=== PATIENT | female | born 1950 | race Caucasian/White ===

== ENCOUNTER 2024-01-23 18:40 | Inpatient (IN) | payer MEDICARE, OTHER, SELFPAY ==
[2024-01-23] VITALS (9 sets, daily range): BP systolic 91–124; BP diastolic 40–66
[2024-01-23 16:40] LABS: Glucose - Point of Care 543 mg/dl (70-99)
--- NOTE | 2024-01-23 16:40 | ED.GENMED ---
History of Present Illness
<Paola Jose, CHECK OUT CLERK - Last Filed: 01/24/24 16:23>
General
Chief Complaint: Blood Sugar Problem
Source: patient, ambulance crew and care home records
Exam Limitations: dementia
Time Seen by Provider: 01/23/24 16:38
Nursing documentation reviewed up to this point in time: agreed with
History of Present Illness
History of Present Illness:
73 yo female with dementia from [facility] here for 'high' blood sugar. Pt keeps pulling her glucose monitoring pod off of her arms and staff has trouble at times keeping her Blood sugars monitored consistently.
Reportedly had pod replaced today.
This a.m. blood sugar reported 200, later, patient vomited 3-4 times bile material and her pod was off. It was replaced and read 'high' so pt sent here for evaluation.
Pt presents awake, alert, NAD
EMS reports pt stood, pivoted well to stretcher, no significant weakness
Pt is demented, pleasant, poor historian. Touching her belly and asked if she has pain, states 'no,' same with chest, no pain.
Past History
<Paola Jose, CHECK OUT CLERK - Last Filed: 01/24/24 16:23>
Past History
ED Past Medical History: IDDM and Psychiatric (anxiety)
Social History
Tobacco: Non-smoker
Alcohol: None
Personal:
Living: care home
Review of Systems
<Paola Jose, CHECK OUT CLERK - Last Filed: 01/24/24 16:23>
Review of Systems
Allergies reviewed?: Yes
All Other Systems: ROS reviewed and negative except as documented in HPI and ROS
Constitutional: Denies fever
Respiratory: Denies trouble breathing
Cardiac: Denies chest pain
ABD/GI: Reports vomiting (as noted in HPI, no vomiting on arrival); Denies abdominal pain
Musculoskeletal: Denies edema
Skin: Reports no symptoms
Phy Exam
<Paola Jose, CHECK OUT CLERK - Last Filed: 01/24/24 16:23>
Physical Exam
Physical Exam:
GENERAL: No acute distress. Alert, not oriented
CONSTITUTIONAL: Afebrile.
EYES: PERRL, conjunctivae normal
Neck: Supple
ENMT: moist mucus membranes, edentulous, pharynx nl
RESPIRATORY: Regular respirations, nonlabored, lungs clear.
CARDIOVASCULAR: Regular rate and rhythm, no murmurs, no rubs.
GI: Soft, nontender, normal BS
MUSCULOSKELETAL: Moves with ease. Well perfused. No edema
SKIN: Warm, dry, pink
PSYCH: Calm mood and affect. Well kept, interactive, follows commands
NEUROLOGIC: Awake, alert disoriented. No focal neurological deficits.
Course
<Paola Jose, CHECK OUT CLERK - Last Filed: 01/24/24 16:23>
Orders/Labs/Results
Orders:
Orders
01/23/24 16:39
0.9% Sodium Chloride 1000 ml [Nss] 1,000 ml IV BOLUS
01/23/24 16:48
Straight cath- Treatment ONCE
B-Hydroxybutyrate Urgent
Comment: ADD ON
Complete Blood Count/With Diff Urgent
Comprehensive Metabolic Panel Urgent
01/23/24 16:59
Urinalysis Reflex To Culture Urgent
Date Specimen was Collected: 01/23/24
Time Specimen was Collected: 16:58
01/23/24 17:30
Add On- LAB Urgent
Tests Added?: Beta hydroxybuterate
01/23/24 17:52
Electrocardiogram (*1) Urgent
Reason for Study: Other
Other Reason for Exam: hyperglycemia
EKG- Treatment ONCE
01/23/24 17:53
Reg Insulin 100 Units/100 ml [Novolin R Insulin Infusion] 100 units in 100 ml IV NOW
01/23/24 17:54
Venous Blood Gas Urgent
%Oxygen/Room Air: RA
01/23/24 18:05
Admit/Transfer Patient As Directed
Co-Sign Provider:
Level of Care: Inpatient admission
Assign to:: ICU
Physician / Group: selma
Diagnosis: DKA
Reason for Hospitalization: DKA
Expected length of stay greater than two midnights?: Yes
ELOS- Estimated Length of Stay in days: 2
I certify the patient meets the requirements for IP care: Yes
01/23/24 18:06
Code Status As Directed
Resuscitation Status: Full Code
01/23/24 18:33
Glucose Stat
Troponin I Urgent
01/23/24 20:22
Heparin 5,000 units SC Q12
01/23/24 20:22
Activity As Directed
Activity Level: As Tolerated
Bedside Glucose Monitoring As Directed
Frequency: Q1H
Intake/ Output As Directed
Frequency: q12h
Notify MD As Directed
Notify physician if: Nurse to contact provider when glucose reaches 250 to obtain orders for D5 0.45 NaCl
Vital Signs As Directed
Frequency: Per unit guidelines
DX Deep Vein Thrombosis Video Routine
01/23/24 21:32
Glycohemoglobin (HgbA1c) Routine
01/23/24 22:00
Alprazolam [Xanax] 1 mg PO HS
01/24/24 05:34
Complete Blood Count/With Diff IN AM
Abnormal Lab Results
01/23/24 01/23/24 01/23/24
16:39 16:48 16:59
WBC 15.3 H 10^3/uL
(4.8-10.8)
RBC 3.80 L 10^6/uL
(4.20-5.40)
Hct 36.0 L %
(37.0-47.0)
MCH 32.9 H pg
(27.0-31.0)
Abs Immat Gran (auto) 0.1 H 10^3/uL
(0-0.05)
Absolute Neuts (auto) 13.8 H 10^3/uL
(1.4-6.5)
Absolute Lymphs (auto) 0.6 L 10^3/uL
(1.2-3.4)
Absolute Monos (auto) 0.8 H 10^3/uL
(0.1-0.6)
Immature Gran % 0.6 H %
(0-0.5)
Neutrophils % 90.2 H %
(42.2-75.2)
Lymphocytes % 4.0 L %
(20.5-51.1)
VBG pCO2
VBG pO2
VBG HCO3
Carbon Dioxide 12 L* mmol/L
(22-30)
BUN 32 H mg/dl
(7-17)
Glucose 606 H* mg/dl
(70-99)
AST 45 H U/L
(14-36)
Urine Ketones 3+ A
(Negative)
Urine Glucose 3+ A
(Negative)
B-Hydroxybutyrate 6.93 H mmol/L
(0.02-0.27)
POC Glucose 543 H* mg/dl
(70-99)
01/23/24 01/23/24 01/23/24
17:54 18:31 18:33
WBC
RBC
Hct
MCH
Abs Immat Gran (auto)
Absolute Neuts (auto)
Absolute Lymphs (auto)
Absolute Monos (auto)
Immature Gran %
Neutrophils %
Lymphocytes %
VBG pCO2 31 L mmHg
(35-48)
VBG pO2 157 H mmHg
(30-50)
VBG HCO3 16.0 L mmol/L
(27)
Carbon Dioxide
BUN
Glucose 492 H* mg/dl
(70-99)
AST
Urine Ketones
Urine Glucose
B-Hydroxybutyrate
POC Glucose 454 H* mg/dl
(70-99)
01/23/24 16:48
01/23/24 18:33
Vital Signs
Initial and Last Documented VS:
Initial Vital Signs
Temp Pulse Resp BP Pulse Ox
98.7 F 84 19 113/45 96
01/23/24 16:39 01/23/24 16:39 01/23/24 16:39 01/23/24 16:39 01/23/24 16:39
Last Documented Vital Signs
Temp Pulse Resp BP Pulse Ox
98.2 F 53 17 135/73 94
01/24/24 15:27 01/24/24 12:00 01/24/24 12:00 01/24/24 10:00 01/23/24 22:38
Traffic Assistant consulted with Physician
Traffic Assistant consulted with physician?: Yes
Name of Physician Consulted: Yakov
<Quique Nagy, DO - Last Filed: 01/23/24 17:52>
Orders/Labs/Results
Orders:
Orders
01/23/24 16:39
0.9% Sodium Chloride 1000 ml [Nss] 1,000 ml IV BOLUS
01/23/24 16:48
Straight cath- Treatment ONCE
B-Hydroxybutyrate Urgent
Comment: ADD ON
Complete Blood Count/With Diff Urgent
Comprehensive Metabolic Panel Urgent
01/23/24 16:59
Urinalysis Reflex To Culture Urgent
Date Specimen was Collected: 01/23/24
Time Specimen was Collected: 16:58
01/23/24 17:30
Add On- LAB Urgent
Tests Added?: Beta hydroxybuterate
01/23/24 17:52
Electrocardiogram (*1) Urgent
Reason for Study: Other
Other Reason for Exam: hyperglycemia
EKG- Treatment ONCE
01/23/24 17:53
Reg Insulin 100 Units/100 ml [Novolin R Insulin Infusion] 100 units in 100 ml IV NOW
01/23/24 17:54
Venous Blood Gas Urgent
%Oxygen/Room Air: RA
01/23/24 18:05
Admit/Transfer Patient As Directed
Co-Sign Provider:
Level of Care: Inpatient admission
Assign to:: ICU
Physician / Group: selma
Diagnosis: DKA
Reason for Hospitalization: DKA
Expected length of stay greater than two midnights?: Yes
ELOS- Estimated Length of Stay in days: 2
I certify the patient meets the requirements for IP care: Yes
01/23/24 18:06
Code Status As Directed
Resuscitation Status: Full Code
01/23/24 18:33
Glucose Stat
Troponin I Urgent
01/23/24 20:22
Heparin 5,000 units SC Q12
01/23/24 20:22
Activity As Directed
Activity Level: As Tolerated
Bedside Glucose Monitoring As Directed
Frequency: Q1H
Intake/ Output As Directed
Frequency: q12h
Notify MD As Directed
Notify physician if: Nurse to contact provider when glucose reaches 250 to obtain orders for D5 0.45 NaCl
Vital Signs As Directed
Frequency: Per unit guidelines
DX Deep Vein Thrombosis Video Routine
01/23/24 21:32
Glycohemoglobin (HgbA1c) Routine
01/23/24 22:00
Alprazolam [Xanax] 1 mg PO HS
01/24/24 05:34
Complete Blood Count/With Diff IN AM
Abnormal Lab Results
01/23/24 01/23/24 01/23/24
16:39 16:48 16:59
WBC 15.3 H 10^3/uL
(4.8-10.8)
RBC 3.80 L 10^6/uL
(4.20-5.40)
Hct 36.0 L %
(37.0-47.0)
MCH 32.9 H pg
(27.0-31.0)
Abs Immat Gran (auto) 0.1 H 10^3/uL
(0-0.05)
Absolute Neuts (auto) 13.8 H 10^3/uL
(1.4-6.5)
Absolute Lymphs (auto) 0.6 L 10^3/uL
(1.2-3.4)
Absolute Monos (auto) 0.8 H 10^3/uL
(0.1-0.6)
Immature Gran % 0.6 H %
(0-0.5)
Neutrophils % 90.2 H %
(42.2-75.2)
Lymphocytes % 4.0 L %
(20.5-51.1)
VBG pCO2
VBG pO2
VBG HCO3
Carbon Dioxide 12 L* mmol/L
(22-30)
BUN 32 H mg/dl
(7-17)
Glucose 606 H* mg/dl
(70-99)
AST 45 H U/L
(14-36)
Urine Ketones 3+ A
(Negative)
Urine Glucose 3+ A
(Negative)
B-Hydroxybutyrate 6.93 H mmol/L
(0.02-0.27)
POC Glucose 543 H* mg/dl
(70-99)
01/23/24 01/23/24 01/23/24
17:54 18:31 18:33
WBC
RBC
Hct
MCH
Abs Immat Gran (auto)
Absolute Neuts (auto)
Absolute Lymphs (auto)
Absolute Monos (auto)
Immature Gran %
Neutrophils %
Lymphocytes %
VBG pCO2 31 L mmHg
(35-48)
VBG pO2 157 H mmHg
(3050)
VBG HCO3 16.0 L mmol/L
()
Carbon Dioxide
BUN
Glucose 492 H* mg/dl
(70-99)
AST
Urine Ketones
Urine Glucose
B-Hydroxybutyrate
POC Glucose 454 H* mg/dl
(70-99)
01/23/24 16:48
01/23/24 18:33
Vital Signs
Initial and Last Documented VS:
Initial Vital Signs
Temp Pulse Resp BP Pulse Ox
98.7 F 84 19 113/45 96
01/23/24 16:39 01/23/24 16:39 01/23/24 16:39 01/23/24 16:39 01/23/24 16:39
Last Documented Vital Signs
Temp Pulse Resp BP Pulse Ox
98.2 F 53 17 135/73 94
01/24/24 15:27 01/24/24 12:00 01/24/24 12:00 01/24/24 10:00 03/27/24 22:38
<Paola Jose CHECK OUT CLERK - Last Filed: 01/24/24 16:23>
MDM/Problems Addressed
Differential Diagnosis Includes:
hyperglycemia, DKA, HHNK, UTI
MDM/Problems Addressed:
73 yo female with dementia from [facility] here for 'high' blood sugar. Pt keeps pulling her glucose monitoring pod off of her arms and staff has trouble at times keeping her Blood sugars monitored consistently.
Reportedly had pod replaced today.
This a.m. blood sugar reported 200, later, patient vomited 3-4 times bile material and her pod was off. It was replaced and read 'high' so pt sent here for evaluation.
Pt presents awake, alert, NAD
EMS reports pt stood, pivoted well to stretcher, no significant weakness
Pt is demented, pleasant, poor historian. Touching her belly and asked if she has pain, states 'no,' same with chest, no pain.
Alert, NAD, afebrile
5:28 PM
CBC: WBC 15.3, neutrophilia
CMP: CO2 12, BUN 32
Anion gap [address] Nagy
5:34 PM
Blood glucose 606
Wt 58.3 kg x 0.05= 2.915 U
Insulin drip at 3U/hr ordered
VBG pending
Hdroxybuterate pending
Plan: Admit: Hyperglycemia , Type 2 DM, vomiting
<Paola Jose, CHECK OUT CLERK - Last Filed: 01/24/24 16:23>
*Critical Care Note
Total Time (30-74mins, 75-104mins- exclusive of procedures): Not Applicable
ED Attending Note
<Paola Jose, CHECK OUT CLERK - Last Filed: 01/24/24 16:23>
-
Portions of this chart may have been created with voice recognition software.� Occasional wrong word or��sound alike� substitutions may have occurred due to the inherent limitations of voice recognition software.
<Quique Nagy, DO - Last Filed: 01/23/24 17:52>
ED Attending Note
Patient seen and examined by attending physician: Yes
I performed the substantive portion of visit, reviewed & personally made and approve the management plan that is documented in note by myself or GELA.: Yes
ED Attending Note:
I agree with Haley's note
Patient sent to the emergency room from her care home due to elevated glucose levels, vomiting today. Patient has significant dementia and is essentially nonverbal. Unclear if she is been receiving insulin.
General: Sleeping but arousable. Significantly confused
Vitals: unremarkable
Head: Atraumatic
Eyes: Pupils equal, EOMI
Throat: Airway intact, no exudates, dry mucosa
Neck: Trachea midline
Lungs: Clear and equal b/l
Heart: Regular rate, no murmurs
Abd: Soft, Nontender, No pulsatile mass
Neuro: Nonfocal
Skin: Warm, dry, no rash
Extremities: pulses equal b/l, no edema
Discharge Plan
Departure
Patient Disposition: Admit
Date of Disposition: 01/23/24
Time of Disposition: 17:48
Admit to: IMU
Presentation/result/management discussed w/ accepting MD/DO: Hospitalist
Condition: Fair
Discharge Problem:
Type 2 diabetes mellitus, Acute hyperglycemia, Vomiting
Interventions
Interventions:
*Risk Screen - Suicide Last Done: 01/23/24 17:00
*General Assessment Last Done: 01/23/24 17:00
*Neglect/Abuse Screening Last Done: 01/23/24 17:00
ED- Fall Risk Assessment Last Done: 01/23/24 17:00
*ED COVID-19 Vaccine History Last Done: 01/23/24 20:19
*Nursing Disposition Last Done: 01/23/24 20:19
ED- Neurological Assessment Last Done: 01/23/24 17:00
Discharge Date and Time
Discharge Date/Time: 01/23/24 20:19
[2024-01-23] MEDS: NSS 1000 IV (16:47)
[2024-01-23 17:06] LABS: % Basophils 0.1 % (0-2); % Immature Granulocytes 0.6 % (0-0.5); % Monocytes 5.1 % (1.7-9.3); % Neutrophils 90.2 % (42.2-75.2); Absolute Immature Granulocytes 0.1 10^3/uL (0-0.05); Absolute Lymphocytes 0.6 10^3/uL (1.2-3.4); Absolute Monocytes 0.8 10^3/uL (0.1-0.6); Absolute Neutrophils 13.8 10^3/uL (1.4-6.5); Hemoglobin 12.5 g/dL (12.0-16.0); Mean Corp Hgb Conc. 34.7 g/dL (33.0-37.0); Mean Corpuscular Hgb 32.9 pg (27.0-31.0); Mean Corpuscular Volume 94.7 fL (81.0-99.0); Mean Platelet Volume 9.2 fL (7.4-10.4); Nucleated Red Blood Cells % 0 %; Platelet Count 255 10^3/uL (130-400); Red Cell Dist. Width 13.7 % (11.5-14.5); White Blood Cell Count 15.3 10^3/uL (4.8-10.8)
[2024-01-23 17:26] LABS: ALT (SGPT) 29 U/L (0-35); AST (SGOT) 45 U/L (14-36); Albumin 4.3 g/dl (3.5-5.0); Alkaline Phosphatase 91 U/L (38-126); Blood Urea Nitrogen 32 mg/dl (7-17); Calcium 9.9 mg/dl (8.4-10.2); Carbon Dioxide 12 mmol/L (22-30); Chloride 107 mmol/L (98-107); Potassium 4.4 mmol/L (3.5-5.1); Sodium 139 mmol/L (135-145); Total Bilirubin 0.9 mg/dl (0.2-1.3); Total Protein 6.9 g/dl (6.3-8.2); eGFR > 60.00
[2024-01-23 17:27] LABS: Urine Albumin Negative (Neg - Trace); Urine Bilirubin Negative (Negative); Urine Character Clear (Clear); Urine Color Yellow; Urine Glucose 3+ (Negative); Urine Ketone 3+ (Negative); Urine Leukocyte Negative (Negative); Urine Nitrite Negative (Negative); Urine Occult Blood Negative (Negative); Urine Urobilinogen Negative (Neg - 1+)
[2024-01-23 17:33] LABS: Glucose 606 mg/dl (70-99)
[2024-01-23 18:02] LABS: Venous Blood Gas O2 Sat % 99.2 %; Venous Blood Gas pCO2 31 mmHg (35-48); Venous Blood Gas pH 7.32 (7.32-7.43); Venous Blood Gas pO2 157 mmHg (30-50)
--- NOTE | 2024-01-23 18:09 | HPS.HSE ---
Family Physician
-
Family Physician: Jose Manuel Yuan
Chief Complaint
-
elevated blood sugar
History of Present Illness
73-year-old female past medical history of diabetes, dementia, anxiety, presenting from [facility] for high blood sugar. This morning blood sugar was 200 and later patient vomited 3-4 times with bilious material. Staff has apparently been
having difficulty tracking her blood sugars but she keeps taking off her glucose monitor. Patient unable to provide history due to significant dementia but is awake and alert and denies any symptoms at this time.
Medical History
Past Medical History
Past Medical History: Reports Other (diabetes, dementia, anxiety,)
Past Surgical History: Reports None
Social History
Tobacco: Non-smoker
Alcohol: None
Drug: None
Family History
Family History: Not pertinent
Allergies / Home Medications
Allergies reflects when Allergies were last updated in [employer].
Home Medications with original date entered in [employer]
Allergy/Medication List:
Allergies
Allergy/AdvReac Type Severity Reaction Status Date / Time
Cephalosporins Allergy Unverified 02/20/08 19:25
penicillin G Allergy Unverified 02/20/08 19:25
Penicillins Allergy Unverified 02/20/08 19:25
Home Medications
alprazolam 0.25 mg tablet 0.25 mg PO Q6H PRN anxiety/restlessness 01/23/24
alprazolam 1 mg tablet 1 mg PO HS 01/23/24
insulin lispro 100 unit/mL subcutaneous solution (Humalog U-100 Insulin) 0 sliding scale dose SC .SEE BELOW 01/23/24
Review of Systems
-
History Source: Patient
A 12 point ROS was completed and negative except as noted: Yes
Constitutional: Reports No Symptoms
EENT: Reports No Symptoms
Respiratory: Reports No Symptoms
Cardiac: Reports No Symptoms
Abdomen/GI: Reports No Symptoms
: Reports No Symptoms
Musculoskeletal: Reports No Symptoms
Skin: Reports No Symptoms
Neurological: Reports No Symptoms
Endocrine: Reports No Symptoms
Hematologic/Lymphatic: Reports No Symptoms
Psych: Reports No Symptoms
Physical Exam
Vital Signs
Vital Signs
Temp Pulse Resp BP Pulse Ox
98.7 F 84 19 113/45 96
01/23/24 16:39 01/23/24 16:39 01/23/24 16:39 01/23/24 16:39 01/23/24 16:39
Physical Exam
General: Well Developed, Well Nourished and No Apparent Distress
HEENT: NormoCephalic, Moist mucous membranes and Atraumatic
Respiratory: Clear
Cardiac: S1/S2 and Regular Rhythm; No Murmur or Rub
GI: Soft, Non Tender, Non Distended and Normal Bowel Sounds; No Organomegaly
Rectal: Deferred by Provider
Musculoskeletal: No Clubbing, No Cyanosis and No Edema
Skin: No Rash
Neuro: Nonfocal/grossly intact
Laboratory Results
-
01/23/24 16:48
01/23/24 16:48
Laboratory Results
Total Bilirubin 0.9 mg/dl (0.2-1.3) 01/23/24 16:48
AST 45 U/L (14-36) H 01/23/24 16:48
ALT 29 U/L (0-35) 01/23/24 16:48
Alkaline Phosphatase 91 U/L (38-126) 01/23/24 16:48
Data Reviewed
-
Lab Data: Labs Reviewed by me
Old Records: Reviewed
Impression/Plan
-
IMPRESSION:
PLAN:
# DKA
# Anion gap metabolic acidosis
# History of diabetes, unknown type
-Blood sugar 600
-VBG pending
-N.p.o.
-D5 1/2 NS with 20 of potassium at 150 cc/hr
-Insulin drip
-Check BMP every 2 hours
-Check glucose every hour
-Check A1c
-Urinalysis negative
Severe dementia
Anxiety
-Continue Xanax
Full code (unable to verify with paperwork)
DVT prophylaxis�heparin
N.p.o.
[2024-01-23] MEDS: NOVOLIN R INSULIN INFUSION 100 IV (18:17)
[2024-01-23 18:23] LABS: B-Hydroxybutyrate 6.93 mmol/L (0.02-0.27)
[2024-01-23 18:32] LABS: Glucose - Point of Care 454 mg/dl (70-99)
[2024-01-23 19:06] LABS: Troponin I 0.022 ng/ml
[2024-01-23 19:08] LABS: Glucose 492 mg/dl (70-99)
[2024-01-23] MEDS: ATIVAN 0.5 MG IV (19:21)
[2024-01-23 19:37] LABS: Glucose - Point of Care 428 mg/dl (70-99)
[2024-01-23 20:11] LABS: Glucose 451 mg/dl (70-99)
--- NOTE | 2024-01-23 20:30 | PTCARENOTE ---
Patient received from ED, awake and alert, unable to follow commands. Patient trying to get OOB, pull off equipment, tearful, unable to re direct. NSR on monitor, no edema noted. Lungs clear, pulse ox 94-97% on room air. Abdomen soft. Assisted
patient to bathroom to void. Skin intact. Bilateral 20 g hand IVs flushed and patent, insulin gtt infusing at 3 units/ hr. CHG bath given, bed alarm on.
[2024-01-23 21:08] LABS: Glucose - Point of Care 432 mg/dl (70-99)
[2024-01-23] MEDS: NSS with KCL 20 MEQ 1000 IV (21:15)
[2024-01-23] MEDS: XANAX 1 MG PO (21:15)
[2024-01-23] MEDS: HEPARIN 5000 UNITS SC (21:15)
[2024-01-23 21:52] LABS: PT 13.2 Sec (11.4-14.6)
[2024-01-23 21:53] LABS: APTT 27.2 Sec (23.4-35.0); Blood Urea Nitrogen 35 mg/dl (7-17); Carbon Dioxide 21 mmol/L (22-30); Chloride 109 mmol/L (98-107); Glucose 405 mg/dl (70-99); Magnesium 2.3 mg/dl (1.6-2.3); Potassium 3.8 mmol/L (3.5-5.1); Sodium 143 mmol/L (135-145); eGFR > 60.00
[2024-01-23 22:14] LABS: Glucose - Point of Care 362 mg/dl (70-99)
[2024-01-23 23:17] LABS: Glucose - Point of Care 320 mg/dl (70-99)
[2024-01-24] VITALS (13 sets, daily range): BP systolic 88–144; BP diastolic 40–74
[2024-01-24 00:04] LABS: Phosphorus 2.9 mg/dl (2.5-4.5)
[2024-01-24] MEDS: D5/0.45%NSS with KCL 20 MEQ 1000 IV ×2 (00:23→06:26)
[2024-01-24 00:24] LABS: Glucose - Point of Care 241 mg/dl (70-99)
--- NOTE | 2024-01-24 00:25 | PTCARENOTE ---
Blood sugar noted, notified SHIFTMAN, IVF changed per protocol. patient sleeping, no changes in assessment
[2024-01-24 01:16] LABS: Glucose - Point of Care 214 mg/dl (70-99)
[2024-01-24 02:17] LABS: Glucose - Point of Care 228 mg/dl (70-99)
[2024-01-24 02:37] LABS: Blood Urea Nitrogen 36 mg/dl (7-17); Calcium 9.8 mg/dl (8.4-10.2); Carbon Dioxide 23 mmol/L (22-30); Chloride 117 mmol/L (98-107); Glucose 222 mg/dl (70-99); Potassium 4.4 mmol/L (3.5-5.1); Sodium 145 mmol/L (135-145); eGFR > 60.00
[2024-01-24 03:14] LABS: Glucose - Point of Care 201 mg/dl (70-99)
--- NOTE | 2024-01-24 03:21 | PTCARENOTE ---
Patient reassessed, sleeping when not disturbed. However, patient becomes uncooperative with care, pulls off equipment, takes multiple people to draw labs from patient. IVF and insulin gtt maintained
[2024-01-24 04:08] LABS: Glucose - Point of Care 226 mg/dl (70-99)
[2024-01-24 05:18] LABS: Glucose - Point of Care 156 mg/dl (70-99)
[2024-01-24 05:43] LABS: Venous Blood Gas B.E. -0.3 mmol/L (-4 to +4); Venous Blood Gas HCO3 25.9 mmol/L (22-27); Venous Blood Gas O2 Sat % 81.5 %; Venous Blood Gas pCO2 48 mmHg (35-48); Venous Blood Gas pH 7.34 (7.32-7.43); Venous Blood Gas pO2 47 mmHg (30-50)
--- NOTE | 2024-01-24 05:47 | PTCARENOTE ---
Patient unable to cooperate for CXR
[2024-01-24 05:53] LABS: % Basophils 0.2 % (0-2); % Eosinophils 0.1 % (0-6); % Immature Granulocytes 0.5 % (0-0.5); % Lymphocytes 7.8 % (20.5-51.1); % Monocytes 8.3 % (1.7-9.3); % Neutrophils 83.1 % (42.2-75.2); Absolute Immature Granulocytes 0.1 10^3/uL (0-0.05); Absolute Lymphocytes 1.2 10^3/uL (1.2-3.4); Absolute Monocytes 1.3 10^3/uL (0.1-0.6); Absolute Neutrophils 12.6 10^3/uL (1.4-6.5); Hematocrit 32.8 % (37.0-47.0); Hemoglobin 11.2 g/dL (12.0-16.0); Mean Corp Hgb Conc. 34.1 g/dL (33.0-37.0); Mean Corpuscular Hgb 32.3 pg (27.0-31.0); Mean Corpuscular Volume 94.5 fL (81.0-99.0); Mean Platelet Volume 9.1 fL (7.4-10.4); Nucleated Red Blood Cells % 0 %; Platelet Count 229 10^3/uL (130-400); Red Blood Cell Count 3.47 10^6/uL (4.20-5.40); Red Cell Dist. Width 13.8 % (11.5-14.5); White Blood Cell Count 15.1 10^3/uL (4.8-10.8)
[2024-01-24 06:10] LABS: Blood Urea Nitrogen 38 mg/dl (7-17); Calcium 9.8 mg/dl (8.4-10.2); Carbon Dioxide 25 mmol/L (22-30); Chloride 113 mmol/L (98-107); Glucose 165 mg/dl (70-99); Magnesium 2.3 mg/dl (1.6-2.3); Phosphorus 3.3 mg/dl (2.5-4.5); Potassium 4.5 mmol/L (3.5-5.1); Sodium 144 mmol/L (135-145); eGFR > 60.00
[2024-01-24 06:10] LABS: Glucose - Point of Care 151 mg/dl (70-99)
[2024-01-24 07:11] LABS: Glucose - Point of Care 161 mg/dl (70-99)
[2024-01-24 08:13] LABS: Glucose - Point of Care 148 mg/dl (70-99)
--- NOTE | 2024-01-24 08:28 | W.PN.HOSP.TC ---
Today's Communication/Plan
-
Stable for telemetry
Assessment / Plan
Assessment / Plan
73-year-old female past medical history of diabetes, dementia, anxiety, presenting from [facility] for high blood sugar. This morning blood sugar was 200 and later patient vomited 3-4 times with bilious material. Staff has apparently been
having difficulty tracking her blood sugars but she keeps taking off her glucose monitor. Patient unable to provide history due to significant dementia but is awake and alert and denies any symptoms at this time.
# DKA
# Anion gap metabolic acidosis
# History of diabetes, unknown type
Blood sugar 600, beta hydroxybutyric acid 6.93
Gap resolved on insulin drip
Stop insulin drip, start subcu insulin, diabetic diet, Accu-Cheks ACHS
#Uncontrolled diabetes with hyperglycemia
Hemoglobin A1c 10.5
Started on Lantus 20 units daily, NovoLog 5 units AC 3 times daily, sliding scale insulin, diabetic diet
#Leukocytosis
Afebrile, no signs or symptoms of infection, UA negative for infection
Likely reactive, continue to monitor
#Severe dementia
Anxiety
-Continue Xanax
DVT prophylaxis�SQ Lovenox
Full code (unable to verify with paperwork)
Updated at bedside
Total time spent to see the patient on the floor, examine the patient, review data and lab results, discuss treatment plan with patient, nursing staff around 51 minutes.
Physical Exam
General: Frail, elderly, no acute distress
HEENT: Normocephalic, Atraumatic, EOMI, MMM
Respiratory: Clear to Auscultation bilaterally
Cardiac: Normal S1/S2, Regular Rate and Rhythm
GI: Soft, Nontender, Nondistended, Normal Bowel Sounds
Extremities: No Clubbing, Cyanosis, or Edema
Neuro: Confused, not answering questions
Psych: Intermittently agitated
Derm: No Visible lesions
Anticipated Discharge: Within 24 hours
Subjective/Interval History
-
Date of Service: January 24, 2024
Patient alert, awake, eating breakfast and drinking well. She refuses to answer questions. No fever, no vomiting.
Objective Data
-
Labs:
Laboratory Results
01/23/24 01/24/24 01/24/24
21:32 02:02 04:00
WBC
Hgb
Hct
Plt Count
PT 13.2
INR 1.00
APTT 27.2
Sodium 143 145 Cancelled
Potassium 3.8 4.4 Cancelled
Chloride 109 H 117 H Cancelled
Carbon Dioxide 21 L 23 Cancelled
BUN 35 H 36 H Cancelled
Creatinine 0.7 0.6 Cancelled
Glucose 405 H 222 H Cancelled
Calcium 10.0 9.8 Cancelled
01/24/24 01/24/24 01/24/24
05:34 12:00 16:00
WBC 15.1 H
Hgb 11.2 L
Hct 32.8 L
Plt Count 229
PT
INR
APTT
Sodium 144 Cancelled Cancelled
Potassium 4.5 Cancelled Cancelled
Chloride 113 H Cancelled Cancelled
Carbon Dioxide 25 Cancelled Cancelled
BUN 38 H Cancelled Cancelled
Creatinine 0.5 L Cancelled Cancelled
Glucose 165 H Cancelled Cancelled
Calcium 9.8 Cancelled Cancelled
01/24/24
20:00
WBC
Hgb
Hct
Plt Count
PT
INR
APTT
Sodium Cancelled
Potassium Cancelled
Chloride Cancelled
Carbon Dioxide Cancelled
BUN Cancelled
Creatinine Cancelled
Glucose Cancelled
Calcium Cancelled
Vital Signs:
Vital Signs
Temp Pulse Resp BP Pulse Ox
98.8 F 61 17 103/61 94
01/24/24 07:49 01/24/24 05:00 01/24/24 05:00 01/24/24 05:00 01/23/24 22:38
I&O
01/23/24 01/24/24 01/25/24
06:59 06:59 06:59
Intake Total 1536 / 1536
Balance 1536 / 1536
--- NOTE | 2024-01-24 08:30 | PTCARENOTE ---
Assumed care of patient. Pt rec'd sleeping. Arouses to tactile stimuli. Anxious, tearful, agitated w/ any nursing care. Occasionally smiles but overall appears stressed and confused. GREY's....does not follow any commands. S1 S2 reg w/ SB on
monitor. +PP. No edema. On R/A...lungs diminished. Abdomen round..hypo BS. Ambulated pt to bathroom w/ assist x 2. Extremely agitated prior to urination....agitation relieved w/ urination. Skin WNL. IVF's and insulin gtt infusing...see
interventions. VS documented. Bed alarm on. Will continue to monitor closely.
--- NOTE | 2024-01-24 08:33 | CON.INTV ---
Addendum entered and electronically signed by Parish Ramos MD 01/24/24 18:25:
Patient is being prepared for transfer to telemetry. Prosthetist/pulmonary service will now sign off. Thank you for allowing us to be involved in the care of this patient. Please reconsult if there are any additional questions/concerns, or if
patient's respiratory status deteriorates.
Original Note:
Consultation
Consultation Request
Date/Time Consultation Requested: 01/24/2024826
Date/Time Consultation Performed: 01/24/2024830
Requesting Provider: Dr. Lozano
Performing Provider: Dr. Ramos
Reason for Consultation: DKA
Medical History
-
Chief Complaint: High blood sugar
History of Present Illness:
73-year-old F with PMHx of DM type II & advanced dementia who p/w high blood glucose. She was found to have metabolic acidosis with sHCO3 of 12 and BG of 606. Urine ketones are +3. BOHB was elevated at 6.93. She was given 1L NS 0.9% and started
on insulin gtt, and admitted to ICU. Prosthetist service consulted for additional management/recommendations.
When I saw the patient this morning she was resting in bed on room air, breathing comfortably and respiratory rate at 17. BP 102/58 and she is afebrile at 98.8 �F. When nursing care was attempted the patient did get very agitated and tried to hit
the staff. at bedside and said that sometimes she does do this although the patient lives at a memory care dementia unit so he is not always fully aware of her outbursts. She is otherwise calm and in no acute distress. Unable to obtain
HPI from the patient given her advanced dementia.
Per family (), the patient lives at a Memory Care unit for advanced dementia. She possibly did not have her Omnipod fully into her skin. The pt was also eating candy's from other patient's rooms. The patient was only started on this
Omnipod for last 2 weeks; prior to that she was on SQ insulin.
PMHx: DM type II, dementia, anxiety
PSHx: Noncontributory
Past Medical History
Past Medical History: Other (above as per HPI)
Past Surgical History: Other (above as per HPI)
Social History
Tobacco: Non-smoker
Alcohol: None
Drug: None
Family History
Family History: Reviewed & Not Pertinent
Allergies / Home Medications
Allergies
Allergy/AdvReac Type Severity Reaction Status Date / Time
Cephalosporins Allergy Unknown Unknown Verified 01/23/24 19:15
Penicillins Allergy Unknown Unknown Verified 01/23/24 19:15
Home Medications
�Medication �Instructions �Recorded �Confirmed �Last Taken �Type
alprazolam 0.25 mg tablet 0.25 mg PO Q6H PRN 01/23/24 01/23/24 Unknown History
anxiety/restlessness
alprazolam 1 mg tablet 1 mg PO HS 01/23/24 01/23/24 Unknown History
insulin lispro 100 unit/mL 0 sliding scale dose SC .SEE BELOW 01/23/24 01/23/24 Unknown History
subcutaneous solution (Humalog
U-100 Insulin)
Review of Systems
-
Unable to Obtain full review of systems at this time due to: Dementia
Vitals / Labs / Diagnostic Testing
Vital Signs
Temp Pulse Resp BP Pulse Ox
98.8 F 61 17 103/61 94
01/24/24 07:49 01/24/24 05:00 01/24/24 05:00 01/24/24 05:00 01/23/24 22:38
Lab Data
01/24/24 05:34
01/24/24 20:00
Laboratory Results
01/23/24
21:32
PT 13.2
INR 1.00
APTT 27.2
Diagnostic Testing:
Physical Exam
-
HEENT: Normocephalic and Anicteric
Cardiovascular: S1/S2 and Peripheral Edema (negative)
Respiratory: Clear, Wheeze (n), Rales (n), Rhonchi (n) and Non-Labored Respirations
GI: Soft, Non Distended and Non Tender
Neurology: Awake, Alert and Tremors (n)
Skin: Warm and Dry
General: Comfortable and Sweats (n)
Assessment
-
Assessment: 73-year-old F with PMHx of DM type II & advanced dementia who p/w high blood glucose. She was found to have metabolic acidosis with sHCO3 of 12 and BG of 606. Urine ketones are +3. BOHB was elevated at 6.93. She was given 1L NS 0.9%
and started on insulin gtt, and admitted to ICU. Prosthetist service consulted for additional management/recommendations.
Chronic medical conditions PATROL MOTHER: DM type II, dementia, anxiety
Impression:
#DM type II c/b DKA without coma - DKA now resolved as of this AM (diabetes is uncontrolled with HbA1C: 10.5)
#Metabolic acidosis with increased AG due to above - AG now closed and acidosis resolved
#Leukocytosis - likely reactive due to above
#Anxiety
#Dementia
Plan:
- Wean off insulin gtt and use basal-bolus insulin
- Continue q1hr POCT glucose while on insulin gtt and continue IVF hydration with D5-1/2NS with KCl @ 150mL/hr
- Serial labs with BMP q4hr, Mg and PO4 while on insulin gtt; once off then change back to qAM
- Once off insulin gtt then stop D5 IVF and change POCT to pre-meal/HS
- Once off insulin gtt then can start ADA diet
- Goal BG 140-180mg/dL
- Trend WBC and observe off ABx; if pt spikes fever then faulkner-Cx and start broad spectrum Abx
- Maintain MAP>65
- Replete electrolytes with K>4, Mg>2
- SW consult as eventually pt will be DC'd back to her dementia unit
- stress ulcer ppx: N/A
- DVT ppx: LMWH
Total time spent today was 55 minutes for this encounter. Time includes reviewing laboratory test/imaging results, reviewing pertinent medical records, obtaining and reviewing medical history, performing an appropriate exam, ordering medications,
tests and procedures. Time also includes documentation of this encounter, coordinating patient care and communicating with other healthcare professionals. Total time does not include separately billed tests performed on this date of service.
[2024-01-24 08:44] LABS: Glycohemoglobin (HgbA1c) 10.5 % (4.0-5.6)
--- NOTE | 2024-01-24 09:00 | PTCARENOTE ---
Spoke w/ Costa at [facility] at length about pt's insulin requirements. Costa stated that pt was on a new omnipod system in the last two weeks. Prior to that, pt was on tresiba w/ meal coverage. Pharmacy fully updated. Discussed plan
of care w/ ...orders rec'd. Pt to advance to 1800 na ada diet w/ lantus and meal coverage.
[2024-01-24] MEDS: 0.45%NACL 1000 IV (09:09)
[2024-01-24] MEDS: HEPARIN 5000 UNITS SC (09:11)
[2024-01-24 09:15] LABS: Glucose - Point of Care 153 mg/dl (70-99)
[2024-01-24] MEDS: LANTUS 0.200000000000000011 UNITS SC (09:39)
[2024-01-24] MEDS: ATIVAN 0.5 MG IV ×2 (10:14→22:32)
--- NOTE | 2024-01-24 10:30 | PTCARENOTE ---
Pts at bedside. Fully updated on patient's plan of care. Insulin gtt off...lantus added and breakfast ordered.
[2024-01-24] MEDS: NOVOLOG FLEXPEN 5 UNITS SC ×2 (10:32→17:52)
[2024-01-24] MEDS: NOVOLOG FLEXPEN-MODERATE RESISTANCE 1 UNITS SC (10:32)
[2024-01-24 10:44] LABS: Glucose - Point of Care 161 mg/dl (70-99)
--- NOTE | 2024-01-24 11:30 | PTCARENOTE ---
Pt extremely anxious, cursing, and combative for short period while changing pt's linens. Pt calmed shortly after...warm blanket applied. Tx to tele per when bed available.
--- NOTE | 2024-01-24 12:57 | CM ---
CM following re: discharge planning.
Discussed in Rounds, reviewed pt's chart, met with p[t, left a message to pt's , left a message to clinical director at [facility] and spoke to pt's son Sergio.
Pt is a 73 year old female, admitted with primary dx of DKA.
Pt is not a great historian due to Dementia. Per son, pt has been living at [facility] facility since August 2023. Per son, pt ambulates independently, did not use any mobile devices. Per son, pt's (his stepfather)
lives alone and visited the pt at [facility] often. Pt's son stated that pt will return back to [facility] when medically stable.
PCP: Jose Manuel Yuan
Pharmacy: [facility]
D/C plan: return back to [facility]
CM will follow with discharge plan updates as hospitalization progresses
[2024-01-24 17:52] LABS: Glucose - Point of Care 274 mg/dl (70-99)
[2024-01-24] MEDS: NOVOLOG FLEXPEN-MODERATE RESISTANCE 5 UNITS SC (17:52)
[2024-01-24] MEDS: LOVENOX 40 MG SC (17:55)
[2024-01-24 21:14] LABS: Glucose - Point of Care 157 mg/dl (70-99)
[2024-01-24] MEDS: XANAX 1 MG PO (21:32)
[2024-01-25 03:00] VITALS: BP 120/63
[2024-01-25] MEDS: ATIVAN 0.5 MG IV ×2 (04:33→14:45)
[2024-01-25 06:00] VITALS: BMI 21.7
[2024-01-25 07:00] VITALS: BP 121/61
[2024-01-25 07:34] LABS: Glucose - Point of Care 219 mg/dl (70-99)
[2024-01-25 07:45] LABS: Mean Corp Hgb Conc. 35.5 g/dL (33.0-37.0); Mean Corpuscular Volume 93.1 fL (81.0-99.0); Mean Platelet Volume 9.2 fL (7.4-10.4); Platelet Count 174 10^3/uL (130-400); Red Blood Cell Count 3.33 10^6/uL (4.20-5.40); Red Cell Dist. Width 13.7 % (11.5-14.5); White Blood Cell Count 7.1 10^3/uL (4.8-10.8)
[2024-01-25 08:30] VITALS: BP 153/82
[2024-01-25 08:35] VITALS: BP 153/82
[2024-01-25 08:38] LABS: Blood Urea Nitrogen 20 mg/dl (7-17); Calcium 9.6 mg/dl (8.4-10.2); Carbon Dioxide 24 mmol/L (22-30); Chloride 108 mmol/L (98-107); Estimated Creatinine Clearance 67 ml/min; Glucose 202 mg/dl (70-99); Magnesium 1.7 mg/dl (1.6-2.3); Phosphorus 3.5 mg/dl (2.5-4.5); Potassium 3.9 mmol/L (3.5-5.1); Sodium 134 mmol/L (135-145); eGFR > 60.00
[2024-01-25] MEDS: LANTUS 0.200000000000000011 UNITS SC (08:42)
[2024-01-25] MEDS: NOVOLOG FLEXPEN 5 UNITS SC (08:43)
[2024-01-25] MEDS: NOVOLOG FLEXPEN-MODERATE RESISTANCE 3 UNITS SC (08:43)
--- NOTE | 2024-01-25 09:08 | W.PN.HOSP.TC ---
Addendum entered and electronically signed by Bebeto Lozano MD 01/25/24 15:14:
Patient has dementia with behavioral disturbance
Original Note:
Today's Communication/Plan
-
discharge today
Assessment / Plan
Assessment / Plan
73-year-old female past medical history of diabetes, dementia, anxiety, presenting from [facility] for high blood sugar. This morning blood sugar was 200 and later patient vomited 3-4 times with bilious material. Staff has apparently been
having difficulty tracking her blood sugars but she keeps taking off her glucose monitor. Patient unable to provide history due to significant dementia but is awake and alert and denies any symptoms at this time.
# DKA
# Anion gap metabolic acidosis
# History of diabetes, unknown type
Blood sugar 600, beta hydroxybutyric acid 6.93
Gap resolved on insulin drip, out of ICU 01/23
S/p insulin drip, continue subcu insulin, diabetic diet, Accu-Cheks ACHS
Medically stable for discharge back to memory care unit today
#Uncontrolled diabetes with hyperglycemia
Hemoglobin A1c 10.5
Increase Lantus 25 units daily, increase NovoLog 7 units AC 3 times daily, sliding scale insulin, diabetic diet
This regimen needs to be continued upon discharge
#Sinus bradycardia
Monitor
#Leukocytosis
Afebrile, no signs or symptoms of infection, UA negative for infection
Likely reactive, continue to monitor
#Severe dementia
Anxiety
-Continue Xanax
DVT prophylaxis�SQ Lovenox
Full code (unable to verify with paperwork)
Updated at bedside 01/23
Physical Exam
General: Frail, elderly, no acute distress
HEENT: Normocephalic, Atraumatic, EOMI, MMM
Respiratory: Clear to Auscultation bilaterally
Cardiac: Normal S1/S2, Regular Rate and Rhythm
GI: Soft, Nontender, Nondistended, Normal Bowel Sounds
Extremities: No Clubbing, Cyanosis, or Edema
Neuro: Confused, not answering questions
Psych: Intermittently agitated
Derm: No Visible lesions
Anticipated Discharge: Today
Subjective/Interval History
-
Date of Service: January 25, 2024
Patient eating and drinking well. No fever, no vomiting.
Objective Data
-
Labs:
Laboratory Results
01/25/24
06:57
WBC 7.1
Hgb 11.0 L
Hct 31.0 L
Plt Count 174 D
Sodium 134 L D
Potassium 3.9
Chloride 108 H
Carbon Dioxide 24
BUN 20 H
Creatinine 0.4 L
Glucose 202 H
Calcium 9.6
Vital Signs:
Vital Signs
Temp Pulse Resp BP Pulse Ox
97.2 F 56 18 121/61 94
01/25/24 07:00 01/25/24 07:00 01/25/24 07:00 01/25/24 07:00 01/25/24 07:00
I&O
01/24/24 01/25/24 01/26/24
06:59 06:59 06:59
Intake Total 1536 / 1688 1365 / 1365
Output Total 250 / 250
Balance 1536 / 1688 1115 / 1115
--- NOTE | 2024-01-25 09:28 | CM ---
Addendum entered by Afsaneh Randall 01/25/24 10:37:
Ambulance transport forms completed.
Ambulance transport 3 pm Acute care.
Spouse Vito Armando updated by phone.
IMM reviewed with spouse via phone.
Costa from [facility] updated re transport time.
Original Note:
Patient for transfer to the [facility].
Costa/MADY from facility updated.
[facility]
Report# [phone]
[2024-01-25] MEDS: NSS 250 IV (09:30)
[2024-01-25] MEDS: LANTUS 0.0500000000000000028 UNITS SC (10:10)
[2024-01-25 10:59] VITALS: BP 130/64
--- NOTE | 2024-01-25 11:56 | W.DCSUMMARY ---
Discharge Summary
Discharge Data
Date of Admission: 01/23/24
Date of Discharge: 01/25/24
-
Pending Results: No
Hospital Course
Discharge diagnoses:
Diabetic ketoacidosis
Anion gap metabolic acidosis
Uncontrolled diabetes with hyperglycemia
Dementia with behavioral disturbance
Sinus bradycardia
Leukocytosis
Hyponatremia
Anxiety
Consults: [facility]loom Weaver
Hospital course:
73-year-old female past medical history of diabetes, dementia, and anxiety, presented from the [facility] for hyperglycemia and vomiting. Staff has been having difficulty tracking her blood sugars and she keeps taking off her glucose
monitor.
Patient was found to have diabetic ketoacidosis with an anion gap metabolic acidosis. She was treated in the ICU with insulin drip, IV fluids, and had her BMP checked every 4 hours.
By the following day, her her anion gap closed. Her vomiting resolved. She was transitioned from the insulin drip to subcu insulin, and transferred to the floor.
Patient did well, she tolerated her diet. Her insulin regimen was titrated. Her hemoglobin A1c is 10.5. She needs to continue Lantus 25 units daily, NovoLog 7 units AC 3 times daily, with sliding scale insulin.
Patient also had a leukocytosis upon admission. She was afebrile, there were no signs or symptoms of infection. Her leukocytosis resolved without any antibiotics.
Patient's medical conditions have been optimized. She will be discharged back to the [facility]. She needs to follow-up with her primary care doctor in 1 week.
Disposition:[facility]
Just discharge planning: Required 35 minutes
Discharge Plan
-
Patient Disposition: Home (Routine Discharge)
Discharge Diagnosis/Procedures: Diabetic ketoacidosis, dementia, leukocytosis, bradycardia
Condition: Fair
Diet: Diabetic, Carb Controlled
Activity Restrictions/Additional Instructions:
It is very important that the patient continues this insulin regimen upon discharge:
Lantus 25 units subcu daily
NovoLog 7 units 3 times a day before meals, skip if not eating
Follow-up with your primary care doctor in 1 week
Referrals:
Jose Manuel Yuan MD [Family Provider] - in one week
Prescriptions:
New
insulin glargine [Lantus Solostar U-100 Insulin] 100 unit/mL (3 mL) insulin pen
25 unit SC DAILY Qty: 15 0RF
insulin aspart U-100 100 unit/mL (3 mL) Insulin Pen
7 unit SC AC Qty: 15 0RF
(DME) pen needle, diabetic 29 gauge x 3/8' needle
See Rx Instructions .Route Qty: 100 0RF
Rx Instructions:
As directed
Continued
alprazolam 1 mg tablet
1 mg PO HS
alprazolam 0.25 mg Tablet
0.25 mg PO Q6H PRN (Reason: anxiety/restlessness)
insulin lispro [Humalog U-100 Insulin] 100 unit/mL Solution
0 sliding scale dose SC .SEE BELOW
Rx Instructions:
Basal Rate 0.8u/hrly. Bolus 1unit/13.6 carbs
Bolus 85 carbs each meal, add blood sugar number to correction at each meal and at bedtime
Discharge Orders:
Discharge Patient (As Directed); Ordered 01/25/24
Ordered By: Bebeto Lozano
Discharge Date and Time
Print Language: MOROCCAN
[2024-01-25 12:02] LABS: Glucose - Point of Care 164 mg/dl (70-99)
[2024-01-25] MEDS: NOVOLOG FLEXPEN-MODERATE RESISTANCE 1 UNITS SC (12:51)
[2024-01-25] MEDS: NOVOLOG FLEXPEN 7 UNITS SC (12:52)
--- NOTE | 2024-01-25 14:14 | PN.CDI ---
CDI
- -
CDI:
Physician Documentation Request
Admit Date: 01/23/24 18:40
Dear Doctor Do,
Patient admitted with DKA.
01/24 progress note, 'Severe dementia'.
01/23 PCN, 'Pt extremely anxious, cursing, and combative for short period while changing pt's linens.'.
01/23 PCN, 'Anxious, tearful, agitated w/ any nursing care....confused.'
Based on the above, please clarify in the Progress Notes and Discharge Summary which, if any of the following, is the most likely etiology of the confusion/altered mental status.
Dementia with behavioral disturbances (aggressive, combative or violent behavior)
Dementia only
Other
Use of terms such as suspected, likely, concern for, or probable (associated with a specific diagnosis that is being evaluated, monitored, or treated as if it exists) are acceptable and can be coded in the inpatient setting, when documented at the
time of discharge.
Thank you,
Mindy KAPOOR,RN,CCDS
CDI Specialist
Available via [place] text
Please use your independent medical judgment in providing your response.
[2024-01-25] MEDS: NSS (PRESERVATIVE FREE) 0.25 ML IV (14:45)
[2024-01-25 14:55] VITALS: BP 109/54
== END 2024-01-25 16:11 | disposition home or self-care (01) | DRG 638 ==
LOC: 4 WEST ACU 18:40
PROVIDERS: Nurse Practitioner Family; Registered Nurse; ADMITTING PHYSICIAN Hospitalist; ATTENDING PHYSICIAN Family Medicine; EMERGENCY PHYSICIAN Emergency Medicine; FAMILY PHYSICIAN Family Medicine; OTHER PHYSICIAN Internal Medicine Critical Care Medicine
DX: E11.10 Type 2 diabetes mellitus with ketoacidosis without coma (principal); E87.1 Hypo-osmolality and hyponatremia; F03.C11 Unspecified dementia, severe, with agitation; F03.C4 Unspecified dementia, severe, with anxiety; D72.829 Elevated white blood cell count, unspecified; R00.1 Bradycardia, unspecified; Z88.1 Allergy status to other antibiotic agents; Z88.0 Allergy status to penicillin; Z79.4 Long term (current) use of insulin
CPT/HCPCS: 51701; 80048; 80053; 81003; 82010; 82805; 82947; 82962; 83036; 83735; 84100; 84484; 85025; 85027; 85610; 85730; 87070; 93005; 96361; 96374; 97162; 97166; 99285

== ENCOUNTER 2024-02-10 17:48 | Inpatient (IN) | payer MEDICARE, OTHER, SELFPAY ==
[2024-02-10 14:47] VITALS: BP 189/103
--- NOTE | 2024-02-10 14:48 | ED.GENMED ---
History of Present Illness
General
Chief Complaint: Musculo-Skeletal Complaint
Time Seen by Provider: 02/10/24 14:47
Travel History
Have you had any contact with someone who has COVID-19?: Unable to Answer
Do you have any symptoms of coronavirus? Fever > 100 degrees, chills, cough, shortness of breath, sore throat, loss of taste or smell, muscle aches, or headache?: Unable to Answer
History of Present Illness
History of Present Illness:
HPI: I spoke to EMS for history as the patient has a history of dementia. The patient presents from a [facility] by ambulance. She apparently was found down and complained of right hip pain. EMS was concerned for hip fracture. They gave her 60
mcg of fentanyl prior to arrival. EMS checked her blood sugar and it was determined to be 'high'. She was given 200 mL of IV fluid prior to arrival. The patient apparently hoards chocolates and apparently there was candy found in her bra.
EXAM:
GENERAL: The patient appears tearful and confused
HEENT: Moist oral mucosa
CARDIOVASCULAR: Regular rate and rhythm
PULMONARY: No respiratory distress, breathing is nonlabored, equal and clear breath sounds
ABDOMEN: Soft and nontender with no peritoneal signs
NEUROLOGIC: The patient has evidence of dementia, not oriented to month or place, strength is equal in all extremities
EXTREMITIES: There is marked pain with passive range of motion into rotation at the right hip, there is also tenderness to palpation of the proximal right lower extremity
PYSCHIATRIC: Very limited historian, poor insight and judgment
TIME OF INITIAL ENCOUNTER: 2:45 PM
NUMBER AND COMPLEXITY OF PROBLEMS ADDRESSED AT THE ENCOUNTER
� Chronic conditions affecting care: Dementia, IDDM, high blood pressure
� Acute Exacerbation and/or Progression of Chronic Illness: This is an acute problem
� Differential Diagnosis includes: Hip fracture, poorly controlled diabetes, DKA
AMOUNT AND/OR COMPLEXITY OF DATA TO BE REVIEWED AND ANALYZED
� I performed an independent evaluation of and my interpretation is:
EKG:
CT:
X-rays: I personally viewed x-ray and it shows displaced right femoral neck fracture
Laboratory Studies: CBC unremarkable, chemistry showed glucose of 442 but no evidence for DKA
Other:
� Review of other/old records: I reviewed records. The patient was admitted here less than 1 month ago with DKA/uncontrolled hyperglycemia. She has a history of dementia with behavioral disturbance.
� Clinical information was obtained by an independent historian: EMS
� Prescriptions/Medications Considered but not given:
� Further testing considered but not performed:
RISK OF COMPLICATIONS AND/OR MORBIDITY OR MORTALITY OF PATIENT MANAGEMENT
� Social determinants of health affecting care: The patient presents from a nursing
� Discussion with other providers: Notified orthopedics, Dr. Nguyen; hospitalist for admission
� Escalation of care including admission/observation vs risk of discharge considered: I do have concern for hip fracture based on physical exam upon arrival. She was given fentanyl prior to arrival but she still appears
uncomfortable�she was given Dilaudid.
Past History
Past History
ED Past Medical History: IDDM and Psychiatric (anxiety)
Social History
Tobacco: Non-smoker
Alcohol: None
Personal:
Living: [facility]
Phy Exam
Physical Exam
Physical Exam:
See HPI
Course
Orders/Labs/Results
Orders:
Orders
02/10/24 14:47
Hip, Right 2-3 Views [CR Hip - RT w/wo Pel 2-3 Vw*] Urgent
Comment:
Reason For Exam: fall pain
Include a pelvis x-ray?: Yes
02/10/24 14:57
HYDROmorphone [Dilaudid] 0.5 mg IV NOW STA
Ondansetron Injectable [Zofran] 4 mg IV NOW STA
CR Femur - Right Min 2 Vw Urgent
Comment:
Reason For Exam: trauma
02/10/24 14:59
0.9% Sodium Chloride 1000 ml [Nss] 1,000 ml IV BOLUS
02/10/24 15:05
Basic Metabolic Panel Urgent
02/10/24 15:06
Type+Screen Urgent
Complete Blood Count/With Diff Urgent
02/10/24 17:08
Lorazepam [Ativan] 2 mg .ROUTE .STK-MED ONE
02/10/24 17:11
Lorazepam [Ativan] 0.5 mg IV NOW STA
Abnormal Lab Results
02/10/24 02/10/24 02/10/24
14:57 15:05 15:06
WBC 4.7 L 10^3/uL
(4.8-10.8)
RBC 3.89 L 10^6/uL
(4.20-5.40)
Hct 35.2 L %
(37.0-47.0)
MCH 32.9 H pg
(27.0-31.0)
Absolute Lymphs (auto) 0.7 L 10^3/uL
(1.2-3.4)
Neutrophils % 75.4 H %
(42.2-75.2)
Lymphocytes % 15.9 L %
(20.5-51.1)
Creatinine 0.4 L mg/dL
(0.6-1.0)
Glucose 442 H mg/dl
(70-99)
POC Glucose 426 H mg/dl
(70-99)
02/10/24 15:06
02/10/24 15:05
Vital Signs
Initial and Last Documented VS:
Initial Vital Signs
Temp Pulse Resp BP Pulse Ox
98.6 F 98 20 189/103 98
02/10/24 14:47 02/10/24 14:47 02/10/24 14:47 02/10/24 14:47 02/10/24 14:47
Last Documented Vital Signs
Temp Pulse Resp BP Pulse Ox
98.6 F 98 20 189/103 98
02/10/24 14:47 02/10/24 14:47 02/10/24 14:47 02/10/24 14:47 02/10/24 14:47
*Critical Care Note
Total Time (30-74mins, 75-104mins- exclusive of procedures): Not Applicable
ED Attending Note
-
Portions of this chart may have been created with voice recognition software.� Occasional wrong word or��sound alike� substitutions may have occurred due to the inherent limitations of voice recognition software.
Discharge Plan
Departure
Patient Disposition: Admit
Date of Disposition: 02/10/24
Time of Disposition: 17:15
Presentation/result/management discussed w/ accepting MD/DO: Hospitalist
Discharge Problem:
Closed hip fracture
Prescriptions:
No Action
alprazolam 1 mg tablet
1 mg PO HS
alprazolam 0.25 mg Tablet
0.25 mg PO Q6H PRN (Reason: anxiety/restlessness)
insulin lispro [Humalog U-100 Insulin] 100 unit/mL Solution
0 sliding scale dose SC .SEE BELOW
Rx Instructions:
Basal Rate 0.8u/hrly. Bolus 1unit/13.6 carbs
Bolus 85 carbs each meal, add blood sugar number to correction at each meal and at bedtime
insulin glargine [Lantus Solostar U-100 Insulin] 100 unit/mL (3 mL) insulin pen
25 unit SC DAILY Qty: 15 0RF
insulin aspart U-100 100 unit/mL (3 mL) Insulin Pen
7 unit SC AC Qty: 15 0RF
(DME) pen needle, diabetic 29 gauge x 3/8' needle
See Rx Instructions .Route Qty: 100 0RF
Rx Instructions:
As directed
Referrals:
UNKNOWN - PT NOT,INTERVIEWE [Family Provider] -
Interventions
Interventions:
*Risk Screen - Suicide Last Done: 02/10/24 14:49
*General Assessment Last Done: 02/10/24 14:49
*Neglect/Abuse Screening Last Done: 02/10/24 14:49
ED- Fall Risk Assessment Last Done: 02/10/24 14:52
*ED COVID-19 Vaccine History Last Done: 02/10/24 14:52
ED-Musculoskeletal Assessment Last Done: 02/10/24 15:28
Discharge Date and Time
Print Language: MALAY
[2024-02-10 15:06] LABS: Glucose - Point of Care 426 mg/dl (70-99)
[2024-02-10] MEDS: DILAUDID 0.5 MG IV ×3 (15:07→21:35)
[2024-02-10] MEDS: ZOFRAN 4 MG IV (15:07)
[2024-02-10] MEDS: NSS 1000 IV ×2 (15:08→21:30)
[2024-02-10 15:19] LABS: % Basophils 0.4 % (0-2); % Eosinophils 0.6 % (0-6); % Immature Granulocytes 0.4 % (0-0.5); % Lymphocytes 15.9 % (20.5-51.1); % Monocytes 7.3 % (1.7-9.3); % Neutrophils 75.4 % (42.2-75.2); Absolute Lymphocytes 0.7 10^3/uL (1.2-3.4); Absolute Monocytes 0.3 10^3/uL (0.1-0.6); Absolute Neutrophils 3.5 10^3/uL (1.4-6.5); Hematocrit 35.2 % (37.0-47.0); Hemoglobin 12.8 g/dL (12.0-16.0); Mean Corp Hgb Conc. 36.4 g/dL (33.0-37.0); Mean Corpuscular Hgb 32.9 pg (27.0-31.0); Mean Corpuscular Volume 90.5 fL (81.0-99.0); Mean Platelet Volume 9.3 fL (7.4-10.4); Nucleated Red Blood Cells % 0 %; Platelet Count 213 10^3/uL (130-400); Red Blood Cell Count 3.89 10^6/uL (4.20-5.40); White Blood Cell Count 4.7 10^3/uL (4.8-10.8)
[2024-02-10 15:26] LABS: Blood Urea Nitrogen 13 mg/dl (7-17); Calcium 9.2 mg/dl (8.4-10.2); Carbon Dioxide 28 mmol/L (22-30); Chloride 103 mmol/L (98-107); Glucose 442 mg/dl (70-99); Potassium 4.1 mmol/L (3.5-5.1); Sodium 137 mmol/L (135-145); eGFR > 60.00
[2024-02-10 16:54] VITALS: BP 154/93
[2024-02-10] MEDS: ATIVAN 0.5 MG IV (17:12)
--- NOTE | 2024-02-10 17:39 | HPS.HSE ---
Addendum entered and electronically signed by Fahad Erwin MD 02/11/24 21:25:
Correction -->time spent 75 min total.
Original Note:
Family Physician
-
Family Physician: INTERVIEWE UNKNOWN - PT NOT
Chief Complaint
-
Fall
History of Present Illness
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 Most of the information gathered from the ER
staff and medical records since patient unable to give me any meaningful information. Patient was found down and complained of right hip pain on her facility. She was also eating a lot of chocolate candies recently. Comfortably lying in bed in
the ER by the time of my evaluation. In the ED, patient had a hip x-ray that shows a right hip fracture. She was also found to have blood sugars of 442, bicarb 28 and normal sodium of 137 and normal anion gap. She was referred to hospitalist
service for further evaluation.
Medical History
Past Medical History
Past Medical History: Reports Other (Diabetes mellitus type 2, depression anxiety, advanced dementia.)
Past Surgical History: Reports None
Social History
Unable to obtain full social history at this time due to: Dementia
Tobacco: Non-smoker
Alcohol: None
Drug: None
Family History
Family History: Not pertinent
Allergies / Home Medications
Allergies reflects when Allergies were last updated in [facility].
Home Medications with original date entered in [facility]
Allergy/Medication List:
Allergies
Allergy/AdvReac Type Severity Reaction Status Date / Time
Cephalosporins Allergy Unknown Unknown Verified 01/23/24 19:15
Penicillins Allergy Unknown Unknown Verified 01/23/24 19:15
Home Medications
alprazolam 0.25 mg tablet 0.25 mg PO Q6H PRN anxiety/restlessness 01/23/24
alprazolam 1 mg tablet 1 mg PO HS ANXIETY 01/23/24
insulin lispro 100 unit/mL subcutaneous solution (Humalog U-100 Insulin) 0 sliding scale dose SC .SEE BELOW 01/23/24
insulin aspart U-100 100 unit/mL (3 mL) subcutaneous pen 7 unit (0.07 mL) SC AC #15 mL 01/25/24
insulin glargine 100 unit/mL (3 mL) subcutaneous pen (Lantus Solostar U-100 Insulin) 25 unit (0.25 mL) SC DAILY #15 mL 01/25/24
pen needle, diabetic 29 gauge x 3/8' #100 ea 01/25/24
Review of Systems
-
Unable to obtain full review of systems at this time due to: Dementia
Physical Exam
Vital Signs
Vital Signs
Temp Pulse Resp BP Pulse Ox
98.6 F 98 20 189/103 98
02/10/24 14:47 02/10/24 14:47 02/10/24 14:47 02/10/24 14:47 02/10/24 14:47
Physical exam:
General: Acutely ill
HEENT: Normocephalic, Atraumatic and Moist Mucous Membranes
Respiratory: Clear to Auscultation; Negative Wheezes, Rales or Rhonchi
Cardiac: Regular Rhythm and S1/S2
GI: Soft, Nontender and Nondistended
Musculoskeletal: Right hip pain. Right lower extremity shortened and externally rotated. No Clubbing, No Cyanosis and No Edema
Neuro: Awake, Alert and Disoriented
Psych: Anxious
Physical Exam
General: Other
Laboratory Results
-
02/10/24 15:06
02/10/24 15:05
Impression/Plan
-
IMPRESSION:
Patient is 74 years old female with history of dementia, diabetes mellitus, anxiety and depression who came into the with a fall and sustained a right hip fracture. She also has diabetes mellitus and has significant hyperglycemia. No evidence of
DKA or HHS. She is at increased risk of morbidity mortality due to her presentation so she will need to be treated in the hospital and will require surgical intervention of her hip fracture after medical optimization.
PLAN:
Right hip fracture:
-Keep n.p.o. after midnight but she can have diabetic diet tonight.
-Pain control
-SCDs for DVT prophylaxis
-Orthopedic consult ([place] texted to orthopedic today)
-Will obtain twelve-lead EKG preop and once that test is obtained and once blood sugars are improved then we will proceed to do preop evaluation risk.
Diabetes mellitus type 2 with hyperglycemia:
-Fortunately not signs of DKA or HHS but significant hyperglycemia.
-Start Aspart 10 units now and recheck blood sugars later in 1 to 2 hours.
-Continue long-acting insulin but rather than 25 units will cut down to 15 units tonight.
-Will add insulin sliding scale
-Will monitor blood sugar and adjust medications accordingly
-Will update hemoglobin A1c in a.m.
Elevated blood pressure:
-No diagnosis of hypertension
-Suspect pain related
-Start IV hydralazine as needed for now and reevaluate
Leukopenia:
-Mild
-Follow-up trend
Dementia with behavioral disturbances:
-Will use IV Ativan as needed
-Patient currently calm
-Will monitor behavior and mental status changes closely
Depression anxiety:
-Benzodiazepines as above
DVT prophylaxis:
-SCDs for now
CODE STATUS:
-Full code for now and we will need to verify with family once they are available.
Total time spent on today's encounter was 52 minutes which included time spent in counseling the patient/family regarding diagnosis and treatment plan as listed above, goals of care, and symptom management. Case was discussed with nursing staff,
specialists, and care coordinators/case management. All labs and imaging personally reviewed by me. Remainder the time spent in detailed review of previous records, lab data, imaging, and other medical provider documentation.
[2024-02-10 18:00] VITALS: BP 145/74
[2024-02-10] MEDS: NOVOLOG FLEXPEN 10 UNITS SC (18:29)
--- NOTE | 2024-02-10 19:18 | W.PN.UPDATE ---
Update Note
Progress Note Update
74-year-old female with advanced dementia, uncontrolled type 2 diabetes mellitus, depression, and anxiety who resides at the [facility]. She was brought to the emergency room today with complaints of right hip pain as well as hyperglycemia
with a blood sugar greater than 400. Radiographs in the emergency room revealed a displaced right hip femoral neck fracture. Treatment options were discussed with the patient's spouse, Vito Armando, phone #[phone]. Risks, benefits, and possible
complications of surgical treatment were discussed. Questions were answered. Patient's spouse consented for Helga Valero to undergo a right hip cemented bipolar endoprosthesis as well as a blood transfusion if required during this admission. Her
surgical site has been marked. Her surgery is tentatively scheduled for tomorrow, Sunday, February 10, pending medical clearance and availability of an operating room. A full consult has been dictated into [facility]. Of significance, patient has a
history of allergies to penicillin and cephalosporins. The nature of her allergic reaction is unknown and her spouse is unable to provide details.
[2024-02-10 20:33] VITALS: BP 147/67
[2024-02-10 21:43] LABS: Glucose - Point of Care 122 mg/dl (70-99)
[2024-02-10 22:55] VITALS: BP 150/70
[2024-02-10 23:53] LABS: Glucose - Point of Care 260 mg/dl (70-99)
[2024-02-11] VITALS (11 sets, daily range): BP systolic 140–161; BP diastolic 65–81; BMI 22.9
[2024-02-11] MEDS: LANTUS 0.149999999999999994 UNITS SC ×2 (00:09→22:18)
[2024-02-11] MEDS: DILAUDID 0.5 MG IV ×5 (02:00→23:41)
[2024-02-11] MEDS: NSS 1000 IV ×2 (05:23→19:52)
--- NOTE | 2024-02-11 05:26 | PTCARENOTE ---
Patient received thrashing in bed. Patient only occasionally able to be redirected. She does answer occasional questions. Patient is pulling at monitor and pulled out IV. Staff at bedside throughout shift. Dilaudid 0.5mg for pain management
as ordered. Patient sleeping at times. Bed bath and CHG wipes done.
[2024-02-11 05:52] LABS: Glucose - Point of Care 196 mg/dl (70-99)
[2024-02-11] MEDS: NOVOLOG FLEXPEN-MODERATE RESISTANCE 1 UNITS SC (05:52)
[2024-02-11 06:43] LABS: Hematocrit 32.8 % (37.0-47.0); Hemoglobin 11.5 g/dL (12.0-16.0); Mean Corp Hgb Conc. 35.1 g/dL (33.0-37.0); Mean Corpuscular Hgb 32.3 pg (27.0-31.0); Mean Corpuscular Volume 92.1 fL (81.0-99.0); Mean Platelet Volume 9.5 fL (7.4-10.4); Platelet Count 203 10^3/uL (130-400); Red Blood Cell Count 3.56 10^6/uL (4.20-5.40); Red Cell Dist. Width 13.1 % (11.5-14.5); White Blood Cell Count 7.7 10^3/uL (4.8-10.8)
[2024-02-11 07:06] LABS: Blood Urea Nitrogen 8 mg/dl (7-17); Calcium 8.8 mg/dl (8.4-10.2); Carbon Dioxide 28 mmol/L (22-30); Chloride 105 mmol/L (98-107); Estimated Creatinine Clearance 66 ml/min; Glucose 202 mg/dl (70-99); Potassium 3.5 mmol/L (3.5-5.1); Sodium 137 mmol/L (135-145); eGFR > 60.00
--- NOTE | 2024-02-11 08:49 | W.PN.UPDATE ---
Update Note
Progress Note Update
Patient a little agitated overnight, resting comfortably now after pain medication. Aid at bedside. Patient for RIGHT hip hemiarthroplasty a bit later today via Dr. Martinez. Hgb at 11.5 this AM. T&S requested. Patient to remain NPO. IV ABX guncotton packer
(vanco/Azactam). Surgical and blood consents at the OR desk. Operative site has been marked.
--- NOTE | 2024-02-11 09:42 | CM ---
Reviewed the chart notes. The patient is scheduled for OR today for hip fx repair. The patient resides in [facility]. The patient uses no DME. No VN or SNF in the past. The patient's discharge plans will depend on
the patient's progress. CM continues to be available to patient/family and is monitoring medical plan for needs at discharge.
Plan: Discharge plans will depend on the patient's progress. Possible need for SNF prior to transitioning back to memory care.
[2024-02-11] MEDS: ATIVAN 1 MG IV ×2 (09:51→17:04)
--- NOTE | 2024-02-11 13:07 | W.PN.HOSP.TC ---
Today's Communication/Plan
-
.
Assessment / Plan
Assessment / Plan
Physical exam:
General: Acutely ill
HEENT: Normocephalic, Atraumatic and Moist Mucous Membranes
Respiratory: Clear to Auscultation; Negative Wheezes, Rales or Rhonchi
Cardiac: Regular Rhythm and S1/S2
GI: Soft, Nontender and Nondistended
Musculoskeletal: Right hip pain. Right lower extremity shortened and externally rotated. No Clubbing, No Cyanosis and No Edema
Neuro: Awake, Alert and Disoriented
Psych: Anxious
Patient is 74 years old female with history of dementia, diabetes mellitus, anxiety and depression who came into the with a fall and sustained a right hip fracture. She also has diabetes mellitus and has significant hyperglycemia. No evidence of
DKA or HHS. She is at increased risk of morbidity mortality due to her presentation so she will need to be treated in the hospital and will require surgical intervention of her hip fracture after medical optimization.
PLAN:
# Right hip fracture:
-Keep n.p.o. after midnight
-Pain control
-SCDs for DVT prophylaxis
- EKG is reviewed, normal sinus rhythm.
-Patient is very uncomfortable and in pain. Benefits and risk of surgery discussed with family and her consented to the surgery
Appreciate orthopedic input and help
Diabetes mellitus type 2 with hyperglycemia:
-Fortunately not signs of DKA or HHS but significant hyperglycemia.
-Blood glucose this morning 196. Continue with insulin sliding scale
#Elevated blood pressure:
-No diagnosis of hypertension
-Suspect pain related
-Start IV hydralazine as needed for now and reevaluate
Leukopenia:
Resolved
#Advanced nonspecific dementia with behavioral disturbances:
Patient takes Xanax at home on as needed Xanax every 6 hours
-Will use IV Ativan as needed
-Patient currently calm
-Will monitor behavior and mental status changes closely
Depression anxiety:
-Benzodiazepines as above
DVT prophylaxis:
-SCDs for now
CODE STATUS:
-Full code.
Total time spent on today's encounter was 57 minutes which included time spent in counseling the patient/family regarding diagnosis and treatment plan as listed above, goals of care, and symptom management. Case was discussed with nursing staff,
specialists, and care coordinators/case management. All labs and imaging personally reviewed by me. Remainder the time spent in detailed review of previous records, lab data, imaging, and other medical provider documentation.
Anticipated Discharge: > 48 hours
Subjective/Interval History
-
Date of Service: February 11, 2024
Anxious and tearful at times
needed consultant in ergonomics and safety
Objective Data
-
Labs:
Laboratory Results
02/11/24
05:08
WBC 7.7
Hgb 11.5 L
Hct 32.8 L
Plt Count 203
Sodium 137
Potassium 3.5
Chloride 105
Carbon Dioxide 28
BUN 8
Creatinine 0.3 L
Glucose 202 H
Calcium 8.8
Vital Signs:
Vital Signs
Temp Pulse Resp BP Pulse Ox
97.8 F 68 16 151/68 92
02/11/24 07:23 02/11/24 07:23 02/11/24 07:23 02/11/24 07:23 02/11/24 07:23
I&O
02/10/24 02/11/24 02/12/24
06:59 06:59 06:59
Intake Total 1140 / 1140
Output Total 250 / 250
Balance 890 / 890
[2024-02-11 14:11] LABS: Glucose - Point of Care 246 mg/dl (70-99)
[2024-02-11] MEDS: NOVOLOG vial 2 UNITS SC (14:53)
[2024-02-11] MEDS: NOVOLOG FLEXPEN-MODERATE RESISTANCE SC (15:34)
[2024-02-11] MEDS: TYLENOL PO ×2 (16:45→23:40)
[2024-02-11 17:05] LABS: Glucose - Point of Care 200 mg/dl (70-99)
[2024-02-11] MEDS: NOVOLOG FLEXPEN-MODERATE RESISTANCE 3 UNITS SC (17:08)
[2024-02-11] MEDS: ASPIRIN 325 MG PO (17:08)
[2024-02-11] MEDS: NSS IV (17:57)
--- NOTE | 2024-02-11 18:30 | PTCARENOTE ---
Received patient from PACU via bed around 1600. VS stable. Patient pulling at IV, Tele, abductor pillow, attempting to get up out of bed. 1:1 at bedside. Patient was like this prior to going to surgery as well. Patient tearful at times. Ativan given
at 1704 IV as ordered. Patient still was very agitated saying she has to pee. 3 staff members got patient to commode. Patient urinated while getting there and on the commode. Placed back to bed. Dilaudid 0.5 mg IV given at 1755. Patient resting
comfortably at this time.
[2024-02-11] MEDS: SENOKOT 17.1999999999999993 MG PO (19:58)
[2024-02-11] MEDS: TYLENOL 650 MG PO (19:59)
[2024-02-11] MEDS: COLACE PO (19:59)
[2024-02-11 21:39] LABS: Glucose - Point of Care 341 mg/dl (70-99)
[2024-02-11] MEDS: VANCOCIN 200 IV (23:44)
[2024-02-12 03:00] VITALS: BP 158/75
[2024-02-12] MEDS: TYLENOL PO (03:36)
[2024-02-12] MEDS: ATIVAN 1 MG IV (04:02)
[2024-02-12] MEDS: NSS (PRESERVATIVE FREE) 0.5 ML IV (04:02)
[2024-02-12 05:30] LABS: Hematocrit 30.4 % (37.0-47.0); Hemoglobin 10.8 g/dL (12.0-16.0); Mean Corp Hgb Conc. 35.5 g/dL (33.0-37.0); Mean Corpuscular Hgb 32.7 pg (27.0-31.0); Mean Corpuscular Volume 92.1 fL (81.0-99.0); Mean Platelet Volume 9.5 fL (7.4-10.4); Platelet Count 168 10^3/uL (130-400); Red Cell Dist. Width 12.7 % (11.5-14.5); White Blood Cell Count 6.9 10^3/uL (4.8-10.8)
[2024-02-12 06:03] LABS: Blood Urea Nitrogen 7 mg/dl (7-17); Calcium 8.7 mg/dl (8.4-10.2); Carbon Dioxide 29 mmol/L (22-30); Chloride 99 mmol/L (98-107); Estimated Creatinine Clearance 66 ml/min; Glucose 253 mg/dl (70-99); Potassium 3.7 mmol/L (3.5-5.1); Sodium 133 mmol/L (135-145); eGFR > 60.00
[2024-02-12 07:00] VITALS: BP 146/66
--- NOTE | 2024-02-12 07:40 | W.PN.ORTHO ---
Today's Communication / Plan
-
74-year-old female with advanced dementia postop day 1 right hip fracture cemented bipolar endoprosthesis with Dr. Martinez
-Weightbearing as tolerated with posterior hip precautions right lower extremity
-PT/OT/discharge planning
-Pain is controlled on current regimen
-Diet per primary
-ASA 325 mg daily x 30 days unless recommended otherwise per primary
-Orthopedic surgery will continue to follow; will monitor with PT however sales support associate report some concerns with her compliance with posterior hip precautions secondary to her baseline dementia
Assessment
.
Distal Motor Intact: Yes
Dressing:
Clean, dry and intact.
Plan
.
Surgery / Date: 02/11/2024 right hip cemented bipolar endoprosthesi
DVT Prophylaxis: Aspirin
Activity:
Out of bed.
PT/OT
Subjective
.
.:
Patient resting comfortably. Unable to obtain further information from patient secondary to her baseline dementia. Per one-to-one states she has been picking at her dressing but otherwise doing well
Vital Signs and Labs
.
Vital Signs and Labs:
Lab Results
02/12/24 04:58
02/12/24 04:58
Temp Pulse Resp BP Pulse Ox
97.4 F 70 18 158/75 94
02/12/24 03:00 02/12/24 03:00 02/12/24 03:00 02/12/24 03:00 02/12/24 03:00
Non-invasive Hgb result: 13.4
[2024-02-12] MEDS: TYLENOL 650 MG PO ×4 (07:47→20:02)
[2024-02-12] MEDS: ASPIRIN 325 MG PO (07:48)
[2024-02-12] MEDS: COLACE 100 MG PO ×2 (07:48→20:01)
[2024-02-12] MEDS: SENOKOT 17.1999999999999993 MG PO ×2 (07:49→20:02)
[2024-02-12 08:01] LABS: Glucose - Point of Care 232 mg/dl (70-99)
[2024-02-12] MEDS: NOVOLOG FLEXPEN-MODERATE RESISTANCE 3 UNITS SC (08:03)
[2024-02-12] MEDS: LEXAPRO 5 MG PO (09:23)
[2024-02-12 10:00] VITALS: BMI 23.1
--- NOTE | 2024-02-12 10:18 | W.PN.HOSP.TC ---
Today's Communication/Plan
-
.
Assessment / Plan
Assessment / Plan
Physical exam:
General: she is tearful and nurses trying to help her to the commode
HEENT: Normocephalic, Atraumatic and Moist Mucous Membranes
Respiratory: Clear to Auscultation; Negative Wheezes, Rales or Rhonchi
Cardiac: Regular Rhythm and S1/S2
GI: Soft, Nontender and Nondistended
Musculoskeletal: No Cyanosis and No Edema
Neuro: Awake, Alert and Disoriented
Psych: Anxious
Patient is 74 years old female with history of dementia, diabetes mellitus, anxiety and depression who came into the with a fall and sustained a right hip fracture. She also has diabetes mellitus and has significant hyperglycemia. No evidence of
DKA or HHS. She is at increased risk of morbidity mortality due to her presentation so she will need to be treated in the hospital and will require surgical intervention of her hip fracture after medical optimization.
PLAN:
# Right hip displaced femoral neck fracture status post right hip cemented bipolar endoprosthesis by Dr. Martinez on 02/10. No complications reported
Continue pain control with Tylenol and IV Dilaudid
Aspirin 325 mg for DVT prophylaxis
PT/OT
Appreciate orthopedic input and help
Diabetes mellitus type 2 with hyperglycemia:
Still uncontrolled
Will increase Lantus dose to 20 units on
-Blood glucose this morning 232. Continue with insulin sliding scale
#Elevated blood pressure:
Blood pressure this morning 146/66
-No diagnosis of hypertension
-Suspect pain related
-Continue with IV hydralazine as needed for now and reevaluate
# Hyponatremia, mild
# Mild acute blood loss anemia secondary to fracture, expected. Monitor
#Leukopenia:
Resolved
#Advanced nonspecific dementia with behavioral disturbances:
She is very tearful all the time and at detention per report. Called the and agreed to use antidepressant. Try low-dose Lexapro
Patient takes Xanax at home on as needed Xanax every 6 hours
-DC IV Ativan to resume her home dose of Xanax
Depression anxiety:
-Benzodiazepines as above
DVT prophylaxis:
-SCDs for now
CODE STATUS:
-Full code.
Total time spent to see patient, examine the patient on the floor, review data and lab results, discuss treatment plan with patient, , nursing staff around 55 minutes
Anticipated Discharge: 24 - 48 hours
Subjective/Interval History
-
Date of Service: February 12, 2024
She is tearful
No hypoxia noted
Objective Data
-
Labs:
Laboratory Results
02/12/24
04:58
WBC 6.9
Hgb 10.8 L
Hct 30.4 L
Plt Count 168
Sodium 133 L
Potassium 3.7
Chloride 99
Carbon Dioxide 29
BUN 7
Creatinine 0.3 L
Glucose 253 H
Calcium 8.7
Vital Signs:
Vital Signs
Temp Pulse Resp BP Pulse Ox
98.3 F 73 18 146/66 98
02/12/24 07:00 02/12/24 07:00 02/12/24 07:00 02/12/24 07:00 02/12/24 07:00
I&O
02/11/24 02/12/24 02/13/24
06:59 06:59 06:59
Intake Total 1140 / 1140 540 / 540
Output Total 250 / 250
Balance 890 / 890 540 / 540
[2024-02-12] MEDS: ULTRAM 50 MG PO (11:47)
[2024-02-12 13:00] VITALS: BP 130/61
[2024-02-12 13:00] LABS: Glucose - Point of Care 416 mg/dl (70-99)
[2024-02-12 13:07] VITALS: BP 130/61
[2024-02-12 13:31] LABS: Glucose 421 mg/dl (70-99)
[2024-02-12] MEDS: NOVOLOG FLEXPEN-MODERATE RESISTANCE 11 UNITS SC (13:37)
--- NOTE | 2024-02-12 14:09 | CM ---
Reviewed the chart notes and spoke with the patient's spouse. PT evaluated the patient and recommends SNF/rehab prior to transitioning back to [facility] [place]. Referrals with [facility] sent. CM continues to be available to patient/family and
is monitoring medical plan for needs at discharge.
Plan: Discharge to SNF/rehab prior to transitioning back to [facility]. No precert required.
[2024-02-12 15:30] VITALS: BP 131/66
[2024-02-12] MEDS: XANAX 0.5 MG PO ×2 (15:32→22:30)
[2024-02-12 15:38] LABS: Glucose - Point of Care 418 mg/dl (70-99)
[2024-02-12 16:22] LABS: Glucose 391 mg/dl (70-99)
[2024-02-12 16:56] LABS: Glucose - Point of Care 326 mg/dl (70-99)
[2024-02-12] MEDS: NOVOLOG FLEXPEN-MODERATE RESISTANCE 7 UNITS SC (16:59)
[2024-02-12] MEDS: NOVOLOG FLEXPEN 7 UNITS SC (17:01)
--- NOTE | 2024-02-12 19:33 | PTCARENOTE ---
Patient remained on 1:1 throughout shift. Patient gets very agitated, especially when needing to void. Pulls at dressing and attempts to get out of bed. Xanax given PRN for agitation. Tearful at times. Needs a lot of redirection. Bed alarm on. 1:1
currently at bedside.
[2024-02-12] MEDS: ULTRAM 25 MG PO (20:02)
[2024-02-12 21:34] LABS: Glucose - Point of Care 120 mg/dl (70-99)
[2024-02-12] MEDS: LANTUS 0.25 UNITS SC (22:31)
[2024-02-12 23:17] VITALS: BP 132/68
[2024-02-13] MEDS: TYLENOL PO (00:54)
[2024-02-13] MEDS: ULTRAM 25 MG PO ×3 (02:50→21:32)
[2024-02-13] MEDS: TYLENOL 650 MG PO ×5 (02:50→20:17)
--- NOTE | 2024-02-13 04:52 | DOWNTIME ---
There was a [employer] Client School Coordinator Downtime on 02/13/2024 from 0100 to 02/13/2024 at 0439. Downtime documentation of patient's care, including medication administrations, has been reconciled in the electronic record per guidelines. Refer to the
patient's paper chart under the miscellaneous tab to see printed paper medication records and downtime forms.
[2024-02-13 07:16] VITALS: BP 131/65
--- NOTE | 2024-02-13 07:45 | W.PN.UPDATE ---
Update Note
Progress Note Update
Ms. Valero is postop day 2 following her right hip hemiarthroplasty performed by Dr. Martinez. She is resting comfortably in bed this morning. She denies any pain at present
Directed exam of the right lower extremity reveals Aquacel dressing with slight strikethrough blood. Otherwise dry and intact. No tenderness to palpation about the hip. Thigh soft and compressible. Calf soft and nontender. Patient able to
wiggle toes, plantar and dorsiflex ankle. Neurovascular intact distally. VSS.
Hgb pending this morning.
74-year-old female with advanced dementia postop day 2 right hip fracture cemented bipolar endoprosthesis with Dr. Martinez
--Continue weightbearing as tolerated with assistive device. THPs x6-8 weeks post-op. We appreciate the assistance of PT/OT.
---Orthopedic surgery will continue to follow; will monitor with PT however it technical support specialist report some concerns with her compliance with posterior hip precautions secondary to her baseline dementia.
--Recommend ASA 325 mg daily x4 weeks for DVT ppx.
--Continue pain control per primary.
--Hgb pending this AM. Continue to monitor.
--Maintain Aquacel dressing until 7-10 days post-op. Staple removal at 2 weeks post-op. If removed at SNF, outpatient follow up at 4 weeks post-op for repeat evaluation.
--Case management consult for d/c planning.
[2024-02-13 08:26] LABS: Glucose - Point of Care 59 mg/dl (70-99)
[2024-02-13 08:41] LABS: Hematocrit 29.5 % (37.0-47.0); Hemoglobin 10.5 g/dL (12.0-16.0); Mean Corp Hgb Conc. 35.6 g/dL (33.0-37.0); Mean Corpuscular Hgb 32.8 pg (27.0-31.0); Mean Corpuscular Volume 92.2 fL (81.0-99.0); Mean Platelet Volume 9.4 fL (7.4-10.4); Platelet Count 192 10^3/uL (130-400); White Blood Cell Count 6.2 10^3/uL (4.8-10.8)
[2024-02-13] MEDS: NOVOLOG FLEXPEN-MODERATE RESISTANCE SC (08:42)
[2024-02-13 08:48] LABS: Glucose - Point of Care 55 mg/dl (70-99)
[2024-02-13] MEDS: ASPIRIN 325 MG PO (08:53)
[2024-02-13] MEDS: COLACE 100 MG PO (08:54)
[2024-02-13] MEDS: SENOKOT 17.1999999999999993 MG PO ×2 (08:54→20:17)
[2024-02-13] MEDS: LEXAPRO 5 MG PO (08:54)
[2024-02-13 09:12] LABS: Glucose - Point of Care 91 mg/dl (70-99)
[2024-02-13 09:18] LABS: Blood Urea Nitrogen 8 mg/dl (7-17); Calcium 8.7 mg/dl (8.4-10.2); Carbon Dioxide 28 mmol/L (22-30); Chloride 101 mmol/L (98-107); Estimated Creatinine Clearance 66 ml/min; Glucose 33 mg/dl (70-99); Potassium 3.5 mmol/L (3.5-5.1); Sodium 136 mmol/L (135-145); eGFR > 60.00
[2024-02-13] MEDS: NOVOLOG FLEXPEN SC (09:52)
[2024-02-13] MEDS: XANAX 0.5 MG PO ×3 (09:53→21:28)
--- NOTE | 2024-02-13 11:03 | W.PN.HOSP.TC ---
Today's Communication/Plan
-
dc later today
Assessment / Plan
Assessment / Plan
Physical exam:
General: she is in bed, smiling today
HEENT: Normocephalic, Atraumatic and Moist Mucous Membranes
Respiratory: Clear to Auscultation; Negative Wheezes, Rales or Rhonchi
Cardiac: S1/S2, positive murmur.
GI: Soft, Nontender and Nondistended
Musculoskeletal: No Cyanosis and No Edema
Neuro: Awake, Alert and Disoriented, she followed commands.
Psych: not Anxious, not agitated this morning
Patient is 74 years old female with history of dementia, diabetes mellitus, anxiety and depression who came into the with a fall and sustained a right hip fracture. She also has diabetes mellitus and has significant hyperglycemia. No evidence of
DKA or HHS. She is at increased risk of morbidity mortality due to her presentation so she will need to be treated in the hospital and will require surgical intervention of her hip fracture after medical optimization.
PLAN:
# Right hip displaced femoral neck fracture status post right hip cemented bipolar endoprosthesis by Dr. Martinez on 02/10. No complications reported
Continue pain control with Tylenol and IV Dilaudid
Aspirin 325 mg for DVT prophylaxis
PT/OT
Appreciate orthopedic input and help
Diabetes mellitus type 2 , had hyperglycemia:
Now hypoglycemia this morning.
Stop pre-meal insulin
Decrease Lantus.
#Elevated blood pressure:
Blood pressure this morning 131/65
-No diagnosis of hypertension
-Suspect pain related
-Continue with IV hydralazine as needed for now and reevaluate
# Hyponatremia, mild, resolved Na at 136
# Mild acute blood loss anemia secondary to fracture, expected. Monitor
#Leukopenia:
Resolved
#Advanced nonspecific dementia with behavioral disturbances:
She is very tearful all the time and at longterm per report. Called the and agreed to use antidepressant. Try low-dose Lexapro
Patient takes Xanax at home on as needed Xanax every 6 hours
-DCed IV Ativan to resume her home dose of Xanax
Depression anxiety:
-Benzodiazepines as above
DVT prophylaxis:
-SCDs for now
CODE STATUS:
-Full code.
Total time spent to see patient, examine the patient on the floor, review data and lab results, discuss treatment plan with patient, , nursing staff around 57 minutes
Anticipated Discharge: Today
Subjective/Interval History
-
Date of Service: February 13, 2024
No chest pain
No sob
Objective Data
-
Labs:
Laboratory Results
02/13/24
07:28
WBC 6.2
Hgb 10.5 L
Hct 29.5 L
Plt Count 192
Sodium 136
Potassium 3.5
Chloride 101
Carbon Dioxide 28
BUN 8
Creatinine 0.3 L
Glucose 33 L*
Calcium 8.7
Vital Signs:
Vital Signs
Temp Pulse Resp BP Pulse Ox
99 F 69 14 131/65 94
02/13/24 07:16 02/13/24 07:16 02/13/24 07:16 02/13/24 07:16 02/13/24 07:16
I&O
02/12/24 02/13/24 02/14/24
06:59 06:59 06:59
Intake Total 540 / 540 1720 / 1720
Output Total 1200 / 1200
Balance 540 / 540 520 / 520
--- NOTE | 2024-02-13 11:58 | CM ---
Addendum entered by Tarsha Schuler RN 02/13/24 16:00:
CM received message from [facility] Guillermo Medel ([phone]) that they may have a bed available on Sunday.
Original Note:
Reviewed the chart notes and spoke with the RN. Patient remains on Med Sitter. Patient needs to be off Med Sitter for 24 hours prior to placement. [facility] has accepted the patient and [facility] is monitoring for behaviors. CM continues to be available
to patient/family and is monitoring medical plan for needs at discharge.
Plan: Discharge to SNF/rehab once off Med Sitter for 24 hours.
[2024-02-13 12:09] LABS: Glucose - Point of Care 478 mg/dl (70-99)
[2024-02-13] MEDS: NOVOLOG FLEXPEN-MODERATE RESISTANCE 11 UNITS SC (12:26)
[2024-02-13 15:38] VITALS: BP 163/79
[2024-02-13 16:44] LABS: Glucose - Point of Care 289 mg/dl (70-99)
[2024-02-13] MEDS: NOVOLOG FLEXPEN-HIGH RESISTANCE 7 UNITS SC (17:40)
[2024-02-13] MEDS: COLACE PO (20:18)
[2024-02-13 21:31] LABS: Glucose - Point of Care 226 mg/dl (70-99)
[2024-02-13] MEDS: LANTUS 0.149999999999999994 UNITS SC (21:31)
[2024-02-14] MEDS: TYLENOL PO ×4 (00:43→17:06)
[2024-02-14 02:30] VITALS: BP 148/71
[2024-02-14] MEDS: TYLENOL 650 MG PO (03:15)
[2024-02-14] MEDS: XANAX 0.5 MG PO ×2 (03:16→12:20)
[2024-02-14 07:11] VITALS: BP 145/61
[2024-02-14 07:46] LABS: Glucose - Point of Care 165 mg/dl (70-99)
--- NOTE | 2024-02-14 08:35 | CM ---
Addendum entered by Tarsha Schuler RN 02/14/24 13:59:
CM spoke with the patient's spouse regarding placement. Spouse agreeable to [facility] [place].
Addendum entered by Tarsha Schuler RN 02/14/24 13:56:
CM spoke with [facility] Admissions Liaison with [facility]. Discussed the patient being on Med Sitter due to attempting to climb out of bed, no other behaviors displayed. SHELLY explained that the patient is from a memory care unit where she is
used to being able to ambulate at will. Soo spoke with the [facility] and they have agreed to accept the patient today.
Plan: Discharge to [facility].
Call report to: [phone]
Fax report to: [phone]
Medical necessity and transport forms on chart.
Addendum entered by Tarsha Schuler RN 02/14/24 12:36:
[facility] will not have any beds this week or w/e, per [facility] Admissions Liaison. [facility] will have no beds this week or w/e, per [facility] Admissions Liaison. Both require the patient to be off the Med Sitter for 24hrs.
Addendum entered by Tasrha Schuler RN 02/14/24 11:50:
Reviewed the chart notes and spoke with RN. Patient has been on Med Sitter through the night. RN will attempt to remove Med Sitter. Patient needs to be off Med Sitter 24 hours for placement.
Original Note:
Reviewed the chart notes. IMM placed on chart.
[2024-02-14 09:25] VITALS: BP 135/68; BP 135/75; PULSE 54; O2SAT 96; O2SAT 98
[2024-02-14] MEDS: RISPERDAL 0.25 MG PO (09:44)
[2024-02-14] MEDS: LEXAPRO 5 MG PO (09:45)
[2024-02-14] MEDS: NOVOLOG FLEXPEN-HIGH RESISTANCE 2 UNITS SC (09:46)
[2024-02-14] MEDS: COLACE PO (09:50)
[2024-02-14] MEDS: ASPIRIN PO (09:50)
[2024-02-14] MEDS: SENOKOT PO (09:52)
[2024-02-14 10:06] VITALS: BP 135/68; BP 135/75; PULSE 54; O2SAT 96
--- NOTE | 2024-02-14 11:30 | W.PN.HOSP.TC ---
Addendum entered and electronically signed by Ignacio Pettit MD 02/14/24 14:29:
Addendum
Discussed with case management manager. Arrangement for custodial facility was made. agreeable to the discharge plan
Total time spent to see patient, examine the patient on the floor, review data and lab results, discuss treatment plan with patient, ER doctor, nursing staff around 75 minutes
Original Note:
Today's Communication/Plan
-
dc planning
Assessment / Plan
Assessment / Plan
Physical exam:
General: she is in bed, confusion noted, wants to go on commode again.
HEENT: Normocephalic, Atraumatic and Moist Mucous Membranes
Respiratory: Clear to Auscultation; Negative Wheezes, Rales or Rhonchi
Cardiac: S1/S2, positive murmur.
GI: Soft, Nontender and Nondistended
Musculoskeletal: No Cyanosis and No Edema
Neuro: Awake, Alert and Disoriented, she followed commands.
Psych: not Anxious, not agitated this morning
Patient is 74 years old female with history of dementia, diabetes mellitus, anxiety and depression who came into the with a fall and sustained a right hip fracture. She also has diabetes mellitus and has significant hyperglycemia. No evidence of
DKA or HHS. She is at increased risk of morbidity mortality due to her presentation so she will need to be treated in the hospital and will require surgical intervention of her hip fracture after medical optimization.
PLAN:
# Right hip displaced femoral neck fracture status post right hip cemented bipolar endoprosthesis by Dr. Martinez on 02/10. No complications reported
Continue pain control with Tylenol and IV Dilaudid
Aspirin 325 mg for DVT prophylaxis
PT/OT
Appreciate orthopedic input and help
#Diabetes mellitus type 2 , had hyperglycemia:
Now hypoglycemia this morning. We will accept some hyperglycemia at times
Stopped pre-meal insulin due to low blood glucose.
Decrease Lantus.
#Elevated blood pressure:
Blood pressure this morning 131/65
-No diagnosis of hypertension
-Suspect pain related
-Continue with IV hydralazine as needed for now and reevaluate
# Hyponatremia, mild, resolved Na at 136
# Mild acute blood loss anemia secondary to fracture, expected. Monitor
#Leukopenia:
Resolved
#Advanced nonspecific dementia with behavioral disturbances:
She seems back to her baseline. Off convalescent sitter
will continue with PRN Xanax and Added PRN risperidone
Depression anxiety: Started low dose Lexapro.
-Benzodiazepines as above
PRN risperidone
DVT prophylaxis:
aspirin.
CODE STATUS:
-Full code.
Addendum
pt refused aspirin , will do one shot of Lovenox
Total time spent to see patient, examine the patient on the floor, review data and lab results, discuss treatment plan with patient, , case management manager, nursing staff around 57 minutes
Anticipated Discharge: Today
Subjective/Interval History
-
Date of Service: February 14, 2024
Confused over night
SOme agitation
Objective Data
-
Vital Signs:
Vital Signs
Temp Pulse Resp BP Pulse Ox
97.6 F 50 16 145/61 96
02/14/24 07:11 02/14/24 07:11 02/14/24 07:11 02/14/24 07:11 02/14/24 07:11
I&O
02/13/24 02/14/24 02/15/24
06:59 06:59 06:59
Intake Total 1720 / 1720 1345 / 1345
Output Total 1200 / 1200
Balance 520 / 520 1345 / 1345
[2024-02-14 12:02] LABS: Glucose - Point of Care 380 mg/dl (70-99)
--- NOTE | 2024-02-14 12:16 | W.PN.ORTHO ---
Today's Communication / Plan
-
PT/OT
Aspirin for DVT prophylactics
Skin clip removal 2 weeks postop
Orthopedics to sign off for now.
Follow-up orthopedics in 1 month.
Assessment
.
Distal Motor Intact: Yes
Dressing:
Clean, dry and intact.
Plan
.
Surgery / Date: 02/11/2024 right hip cemented bipolar endoprosthesi
DVT Prophylaxis: Aspirin
Activity:
Out of bed.
PT/OT
Discharge Plan: SNF
Subjective
.
.:
Late document entry due to inability to log into [facility]. Patient was seen February 14, 2024 at 7:20 AM.
Patient resting comfortably.
Vital Signs and Labs
.
Vital Signs and Labs:
Lab Results
02/13/24 07:28
02/13/24 07:28
Temp Pulse Resp BP Pulse Ox
97.6 F 50 16 145/61 96
02/14/24 07:11 02/14/24 07:11 02/14/24 07:11 02/14/24 07:11 02/14/24 07:11
Non-invasive Hgb result: 13.4
[2024-02-14] MEDS: LOVENOX 40 MG SC (12:20)
[2024-02-14] MEDS: NOVOLOG FLEXPEN-HIGH RESISTANCE 12 UNITS SC (12:21)
--- NOTE | 2024-02-14 14:19 | W.DCSUMMARY ---
Discharge Summary
Discharge Data
Date of Admission: 02/10/24
Date of Discharge: 02/14/24
-
Pending Results: No
Hospital Course
74 years old female admitted with history of fall. She sustained right hip fracture. Patient was evaluated by orthopedic doctor. She was diagnosed with right hip displaced femoral neck fracture. Patient underwent right hip hemiarthroplasty by
Dr. Martinez on January. No complications reported. She was given aspirin 325 mg for deep venous thrombosis prophylaxis. Patient had history of dementia with behavioral changes. She was noticeable to be tearful and depressed. Discussion
with her to start her on low-dose of antidepressant was made. Patient was started on low-dose Lexapro. She had normal QT interval on EKG on Electrocardiogram. Patient's mentation improved. She became more responsive and communicative
with the staff. She continued to have on and off agitation. Patient was taking Xanax at the facility for her agitation. She was also given low-dose risperidone which seemed to help her agitation better than Xanax. Patient was noted to have
mildly elevated blood pressure but that was stressed/ pain related. Patient did not have history of hypertension and she was not taking blood pressure medications. Patient was given Tylenol, low-dose tramadol for discomfort. She had mild
hyponatremia that resolved. Hemoglobin was 10.5 upon discharge. Patient was noted to have high blood glucose, she was given extra doses of insulin but her blood glucose did drop. She was placed back on her home regimen that she was stable on.
Patient remained hemodynamically stable and [facility].
Discharge Plan
-
Patient Disposition: [facility]ci/SNF
Discharge Diagnosis/Procedures: Right hip hemiarthroplasty, Dr. Martinez, 02/11/24
Advanced dementia with agitation.
Diet: Regular
Activity: With assistance
Additional Activity: Posterior hip precautions.
Driving Restrictions: Not until seen by your Dr
Bathing Restrictions: OK to Shower
Referrals:
UNKNOWN - PT NOT,INTERVIEWE [Family Provider] -
Prescriptions:
New
aspirin 325 mg Tablet
325 mg PO DAILY Qty: 30 0RF
bisacodyl 10 mg Suppository
10 mg SD [id number] PRN (Reason: constipation) Qty: 12 0RF
polyethylene glycol 3350 [HealthyLax] 17 gram Powder In Packet
17 g PO DAILYPRN PRN (Reason: constipation) Qty: 14 0RF
tamsulosin 0.4 mg Capsule
0.4 mg PO DAILYPRN PRN (Reason: bladder scan volume > 400 mL) Qty: 10 0RF
escitalopram oxalate 5 mg Tablet
5 mg PO DAILY Qty: 30 0RF
sennosides [Senna Laxative] 8.6 mg Tablet
17.2 mg PO DAILY Qty: 10 0RF
risperidone 0.25 mg Tablet
0.25 mg PO Q8HPRN PRN (Reason: Agitation) Qty: 10 0RF
acetaminophen 325 mg Tablet
650 mg PO TID Qty: 20 0RF
Continued
alprazolam 0.25 mg Tablet
0.25 mg PO Q6HPRN PRN (Reason: anxiety/restlessness)
insulin lispro [Humalog KwikPen Insulin] 100 unit/mL Insulin Pen
7 unit SC AC@0800,12,17
Patient Comments:
02/10/2024, bolus for 85 carbohydrates each meal; add blood sugar number to correction at each meal and at bedtime.
insulin glargine [Lantus Solostar U-100 Insulin] 100 unit/mL (3 mL) Insulin Pen
25 unit SC DAILY
Discontinued
alprazolam 1 mg Tablet
1 mg PO HS
Discharge Orders:
Discharge Patient (As Directed); Ordered 02/14/24
Ordered By: Ignacio Pettit
Discharge Date and Time
Print Language: MONTENEGRIN
[2024-02-14] MEDS: ULTRAM 25 MG PO (14:51)
[2024-02-14 15:00] VITALS: BP 155/78
[2024-02-14 16:20] LABS: Glucose - Point of Care 451 mg/dl (70-99)
[2024-02-14] MEDS: NOVOLOG FLEXPEN-HIGH RESISTANCE 14 UNITS SC (16:25)
== END 2024-02-14 17:12 | DRG 522 ==
LOC: 2 SOUTH 17:48
PROVIDERS: Specialist; ADMITTING PHYSICIAN Hospitalist; ATTENDING PHYSICIAN Internal Medicine; CONSULT PHYSICIAN Specialist; EMERGENCY PHYSICIAN Emergency Medicine
PROC: 0SRR0J9 Replacement of Right Hip Joint, Femoral Surface with Synthetic Substitute, Cemented, Open Approach (ICD-10-PCS; 2024-02-11)
DX: S72.031A Displaced midcervical fracture of right femur, initial encounter for closed fracture (principal); F03.93 Unspecified dementia, unspecified severity, with mood disturbance; F03.94 Unspecified dementia, unspecified severity, with anxiety; D62 Acute posthemorrhagic anemia; E87.1 Hypo-osmolality and hyponatremia; W19.XXXA Unspecified fall, initial encounter; F32.A Depression, unspecified; E11.65 Type 2 diabetes mellitus with hyperglycemia; Z79.4 Long term (current) use of insulin
CPT/HCPCS: 73502; 73552; 80048; 82947; 82962; 85025; 85027; 86850; 86900; 86901; 87070; 93005; 96374; 96375; 96376; 97116; 97163; 97167; 97530; 97535; 99285; 99406; C1713; C1776

== ENCOUNTER 2024-03-07 13:29 | Inpatient (IN) | payer MEDICARE, OTHER, SELFPAY ==
[2024-03-07] VITALS (17 sets, daily range): BP systolic 94–177; BP diastolic 50–89; BMI 19.5; BMI 19.7
[2024-03-07 11:08] LABS: Glucose - Point of Care > 600 mg/dl (70-99)
[2024-03-07 11:17] LABS: % Basophils 0.2 % (0-2); % Eosinophils 0.1 % (0-6); % Immature Granulocytes 1.1 % (0-0.5); % Lymphocytes 3.9 % (20.5-51.1); % Monocytes 4.4 % (1.7-9.3); % Neutrophils 90.3 % (42.2-75.2); Absolute Immature Granulocytes 0.2 10^3/uL (0-0.05); Absolute Lymphocytes 0.7 10^3/uL (1.2-3.4); Absolute Monocytes 0.8 10^3/uL (0.1-0.6); Absolute Neutrophils 16.3 10^3/uL (1.4-6.5); Hematocrit 37.9 % (37.0-47.0); Hemoglobin 11.9 g/dL (12.0-16.0); Mean Corp Hgb Conc. 31.4 g/dL (33.0-37.0); Mean Corpuscular Hgb 33.5 pg (27.0-31.0); Mean Corpuscular Volume 106.8 fL (81.0-99.0); Mean Platelet Volume 9.1 fL (7.4-10.4); Nucleated Red Blood Cells % 0 %; Platelet Count 397 10^3/uL (130-400); Red Blood Cell Count 3.55 10^6/uL (4.20-5.40); Red Cell Dist. Width 14.6 % (11.5-14.5); White Blood Cell Count 18.1 10^3/uL (4.8-10.8)
[2024-03-07 11:19] LABS: Venous Blood Gas B.E. -24.9 mmol/L (-4 to +4); Venous Blood Gas HCO3 4.9 mmol/L (22-27); Venous Blood Gas O2 Sat % 99.4 %; Venous Blood Gas pCO2 20 mmHg (35-48); Venous Blood Gas pO2 122 mmHg (30-50)
[2024-03-07] MEDS: NSS 1000 IV ×2 (11:30→12:51)
[2024-03-07 11:41] LABS: Urine Albumin Trace (Neg - Trace); Urine Bilirubin Negative (Negative); Urine Character Clear (Clear); Urine Color Yellow; Urine Glucose 3+ (Negative); Urine Ketone 3+ (Negative); Urine Leukocyte Negative (Negative); Urine Nitrite Negative (Negative); Urine Occult Blood Negative (Negative); Urine Urobilinogen Negative (Neg - 1+)
--- NOTE | 2024-03-07 11:48 | ED.GENMED ---
History of Present Illness
General
Chief Complaint: Blood Sugar Problem
Source: ambulance crew
Time Seen by Provider: 03/07/24 11:08
Travel History
Have you had any contact with someone who has COVID-19?: Unable to Answer
Do you have any symptoms of coronavirus? Fever > 100 degrees, chills, cough, shortness of breath, sore throat, loss of taste or smell, muscle aches, or headache?: Unable to Answer
History of Present Illness
History of Present Illness:
This is a 74yo female with a history of diabetes who presents for elevated blood glucose and change in mental status. Patient does have a history of dementia but is typically very active and independent. Patient received 25 units of insulin prior
to arrival. Patient is unable to contribute to her history. She did recently have surgery due to hip fracture
Past History
Past History
ED Past Medical History: HTN, IDDM, Psychiatric (anxiety) and Other (Dementia)
ED Past Surgical History: Orthopedic
Social History
Tobacco: Non-smoker
Alcohol: None
Personal:
Living: skilled nursing
Phy Exam
Physical Exam
Physical Exam:
CONSTITUTIONAL Patient alert and oriented to person. ill-appearing. Vital signs reviewed.
HEAD atraumatic, normocephalic.
EYES eyelids normal to inspection, Extraocular muscles intact, Conjunctiva normal, Sclera normal.
NECK normal range of motion, Trachea midline, no jugular venous distention.
RESPIRATORY CHEST No respiratory distress noted, Chest expansion equal, Bilateral breath sounds clear.
CARDIOVASCULAR regular and tachycardic.
ABDOMEN abdomen nontender, Bowel sounds normal. No distention.
UPPER EXTREMITY range of motion normal, Motor strength normal, no cyanosis, no edema.
LOWER EXTREMITY range of motion normal, Motor strength normal, no cyanosis, no edema. Well-healed right hip wound without redness
NEURO opens eyes to her name. Does not follow commands.
Course
Orders/Labs/Results
Orders:
Orders
03/07/24 Lunch
NPO
Allow oral meds: No
Allow clear liquids: No
NPO with Ice Chips: No
03/07/24 11:01
EKG [Electrocardiogram (*1)] Urgent
Reason for Study: Tachycardia
EKG- Treatment ONCE
03/07/24 11:10
B-Hydroxybutyrate Urgent
Complete Blood Count/With Diff Urgent
Comprehensive Metabolic Panel Urgent
Venous Blood Gas Urgent
%Oxygen/Room Air: 100
03/07/24 11:12
CR Chest Portable - 1 View Urgent
Comment:
Reason For Exam: hyperglycemia
Reason Study Needs to be Portable: Patient Unstable
03/07/24 11:27
Bedside Glucose- Treatment Q1H
IV Insert/Care/Rem.- Treatment PRN
03/07/24 11:29
0.9% Sodium Chloride 1000 ml [Nss] 1,000 ml IV BOLUS
03/07/24 11:31
UA Reflex to Culture [Urinalysis Reflex To Culture] Urgent
Date Specimen was Collected: 03/07/24
Time Specimen was Collected: 11:27
03/07/24 11:46
Lactic Acid Q4H
Comment: CANCEL 2nd LACTIC ACID IF 1st LACTIC ACID IS LESS THAN 2
Blood Culture, Pediatric Urgent
SRIKANTH Source: Blood/Venous
Specimen Description:
Date Specimen was Collected: 03/07/24
Time Specimen was Collected: 11:44
Aztreonam [Azactam] 2,000 mg IV NOW STA
03/07/24 11:59
Reg Insulin 100 Units/100 ml [Novolin R Insulin Infusion] 100 units in 100 ml IV NOW
03/07/24 12:03
Vancomycin [Vancocin] 1,500 mg 0.9% Sodium Chloride [Nss] 20 ml 0.9% Sodium Chloride 250 ml [Nss] 250 ml IV NOW
03/07/24 12:41
0.9% Sodium Chloride 1000 ml [Nss] 1,000 ml IV BOLUS
03/07/24 12:59
0.9% Sodium Chloride 500 ml [Nss] 500 ml IV BOLUS
03/07/24 13:03
Admit/Transfer Patient As Directed
Co-Sign Provider:
Level of Care: Inpatient admission
Assign to:: ICU
Physician / Group: hospitalist
Diagnosis: DKA
Reason for Hospitalization: DKA
Expected length of stay greater than two midnights?: Yes
ELOS- Estimated Length of Stay in days: 4
I certify the patient meets the requirements for IP care: Yes
03/07/24 13:05
Code Status As Directed
Resuscitation Status: Full Code
03/07/24 13:33
Basic Metabolic Panel Q2H
03/07/24 14:00
VANCOMYCIN Pharmacy to Dose [VANCOCIN Pharmacy to Dose] 1 each Pharmacy To Prepare [Call Pharmacy To Prepare] 0 ml IV PER PROTOCOL
03/07/24 14:27
Reg Insulin 100 Units/100 ml [Novolin R Insulin Infusion] 100 units in 100 ml IV PER PROTOCOL
Currently infusing. Continue current dose and titrate:: Yes
03/07/24 14:27
R[employer] And Cargo Supervisor Consult Routine
Consulting Provider: Marilu Jaimes
Was physician already notified: Yes
Bedside Glucose Monitoring As Directed
Frequency: Q1H
Intake/ Output As Directed
Frequency: Per unit guidelines
Notify MD As Directed
Notify physician if: Nurse to contact provider when glucose reaches 250 to obtain orders for D5 0.45 NaCl
Vital Signs As Directed
Frequency: Per unit guidelines
DX Deep Vein Thrombosis Video Routine
03/07/24 15:37
Basic Metabolic Panel Q2H
03/07/24 16:06
Lactic Acid Q4H
Comment: CANCEL 2nd LACTIC ACID IF 1st LACTIC ACID IS LESS THAN 2
03/07/24 19:14
Basic Metabolic Panel Q4H
03/07/24 22:45
Basic Metabolic Panel Q4H
03/08/24 02:39
Basic Metabolic Panel Q4H
Complete Blood Count/With Diff IN AM
Glycohemoglobin (HgbA1c) IN AM
03/08/24 06:29
Basic Metabolic Panel Q4H
03/08/24 10:50
Basic Metabolic Panel Q4H
Abnormal Lab Results
03/07/24 03/07/24 03/07/24
11:02 11:10 11:31
WBC 18.1 H 10^3/uL
(4.8-10.8)
RBC 3.55 L 10^6/uL
(4.20-5.40)
Hgb 11.9 L g/dL
(12.0-16.0)
MCV 106.8 H fL
(81.0-99.0)
MCH 33.5 H pg
(27.0-31.0)
MCHC 31.4 L g/dL
(33.0-37.0)
RDW 14.6 H %
(11.5-14.5)
Abs Immat Gran (auto) 0.2 H 10^3/uL
(0-0.05)
Absolute Neuts (auto) 16.3 H 10^3/uL
(1.4-6.5)
Absolute Lymphs (auto) 0.7 L 10^3/uL
(1.2-3.4)
Absolute Monos (auto) 0.8 H 10^3/uL
(0.1-0.6)
Immature Gran % 1.1 H %
(0-0.5)
Neutrophils % 90.3 H %
(42.2-75.2)
Lymphocytes % 3.9 L %
(20.5-51.1)
VBG pH 7.00 L*
(7.32-7.43)
VBG pCO2 20 L mmHg
(35-48)
VBG pO2 122 H mmHg
(30-50)
VBG HCO3 4.9 L mmol/L
(22-27)
Potassium 5.6 H mmol/L
(3.5-5.1)
Carbon Dioxide < 5 L* mmol/L
(22-30)
BUN 39 H mg/dl
(7-17)
Creatinine 1.4 H mg/dL
(0.6-1.0)
Glucose 893 H* mg/dl
(70-99)
Lactic Acid
Calcium 10.6 H mg/dl
(8.4-10.2)
Alkaline Phosphatase 138 H U/L
(38-126)
Urine Ketones 3+ A
(Negative)
Urine Glucose 3+ A
(Negative)
B-Hydroxybutyrate > 9.0 H mmol/L
(0.02-0.27)
POC Glucose > 600 H* mg/dl
(70-99)
03/07/24 03/07/24
11:46 13:22
WBC
RBC
Hgb
MCV
MCH
MCHC
RDW
Abs Immat Gran (auto)
Absolute Neuts (auto)
Absolute Lymphs (auto)
Absolute Monos (auto)
Immature Gran %
Neutrophils %
Lymphocytes %
VBG pH
VBG pCO2
VBG pO2
VBG HCO3
Potassium
Carbon Dioxide
BUN
Creatinine
Glucose
Lactic Acid 3.5 H mmol/L
(0.7-2.0)
Calcium
Alkaline Phosphatase
Urine Ketones
Urine Glucose
B-Hydroxybutyrate
POC Glucose > 600 H* mg/dl
(70-99)
03/07/24 11:10
03/07/24 11:30
Vital Signs
Initial and Last Documented VS:
Initial Vital Signs
BP
114/50
03/07/24 10:52
Last Documented Vital Signs
Temp Pulse Resp BP Pulse Ox
98.0 F 68 16 138/73 98
03/10/24 16:25 03/10/24 16:25 03/10/24 16:25 03/10/24 16:25 03/10/24 16:25
MDM/Problems Addressed
MDM/Problems Addressed:
Acute severe diabetic ketoacidosis, acute leukocytosis, change in mental status
Chronic conditions affecting care: DM
*Pulse Oximetry
Patient hypoxic: no
*EKG
Interpreted by ED Provider?: Yes
Interpretation: abnormal
Rate: tachycardiac
Rhythm: sinus
Interval: normal interval
Ischemia: non-specific ST changes
*Customer Supply Coordinator Interpretation
Rate: tachycardiac
Interpretation: abnormal
Rhythm: sinus
*Critical Care Note
Total Time (30-74mins, 75-104mins- exclusive of procedures): 45 minutes
Data Reviewed
Review of Other/Old Records Reveals: Labs (Previous labs) and Discharge Summary (Recent discharge directions)
Source: patient and ambulance crew
Further Testing Considered But Not Given:
Consider head CT but change in mental status related to DKA
Patient Management
Discussion with other providers: Hospitalist
Escalation/DeEscalation of care consider admission/obs:
74-year-old female presents with change in mental status and hyperglycemia for it. Found to have DKA. Treated with broad-spectrum antibiotics, IV insulin. IV fluids. Already received sort of a bolus of insulin prior to arrival. Consider bicarb
if pH drops any further.
ED Attending Note
-
Portions of this chart may have been created with voice recognition software.� Occasional wrong word or��sound alike� substitutions may have occurred due to the inherent limitations of voice recognition software.
Discharge Plan
Departure
Patient Disposition: Admit
Date of Disposition: 03/07/24
Time of Disposition: 11:49
Admit to: IMU
Presentation/result/management discussed w/ accepting MD/DO: Hospitalist
Discharge Problem:
DKA (diabetic ketoacidosis), Leukocytosis
Interventions
Interventions:
*Risk Screen - Suicide Last Done: 03/07/24 11:01
*General Assessment Last Done: 03/07/24 11:01
*Neglect/Abuse Screening Last Done: 03/07/24 11:01
ED- Fall Risk Assessment Last Done: 03/07/24 14:44
*ED COVID-19 Vaccine History Last Done: 03/07/24 11:01
*Nursing Disposition Last Done: 03/07/24 14:44
ED- Neurological Assessment Last Done: 03/07/24 11:27
Discharge Date and Time
Discharge Date/Time: 03/07/24 14:45
[2024-03-07 11:52] LABS: ALT (SGPT) 21 U/L (0-35); AST (SGOT) 25 U/L (14-36); Albumin 4.7 g/dl (3.5-5.0); Alkaline Phosphatase 138 U/L (38-126); Blood Urea Nitrogen 39 mg/dl (7-17); Calcium 10.6 mg/dl (8.4-10.2); Carbon Dioxide < 5 mmol/L (22-30); Chloride 103 mmol/L (98-107); Estimated Creatinine Clearance 30 ml/min; Potassium 5.6 mmol/L (3.5-5.1); Total Bilirubin 1.2 mg/dl (0.2-1.3); Total Protein 7.1 g/dl (6.3-8.2); eGFR 39.73
[2024-03-07] MEDS: AZACTAM 2000 MG IV (12:02)
[2024-03-07 12:06] LABS: Glucose 893 mg/dl (70-99); Sodium 140 mmol/L (135-145)
[2024-03-07] MEDS: NOVOLIN R INSULIN INFUSION 100 IV (12:18)
[2024-03-07 12:19] LABS: Lactic Acid 3.5 mmol/L (0.7-2.0)
[2024-03-07] MEDS: VANCOCIN 300 MG IV (12:30)
[2024-03-07] MEDS: VANCOCIN 300 ML IV (12:30)
[2024-03-07 12:38] LABS: B-Hydroxybutyrate > 9.0 mmol/L (0.02-0.27)
[2024-03-07] MEDS: NSS 500 IV (12:59)
[2024-03-07 13:23] LABS: Glucose - Point of Care > 600 mg/dl (70-99)
--- NOTE | 2024-03-07 13:40 | PHA.VAN.IN ---
Assessment
- Assessment
Renal Function: Appears elevated from baseline (SCr 1.4 , baseline 0.3-0.4)
Maximum Temperature: 97.9
Minimum Temperature: 97.9
Concomitant Antimicrobials: cefepime
Plan
- Plan
Initial / Loading Dose: 1500mg (28 mg/kg) 03/07 12:30
Maintenance Regimen: dose by level
Monitoring: r 03/08 am
MRSA Screen: Ordered per protocol
Pharmacokinetics Vancomycin I
- -
Patient Age: 74
Patient Sex: Female
Vancomycin Day #: 1
Indication: Other
Requesting Provider: Dr Vasquez/ Dr Saleem Harrison, resident
Pertinent Antimicrobial Allergies:
Penicillins Allergy (Verified 03/07/24 12:06) Rash - per ecw
Height / Weight:
Height 5 ft 5 in
Actual Weight 53.1 kg
Pertinent Past Medical History: recent hip fx and surgery
- Vital Signs / Lab Results
Temp Pulse Resp BP Pulse Ox
97.9 F 87 19 111/50 100
03/07/24 11:01 03/07/24 13:00 03/07/24 13:00 03/07/24 13:00 03/07/24 13:00
Lab Results - Hematology
03/07/24
11:10
WBC 18.1 H
Lab Results - Chemistry
03/07/24 03/07/24
11:10 11:30
BUN 39 H Cancelled
Creatinine 1.4 H Cancelled
Estimated Creat Clear 30 Cancelled
Albumin 4.7
03/07/24
11:46
Lactic Acid 3.5 H
Lab Results - Urine
03/07/24
11:31
Urine Nitrite (Reflex) Negative
Leukocyte Esterase Rfl Negative
[2024-03-07 14:05] LABS: Blood Urea Nitrogen 38 mg/dl (7-17); Calcium 9.8 mg/dl (8.4-10.2); Carbon Dioxide 8 mmol/L (22-30); Chloride 112 mmol/L (98-107); Estimated Creatinine Clearance 38 ml/min; Potassium 4.1 mmol/L (3.5-5.1); Sodium 144 mmol/L (135-145); eGFR 53.06
[2024-03-07 14:20] LABS: Glucose 645 mg/dl (70-99)
--- NOTE | 2024-03-07 14:29 | CON.INTV ---
Addendum entered and electronically signed by Marilu Jaimes MD 03/07/24 15:47:
Patient seen and examined by myself and independently from below. Agree with below plan.
Patient is a 74-year-old female with history of dementia, recent hospital stay for right hip fracture underwent ORIF. She was discharged on 02/14/2024. Of note, she was on aspirin therapy at that time, no other DVT prophylaxis, per orthopedic
protocol. She now presents with change in mental status, found to be hyperglycemic. Upon arrival to the ER, she was noted to be tachycardic, 100% on room air, breathing at 25. Blood work revealed significant anion gap metabolic acidosis. She
also received bicarbonate therapy. She is now admitted to ICU for further management
Family history, social history, review of systems, medications and allergies as below. Of note penicillin allergy is noted
Physical exam
Presently she is lethargic, she is spontaneously moving all extremities. She is lying flat.
Heart rate in the 90s, normotensive, on room air.
Chest exam is clear, poor inspiratory effort. She has some trace right lower extremity edema.. Cannot assess calf tenderness as patient is currently lethargic
Data reviewed. Significant anion gap metabolic acidosis noted with serum bicarb less than 5.
EKG with sinus tachycardia, P pulmonale. This is new compared to her preoperative EKG from 02/10/2024
A/P
At this time, continue with treatment for DKA. IV fluids, insulin therapy, follow electrolytes. Once gap is closed, can consider transition to D5 containing fluids. Consider subcutaneous insulin prior to advancing diet as indicated. It is noted
that some documents suggest insulin pump but this will be clarified with nursing and exam.
We will check lower extremity Dopplers. Sinus tachycardia appears to be out of proportion to presentation unless related to dehydration and metabolic acidosis. P pulmonale on EKG noted
Empiric antibiotics given leukocytosis. She seems to be tolerating cefepime. Penicillin allergy with rash. Follow for development of rash.
Blood cultures x 1 pending, UA is negative. Chest x-ray unremarkable for any acute infiltrate
She remains on DVT prophylaxis.
Reviewed with critical care nursing
We will follow
TCCT 31 min
Original Note:
Consultation
Consultation Request
Date/Time Consultation Requested: 03/07/2024 13:30
Date/Time Consultation Performed: 03/07/2024 14:30
Reason for Consultation: Critical care
Medical History
-
Chief Complaint: Elevated glucose/change in mental status.
History of Present Illness:
Patient is a 74-year-old female with history of advanced dementia, type 2 diabetes mellitus, depression, anxiety recently hospitalized in [facility] 02/09 - 02/13 for closed fracture presents to the emergency department from the snf
for hypoglycemia and change in mental status. She received 25 units of insulin prior to arrival. On presentation to the ED, vitals BP 114/50, temperature 97.9, pulse 125, resp 25, O2 sats 100% on room air. She was found to have metabolic acidosis
with HCO3 less than 5, blood glucose 893. Urine ketones are +3, beta-hydroxybutyrate 9.0. She was given 1L NS 0.9% and started on insulin gtT and admitted to ICU. We are asked to follow patient from critical care standpoint
Past Medical History
Past Medical History: Other (: Diabetes mellitus type 2, depression, anxiety, advanced dementia, right hip displaced femoral neck fracture status post right hip cemented bipolar endoprosthesis 02/10)
Past Surgical History: Other (right hip cemented bipolar endoprosthesis 02/10)
Social History
Tobacco: Non-smoker
Alcohol: None
Drug: None
Living: Residential
Family History
Family History: Unable to Obtain
Allergies / Home Medications
Allergies
Allergy/AdvReac Type Severity Reaction Status Date / Time
Penicillins Allergy Rash Verified 03/07/24 12:06
Home Medications
�Medication �Instructions �Recorded �Confirmed �Last Taken �Type
insulin glargine 100 unit/mL (3 30 unit SC HS Diabetes 02/10/24 03/07/24 Unknown History
mL) subcutaneous pen (Lantus
Solostar U-100 Insulin)
insulin lispro 100 unit/mL 13 unit SC ACHS Diabetes 02/10/24 03/07/24 Unknown History
subcutaneous pen (Humalog KwikPen
(U-100) Insulin)
tamsulosin 0.4 mg capsule 0.4 mg PO DAILYPRN PRN bladder 02/14/24 03/07/24 Unknown Rx
scan volume > 400 mL #10 caps
escitalopram oxalate 5 mg tablet 5 mg PO DAILY Mental Health/Anxiety 03/07/24 03/07/24 Unknown History
risperidone 0.25 mg tablet 0.25 mg PO Q8H Mental 03/07/24 03/07/24 Unknown History
Health/Anxiety
Review of Systems
-
Unable to Obtain full review of systems at this time due to: Dementia
Vitals / Labs / Diagnostic Testing
Vital Signs
Temp Pulse Resp BP Pulse Ox
97.9 F 87 19 111/50 100
03/07/24 11:01 03/07/24 13:00 03/07/24 13:00 03/07/24 13:00 03/07/24 13:00
Lab Data
03/07/24 11:10
Diagnostic Testing:
Physical Exam
-
HEENT: Normocephalic
Cardiovascular: S1/S2 and Regular Rhythm
Respiratory: Clear (Close auscultation bilaterally no wheezes no rales no rhonchi)
GI: Soft, Non Distended and Normal Bowel Sounds
Neurology: Alert and Oriented (Oriented to person only)
Skin: Dry
General: Other (Patient ill-appearing, in no respiratory distress)
Assessment
-
Assessment
DKA
T2DM
Metabolic acidosis with increased anion gap due to above
Leukocytosis most likely related to above
Condition present prior to admission
Advanced dementia
Anxiety
Depression
Plan
Initiated on regular insulin gtt. in the ED, wean off insulin and use basal bolus insulin
Continue every hour glucose while on insulin, and continue IV hydration with 0.9 normal saline with KCl at 150 ml/hour
Serial labs with BMP every 4 hours, mag, pO4 while on insulin
Goal blood glucose 1 40-1 80
Initiated on IV antibiotics cefepime and vancomycin.
Blood cultures pending
Trend WBCs
Monitor temperature
Replete electrolytes
Due to recent surgery, fracture, sinus tachy assess Lower Extremity with Doppler B/L
DVT prophylaxis; Lovenox
Full code
--- NOTE | 2024-03-07 15:11 | CM ---
Attempt made to visit with Helga in her room, however she was fast asleep. called her , Vito to obtain history. Vito advised that Helga has been at the [facility] since August. He is concerned that she has had 3
hospitalizations in the past couple months while at the [facility]; she fell and sustained a fx hip and also had 2 hospitalizations due to diabetic issue. has an appointment to speak with her Director Of Strategy & Mobile next week. He may want to consider
transfer to a SNF and was provided with the [facility] star ratings of facilities in or near the area of [place] where he lives. to call on Sunday to next steps and options he is considering.
Plan: New SNF vs. return to the [facility] pending 's decision.
--- NOTE | 2024-03-07 15:16 | HPS.HSE ---
Addendum entered and electronically signed by Saskia Vasquez MD 03/07/24 16:23:
pt seen and examined independently--Agree with plan set forth by Dr. Alonso
GENERAL: well developed, well nourished, chronically ill appearing female in no apparent distress
HEENT:NC/AT dry mucous membranes
HEART: regular rate and rhythm, +S1, +S2, tachycardic
LUNGS : clear to auscultation bilaterally
ABDOM: soft, ?tender to palpation no guarding or rebound, nondistended, + bowel sounds
EXT: no cyanosis, clubbing, or edema
NEUROLOGIC:apparent dementia--not following commands--oriented to self only (baseline for her)
DKA with lactic acidosis due to uncontrolled diabetes mellitus (presumed type 2 but there is type 1 written on her chart previously), pH 7.00--unknown trigger--ED RN reported difficulty controlling sugars as outpt--ADMIT to ICU--consult
civil drafter--NPO/IVF/insulin drip/IVF--Q1H accuchecks, Q4H BNP--follow K, mag, bicarb
leukocytosis--likely reactive--no obvious infectious source, UA and CXR neg--cont vanco/cefepime for now--follow cultures
LILIANA--Elevated creatinine of 1.4 on admission--likely due to dehydration--baseline 0.9ish
Advanced dementia--pt oriented to self at baseline only--will likely need placement when ready for d/c--Hold risperidone
Anxiety/depression--Hold escitalopram--due to NPO status
hx of urinary retention --Hold tamsulosin
hx of falls with right hip fx and repair last month--PT/OT when able
DVT prophylaxis-Lovenox
CODE STATUS-full code
Total Critical Care 60 minutes. I was immediately available to the patient and staff. I personally examined, reviewed labs, diagnostic images/reports, interpretations, treatment plans, discussed patient care with other providers and family or
caregivers (if patient is unable to make decisions), entered orders as appropriate and documented the medical record.
Original Note:
Family Physician
-
Family Physician: Jose Manuel Yuan
Chief Complaint
-
IV fluids
Insulin
Monitor BMP every 4 hours
Monitor blood glucose every hour
History of Present Illness
74-year-old female with past history of type 2 diabetes mellitus, DKA, right hip displacement and femoral neck fracture, advanced dementia, came to the hospital with elevated blood glucose level. She resides in [facility] assisted living
and memory care. Most of the information is gathered from the ER staff and medical records since patient is unable to give any information. She is not oriented to time place. Oriented to person( herself). The alf sent patient to the
hospital stating that they were unable to control elevated blood sugar level for the past 2 days. Patient was endorsing hospital on 02/10 for right hip repair. Prior to this patient was in for DKA 01/22 with blood glucose level around 600.
Medical History
Past Medical History
Past Medical History: Reports Dementia and IDDM
Past Surgical History: Reports Orthopedic (Right hip repair)
Social History
Unable to obtain full social history at this time due to: Dementia
Tobacco: Other (Patient unable to answer)
Alcohol: Other (Patient unable to answer)
Living: [facility]
Employment: Retired
Family History
Family History: Not pertinent
Allergies / Home Medications
Allergies reflects when Allergies were last updated in [employer].
Home Medications with original date entered in [employer]
Allergy/Medication List:
Penicillin-rash
Review of Systems
-
Unable to obtain full review of systems at this time due to: Dementia
History Source: Other (Medical records)
Physical Exam
Vital Signs
Vital Signs
Temp Pulse Resp BP Pulse Ox
97.9 F 95 17 128/54 99
03/07/24 11:01 03/07/24 14:36 03/07/24 14:36 03/07/24 14:00 03/07/24 14:00
Physical Exam
General: Other (Dementia, unable to answer questions)
HEENT: NormoCephalic
Respiratory: Clear
Cardiac: S1/S2 and Regular Rhythm
GI: Soft and Tender (Patient winced on palpation, no guarding, rigidity)
Musculoskeletal: No Edema
Neuro: Other (Not oriented to time, place, oriented to her name only); No Awake, Alert or Oriented
Psych: Confused and Apparent Dementia
Laboratory Results
-
03/07/24 11:10
Laboratory Results
Lactic Acid 3.5 mmol/L (0.7-2.0) H 03/07/24 11:46
Total Bilirubin 1.2 mg/dl (0.2-1.3) 03/07/24 11:10
AST 25 U/L (14-36) 03/07/24 11:10
ALT 21 U/L (0-35) 03/07/24 11:10
Alkaline Phosphatase 138 U/L (38-126) H 03/07/24 11:10
Data Reviewed
-
Lab Data: Labs Reviewed by me and Discussed with Physician
Impression/Plan
-
IMPRESSION:
DKA
Reactive Leukocytosis
Elevated creatinine level
Advanced dementia
Anxiety/depression
PLAN:
DKA
Due to uncontrolled type 2 diabetes mellitus
Started on IV fluids--normal saline
Started on insulin
Check BMP every 4 hours
Check blood glucose every hour
Anion gap-32--purely metabolic acidosis with no compensation
Goal is to close the gap
Monitor electrolytes and adjust as needed
K 5.6, dropped to 4.1 in 2 hours--added 20 mEq potassium
Bicarb 4.9--no additional bicarb as pH is 7. Add bicarb if pH is less than 6.9
Corrected sodium 153--- started on isotonic NSS as it is still hypotonic today corrected sodium
Reactive leukocytosis
Suspect #1 dehydration #2 DKA #3 infection-less likely
Started on vancomycin and cefepime
Blood cultures pending
Monitor WBC and temperature curve
Elevated creatinine level
Due to DKA. Will probably correct with insulin
Baseline creatinine less than 1
Monitor BMP in a.m.
Advanced dementia
Hold risperidone
Anxiety/depression
Hold escitalopram
Hold tamsulosin
DVT prophylaxis-Lovenox
CODE STATUS-full code
--- NOTE | 2024-03-07 15:30 | PTCARENOTE ---
Pt arrived approx 1450 from ER via stretcher. Pt with dementia noted, crying out, not answering any questions appropriately. Pt was reoriented, but that did not seem to help with her confusion. Pt spoken to with a soft voice, HR SR, BP 129/60. IV
fluid bolus hanging and completed. New IVF NSS with 20 meq KCL started at 150 ml/hr. Reg insulin drip received at 5.3 units/hr. Blood draw pending prior to coming to ICU back. Reg insulin drip changed to 6 units/hr following DKA protocol. R and L
wrist ints intact. New L forarm 20 g int placed here in ICU. CHG bath given, val care done nad new purwick placed. Pt on R/A, O2 sat= 98%.
[2024-03-07] MEDS: NSS with KCL 20 MEQ 1000 IV (16:09)
[2024-03-07 16:17] LABS: Glucose - Point of Care 411 mg/dl (70-99)
[2024-03-07 16:30] LABS: Lactic Acid 1.6 mmol/L (0.7-2.0)
[2024-03-07 16:32] LABS: Blood Urea Nitrogen 37 mg/dl (7-17); Calcium 9.5 mg/dl (8.4-10.2); Carbon Dioxide 13 mmol/L (22-30); Chloride 117 mmol/L (98-107); Estimated Creatinine Clearance 47 ml/min; Glucose 440 mg/dl (70-99); Potassium 3.8 mmol/L (3.5-5.1); Sodium 146 mmol/L (135-145); eGFR > 60.00
[2024-03-07 17:11] LABS: Glucose - Point of Care 410 mg/dl (70-99)
--- NOTE | 2024-03-07 17:44 | PTCARENOTE ---
Pt's glucose has been greater than 300 last 3 checks, Dr Goldsmith, medical planner Elsi Alonso made awarems
--- NOTE | 2024-03-07 17:45 | PTCARENOTE ---
.....made aware. Reg insulin increased to 7 units/hr as per Dr Gonzalez. Will con't q 1 hr accu checks. Lactic level now normal value at 1.6
[2024-03-07 18:23] LABS: Glucose - Point of Care 306 mg/dl (70-99)
[2024-03-07 18:38] LABS: Glucose - Point of Care 309 mg/dl (70-99)
[2024-03-07 19:18] LABS: Glucose - Point of Care 230 mg/dl (70-99)
[2024-03-07] MEDS: KCL 270 MEQ IV (19:29)
[2024-03-07] MEDS: STERILE WATER FOR INJECTION 10 ML IV (19:30)
[2024-03-07] MEDS: MAXIPIME 1000 MG IV (19:30)
[2024-03-07] MEDS: HEPARIN 5000 UNITS SC (19:30)
[2024-03-07 19:35] LABS: Blood Urea Nitrogen 36 mg/dl (7-17); Calcium 9.8 mg/dl (8.4-10.2); Carbon Dioxide 21 mmol/L (22-30); Chloride 119 mmol/L (98-107); Estimated Creatinine Clearance 61 ml/min; Glucose 224 mg/dl (70-99); Potassium 3.7 mmol/L (3.5-5.1); Sodium 146 mmol/L (135-145); eGFR > 60.00
[2024-03-07] MEDS: D5/0.45%NSS with KCL 20 MEQ 1000 IV (19:48)
--- NOTE | 2024-03-07 20:00 | PTCARENOTE ---
Received patient at 1900. Pt. currently in bed. History of dementia. Patient screaming, moaning, and restless in bed. Disoriented to time, place, situation. Denies pain. Afebrile. Heart rhythm sinus. Blood pressure normotensive. Currently on room
air. Lungs sound diminished. Pt. currently NPO. Pt. is incontinent of urine, external pure wick catheter in place. Skin as documented. Discussed plan of care with patient. Vital signs stable at this time.
[2024-03-07 20:12] LABS: Glucose - Point of Care 212 mg/dl (70-99)
[2024-03-07 21:19] LABS: Glucose - Point of Care 185 mg/dl (70-99)
[2024-03-07 22:17] LABS: Glucose - Point of Care 190 mg/dl (70-99)
[2024-03-07 23:05] LABS: Blood Urea Nitrogen 35 mg/dl (7-17); Calcium 9.6 mg/dl (8.4-10.2); Carbon Dioxide 20 mmol/L (22-30); Estimated Creatinine Clearance 71 ml/min; Glucose 147 mg/dl (70-99); eGFR > 60.00
[2024-03-07 23:12] LABS: Chloride 122 mmol/L (98-107); Potassium 4.6 mmol/L (3.5-5.1); Sodium 146 mmol/L (135-145)
[2024-03-07 23:14] LABS: Glucose - Point of Care 156 mg/dl (70-99)
[2024-03-08] VITALS (13 sets, daily range): BP systolic 121–156; BP diastolic 56–92; BMI 19.7
[2024-03-08 00:06] LABS: Glucose - Point of Care 197 mg/dl (70-99)
--- NOTE | 2024-03-08 00:25 | PTCARENOTE ---
Pt. assessment unchanged, Continuing insulin gtt per DKA protocol. Patient continues to be restless. Pulling purewick out, pulled an IV out. Verbally redirected. Vital signs stable at this time.
[2024-03-08 01:12] LABS: Glucose - Point of Care 211 mg/dl (70-99)
[2024-03-08 02:13] LABS: Glucose - Point of Care 222 mg/dl (70-99)
[2024-03-08] MEDS: D5/0.45%NSS with KCL 20 MEQ 1000 IV (02:31)
[2024-03-08 02:59] LABS: Blood Urea Nitrogen 32 mg/dl (7-17); Calcium 9.5 mg/dl (8.4-10.2); Carbon Dioxide 20 mmol/L (22-30); Chloride 123 mmol/L (98-107); Estimated Creatinine Clearance 71 ml/min; Glucose 219 mg/dl (70-99); Potassium 4.4 mmol/L (3.5-5.1); Sodium 146 mmol/L (135-145); eGFR > 60.00
[2024-03-08 03:10] LABS: % Basophils 0.1 % (0-2); % Eosinophils 0.1 % (0-6); % Immature Granulocytes 0.7 % (0-0.5); % Lymphocytes 7.5 % (20.5-51.1); % Monocytes 9.1 % (1.7-9.3); % Neutrophils 82.5 % (42.2-75.2); Absolute Immature Granulocytes 0.1 10^3/uL (0-0.05); Absolute Monocytes 1.3 10^3/uL (0.1-0.6); Absolute Neutrophils 11.3 10^3/uL (1.4-6.5); Hematocrit 29.6 % (37.0-47.0); Hemoglobin 10.4 g/dL (12.0-16.0); Mean Corp Hgb Conc. 35.1 g/dL (33.0-37.0); Mean Corpuscular Hgb 33.3 pg (27.0-31.0); Mean Corpuscular Volume 94.9 fL (81.0-99.0); Mean Platelet Volume 8.5 fL (7.4-10.4); Nucleated Red Blood Cells % 0 %; Platelet Count 252 10^3/uL (130-400); Red Blood Cell Count 3.12 10^6/uL (4.20-5.40); Red Cell Dist. Width 15.2 % (11.5-14.5); White Blood Cell Count 13.7 10^3/uL (4.8-10.8)
[2024-03-08 03:11] LABS: Vancomycin Random 9.5 ug/ml
[2024-03-08 03:12] LABS: Glucose - Point of Care 225 mg/dl (70-99)
[2024-03-08 03:24] LABS: Magnesium 2.4 mg/dl (1.6-2.3); Phosphorus 2.3 mg/dl (2.5-4.5)
--- NOTE | 2024-03-08 04:00 | PTCARENOTE ---
Pt. assessment remains unchanged. AM labs drawn. Vital signs stable at this time.
[2024-03-08 04:12] LABS: Glucose - Point of Care 208 mg/dl (70-99)
[2024-03-08 05:20] LABS: Glucose - Point of Care 191 mg/dl (70-99)
[2024-03-08 06:05] LABS: Glucose - Point of Care 207 mg/dl (70-99)
--- NOTE | 2024-03-08 06:12 | PTCARENOTE ---
Went into patient's room to draw blood work. Upon assessing pt., noticed patient pulled put both IVs. Insulin gtt and IVF on standby. Multiple attempts made to place new IVs without success. Pt. screaming and combative. IVT paged. Spoke with IVT,
they will be up shortly to gain new IV access.
--- NOTE | 2024-03-08 06:13 | W.PN.INTV ---
Today's Communication / Plan
Recommendations
Wean off insulin drip, transition to subcutaneous regimen
antibiotics per primary service
Tachycardia improved
Doppler negative for DVT
DVT prophylaxis
Okay for transfer out of ICU once off insulin drip. We will sign off. Please call with questions
Assessment
-
Assessment
DKA
T2DM
Tachycardia
Metabolic acidosis with increased anion gap due to above
Leukocytosis most likely related to above
Condition present prior to admission
Advanced dementia
Anxiety
Depression
Plan/recommendations
At this time, she appears to be more comfortable, less agitated, tachycardia improved
Doppler negative for blood clot
Remains on insulin drip lactate normal, gap resolved
Moving forward
Continue with supportive care
Wean off insulin drip, transition to subcutaneous insulin
Advance diet as able, transition fluids. Potassium stable
Patient empirically on antibiotics
MRSA screen pending
Defer further antibiotics to primary service, currently on cefepime/vancomycin
Follow cultures
Leukocytosis slightly improved
Replete electrolytes
DVT prophylaxis; Lovenox
Full code
Okay for transfer out of ICU once off insulin drip. Will sign off once transferred, please call with questions
Subjective Dataa
Subjective Data
Date of Service:
Date of Service: March 08, 2024
Subjective:
Patient appears to be comfortable. Dementia and agitation continues. Remains on insulin drip, being transition. Tachycardia improved. Dopplers negative for DVT
Objective Data
Data Reviewed
Vital Signs / I&O / Oxygen:
Vital Signs
Temp Pulse Resp BP Pulse Ox
98.9 F 88 16 135/85 97
03/08/24 03:28 03/08/24 06:00 03/08/24 06:00 03/08/24 06:00 03/08/24 06:00
Intake and Output
03/06/24 03/07/24 03/08/24
06:59 06:59 06:59
Intake Total 2026
Output Total 100 / 100
Balance 1926
SaO2 97
Physical Exam
General: Comfortable
HEENT: Normocephalic and Anicteric
Cardiovascular: S1-S2, Regular Rhythm, Murmur (n), Rub (n), Peripheral Edema (tr, rt>L) and Calf Tenderness (n)
Respiratory: Wheeze (n), Crackles (n), Rhonchi (n), Non-Labored Respirations and Other (Poor inspiratory effort)
GI: Soft, Non Distended and Non Tender
Neurology: Awake (Moves all extremities, says 'I am cold'. Does not consistently follow commands)
Skin: Cyanosis (n), Jaundice (n), Rash (n) and Bruising
Labs/Micro/Reports
Lab Data
03/08/24 02:39
[2024-03-08 07:09] LABS: Blood Urea Nitrogen 27 mg/dl (7-17); Calcium 9.9 mg/dl (8.4-10.2); Carbon Dioxide 22 mmol/L (22-30); Chloride 122 mmol/L (98-107); Estimated Creatinine Clearance 71 ml/min; Glucose 167 mg/dl (70-99); Potassium 4.1 mmol/L (3.5-5.1); Sodium 147 mmol/L (135-145); eGFR > 60.00
[2024-03-08] MEDS: STERILE WATER FOR INJECTION 10 ML IV (07:18)
[2024-03-08] MEDS: MAXIPIME 1000 MG IV (07:18)
[2024-03-08] MEDS: HEPARIN SC (07:18)
[2024-03-08 07:23] LABS: Glucose - Point of Care 154 mg/dl (70-99)
[2024-03-08 08:17] LABS: Glucose - Point of Care 131 mg/dl (70-99)
--- NOTE | 2024-03-08 08:18 | PTCARENOTE ---
Received patient at 0700. Pt. currently in bed. History of dementia. Patient screaming, moaning, and restless in bed. Disoriented to time, place, situation. Denies pain. Afebrile. Sinus rhythm, normotensive. Currently on room air. Lungs sound
diminished. Pt tolerating sips. Pt. is incontinent of urine, depends CDI. Skin as documented. IVs removed by patient. 1 IV restarted and pt now soft restrained BUE. Discussed plan of care with patient. Insulin gtt continues. D5 1/2 NS with 20 KCL
infusing.
--- NOTE | 2024-03-08 08:31 | W.PN.HOSP.TC ---
Addendum entered and electronically signed by Saskia Vasquez MD 03/08/24 14:17:
pt seen and examined independently--Agree with plan set forth by Dr. Alonso
GENERAL: well developed, well nourished, chronically ill appearing female in no apparent distress
HEENT:NC/AT
HEART: regular rate and rhythm, +S1, +S2
LUNGS : clear to auscultation bilaterally
ABDOM: soft, nontender, nondistended, + bowel sounds
EXT: no cyanosis, clubbing, or edema
NEUROLOGIC:apparent dementia--not following commands--oriented to self only (baseline for her)--now in restraints
DKA with lactic acidosis due to uncontrolled diabetes mellitus (presumed type 2 but there is type 1 written on her chart previously)--resolved--unknown trigger--ED RN reported difficulty controlling sugars as outpt--apprec coal grader--off insulin
drip and transitioned to SC lantus, basal bolus insulin with mealtime insulin and diabetic diet--follow one more BMP to make sure gap stays closed
leukocytosis--improved--likely reactive--no obvious infectious source, UA and CXR neg--stop vanco/cefepime-- cultures negative
LILIANA--resolved--Elevated creatinine of 1.4 on admission due to dehydration--now at baseline
Advanced dementia--pt oriented to self at baseline only--will likely need placement when ready for d/c--now on restraints (try to d/c as soon as able)--restart risperidone, lexapro
Anxiety/depression--restart escitalopram
hx of urinary retention -- tamsulosin as able
hx of falls with right hip fx and repair last month--PT/OT when able
DVT prophylaxis-Lovenox
CODE STATUS-full code
Original Note:
Today's Communication/Plan
-
Switch to SC insulin
Stop IV fluids
Diabetic diet
Monitor potassium, stop KCl
Replete phosphorus
Assessment / Plan
Assessment / Plan
IMPRESSION:
DKA
Reactive Leukocytosis
Elevated creatinine level
Advanced dementia
Anxiety/depression
History of urinary retention
History of falls with right hip fracture and repair last month
PLAN:
DKA
Due to uncontrolled type 2 diabetes mellitus
Stop IV fluids
Advance patient to diabetic diet
Switch to SC insulin--15 units Lantus, 13 units mealtime insulin, high dose basal bolus
Lantus 3 units for now--for the gap to remain closed as IV insulin is discontinued
Anion gap closed
Check BMP in a.m.
Check blood glucose every hour
Monitor electrolytes and adjust as needed
KCl stopped, monitor potassium and labs
Bicarb improved to normal 22
Replete phosphorus
Repeat phosphorus, mag
Reactive leukocytosis- improving
Suspect #1 dehydration #2 DKA #3 infection-less likely
Stop IV vancomycin and cefepime
Blood cultures pending
Monitor WBC and temperature curve
Elevated creatinine level- resolved
Due to DKA. Will probably correct with insulin
Creatinine 0.6 at baseline
Monitor BMP in a.m.
Advanced dementia
Resume risperidone
On restraints
Anxiety/depression
resume escitalopram
History of urinary retention
resume tamsulosin
History of falls with right hip fracture and repair last month
PT/OT when able
DVT prophylaxis Lovenox
CODE STATUS full code
Anticipated Discharge: > 48 hours
Subjective/Interval History
-
Date of Service: March 08, 2024
Patient is not oriented to time and place, only orientd to her name. Patient is confused and agitated, on restraints.
Objective Data
-
Labs:
Laboratory Results
03/07/24 03/08/24 03/08/24
22:45 02:39 06:00
WBC 13.7 H
Hgb 10.4 L
Hct 29.6 L
Plt Count 252 D
PT Pending
INR Pending
APTT Pending
Sodium 146 H 146 H
Potassium 4.6 4.4
Chloride 122 H 123 H
Carbon Dioxide 20 L 20 L
BUN 35 H 32 H
Creatinine 0.6 0.6
Glucose 147 H 219 H
Calcium 9.6 9.5
03/08/24 03/08/24
06:29 10:27
WBC
Hgb
Hct
Plt Count
PT
INR
APTT
Sodium 147 H Pending
Potassium 4.1 Pending
Chloride 122 H Pending
Carbon Dioxide 22 Pending
BUN 27 H Pending
Creatinine 0.6 Pending
Glucose 167 H Pending
Calcium 9.9 Pending
Vital Signs:
Vital Signs
Temp Pulse Resp BP Pulse Ox
98.2 F 100 16 128/83 99
03/08/24 07:53 03/08/24 08:00 03/08/24 08:00 03/08/24 08:00 03/08/24 08:00
I&O
03/07/24 03/08/24 03/09/24
06:59 06:59 06:59
Intake Total 2026 79 / 79
Output Total 100 / 100
Balance 1926
Review of Systems
-
Unable to obtain full review of systems at this time due to: Dementia
Physical Exam
-
General: Other (Agitated, not oriented, confused)
HEENT: Normocephalic and Atraumatic
Respiratory: Clear to Auscultation
Cardiac: Regular Rhythm and S1/S2
GI: Soft and Nondistended
Musculoskeletal: No Edema
Neuro: Awake; Negative Oriented (to her name only )
Psych: Confused and Agitated
Data Reviewed
-
Labs: Labs Reviewed by me, Discussed with Physician and Discussed with Nurse
[2024-03-08 09:06] LABS: Glucose - Point of Care 65 mg/dl (70-99)
[2024-03-08 09:33] LABS: Glucose - Point of Care 85 mg/dl (70-99)
--- NOTE | 2024-03-08 09:38 | PHA.VAN.FU ---
Vancomycin Assessment / Plan
- Assessment
Renal Function: SCR Decreasing (over past 24hrs 1.4>1.1>0.9>0.7>0.6)
WBC's are: Trending Down (18.1>13.7)
In the past 24 hrs, patient has been: Afebrile
Concomitant Antimicrobials: Cefepime
- Assessment - Therapeutic Drug Monitoring
Random Level: 9.5 drawn ~ 14 hrs after vancomycin 1500mg dose given
- Dosing Plan
Adjust Regimen to: Vancomycin 500mg IV Q12 hrs
New Regimen Predicts: AUC (433), Peak (25), Trough (12)
Dosing Comments: scheduling dosing due to improved renal function
- Monitoring Plan
No level(s) ordered at this time: Will order levels according to vancomycin dosing protocol
Level(s) appropriate: Repeat sooner for changes in renal function or clinical status
- Follow Up
Pharmacy will continue to follow.
Vancomycin Follow UP
- -
Patient Age: 74
Patient Sex: Female
Vancomycin Day #: 2
Indication: Other
Requesting Provider: Dr Vasquez/ Dr Saleem Harrison, resident
Pertinent Antimicrobial Allergies:
Penicillins Allergy (Verified 03/07/24 12:06) Rash - per ecw
Height / Weight:
Height 5 ft 5 in
Actual Weight 53.8 kg
Pertinent Past Medical History: recent hip fx and surgery
- Vital Signs / Lab Results
Temp Pulse Resp BP Pulse Ox
98.2 F 100 16 128/83 99
03/08/24 07:53 03/08/24 08:00 03/08/24 08:00 03/08/24 08:00 03/08/24 08:00
Lab Results - Hematology
03/07/24 03/08/24
11:10 02:39
WBC 18.1 H 13.7 H
Lab Results - Chemistry
03/07/24 03/07/24 03/07/24
11:10 11:30 13:33
BUN 39 H Cancelled 38 H
Creatinine 1.4 H Cancelled 1.1 H
Estimated Creat Clear 30 Cancelled 38
Albumin 4.7
03/07/24 03/07/24 03/07/24
14:27 15:37 19:14
BUN Cancelled 37 H 36 H
Creatinine Cancelled 0.9 0.7
Estimated Creat Clear Cancelled 47 61
Albumin
03/07/24 03/08/24 03/08/24
22:45 02:39 06:29
BUN 35 H 32 H 27 H
Creatinine 0.6 0.6 0.6
Estimated Creat Clear 71 71 71
Albumin
03/07/24 03/07/24
11:46 16:06
Lactic Acid 3.5 H 1.6
Lab Results - Urine
03/07/24
11:31
Urine Nitrite (Reflex) Negative
Leukocyte Esterase Rfl Negative
Therapeutic Drug Monitoring
Random Vancomycin 9.5 ug/ml 03/08/24 02:39
[2024-03-08 10:09] LABS: Glucose - Point of Care 75 mg/dl (70-99)
[2024-03-08] MEDS: VANCOCIN HCL 500 MG 100 IV (10:25)
[2024-03-08] MEDS: DEXTROSE 50% SYRINGE 12.5 GRAMS IV (10:28)
[2024-03-08 10:48] LABS: Glycohemoglobin (HgbA1c) 9.3 % (4.0-5.6)
[2024-03-08 11:02] LABS: Glucose - Point of Care 124 mg/dl (70-99)
[2024-03-08 11:31] LABS: APTT 28.1 Sec (23.4-35.0)
[2024-03-08 12:07] LABS: Glucose - Point of Care 147 mg/dl (70-99)
[2024-03-08 12:29] LABS: Blood Urea Nitrogen 21 mg/dl (7-17); Calcium 9.9 mg/dl (8.4-10.2); Carbon Dioxide 22 mmol/L (22-30); Chloride 117 mmol/L (98-107); Estimated Creatinine Clearance 71 ml/min; Glucose 120 mg/dl (70-99); Potassium 3.9 mmol/L (3.5-5.1); Sodium 143 mmol/L (135-145); eGFR > 60.00
[2024-03-08] MEDS: NOVOLOG FLEXPEN-LOW RESISTANCE SC ×2 (12:29→17:05)
--- NOTE | 2024-03-08 12:37 | PTCARENOTE ---
pt continues to require near-constant reorientation, frequently crying, yelling out and pulling at all tubes/lines/IVs. RN remaining at bedside throughout most of shift for reassurance. Restraints remain in place. Insulin and IVF stopped as ordered.
Diet changed to PO, tolerating liquids without issue.
[2024-03-08] MEDS: NOVOLOG FLEXPEN 13 UNITS SC ×2 (13:13→17:27)
[2024-03-08] MEDS: LANTUS 0.0299999999999999989 UNITS SC (13:13)
[2024-03-08] MEDS: NEUTRA-PHOS POWDER PACKET 250 MG PO ×3 (13:55→21:47)
[2024-03-08 15:15] LABS: Blood Urea Nitrogen 18 mg/dl (7-17); Calcium 10.2 mg/dl (8.4-10.2); Carbon Dioxide 20 mmol/L (22-30); Chloride 113 mmol/L (98-107); Estimated Creatinine Clearance 71 ml/min; Glucose 199 mg/dl (70-99); Potassium 4.2 mmol/L (3.5-5.1); eGFR > 60.00
[2024-03-08 15:44] LABS: Sodium 140 mmol/L (135-145)
[2024-03-08] MEDS: RISPERDAL 0.25 MG PO (16:02)
--- NOTE | 2024-03-08 16:35 | CHAP ---
Helga was very disoriented and upset, desperate to be released from the restraints. Emotional support and a prayer blanket provided.
[2024-03-08 17:08] LABS: Glucose - Point of Care 132 mg/dl (70-99)
[2024-03-08] MEDS: HEPARIN 5000 UNITS SC (19:51)
--- NOTE | 2024-03-08 20:00 | PTCARENOTE ---
Received patient at 1900. Pt. in bed. Alert and oriented to self. Disoriented to time, place, and situation. Pt. is confused and upset. Intermittent screaming and sobbing. Able to redirect and calm patient. Denies pain/discomfort. Afebrile. Heart
rhythm is sinus. Blood pressure normotensive. Currently on room air. Pt. has diet ordered, decent appetite. Incontinent of urine. Skin as documented. Discussed plan of care with patient. Vital signs stable at this time.
[2024-03-08] MEDS: LANTUS 0.149999999999999994 UNITS SC (21:47)
[2024-03-08 21:54] LABS: Glucose - Point of Care 165 mg/dl (70-99)
[2024-03-09] VITALS (8 sets, daily range): BP systolic 128–158; BP diastolic 52–85; PULSE 64–65; BMI 20.5
[2024-03-09] MEDS: RISPERDAL 0.25 MG PO ×3 (00:07→17:30)
[2024-03-09 03:36] LABS: % Basophils 0.2 % (0-2); % Eosinophils 1.7 % (0-6); % Immature Granulocytes 0.3 % (0-0.5); % Lymphocytes 17.6 % (20.5-51.1); % Monocytes 5.9 % (1.7-9.3); % Neutrophils 74.3 % (42.2-75.2); Absolute Eosinophils 0.1 10^3/uL (0-0.7); Absolute Monocytes 0.4 10^3/uL (0.1-0.6); Absolute Neutrophils 4.4 10^3/uL (1.4-6.5); Hematocrit 29.6 % (37.0-47.0); Hemoglobin 10.3 g/dL (12.0-16.0); Mean Corp Hgb Conc. 34.8 g/dL (33.0-37.0); Mean Corpuscular Hgb 33.8 pg (27.0-31.0); Mean Platelet Volume 8.6 fL (7.4-10.4); Nucleated Red Blood Cells % 0 %; Platelet Count 167 10^3/uL (130-400); Red Blood Cell Count 3.05 10^6/uL (4.20-5.40); Red Cell Dist. Width 14.9 % (11.5-14.5); White Blood Cell Count 5.9 10^3/uL (4.8-10.8)
[2024-03-09 04:00] LABS: Blood Urea Nitrogen 11 mg/dl (7-17); Calcium 9.7 mg/dl (8.4-10.2); Carbon Dioxide 24 mmol/L (22-30); Chloride 107 mmol/L (98-107); Estimated Creatinine Clearance 71 ml/min; Glucose 153 mg/dl (70-99); Magnesium 1.9 mg/dl (1.6-2.3); Phosphorus 2.7 mg/dl (2.5-4.5); Potassium 3.5 mmol/L (3.5-5.1); Sodium 137 mmol/L (135-145); eGFR > 60.00
[2024-03-09] MEDS: NOVOLOG FLEXPEN 13 UNITS SC (08:48)
[2024-03-09] MEDS: NOVOLOG FLEXPEN-LOW RESISTANCE 2 UNITS SC (08:49)
[2024-03-09] MEDS: LEXAPRO 5 MG PO (08:49)
[2024-03-09] MEDS: NEUTRA-PHOS POWDER PACKET 250 MG PO (08:50)
[2024-03-09] MEDS: HEPARIN 5000 UNITS SC ×2 (08:50→21:22)
[2024-03-09 09:02] LABS: Glucose - Point of Care 225 mg/dl (70-99)
--- NOTE | 2024-03-09 09:34 | W.PN.HOSP.TC ---
Addendum entered and electronically signed by Saskia Vasquez MD 03/09/24 10:27:
pt seen and examined independently--Agree with plan set forth by Dr. Alonso
hopeful d/c back to the [facility] Sunday
GENERAL: well developed, well nourished, chronically ill appearing female in no apparent distress--sitting in the chair--off restraints
HEENT:NC/AT
HEART: regular rate and rhythm, +S1, +S2
LUNGS : clear to auscultation bilaterally
ABDOM: soft, nontender, nondistended, + bowel sounds
EXT: no cyanosis, clubbing, or edema
NEUROLOGIC:apparent dementia--oriented to self only (baseline for her)
DKA with lactic acidosis due to uncontrolled diabetes mellitus (presumed type 2 but there is type 1 written on her chart previously)--resolved--unknown trigger--ED RN reported difficulty controlling sugars as outpt--apprec charting clerk--off insulin
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
leukocytosis--resolved--likely reactive--no obvious infectious source, UA and CXR neg--stop vanco/cefepime-- cultures negative
LILIANA--resolved--Elevated creatinine of 1.4 on admission due to dehydration--now at baseline
Advanced dementia--pt oriented to self at baseline only--will likely need placement when ready for d/c--now on restraints (try to d/c as soon as able)--restart risperidone, lexapro
Anxiety/depression--restart escitalopram
hx of urinary retention -- tamsulosin as able
hx of falls with right hip fx and repair last month--PT/OT when able
DVT prophylaxis-Lovenox
CODE STATUS-full code
Original Note:
Today's Communication/Plan
-
PT/OT
Possible discharge to [facility] once PT/OT determine that she is at baseline
Assessment / Plan
Assessment / Plan
IMPRESSION:
DKA
Reactive Leukocytosis
Elevated creatinine level
Advanced dementia
Anxiety/depression
History of urinary retention
History of falls with right hip fracture and repair last month
PLAN:
DKA
Due to uncontrolled type 2 diabetes mellitus
Stop IV fluids
Advance patient to diabetic diet
15 units Lantus, 13 units mealtime insulin, high dose basal bolus
Possible discharge tomorrow to [facility] once PT OT determine baseline
Lantus 3 units for now--for the gap to remain closed as IV insulin is discontinued
Anion gap closed
Monitor BG
Monitor electrolytes and adjust as needed
K, Phos, mag, sodium , bicarb at baseline
Reactive leukocytosis- improving
Suspect #1 dehydration #2 DKA #3 infection-less likely
Stop IV vancomycin and cefepime
Blood cultures 1/2 no growth
Monitor WBC and temperature curve
Elevated creatinine level- resolved
Due to DKA. Will probably correct with insulin
Creatinine 0.6 at baseline
Monitor BMP in a.m.
Advanced dementia
Resume risperidone
Off restraints
Anxiety/depression
resume escitalopram
History of urinary retention
resume tamsulosin
History of falls with right hip fracture and repair last month
Ordered PT/OT to determine baseline
DVT prophylaxis Lovenox
CODE STATUS full code
Anticipated Discharge: 24 - 48 hours
Subjective/Interval History
-
Date of Service: March 09, 2024
Patient is awake, alert, doing better, answered 2 questions. Patient is calm.
Objective Data
-
Labs:
Laboratory Results
03/09/24
03:24
WBC 5.9
Hgb 10.3 L
Hct 29.6 L
Plt Count 167 D
Sodium 137
Potassium 3.5
Chloride 107
Carbon Dioxide 24
BUN 11
Creatinine 0.3 L
Glucose 153 H
Calcium 9.7
Vital Signs:
Vital Signs
Temp Pulse Resp BP Pulse Ox
98.4 F 67 9 155/85 97
03/09/24 09:10 03/09/24 09:00 03/09/24 09:00 03/09/24 08:00 03/09/24 08:00
I&O
03/08/24 03/09/24 03/10/24
06:59 06:59 06:59
Intake Total 2026
Output Total 100 / 100
Balance 1926
Review of Systems
-
Unable to obtain full review of systems at this time due to: Dementia
Physical Exam
-
General: No Apparent Distress
HEENT: Normocephalic and Atraumatic
Respiratory: Clear to Auscultation
Cardiac: Regular Rhythm and S1/S2
GI: Soft, Nontender and Nondistended
Musculoskeletal: No Edema
Neuro: Awake and Oriented (only to her name )
Psych: Calm
Data Reviewed
-
Labs: Labs Reviewed by me and Discussed with Physician
--- NOTE | 2024-03-09 09:39 | PTCARENOTE ---
Received patient at 0700. Pt. in bed. Alert and oriented to self. Disoriented to time, place, and situation. Able to redirect and calm patient when she becomes agitated. Denies pain/discomfort. Afebrile. Heart rhythm is sinus. Blood pressure
normotensive. Currently on room air. Pt. has diet ordered, decent appetite. Incontinent of urine. Skin as documented. Ambulated to chair with alarm-see PT/OT note. Discussed plan of care with patient. Vital signs stable at this time.
--- NOTE | 2024-03-09 11:01 | CM ---
CM following re: discharge planning.
Reviewed pt's chart, met with pt and spoke to pt's over the phone.
According to MD pt will be ready for discharge tomorrow.
PT and OT evaluations noted - SNF vs return back to memory care at [facility] recommended. Pt not able to make choices due to impaired memory. CM spoke to pt's and he stated that pt was walking independently at [facility] at
[facility] care facility prior to admission to . pt's preferred SNF level of care to increase pt's functional ability and per pt was before at [facility] SNF and [facility] SNF and he preferred either of those SNF.
A referral to [facility] and [facility] made.
D/C plan: preferred SNF.
CM will follow to assist pt with discharge to a preferred SNF.
--- NOTE | 2024-03-09 12:00 | PTCARENOTE ---
Received from ICU, VSS. Oriented to self only, comfortable in bed. Call guevara in reach.
--- NOTE | 2024-03-09 12:51 | W.PN.HOSP.TC ---
Today's Communication/Plan
-
dowgraded to med/surg
PT/OT to determine baseline
possible discharge to [facility] tomorrow
Continue Lantus, mealtime insulin, ISS
Assessment / Plan
Assessment / Plan
IMPRESSION:
DKA
Reactive Leukocytosis
Elevated creatinine level
Advanced dementia
Anxiety/depression
History of urinary retention
History of falls with right hip fracture and repair last month
PLAN:
DKA
Due to uncontrolled type 2 diabetes mellitus
Stop IV fluids
Advance patient to diabetic diet
15 units Lantus, 13 units mealtime insulin, high dose basal bolus
Possible discharge tomorrow to [facility] once PT OT determine baseline
Anion gap closed
BG today 153, Monitor BG
Monitor electrolytes and adjust as needed
K, Phos, mag, sodium , bicarb- normal
Reactive leukocytosis- improving
Suspect #1 dehydration #2 DKA #3 infection-less likely
Stop IV vancomycin and cefepime
Blood cultures no growth prelim
Monitor WBC and temperature curve
Elevated creatinine level- resolved
Due to DKA
Creatinine 0.6 at baseline
Monitor BMP in a.m.
Advanced dementia
Resume risperidone
Off restraints
Anxiety/depression
resume escitalopram
History of urinary retention
resume tamsulosin
History of falls with right hip fracture and repair last month
Ordered PT/OT to determine baseline
DVT prophylaxis Lovenox
CODE STATUS full code
Anticipated Discharge: 24 - 48 hours
Subjective/Interval History
-
Date of Service: March 09, 2024
Patient denies any complaints. She is calm and better oriented to place.
Objective Data
-
Labs:
Laboratory Results
03/09/24
03:24
WBC 5.9
Hgb 10.3 L
Hct 29.6 L
Plt Count 167 D
Sodium 137
Potassium 3.5
Chloride 107
Carbon Dioxide 24
BUN 11
Creatinine 0.3 L
Glucose 153 H
Calcium 9.7
Vital Signs:
Vital Signs
Temp Pulse Resp BP Pulse Ox
98.8 F 60 16 128/52 97
03/09/24 11:28 03/09/24 11:28 03/09/24 11:28 03/09/24 11:28 03/09/24 11:28
I&O
03/08/24 03/09/24 03/10/24
06:59 06:59 06:59
Intake Total 2026
Output Total 100 / 100
Balance 1926
Review of Systems
-
All other systems: Reviewed and negative
Physical Exam
-
General: Comfortable (sitting up on a chair) and Conversant
HEENT: Normocephalic and Atraumatic
Respiratory: Clear to Auscultation
Cardiac: Regular Rhythm and S1/S2
GI: Soft, Nontender and Nondistended
Musculoskeletal: No Edema
Neuro: Awake and Oriented (Better oriented)
Psych: Calm
Data Reviewed
-
Labs: Labs Reviewed by me, Discussed with Physician and Discussed with Nurse
[2024-03-09 13:10] LABS: Glucose - Point of Care 366 mg/dl (70-99)
[2024-03-09] MEDS: NOVOLOG FLEXPEN-LOW RESISTANCE 5 UNITS SC (13:11)
[2024-03-09] MEDS: NOVOLOG FLEXPEN 14 UNITS SC ×2 (13:12→17:29)
[2024-03-09 17:21] LABS: Glucose - Point of Care 326 mg/dl (70-99)
[2024-03-09] MEDS: NOVOLOG FLEXPEN-LOW RESISTANCE 4 UNITS SC (17:29)
[2024-03-09 21:10] LABS: Glucose - Point of Care 216 mg/dl (70-99)
[2024-03-09] MEDS: LANTUS 0.170000000000000012 UNITS SC (21:22)
[2024-03-10] MEDS: RISPERDAL 0.25 MG PO ×3 (00:04→16:19)
[2024-03-10 07:00] VITALS: BP 160/84
[2024-03-10 07:14] LABS: Glucose - Point of Care 195 mg/dl (70-99)
[2024-03-10 07:33] LABS: Hematocrit 32.7 % (37.0-47.0); Hemoglobin 11.2 g/dL (12.0-16.0); Mean Corp Hgb Conc. 34.3 g/dL (33.0-37.0); Mean Corpuscular Hgb 33.2 pg (27.0-31.0); Mean Platelet Volume 9.1 fL (7.4-10.4); Platelet Count 153 10^3/uL (130-400); Red Blood Cell Count 3.37 10^6/uL (4.20-5.40); Red Cell Dist. Width 14.2 % (11.5-14.5); White Blood Cell Count 3.5 10^3/uL (4.8-10.8)
[2024-03-10 08:04] LABS: Blood Urea Nitrogen 13 mg/dl (7-17); Calcium 9.7 mg/dl (8.4-10.2); Carbon Dioxide 29 mmol/L (22-30); Chloride 102 mmol/L (98-107); Estimated Creatinine Clearance 74 ml/min; Glucose 187 mg/dl (70-99); Magnesium 1.9 mg/dl (1.6-2.3); Potassium 3.8 mmol/L (3.5-5.1); Sodium 138 mmol/L (135-145); eGFR > 60.00
[2024-03-10] MEDS: LEXAPRO 5 MG PO (08:26)
[2024-03-10] MEDS: HEPARIN 5000 UNITS SC (08:26)
[2024-03-10] MEDS: NOVOLOG FLEXPEN-LOW RESISTANCE 1 UNITS SC (08:49)
[2024-03-10] MEDS: NOVOLOG FLEXPEN 14 UNITS SC (08:49)
[2024-03-10 09:02] VITALS: BP 160/84
--- NOTE | 2024-03-10 09:29 | PN.DE.MGMTRT ---
Insulin Management
- -
03/10/2024: Diabetes Management Consult
74 year old female admitted with DKA with lactic acidosis due to uncontrolled diabetes mellitus.
PMH: Advanced dementia, Anxiety/depression, hx of urinary retention and falls with right hip fx s/o ORIF last month and DM. A1C 9.3%, Cr 0.4, eGFR>60. Was taking Lantus 30 units HS and Humalog 13 units ACHS prior to admission. Pt was treated with
DKA protocol, GAP closed and sje was transitioned to SQ insulin
Pt is oriented to self at baseline only, unable to participate in discussion regarding diabetes management
Current diabetes regimen includes: Lantus 17 units @ HS and NovoLog 14 units AC with low corrective insulin
Home insulin dose was Lantus 30 units @ HS and Humalog 13 units ACHS
Glucose remains out of range, pre-dinner blood sugar was 326, HS was 216 and FBG 187 this AM.
Premeal 195 to 366 requiring 1-5 units of additional corrective insulin at meal times
Will Increase Lantus to her OP dose of 30 units @ HS and increase NovoLog AC to 16 units. Cont low corrective with meals.
Will closely follow, monitor AC Glucose levels and make further insulin adjustments if necessary
Diabetes History
- -
Type of Diabetes: 2 requiring insulin
Pre-Admission Diabetes Regimen
03/10/24
06:26
Creatinine 0.4 L
Lab Results
Hemoglobin A1c 9.3 % (4.0-5.6) H 03/08/24 02:39
Insulin Pump Settings
IP Diabetes Regimen
03/09/24 03/09/24 03/09/24
13:07 17:19 21:09
Glucose
POC Glucose 366 H 326 H 216 H
03/10/24 03/10/24
06:26 07:13
Glucose 187 H
POC Glucose 195 H
Meal type: Breakfast
Meal type: Breakfast
Amount consumed: 90%
Amount consumed: 100%
Patient Education
--- NOTE | 2024-03-10 10:42 | W.PN.HOSP.TC ---
Addendum entered and electronically signed by Saskia Vasquez MD 03/10/24 12:52:
advanced dementia with behavioral disturbances
underweight BMI
Original Note:
Today's Communication/Plan
-
d/c
Assessment / Plan
Assessment / Plan
pt is a 74 year old female
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
leukocytosis--resolved--likely reactive--no obvious infectious source, UA and CXR neg--stop vanco/cefepime-- cultures negative
LILIANA--resolved--Elevated creatinine of 1.4 on admission due to dehydration--now at baseline
Advanced dementia--pt oriented to self at baseline only--will likely need placement when ready for d/c--now on restraints (try to d/c as soon as able)--restart risperidone, lexapro
Anxiety/depression--restart escitalopram
hx of urinary retention -- tamsulosin as able
hx of falls with right hip fx and repair last month--PT/OT when able
DVT prophylaxis-Lovenox
CODE STATUS-full code
Anticipated Discharge: Today
Subjective/Interval History
-
Date of Service: March 10, 2024
pt ready for d/c
Objective Data
-
Labs:
Laboratory Results
03/10/24
06:26
WBC 3.5 L
Hgb 11.2 L
Hct 32.7 L
Plt Count 153
Sodium 138
Potassium 3.8
Chloride 102
Carbon Dioxide 29
BUN 13
Creatinine 0.4 L
Glucose 187 H
Calcium 9.7
Vital Signs:
max temp for 24 hours
03/09/24
23:35
Temp 99.1 F
Vital Signs
Temp Pulse Resp BP Pulse Ox
98.3 F 56 16 160/84 96
03/10/24 07:00 03/10/24 07:00 03/10/24 07:00 03/10/24 07:00 03/10/24 07:00
I&O
03/09/24 03/10/24 03/11/24
06:59 06:59 06:59
Intake Total 2104 120 / 120
Balance 2104 120 / 120
Review of Systems
-
All other systems: Reviewed and negative
Physical Exam
-
General: Well Developed, Well Nourished and No Apparent Distress
HEENT: Normocephalic and Atraumatic
Respiratory: Clear to Auscultation; Negative Wheezes or Rhonchi
Cardiac: Regular Rhythm and S1/S2; Negative Murmur
GI: Soft, Nontender, Nondistended and Normal Bowel Sounds
Musculoskeletal: No Clubbing, No Cyanosis and No Edema
Skin: Warm
Neuro: Awake
Psych: Calm
--- NOTE | 2024-03-10 11:30 | CM ---
Addendum entered by Soo Sharma 03/10/24 11:36:
[facility]
Original Note:
manager speech reviewed patient's chart and patient is for possible discharge today, leather case finisher spoke with admissions at [facility] and patient's spouse this am and [facility] have a bed for patient today.
Plan; [facility] skilled when stable
Report [phone]
--- NOTE | 2024-03-10 11:47 | W.DCSUMMARY ---
Addendum entered and electronically signed by Saskia Vasquez MD 03/10/24 14:39:
Fully read and agree with d/c summary as put forth by Dr. Alonso.
Original Note:
Discharge Summary
Discharge Data
Date of Admission: 03/07/24
Date of Discharge: 03/10/24
-
Pending Results: No
Hospital Course
Discharging Physician : Dr Saskia Vasquez, Dr Elsi Alonso
Disposition : [facility]
Primary care physician : unknown
Discharge diagnosis :
DKA
Reactive Leukocytosis
Elevated creatinine level
Advanced dementia
Anxiety/depression
History of urinary retention
History of falls with right hip fracture and repair last month
Hospital Course :
74-year-old female with history of type 2 diabetes mellitus, DKA, advanced dementia presented to the ED on 03/07 from [facility] with elevated blood sugar levels. In the ED patient was confused, not oriented to time
place and only oriented to her name. Patient was unable to provide any information during the admission. Labs showed blood glucose level of 893, lactic acidosis, metabolic acidosis noncompensated, acute kidney injury, hyperkalemia, leukocytosis.
Patient was started on bolus IV fluids and IV insulin. In 2 hours patient's potassium dropped from 5.6-4.1. Patient was given potassium chloride with normal saline and IV KCL. Blood glucose every hour was checked and it started to improve. In
the next 24 hours patient's BMP improved. As p patient has history of advanced dementia, she tried to pull out the IV line, was put on restrains. In the next 24 hours as patient's labs improved .
On the second day of hospital stay she was switched from IV insulin to subcutaneous insulin as blood glucose level dropped to < 200. Patient was started on long-acting, short acting plus insulin sliding scale. Phosphorus and magnesium were
repleted. Potassium was at baseline and potassium chloride was stopped. PT/OT determined that patient is at baseline
On the day of discharge patient blood glucose is 153, she is responsive, alert, awake, oriented to place.
Important imaging findings :
Chest x-ray:
IMPRESSION: No acute cardiopulmonary process.
Peripheral vascular ultrasound:
IMPRESSION: No sonographic evidence for lower extremity venous thrombosis.
Procedure findings : none
Discharge Plan
-
Patient Disposition: Home (Routine Discharge)
Referrals:
Jose Manuel Yuan MD [Family Provider] -
Prescriptions:
No Action
insulin lispro [Humalog KwikPen Insulin] 100 unit/mL Insulin Pen
13 unit SC ACHS
Patient Comments:
150-200=2units, 201-250=4units, 251-300=6units
insulin glargine [Lantus Solostar U-100 Insulin] 100 unit/mL (3 mL) Insulin Pen
30 unit SC HS
tamsulosin 0.4 mg Capsule
0.4 mg PO DAILYPRN PRN (Reason: bladder scan volume > 400 mL) Qty: 10 0RF
risperidone 0.25 mg tablet
0.25 mg PO Q8H
escitalopram oxalate 5 mg tablet
5 mg PO DAILY
Discharge Date and Time
Print Language: FRENCH
--- NOTE | 2024-03-10 12:33 | PN.CDI ---
CDI
- -
CDI:
Physician Documentation Request
Admit Date: 03/07/24 13:29
Dear Doctor Christina,
Please review the following and provide your response in the progress notes.
Clinical Indicators:
Alzheimer's disease/dementia was documented
- 03/10 PN 'Advanced dementia...now on restraints (try to d/c as soon as able)'
- RN notes 'Patient screaming, moaning, and restless in bed'
- 'Pulling purewick out, pulled an IV out'
- 'patient pulled put both IVs'
- 'Intermittent screaming and sobbing
If possible, please further clarify any dementia associated manifestations:
Dementia with agitation
Dementia with behavioral disturbances
Other
Use of terms such as suspected, likely, concern for, or probable (associated with a specific diagnosis that is being evaluated, monitored, or treated as if it exists) are acceptable and can be coded in the inpatient setting, when documented at the
time of discharge.
Thank you,
Tomás Jean RN
CDI Specialist
Please use your independent medical judgment in providing your response.
--- NOTE | 2024-03-10 12:41 | PN.CDI ---
CDI
- -
CDI:
Physician Documentation Request
Admit Date: 03/07/24 13:29
Dear Doctor Christina,
Please review the following and provide your response in the progress notes.
Clinical Indicators:
Height: 5'5
Weight: 117lbs
BMI: 19.5
- 03/07 H&P 'chronically ill appearing female'
If possible, please provide an associated diagnosis related to the abnormal BMI, such as:
Underweight
Cachectic
BMI is not significant
Other
Use of terms such as suspected, likely, concern for, or probable (associated with a specific diagnosis that is being evaluated, monitored, or treated as if it exists) are acceptable and can be coded in the inpatient setting, when documented at the
time of discharge.
Thank you,
Tomsá Jean RN
CDI Specialist
Please use your independent medical judgment in providing your response.
[2024-03-10 12:52] LABS: Glucose - Point of Care 317 mg/dl (70-99)
[2024-03-10] MEDS: NOVOLOG FLEXPEN 16 UNITS SC (13:03)
[2024-03-10] MEDS: NOVOLOG FLEXPEN-LOW RESISTANCE 4 UNITS SC (13:04)
[2024-03-10 16:25] VITALS: BP 138/73
[2024-03-10 16:38] LABS: Glucose - Point of Care 54 mg/dl (70-99)
[2024-03-10 16:57] LABS: Glucose - Point of Care 100 mg/dl (70-99)
[2024-03-10] MEDS: NOVOLOG FLEXPEN SC (17:17)
[2024-03-10] MEDS: NOVOLOG FLEXPEN-LOW RESISTANCE SC (17:18)
== END 2024-03-10 17:39 | DRG 638 ==
LOC: 4 WEST ACU 13:29
PROVIDERS: Student in an Organized Health Care Education/Training Program; ADMITTING PHYSICIAN Internal Medicine; CONSULT PHYSICIAN Internal Medicine Critical Care Medicine; EMERGENCY PHYSICIAN Emergency Medicine; FAMILY PHYSICIAN Family Medicine
DX: E11.10 Type 2 diabetes mellitus with ketoacidosis without coma (principal); F03.94 Unspecified dementia, unspecified severity, with anxiety; F03.C11 Unspecified dementia, severe, with agitation; N17.9 Acute kidney failure, unspecified; Z68.1 Body mass index [BMI] 19.9 or less, adult; E87.5 Hyperkalemia; I10 Essential (primary) hypertension; D72.829 Elevated white blood cell count, unspecified; E86.0 Dehydration; R79.89 Other specified abnormal findings of blood chemistry; R63.6 Underweight; F32.A Depression, unspecified; R33.9 Retention of urine, unspecified; Z91.81 History of falling; Z79.4 Long term (current) use of insulin; Z88.0 Allergy status to penicillin; Z78.1 Physical restraint status
CPT/HCPCS: 71045; 80048; 80053; 80202; 81003; 82010; 82805; 82962; 83036; 83605; 83735; 84100; 85025; 85027; 85610; 85730; 87040; 87070; 93005; 93970; 96361; 96365; 96375; 97162; 97167; 99291

== ENCOUNTER 2024-03-26 12:33 | Emergency (ER) | payer MEDICARE, OTHER, SELFPAY ==
[2024-03-26] VITALS (9 sets, daily range): BP systolic 111–125; BP diastolic 51–97; BMI 24.2
[2024-03-26 12:40] LABS: Glucose - Point of Care 473 mg/dl (70-99)
[2024-03-26 13:35] LABS: % Basophils 0.2 % (0-2); % Immature Granulocytes 0.5 % (0-0.5); % Lymphocytes 10.5 % (20.5-51.1); % Monocytes 9.6 % (1.7-9.3); % Neutrophils 79.2 % (42.2-75.2); Absolute Lymphocytes 0.9 10^3/uL (1.2-3.4); Absolute Monocytes 0.8 10^3/uL (0.1-0.6); Absolute Neutrophils 6.7 10^3/uL (1.4-6.5); Hematocrit 30.2 % (37.0-47.0); Hemoglobin 10.2 g/dL (12.0-16.0); Mean Corp Hgb Conc. 33.8 g/dL (33.0-37.0); Mean Corpuscular Hgb 32.8 pg (27.0-31.0); Mean Corpuscular Volume 97.1 fL (81.0-99.0); Mean Platelet Volume 9.4 fL (7.4-10.4); Nucleated Red Blood Cells % 0 %; Platelet Count 223 10^3/uL (130-400); Red Blood Cell Count 3.11 10^6/uL (4.20-5.40); Red Cell Dist. Width 13.4 % (11.5-14.5); White Blood Cell Count 8.4 10^3/uL (4.8-10.8)
[2024-03-26 13:36] LABS: Venous Blood Gas B.E. -2.7 mmol/L (-4 to +4); Venous Blood Gas HCO3 23.2 mmol/L (22-27); Venous Blood Gas O2 Sat % 91.2 %; Venous Blood Gas pCO2 44 mmHg (35-48); Venous Blood Gas pH 7.33 (7.32-7.43); Venous Blood Gas pO2 58 mmHg (30-50)
[2024-03-26] MEDS: HALDOL 2.5 MG IV (13:36)
[2024-03-26 13:42] LABS: Urine Albumin Negative (Neg - Trace); Urine Bilirubin Negative (Negative); Urine Character Clear (Clear); Urine Color Yellow; Urine Glucose 3+ (Negative); Urine Ketone 2+ (Negative); Urine Leukocyte Trace (Negative); Urine Nitrite Negative (Negative); Urine Occult Blood Negative (Negative); Urine Specific Gravity 1.015 (<1.030); Urine Urobilinogen Negative (Neg - 1+)
[2024-03-26 13:52] LABS: ALT (SGPT) 20 U/L (0-35); AST (SGOT) 19 U/L (14-36); Albumin 3.6 g/dl (3.5-5.0); Alkaline Phosphatase 114 U/L (38-126); Blood Urea Nitrogen 24 mg/dl (7-17); Calcium 9.1 mg/dl (8.4-10.2); Carbon Dioxide 23 mmol/L (22-30); Chloride 96 mmol/L (98-107); Estimated Creatinine Clearance 66 ml/min; Glucose 424 mg/dl (70-99); Sodium 130 mmol/L (135-145); Total Bilirubin 1.2 mg/dl (0.2-1.3); Total Protein 6.1 g/dl (6.3-8.2); eGFR > 60.00
[2024-03-26 13:58] LABS: B-Hydroxybutyrate 2.07 mmol/L (0.02-0.27)
[2024-03-26 14:09] LABS: Urine Bacteria Few (Negative); Urine White Cell 16-20 /HPF (0-5); Urine Yeast Many (Negative)
--- NOTE | 2024-03-26 15:59 | ED.GENMED ---
History of Present Illness
General
Chief Complaint: Musculo-Skeletal Complaint
Source: patient, ambulance crew and longterm
Exam Limitations: dementia
Time Seen by Provider: 03/26/24 13:24
Nursing documentation reviewed up to this point in time: agreed with
Travel History
Have you had any contact with someone who has COVID-19?: No
Do you have any symptoms of coronavirus? Fever > 100 degrees, chills, cough, shortness of breath, sore throat, loss of taste or smell, muscle aches, or headache?: No
History of Present Illness
History of Present Illness:
74-year-old female with a past medical history of dementia, hypertension, insulin-dependent diabetes who presents to the emergency room [facility]; she presents for evaluation of left hip pain.
Patient is a very poor historian; she is oriented x 1 at baseline and cannot meaningfully participate in history. According to longterm staff patient was complaining of left hip pain today but there was no clear trauma or injury. In addition
to complaining of pain she was also noted to have severe hyperglycemia with a blood glucose of over 600 this morning. She was given 23 units of subcutaneous Humalog to treat the blood glucose but she was ultimately sent to the emergency room to be
assessed for these issues. No recent fevers or chills. No other issues noted.
Past History
Past History
ED Past Medical History: HTN, IDDM, Psychiatric (anxiety) and Other (Dementia)
ED Past Surgical History: Orthopedic
Social History
Tobacco: Non-smoker
Alcohol: None
Personal:
Living: longterm
Review of Systems
Review of Systems
Unable to obtain full review of systems at this time due to: dementia
All Other Systems: Not applicable
Phy Exam
Physical Exam
Physical Exam:
General: Awake, alert, somewhat agitated
Head: Normocephalic, atraumatic
Eyes: Conjunctiva normal, pupils equal round and reactive to light bilaterally
Throat: Airway intact, handling secretions
Neck: Trachea midline, no apparent tenderness in the cervical spine
Back: No signs of trauma to the back or flank and no apparent tenderness to the thoracic or lumbar
Lungs: Clear to auscultation bilaterally, no wheezing, rales, rhonchi
Heart: Regular rate and rhythm, no murmurs, gallops, or rubs
Abd: Soft, non distended, no apparent tenderness
Neuro: Cranial nerves grossly intact, speech fluid
Skin: no rash, no contusions or hematomas noted specifically in the hip
Extremities: Patient does have pain with passive range of motion of the left hip and tenderness over the lateral hip; no pain with range of motion of the left knee or ankle; she has no pain on range of motion in the right lower extremity or in the
bilateral upper extremities; patient has good strong pulses in all extremities specifically strong left DP pulse; no edema in extremities
Scores
Heart Failure Risk
Heart Failure Risk Score: Not Applicable
Heart Score for Chest Pain Patients
STEMI patient?: Not applicable
Withdrawal Assessment of Alcohol
Withdrawal Assessment Completed?: Not applicable
Course
Orders/Labs/Results
Orders:
Orders
03/26/24 12:53
EKG [Electrocardiogram (*1)] Urgent
Reason for Study: Fatigue / Weakness
03/26/24 12:54
EKG- Treatment ONCE
03/26/24 13:06
C-Reactive Protein Urgent
Comment: ADD
Complete Blood Count/With Diff Urgent
Erythrocyte Sed Rate Urgent
Comment: ADD
Venous Blood Gas Urgent
%Oxygen/Room Air: 95
03/26/24 13:07
B-Hydroxybutyrate Urgent
Comprehensive Metabolic Panel Urgent
03/26/24 13:23
Urinalysis Reflex To Culture Urgent
Date Specimen was Collected: 03/26/24
Time Specimen was Collected: 13:21
Urine Microscopic Reflex Cult Urgent
Urine Culture Urgent
SRIKANTH Source: U
Specimen Description:
Date Specimen was Collected: 03/26/24
Time Specimen was Collected: 13:21
03/26/24 13:25
CR Hip - LT w/wo Pel 2-3 Vw* Urgent
Comment:
Reason For Exam: left hip pain
Include a pelvis x-ray?: Yes
03/26/24 13:33
Haloperidol Lactate [Haldol] 2.5 mg IV NOW STA
03/26/24 13:38
EKG- Treatment ONCE
03/26/24 16:14
0.9% Sodium Chloride 500 ml [Nss] 500 ml IV BOLUS
Insulin Aspart [NOVOLOG vial] 5 units SC NOW STA
03/26/24 16:42
Add On- LAB Urgent
Tests Added?: CRP, ESR
03/26/24 16:50
Pt Eval And Treat Urgent
Activity Level: Ambulate
03/26/24 17:11
Glucose Urgent
03/27/24 06:00
Electrocardiogram (*1) IN AM
Reason for Study: QTc Monitoring
Abnormal Lab Results
03/26/24 03/26/24 03/26/24
12:38 13:06 13:07
RBC 3.11 L 10^6/uL
(4.20-5.40)
Hgb 10.2 L g/dL
(12.0-16.0)
Hct 30.2 L %
(37.0-47.0)
MCH 32.8 H pg
(27.0-31.0)
Absolute Neuts (auto) 6.7 H 10^3/uL
(1.4-6.5)
Absolute Lymphs (auto) 0.9 L 10^3/uL
(1.2-3.4)
Absolute Monos (auto) 0.8 H 10^3/uL
(0.1-0.6)
Neutrophils % 79.2 H %
(42.2-75.2)
Lymphocytes % 10.5 L %
(20.5-51.1)
Monocytes % 9.6 H %
(1.7-9.3)
ESR 26 H mm/hour
(0-20)
VBG pO2 58 H mmHg
(30-50)
Sodium 130 L mmol/L
(135-145)
Chloride 96 L mmol/L
(98-107)
BUN 24 H mg/dl
(7-17)
Glucose 424 H mg/dl
(70-99)
Total Protein 6.1 L g/dl
(6.3-8.2)
Urine Ketones
Leukocyte Esterase Rfl
Urine RBC
Urine WBC (Reflex)
Urine Bacteria (Reflex)
Urine Yeast
Urine Glucose
B-Hydroxybutyrate 2.07 H mmol/L
(0.02-0.27)
POC Glucose 473 H* mg/dl
(70-99)
03/26/24 03/26/24
13:23 17:08
RBC
Hgb
Hct
MCH
Absolute Neuts (auto)
Absolute Lymphs (auto)
Absolute Monos (auto)
Neutrophils %
Lymphocytes %
Monocytes %
ESR
VBG pO2
Sodium
Chloride
BUN
Glucose
Total Protein
Urine Ketones 2+ A
(Negative)
Leukocyte Esterase Rfl Trace A
(Negative)
Urine RBC 7-10 A /HPF
(0-2)
Urine WBC (Reflex) 16-20 A /HPF
(0-5)
Urine Bacteria (Reflex) Few A
(Negative)
Urine Yeast Many A
(Negative)
Urine Glucose 3+ A
(Negative)
B-Hydroxybutyrate
POC Glucose 409 H mg/dl
(70-99)
03/26/24 13:06
Vital Signs
Initial and Last Documented VS:
Initial Vital Signs
Temp
36.4 C
03/26/24 12:38
Last Documented Vital Signs
Temp Pulse Resp BP Pulse Ox
36.4 C 76 17 114/51 96
03/26/24 12:38 03/26/24 16:30 03/26/24 16:30 03/26/24 16:00 03/26/24 14:51
MDM/Problems Addressed
Differential Diagnosis Includes:
Hip fracture, hip dislocation, arthritis, bursitis
MDM/Problems Addressed:
74-year-old female presents for evaluation of apparently atraumatic left hip pain also has been noted to have severely elevated blood glucose recently. Vital signs are normal here. Exam as above. Accu-Chek greater than [address] on arrival[address] Plan to
place an IV check labs including a CBC and a CMP, acetone level, VBG. Will check urinalysis. Will send for x-ray of the left hip. Will check EKG. Monitor closely reassess after the above.
Patient quite agitated unable to get blood or x-ray�given Haldol for agitation to facilitate workup.
Labs reviewed: CBC shows stable anemia. CMP shows hyperglycemia 424; she does have +2 ketones in her urine but no acidosis or anion gap to suggest DKA. Will treat with additional insulin. X-ray of the hip shows no acute abnormalities. Suspect
that this could be a bursitis, lower suspicion for septic arthritis but with no trauma and uncontrolled sugars will add on ESR and CRP to start. Will admit for continued management of her hyperglycemia and consideration for orthopedic assessment if
hip pain continues. Case discussed with hospitalist for admission.
Hospitalist assessed patient�while sugars are high there is no signs of DKA or HHNK, no clear indication for admission based on blood glucose alone. She has nothing to suggest a septic arthritis at this point and is ambulatory with minimal limp.
Suspect this is likely either osteoarthritis or hip contusion from unwitnessed fall or potentially bursitis. Again no clear indication for admission for hip pain as it seems to be relatively mild. Will discuss with longterm staff regarding
their level of care. Will place a call the patient's primary physician to discuss glucose management. Will attempt to coordinate discharge.
I spoke with the on-call physician for patient's PCP�they will coordinate a visit to longterm to review patient's insulin regimen. I spoke with the longterm to confirm that they have appropriate staff to manage patient if she requires
additional assistance with her left hip pain. They also have physical therapist available. While she remains hyperglycemic she continues to trend downward with no signs of DKA after discussion with discharge with outpatient follow-up plan
coordinated as above.
Chronic conditions affecting care:
Diabetes, dementia
Acute Exacerbation and/or Progression of Chronic Illness:
Acutely hyperglycemic managed with insulin
Acute Exacerbation and/or Progression of Chronic Illness: DM
*Radiology
Radiology exam reviewed: preliminary read by ED provider and radiology read reviewed
*Pulse Oximetry
Patient hypoxic: no
*EKG
Interpreted by ED Provider?: Yes
Heart Rate: 73
Rate: normal
Rhythm: sinus
[place]: normal axis
Interval: normal interval and normal QT interval
QRS Pattern: normal QRS
Ischemia: no ischemia
*Critical Care Note
Total Time (30-74mins, 75-104mins- exclusive of procedures): Not Applicable
Data Reviewed
Review of Other/Old Records Reveals: Labs and Records
Source: patient, records, ambulance crew and longterm
Patient Management
Social determinants of health affecting care: Living situation
Discussion with other providers: Hospitalist (Discussed with hospitalist), PCP (Discussed with PCP) and care home staff (Discussed directly with longterm staff)
Escalation/DeEscalation of care consider admission/obs:
Initial plan for admission but after discussion and assessment by hospitalist and coordination with longterm staff and primary care physician will plan to discharge back to longterm
ED Attending Note
-
Portions of this chart may have been created with voice recognition software.� Occasional wrong word or��sound alike� substitutions may have occurred due to the inherent limitations of voice recognition software.
Discharge Plan
Departure
Patient Disposition: Home (Routine Discharge)
Date of Disposition: 03/26/24
Time of Disposition: 17:21
Patient with high blood pressure during this ER visit?: No
Discharge Problem:
Hip pain, left, Hyperglycemia
Instructions: High Blood Sugar, Adult ED, Hip Pain ED
Prescriptions:
No Action
insulin lispro [Humalog KwikPen Insulin] 100 unit/mL Insulin Pen
13 unit SC MEALS
Patient Comments:
150-200=2units, 201-250=4units, 251-300=6units
insulin glargine [Lantus Solostar U-100 Insulin] 100 unit/mL (3 mL) Insulin Pen
30 unit SC HS
risperidone 0.25 mg tablet
0.25 mg PO Q8H
escitalopram oxalate 5 mg tablet
5 mg PO DAILY
insulin lispro 100 unit/mL insulin pen
2 - 10 sliding scale dose SC ACHS
Patient Comments:
03/26/2024: if 150-200= 2; 201-250= 4; 351-300= 6; 301-350= 8; 351-400= 10
tamsulosin 0.4 mg capsule
0.4 mg PO HS
Referrals:
Jose Manuel Yuan MD [Family Provider] - Follow up in 2-3 days
Activity Restrictions/Additional Instructions:
The patient's primary physician should see the patient within the next 48 hours to review her insulin regimen and to help manage her blood sugars. She may require some physical therapy for her left hip pain�I suspect this is either arthritis or
bursitis. This should be coordinated with patient's primary physician. For pain she can have Tylenol 500 mg every 6 hours as needed and/or ibuprofen 400 mg every 6 hours as needed.
Thank you for visiting the Emergency Department at [facility].
1. Please schedule a follow up appointment as directed. Call first thing tomorrow morning to make an appointment.
2. If indicated, please take your medications as instructed and indicated on discharge paperwork.
3. If any of your symptoms do not improve, or persist, or become more severe within 6-12 hours, please return to the emergency department for further care.
4. Please return to the emergency department if you develop a headache, neck pain/stiffness, fever greater than 100.4F, chest pain, shortness of breath, persistent nausea, vomiting, slurred speech, difficulty walking, numbness/tingling, weakness,
signs of infection or any other symptoms that are worrisome to you.
Please call [phone] if you have any questions.
Interventions
Interventions:
*Risk Screen - Suicide Last Done: 03/26/24 12:48
*General Assessment Last Done: 03/26/24 12:48
*Neglect/Abuse Screening Last Done: 03/26/24 12:48
ED- Fall Risk Assessment Last Done: 03/26/24 12:49
*ED COVID-19 Vaccine History Last Done: 03/26/24 12:48
ED-Musculoskeletal Assessment Last Done: 03/26/24 12:48
Discharge Date and Time
Print Language: PAKISTANI
[2024-03-26] MEDS: NSS 500 IV (16:36)
[2024-03-26] MEDS: NOVOLOG vial 5 UNITS SC (16:36)
[2024-03-26 17:13] LABS: Glucose - Point of Care 409 mg/dl (70-99)
[2024-03-26 17:16] LABS: Erythrocyte Sed Rate 26 mm/hour (0-20)
[2024-03-26 18:11] LABS: Glucose 343 mg/dl (70-99)
== END 2024-03-26 20:20 | disposition home or self-care (01) ==
LOC: EMR 12:33
PROVIDERS: EMERGENCY PHYSICIAN Emergency Medicine; FAMILY PHYSICIAN Family Medicine
DX: M25.552 Pain in left hip (principal); R53.1 Weakness; R45.1 Restlessness and agitation; E11.65 Type 2 diabetes mellitus with hyperglycemia; F03.94 Unspecified dementia, unspecified severity, with anxiety; I10 Essential (primary) hypertension; F41.9 Anxiety disorder, unspecified; Z79.4 Long term (current) use of insulin; Z88.0 Allergy status to penicillin
CPT/HCPCS: 99284; 96374; 96361; 96372; 73502; 80053; 81003; 81015; 82010; 82805; 82947; 82962; 85025; 85652; 86140; 87086; 93005

== ENCOUNTER 2024-03-27 12:59 | Inpatient (IN) | payer MEDICARE, OTHER, SELFPAY ==
[2024-03-27] VITALS (10 sets, daily range): BP systolic 96–123; BP diastolic 34–59; BMI 23.0; BMI 22.5
[2024-03-27 10:14] LABS: Glucose - Point of Care 551 mg/dl (70-99)
--- NOTE | 2024-03-27 10:14 | ED.GENMED ---
History of Present Illness
<Manuel Cr PA-C - Last Filed: 03/27/24 13:10>
General
Chief Complaint: Blood Sugar Problem
Source: records, ambulance crew and assisted
Time Seen by Provider: 03/27/24 10:10
Travel History
Have you had any contact with someone who has COVID-19?: No
Do you have any symptoms of coronavirus? Fever > 100 degrees, chills, cough, shortness of breath, sore throat, loss of taste or smell, muscle aches, or headache?: No
History of Present Illness
History of Present Illness:
74-year-old female with past medical history of dementia, hypertension, insulin-dependent diabetes presenting to the emergency department for evaluation of hyperglycemia at her assisted earlier this morning. EMS reports that patient's blood
sugar was greater than 600 at the assisted and assisted provided insulin (unclear as to how much insulin). EMS reports they gave around 400 mL of normal saline on their way to the ER. Patient had 1 episode of nonbloody nonbilious emesis.
Patient is unable to provide any history secondary to her baseline mental status/dementia. It was also noted by EMS that patient has been here couple times recently for hyperglycemia and also recently for left-sided hip pain.
Past History
<Manuel Cr PA-C - Last Filed: 03/27/24 13:10>
Past History
ED Past Medical History: HTN, IDDM, Psychiatric (anxiety) and Other (Dementia)
ED Past Surgical History: Orthopedic
Social History
Tobacco: Non-smoker
Alcohol: None
Drug: None
Personal:
Living: assisted
Review of Systems
<NO Osorio Last Filed: 03/27/24 13:10>
Review of Systems
All Other Systems: ROS reviewed and negative except as documented in HPI and ROS
Phy Exam
<NO Osorio Last Filed: 03/27/24 13:10>
Physical Exam
Physical Exam:
GENERAL: Alert , in no apparent distress
EYE: conjunctiva clear
NECK: Supple
ENT: o/p clr, mmm.
CARDIAC: Regular rate and rhythm
LUNGS: Clear breath sounds bilaterally, no acute respiratory distress, no wheezes/rales/rhonchi
Abdomen: Soft, nontender, nondistended
NEUROLOGICAL: Alert and oriented to self only
SKIN: Warm and dry, skin intact.
MUSCULOSKELETAL: well perfused.
PSYCH: Unable to assess due to dementia but patient is overall pleasant
Scores
<Manuel Cr PA-C - Last Filed: 03/27/24 13:10>
Heart Failure Risk
Heart Failure Risk Score: Not Applicable
Heart Score for Chest Pain Patients
STEMI patient?: Not applicable
Withdrawal Assessment of Alcohol
Withdrawal Assessment Completed?: Not applicable
Course
<Manuel Cr PA-C - Last Filed: 03/27/24 13:10>
Orders/Labs/Results
Orders:
Orders
03/27/24 10:10
Bedside Glucose- Treatment ONCE
IV Insert/Care/Rem.- Treatment PRN
0.9% Sodium Chloride 1000 ml [Nss] 1,000 ml IV BOLUS
0.9% Sodium Chloride 1000 ml [Nss] 1,000 ml IV BOLUS
03/27/24 10:15
B-Hydroxybutyrate Urgent
Basic Metabolic Panel Urgent
Complete Blood Count/With Diff Urgent
Venous Blood Gas Urgent
%Oxygen/Room Air: RA
03/27/24 10:32
Urinalysis Urgent
Date Specimen was Collected: 03/27/24
Time Specimen was Collected: 10:31
Urine Microscopic Urgent
Date Specimen was Collected: 03/27/24
Time Specimen was Collected: 10:31
03/27/24 11:14
Potassium Urgent
03/27/24 11:57
Bedside Glucose- Treatment Q1H
IV Insert/Care/Rem.- Treatment PRN
Reg Insulin 100 Units/100 ml [Novolin R Insulin Infusion] 100 units in 100 ml IV NOW
03/27/24 12:00
Basic Metabolic Panel Q2H
03/27/24 12:08
Insulin Human Regular [Novolin R] 8 units IV NOW STA
03/27/24 12:33
Admit/Transfer Patient As Directed
Co-Sign Provider:
Level of Care: Inpatient admission
Assign to:: ICU
Physician / Group: damien
Diagnosis: DKA
Reason for Hospitalization: DKA
Expected length of stay greater than two midnights?: Yes
ELOS- Estimated Length of Stay in days: 3
I certify the patient meets the requirements for IP care: Yes
03/27/24 12:34
Code Status As Directed
Resuscitation Status: Full Code
03/27/24 12:45
Reg Insulin 100 Units/100 ml [Novolin R Insulin Infusion] 100 units in 100 ml IV PER PROTOCOL
Initial dose in units/hr, then titrate:: 6
03/27/24 13:00
KCl 20 Meq/0.9%Sodchl 1000 ml [NSS with KCL 20 MEQ] 20 meq in 1,000 ml IV 250 mls/hr
03/27/24 14:00
Basic Metabolic Panel Q2H
03/27/24 16:00
Basic Metabolic Panel Q2H
Abnormal Lab Results
03/27/24 03/27/24 03/27/24
10:13 10:15 10:32
WBC 13.9 H 10^3/uL
(4.8-10.8)
RBC 3.41 L 10^6/uL
(4.20-5.40)
Hgb 11.0 L g/dL
(12.0-16.0)
Hct 34.6 L %
(37.0-47.0)
MCV 101.5 H fL
(81.0-99.0)
MCH 32.3 H pg
(27.0-31.0)
MCHC 31.8 L g/dL
(33.0-37.0)
Abs Immat Gran (auto) 0.1 H 10^3/uL
(0-0.05)
Absolute Neuts (auto) 12.5 H 10^3/uL
(1.4-6.5)
Absolute Lymphs (auto) 0.4 L 10^3/uL
(1.2-3.4)
Absolute Monos (auto) 0.9 H 10^3/uL
(0.1-0.6)
Immature Gran % 0.9 H %
(0-0.5)
Neutrophils % 90.0 H %
(42.2-75.2)
Lymphocytes % 2.9 L %
(20.5-51.1)
VBG pH 7.12 L*
(7.32-7.43)
VBG pCO2 31 L mmHg
(35-48)
VBG pO2 69 H mmHg
(30-50)
VBG HCO3 10.1 L mmol/L
(22-27)
Carbon Dioxide 9 L* mmol/L
(22-30)
BUN 24 H mg/dl
(7-17)
Glucose 577 H* mg/dl
(70-99)
Urine Ketones 3+ A
(Negative)
Ur Leukocyte Esterase 1+ A
(Negative)
Urine WBC 40-50 A /HPF
(0-5)
Urine Yeast Many A
(Negative)
Urine Glucose 3+ A
(Negative)
B-Hydroxybutyrate 8.83 H mmol/L
(0.02-0.27)
POC Glucose 551 H* mg/dl
(70-99)
03/27/24 10:15
Vital Signs
Initial and Last Documented VS:
Initial Vital Signs
Pulse Resp BP
93 24 121/59
03/27/24 10:11 03/27/24 10:11 03/27/24 10:11
Last Documented Vital Signs
Pulse Resp BP Pulse Ox
78 19 116/58 98
03/27/24 12:45 03/27/24 12:45 03/27/24 11:00 03/27/24 11:00
Plate Take Out Worker consulted with Physician
Plate Take Out Worker consulted with physician?: Yes
Name of Physician Consulted: Jaden
<Rodrigo Stanley, DO - Last Filed: 03/27/24 10:56>
Orders/Labs/Results
Orders:
Orders
03/27/24 10:10
Bedside Glucose- Treatment ONCE
IV Insert/Care/Rem.- Treatment PRN
0.9% Sodium Chloride 1000 ml [Nss] 1,000 ml IV BOLUS
0.9% Sodium Chloride 1000 ml [Nss] 1,000 ml IV BOLUS
03/27/24 10:15
B-Hydroxybutyrate Urgent
Basic Metabolic Panel Urgent
Complete Blood Count/With Diff Urgent
Venous Blood Gas Urgent
%Oxygen/Room Air: RA
03/27/24 10:32
Urinalysis Urgent
Date Specimen was Collected: 03/27/24
Time Specimen was Collected: 10:31
Urine Microscopic Urgent
Date Specimen was Collected: 03/27/24
Time Specimen was Collected: 10:31
03/27/24 11:14
Potassium Urgent
03/27/24 11:57
Bedside Glucose- Treatment Q1H
IV Insert/Care/Rem.- Treatment PRN
Reg Insulin 100 Units/100 ml [Novolin R Insulin Infusion] 100 units in 100 ml IV NOW
03/27/24 12:00
Basic Metabolic Panel Q2H
03/27/24 12:08
Insulin Human Regular [Novolin R] 8 units IV NOW STA
03/27/24 12:33
Admit/Transfer Patient As Directed
Co-Sign Provider:
Level of Care: Inpatient admission
Assign to:: ICU
Physician / Group: damien
Diagnosis: DKA
Reason for Hospitalization: DKA
Expected length of stay greater than two midnights?: Yes
ELOS- Estimated Length of Stay in days: 3
I certify the patient meets the requirements for IP care: Yes
03/27/24 12:34
Code Status As Directed
Resuscitation Status: Full Code
03/27/24 12:45
Reg Insulin 100 Units/100 ml [Novolin R Insulin Infusion] 100 units in 100 ml IV PER PROTOCOL
Initial dose in units/hr, then titrate:: 6
03/27/24 13:00
KCl 20 Meq/0.9%Sodchl 1000 ml [NSS with KCL 20 MEQ] 20 meq in 1,000 ml IV 250 mls/hr
03/27/24 14:00
Basic Metabolic Panel Q2H
03/27/24 16:00
Basic Metabolic Panel Q2H
Abnormal Lab Results
03/27/24 03/27/24 03/27/24
10:13 10:15 10:32
WBC 13.9 H 10^3/uL
(4.8-10.8)
RBC 3.41 L 10^6/uL
(4.20-5.40)
Hgb 11.0 L g/dL
(12.0-16.0)
Hct 34.6 L %
(37.0-47.0)
MCV 101.5 H fL
(81.0-99.0)
MCH 32.3 H pg
(27.0-31.0)
MCHC 31.8 L g/dL
(33.0-37.0)
Abs Immat Gran (auto) 0.1 H 10^3/uL
(0-0.05)
Absolute Neuts (auto) 12.5 H 10^3/uL
(1.4-6.5)
Absolute Lymphs (auto) 0.4 L 10^3/uL
(1.2-3.4)
Absolute Monos (auto) 0.9 H 10^3/uL
(0.1-0.6)
Immature Gran % 0.9 H %
(0-0.5)
Neutrophils % 90.0 H %
(42.2-75.2)
Lymphocytes % 2.9 L %
(20.5-51.1)
VBG pH 7.12 L*
(7.32-7.43)
VBG pCO2 31 L mmHg
(35-48)
VBG pO2 69 H mmHg
(30-50)
VBG HCO3 10.1 L mmol/L
(22-27)
Carbon Dioxide 9 L* mmol/L
(22-30)
BUN 24 H mg/dl
(7-17)
Glucose 577 H* mg/dl
(70-99)
Urine Ketones 3+ A
(Negative)
Ur Leukocyte Esterase 1+ A
(Negative)
Urine WBC 40-50 A /HPF
(0-5)
Urine Yeast Many A
(Negative)
Urine Glucose 3+ A
(Negative)
B-Hydroxybutyrate 8.83 H mmol/L
(0.02-0.27)
POC Glucose 551 H* mg/dl
(70-99)
03/27/24 10:15
Vital Signs
Initial and Last Documented VS:
Initial Vital Signs
Pulse Resp BP
93 24 121/59
03/27/24 10:11 03/27/24 10:11 03/27/24 10:11
Last Documented Vital Signs
Pulse Resp BP Pulse Ox
78 19 116/58 98
03/27/24 12:45 03/27/24 12:45 03/27/24 11:00 03/27/24 11:00
<Manuel Cr PA-C - Last Filed: 03/27/24 13:10>
MDM/Problems Addressed
Differential Diagnosis Includes:
Hyperglycemia secondary to diabetes, DKA, HHNK, no signs of infectious etiology
MDM/Problems Addressed:
74-year-old female presenting to the emergency department for evaluation of hyperglycemia. Patient unable to provide any history secondary to her dementia. On record review it appears patient was actually in this emergency department yesterday for
left-sided hip pain and was found to be hyperglycemic. She was worked up and evaluated and ultimately tried for admission however given patient's symptoms were only suggestive of hyperglycemia she was managed within the emergency department and
ultimately discharged home with thoughts that patient's primary care provider at the assisted facility would be changing up some of her insulin regimen. Patient was unable to have this assessment done as she got back to the assisted
yesterday evening and then was already sent back here to the ER this morning. Patient is otherwise hemodynamically stable and without any specific concerns at this time.
I did contact the assisted, [facility], and spoke to her nurse they note that patient has had significantly elevated blood sugars in the past but just last week also had blood sugars that were running low in the 60s. Patient has an
pot lining supervisor, Dr. Vazquez, who is the one managing patient's insulin. Will try to contact patient's pot lining supervisor to discuss. In the meantime labs ordered. Patient was given 23 units of Humalog prior to coming to the emergency department.
Will treat with additional fluids at this time. Disposition and reassessment following.
Chronic conditions affecting care: DM
Acute Exacerbation and/or Progression of Chronic Illness: DM and Other (Dementia)
<Manuel Cr PA-C - Last Filed: 03/27/24 13:10>
*Pulse Oximetry
Patient hypoxic: no
*Tube Lancer Interpretation
Rate: normal
Rhythm: sinus
*Critical Care Note
Total Time (30-74mins, 75-104mins- exclusive of procedures): 32
comment:
Critical care statement: A total of 32 minutes of critical care time was provided for this patient. This includes management of unstable vital signs, evaluation of the patient at bedside, reviewing the patient's pertinent medical records, discussion
with consultants, review of old EKGs and review of pertinent medical records. This time with separate from time utilized to perform the aforementioned documented procedures
Data Reviewed
Review of Other/Old Records Reveals: Labs and Records
Source: patient
<Manuel Cr PA-C - Last Filed: 03/27/24 13:10>
Patient Management
Discussion with other providers: Hospitalist
Escalation/DeEscalation of care consider admission/obs:
Insulin bolus and drip were delayed due to patient's BMP not resulting in hemolyzed. She has a pH of 7.12, anion gap of 25, beta hydroxybutyrate of greater than 8 and 3+ ketones on her UA. Insulin bolus and drip were ultimately ordered as well as
maintenance fluids. Patient does have a leukocytosis which is new from her labs yesterday but there are no obvious signs of infection. She remains hemodynamically stable. Will admit to hospitalist team who accepts for continued evaluation and
treatment.
ED Attending Note
<Manuel Cr PA-C - Last Filed: 03/27/24 13:10>
-
Portions of this chart may have been created with voice recognition software.� Occasional wrong word or��sound alike� substitutions may have occurred due to the inherent limitations of voice recognition software.
<Rodrigo Stanley DO - Last Filed: 03/27/24 10:56>
ED Attending Note
Patient seen and examined by attending physician: Yes
I performed the substantive portion of visit, reviewed & personally made and approve the management plan that is documented in note by myself or GELA.: Yes
ED Attending Note:
I have seen and evaluated the patient with a [id number] encounter. I have spoken to the advance practicer provider and involved in the medical history, the physical exam, medical decision making.
Evaluation and management service: agree unless noted differently below.
Results interpretation: agree unless noted differently below.
Focused HPI: 74-year-old female presenting back to the emergency department with uncontrolled blood sugars. She was recently evaluated yesterday with hyperglycemia but symptoms were improving
Physical exam: Pleasantly demented. Dry mucous membranes. Sitting in bed comfortably
Medical Decision Making: Blood work consistent with DKA. She is acidotic and has low bicarb. Will start bicarb drip but will obtain potassium prior
Discharge Plan
Departure
Patient Disposition: Admit
Date of Disposition: 03/27/24
Time of Disposition: 12:03
Presentation/result/management discussed w/ accepting MD/DO: Hospitalist
Discharge Problem:
DKA (diabetic ketoacidosis)
Interventions
Interventions:
ED- Fall Risk Assessment Last Done: 03/27/24 12:04
ED- Neurological Assessment Last Done: 03/27/24 12:04
[2024-03-27] MEDS: NSS 1000 IV ×2 (10:18→11:52)
[2024-03-27 10:31] LABS: % Basophils 0.1 % (0-2); % Immature Granulocytes 0.9 % (0-0.5); % Lymphocytes 2.9 % (20.5-51.1); % Monocytes 6.1 % (1.7-9.3); Absolute Immature Granulocytes 0.1 10^3/uL (0-0.05); Absolute Lymphocytes 0.4 10^3/uL (1.2-3.4); Absolute Monocytes 0.9 10^3/uL (0.1-0.6); Absolute Neutrophils 12.5 10^3/uL (1.4-6.5); Hematocrit 34.6 % (37.0-47.0); Mean Corp Hgb Conc. 31.8 g/dL (33.0-37.0); Mean Corpuscular Hgb 32.3 pg (27.0-31.0); Mean Corpuscular Volume 101.5 fL (81.0-99.0); Mean Platelet Volume 9.4 fL (7.4-10.4); Nucleated Red Blood Cells % 0 %; Platelet Count 269 10^3/uL (130-400); Red Blood Cell Count 3.41 10^6/uL (4.20-5.40); Red Cell Dist. Width 13.8 % (11.5-14.5); Venous Blood Gas HCO3 10.1 mmol/L (22-27); Venous Blood Gas O2 Sat % 94.3 %; Venous Blood Gas pCO2 31 mmHg (35-48); Venous Blood Gas pO2 69 mmHg (30-50); White Blood Cell Count 13.9 10^3/uL (4.8-10.8)
[2024-03-27 10:34] LABS: Venous Blood Gas pH 7.12 (7.32-7.43)
[2024-03-27 10:45] LABS: Urine Albumin Trace (Neg - Trace); Urine Bilirubin Negative (Negative); Urine Character Slightly Cloudy (Clear); Urine Color Yellow; Urine Glucose 3+ (Negative); Urine Ketone 3+ (Negative); Urine Leukocyte 1+ (Negative); Urine Nitrite Negative (Negative); Urine Occult Blood Negative (Negative); Urine Specific Gravity 1.025 (<1.030); Urine Urobilinogen Negative (Neg - 1+)
[2024-03-27 11:40] LABS: Potassium 4.3 mmol/L (3.5-5.1)
[2024-03-27 11:50] LABS: Urine Squamous Cell 0-2 /LPF (Few)
[2024-03-27 11:51] LABS: Urine Red Blood Cell 0-2 /HPF (0-2); Urine White Cell 40-50 /HPF (0-5); Urine Yeast Many (Negative)
[2024-03-27 11:55] LABS: Blood Urea Nitrogen 24 mg/dl (7-17); Calcium 9.2 mg/dl (8.4-10.2); Chloride 102 mmol/L (98-107); Sodium 137 mmol/L (135-145); eGFR > 60.00
[2024-03-27 11:56] LABS: Carbon Dioxide 9 mmol/L (22-30); Glucose 577 mg/dl (70-99)
--- NOTE | 2024-03-27 12:11 | HPS.HSE ---
Addendum entered and electronically signed by Ridge Marques MD 03/27/24 14:54:
Pt is unresponsive
Seen independently from PIPELINE MAINTENANCE SUPERVISOR
Lungs clear
CV reg
Ext no edema, muscular atrophy
Imp:DKA
probable UTI
P:DAMASO
follow BMP closely
IV insulin
call placed to discuss with , no answer, did not leave message
Original Note:
Family Physician
-
Family Physician: Jose Manuel Yuan
Chief Complaint
-
high blood sugar
History of Present Illness
74-year-old female with past medical history of dementia, hypertension, insulin-dependent diabetes presenting to the emergency department for [facility]. EMS reports that patient's blood
sugar was greater than 600 at the penit[facility]iary and penitentiary provided insulin. Patient is unable to provide any history secondary to her baseline mental status/dementia. History obtained from . Patient has been having blood sugar issues
for a long time. Last week her blood sugars were running high during the daytime and low at nighttime. senior care were adjusting her insulin as per blood sugar. Review of system limited. Admitting for further management.
Patient received 14units of insulin, 20 mEq KCl 3000 normal saline
Medical History
Past Medical History
Past Medical History: Reports Other
Additional Past Medical History:
Type 1 diabetes
Hepatitis C
Hypertension
Chronic pain
Depression
Overactive bladder
Past Surgical History: Reports Other
Additional Past Surgical History:
Left hip replacement
Discectomy and laminectomy
Left carpal tunnel surgery
Right hip ORIF
Social History
Unable to obtain full social history at this time due to: Dementia
Family History
Family History: Not pertinent
Allergies / Home Medications
Allergies reflects when Allergies were last updated in [facility].
Home Medications with original date entered in [employer]
Allergy/Medication List:
Allergies
Allergy/AdvReac Type Severity Reaction Status Date / Time
Penicillins Allergy Rash- Verified 03/27/24 12:12
tolerated
cefepime
2023
Home Medications
insulin glargine 100 unit/mL (3 mL) subcutaneous pen (Lantus Solostar U-100 Insulin) 30 unit SC HS Diabetes 02/10/24
insulin lispro 100 unit/mL subcutaneous pen (Humalog KwikPen (U-100) Insulin) 13 sliding scale dose SC ACHS Diabetes 02/10/24
escitalopram oxalate 5 mg tablet 5 mg PO DAILY Mental Health 03/07/24
risperidone 0.25 mg tablet 0.25 mg PO Q8H Neurological Condition 03/07/24
tamsulosin 0.4 mg capsule 0.4 mg PO HS Urinary Issue 03/26/24
Review of Systems
-
Unable to obtain full review of systems at this time due to: Dementia
Physical Exam
Vital Signs
Vital Signs
Pulse Resp BP
93 24 121/59
03/27/24 10:11 03/27/24 10:11 03/27/24 10:11
Physical Exam
General: Well Developed, Well Nourished and No Apparent Distress
HEENT: NormoCephalic, Moist mucous membranes and Atraumatic
Respiratory: Clear
Cardiac: S1/S2 and Regular Rhythm; No Murmur or Rub
GI: Soft, Non Tender, Non Distended and Normal Bowel Sounds; No Organomegaly
Rectal: Deferred by Provider
Musculoskeletal: No Clubbing, No Cyanosis and No Edema
Skin: No Rash
Psych: Apparent Dementia
Laboratory Results
-
03/27/24 10:15
Data Reviewed
-
Lab Data: Labs Reviewed by me
Impression/Plan
-
#diabetic ketoacidosis
-blood sugar in 500's
-Received total 12 units of regular insulin in ER
-Continue to monitor blood sugar
-initiated on insulin drip
-Normal saline with 20 of K continued
-critical care educator and PROPOSAL LEAD WRITER continued
-Carb controlled diet
#leukocytosis likely reactive
-Urine positive
-Will repeat UA
-wbc 13.9
-afebrile
-ctm
#anemia likely chronic
-hgb stable at 11.0
-no active bleeding
-ctm
#Advanced dementia
= Celexa, risperidone continued
#Anxiety/depression
-On Celexa
#hx of urinary retention
- tamsulosin continued
-Bladder scan
#hx of falls with right hip fx and repair last month--PT/OT when able
#DVT prophylaxis-Lovenox
#CODE STATUS-full code
[2024-03-27 12:18] LABS: B-Hydroxybutyrate 8.83 mmol/L (0.02-0.27)
[2024-03-27] MEDS: NOVOLIN R 8 UNITS IV (12:24)
[2024-03-27] MEDS: NOVOLIN R INSULIN INFUSION 100 IV (12:25)
[2024-03-27] MEDS: NSS with KCL 20 MEQ 1000 IV ×2 (12:31→14:18)
[2024-03-27 13:35] LABS: Glucose - Point of Care 312 mg/dl (70-99)
--- NOTE | 2024-03-27 14:00 | PTCARENOTE ---
Received patient from ER. Patient awake, alert, oriented only to name. Is unable to make meaningful conversation/answers appropriate at times. Patient is moving all extremities, came up from ER on maintenance fluids and insulin gtt. Placed
patient on monitor. Patient is in sinus rhythm. she is on room air, lungs diminished 96% on room air. She is NPO, will place order for speech eval and treat per Dr. Marques. Purewick placed as patient was grossly incontinent of urine. Skin is
intact, a few scattered abrasions on lower extremities. Patient is due for BMP at 1600. hourly accu checks ordered. Will review transfer orders.
[2024-03-27 14:03] LABS: Blood Urea Nitrogen 21 mg/dl (7-17); Calcium 8.7 mg/dl (8.4-10.2); Carbon Dioxide 16 mmol/L (22-30); Chloride 111 mmol/L (98-107); Estimated Creatinine Clearance 69 ml/min; Glucose 310 mg/dl (70-99); Potassium 4.2 mmol/L (3.5-5.1); Sodium 138 mmol/L (135-145); eGFR > 60.00
--- NOTE | 2024-03-27 14:09 | PN.DE.MGMTRT ---
Insulin Management
- -
03/27/2024: Diabetes Management Consult
74 year old female admitted with DKA due to uncontrolled diabetes mellitus.
PMH: Advanced dementia, Anxiety/depression, hx of urinary retention and falls with right hip fx s/o ORIF 01/2023 and DM. A1C 9.3% on 03/08 , Cr 0.5, eGFR>60. Was recently hospitalized for same and was discharged on Lantus 25 units HS and Humalog 13
units AC.
Glucose on admission was 500, pt received total 12 units of regular insulin in ER. Pt has been initiated on insulin drip and NS of K
Pt is oriented to self only at baseline. Unable to discuss diabetes management
Cont current diabetes regimen. reassess later today for readiness to transition off drip to SQ insulin, ideally when GAP is closed x2 BMPs
Give Lantus 15 units 1 prior to stopping insulin drip, then resume her OP regimen with low corrective insulin
Home insulin dose was Lantus 30 units @ HS and Humalog 13 units ACHS
Will closely follow, monitor AC Glucose levels and make further insulin adjustments if necessary
Diabetes History
- -
Type of Diabetes: 2 requiring insulin
Pre-Admission Diabetes Regimen
03/27/24 03/27/24 03/27/24
10:15 12:00 13:33
Creatinine 0.7 Cancelled 0.5 L
Insulin Pump Settings
IP Diabetes Regimen
03/27/24 03/27/24 03/27/24
10:13 10:15 12:00
Glucose 577 H* Cancelled
POC Glucose 551 H*
03/27/24 03/27/24
13:29 13:33
Glucose 310 H
POC Glucose 312 H
Patient Education
--- NOTE | 2024-03-27 14:21 | CON.INTV ---
Consultation
Consultation Request
Date/Time Consultation Requested: 03/27/2024 - 140
Date/Time Consultation Performed: 03/27/2024 - 1419
Requesting Provider: NAPOLEON Merino
Performing Provider: Dr. Ramos
Reason for Consultation: DKA
Medical History
-
Chief Complaint: Elevated glucose
History of Present Illness:
74-year-old female former tobacco smoker with type I DM on an insulin pump, history of hep C s/p treatment now with negative Fibroscan, history of alcoholism, hypertension, chronic pain syndrome, depression and overactive bladder who presents from
group home with elevated glucose level. She does reside at [facility] and is usually AAO x 1 at baseline. Her helps with her medications that she cannot administer them herself.. Of note, she was in the ER yesterday
(03/26/2024), with left-sided hip pain at there was no clear trauma or injury. She was hyperglycemic at that time was 600 POCT yesterday morning, Tx with 23units of Humalog SQ x1. Hip XR at the time showed no acute abnormality., BG was 424 at that
time with an AG of 11, serum bicarbonate level of 23, and she was discharged home with no other changes. Of note her UA was also negative for UTI albeit there were trace leukocyte esterase and 16�20 urine WBC. Now that she is back today, her serum
bicarbonate is 9 with an anion gap of 26, glucose of 577, BOHB 8.8, leukocytosis of 13.9, and her pH was 7.12 on blood gas with pCO2 of 31. . CXR showed no acute cardiopulmonary pathology (my impression as official read still pending). She was
given 2 L of NS 0.9%, followed by a 8 units of regular insulin IV x1 and then started on insulin gtt. She is now being admitted to the ICU and critical care services consulted for additional management/recommendations. Patient has known DM type I
and is on insulin pump that is controlled by her her . She apparently cannot administer her own medications. Endocrinology follows with her every 3 months approximately.
When I saw the patient she was in bed, resting comfortably, in no acute distress. BP 112/47, heart rate 78 and saturating 98% on room air. She was confused but pleasant. HPI unobtainable as patient is a poor historian with dementia.
PMHx: DM type I on insulin pump, hepatitis C treated with negative FibroScan, history of alcoholism, essential hypertension, chronic pain with history of spinal surgeries, depression, overactive bladder, former tobacco use
PSHx: Hip replacement (left � 2009), discectomy and laminectomy (2000), left carpal/metacarpal arthroplasty
Past Medical History
Past Medical History: Other (Above as per HPI)
Past Surgical History: Other (Above as per HPI)
Social History
Tobacco: Former Smoker
Alcohol: None
Drug: None
Family History
Family History: Cancer (Father: Esophageal cancer) and Other (Mother: History of tremors)
Allergies / Home Medications
Allergies
Allergy/AdvReac Type Severity Reaction Status Date / Time
Penicillins Allergy Rash- Verified 03/27/24 12:12
tolerated
cefepime
2023
Home Medications
�Medication �Instructions �Recorded �Confirmed �Last Taken �Type
insulin glargine 100 unit/mL (3 30 unit SC HS Diabetes 02/10/24 03/27/24 Unknown History
mL) subcutaneous pen (Lantus
Solostar U-100 Insulin)
insulin lispro 100 unit/mL 0 sliding scale dose SC ACHS 02/10/24 03/27/24 Unknown History
subcutaneous pen (Humalog KwikPen Diabetes
(U-100) Insulin)
escitalopram oxalate 5 mg tablet 5 mg PO DAILY Mental Health 03/07/24 03/27/24 Unknown History
risperidone 0.25 mg tablet 0.25 mg PO Q8H Neurological 03/07/24 03/27/24 Unknown History
Condition
tamsulosin 0.4 mg capsule 0.4 mg PO HS Urinary Issue 03/26/24 03/27/24 Unknown History
Review of Systems
-
Unable to Obtain full review of systems at this time due to: Dementia
Vitals / Labs / Diagnostic Testing
Vital Signs
Pulse Resp BP Pulse Ox
83 15 120/58 98
03/27/24 13:30 03/27/24 13:30 03/27/24 13:17 03/27/24 11:00
Lab Data
03/27/24 10:15
Diagnostic Testing:
Physical Exam
-
HEENT: Normocephalic and Anicteric
Cardiovascular: S1/S2 and Peripheral Edema (+1 LE edema b/l)
Respiratory: Wheeze (negative), Rales (negative) and Rhonchi (negative)
GI: Soft, Non Distended and Non Tender
Neurology: Awake, Alert and Other (AAOx1 (self))
Skin: Warm and Dry
General: Comfortable and Chills (negative)
Assessment
-
Assessment: 74-year-old female former tobacco smoker with type I DM on an insulin pump, history of hep C s/p treatment now with negative Fibroscan, history of alcoholism, hypertension, chronic pain syndrome, depression and overactive bladder who
presents from group home with elevated glucose level. She does reside at [facility] and is usually AAO x 1 at baseline. Her helps with her medications that she cannot administer them herself.. Of note, she was in the
ER yesterday (03/26/2024), with left-sided hip pain at there was no clear trauma or injury. She was hyperglycemic at that time was 600 POCT yesterday morning, Tx with 23units of Humalog SQ x1. Hip XR at the time showed no acute abnormality., BG
was 424 at that time with an AG of 11, serum bicarbonate level of 23, and she was discharged home with no other changes. Of note her UA was also negative for UTI albeit there were trace leukocyte esterase and 16�20 urine WBC. Now that she is back
today, her serum bicarbonate is 9 with an anion gap of 26, glucose of 577, BOHB 8.8, leukocytosis of 13.9, and her pH was 7.12 on blood gas with pCO2 of 31. . CXR showed no acute cardiopulmonary pathology (my impression as official read still
pending). She was given 2 L of NS 0.9%, followed by a 8 units of regular insulin IV x1 and then started on insulin gtt. She is now being admitted to the ICU and critical care services consulted for additional management/recommendations. Patient
has known DM type I and is on insulin pump that is controlled by her her . She apparently cannot administer her own medications. Endocrinology follows with her every 3 months approximately
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
Impression:
#DM type I complicated by DKA
#Metabolic acidosis with increased anion gap - due to above
#Leukocytosis - likely reactive but unable to rule out UTI
#Abnormal UA suspicious for UTI
#Dementia
Plan:
- Continue insulin drip with q1-2hr POCT, avoid hypoglycemia & once BG is <200, change IVF to D5 1/2NS with KCl @ 150mL/hr, assuming she is not hyperkalemic with K >5.3.In meantime continue NS-KCl 20MeQ @ 250mL/hr
- Maintain K between 3.5 - 4.5
- Serial blood draws with q4hr BMP, Mg, PO4 and blood gas q12hr
- Once AG closed x2 and serum HCO3 >18 x2 with BG<200, then we can transition off insulin gtt via lantus and then start basal-bolus insulin dosing
- Maintain SpO2 >90-94%
- Maintain MAP>65
- Considering her urine leukocyte esterase is now +1, and urine WBC is also now 40�50 in the setting of DKA, would recommend starting antibiotics at this time with Rocephin and plan for 6-7 days assuming she continues to improve with no recurrent
fevers or hemodynamic instability
- Trend WBC and follow up urine Cx (collected 03/26)
- Check blood Cx before starting ABx
- Replete electrolytes with K>4, Mg>2
- Maintain euglycemia with goal BG 140-180
- prn nebulized bronchodilators
- Incentive spirometer
- DVT ppx
Critical care statement: A total of 40 minutes of critical care time was provided for this patient today. This includes management of unstable vital signs, evaluation of the patient at bedside, reviewing the patient's pertinent medical records
including radiographs, microbiology, laboratory evaluations, and discussion with primary team, consultants, pharmacy, nutrition, physical therapy, case management, charge nurse, critical care nursing, and respiratory therapy.
Data:
CXR 03-27-2024: No active cardiopulmonary disease.
[2024-03-27 14:28] LABS: Magnesium 1.9 mg/dl (1.6-2.3)
[2024-03-27 15:11] LABS: Glucose - Point of Care 255 mg/dl (70-99)
[2024-03-27 15:15] LABS: APTT 30.3 Sec (23.4-35.0)
--- NOTE | 2024-03-27 15:30 | PTCARENOTE ---
Call placed to patient's facility, [facility] per Dr. Marques's request. Patient lives in dementia unit, is DNR/DNI at facility per her advance directive. Unable to reach patient's Vito to clarify, full code at this time.
[2024-03-27] MEDS: STERILE WATER FOR INJECTION 10 ML IV (15:47)
[2024-03-27] MEDS: ROCEPHIN 1000 MG IV (15:47)
[2024-03-27] MEDS: RISPERDAL PO ×2 (15:49→15:52)
[2024-03-27 16:17] LABS: Glucose - Point of Care 157 mg/dl (70-99)
[2024-03-27 16:36] LABS: Blood Urea Nitrogen 21 mg/dl (7-17); Calcium 8.9 mg/dl (8.4-10.2); Carbon Dioxide 20 mmol/L (22-30); Chloride 113 mmol/L (98-107); Estimated Creatinine Clearance 69 ml/min; Glucose 160 mg/dl (70-99); Phosphorus 2.6 mg/dl (2.5-4.5); Potassium 4.2 mmol/L (3.5-5.1); Sodium 140 mmol/L (135-145); eGFR > 60.00
[2024-03-27] MEDS: D5/0.45%NSS with KCL 40 MEQ 1000 IV ×2 (17:04→23:35)
[2024-03-27 17:18] LABS: Glucose - Point of Care 113 mg/dl (70-99)
[2024-03-27] MEDS: LOVENOX 40 MG SC (17:21)
[2024-03-27 18:21] LABS: Glucose - Point of Care 115 mg/dl (70-99)
[2024-03-27 20:08] LABS: Venous Blood Gas B.E. -6.7 mmol/L (-4 to +4); Venous Blood Gas HCO3 18.3 mmol/L (22-27); Venous Blood Gas O2 Sat % 99.6 %; Venous Blood Gas pCO2 34 mmHg (35-48); Venous Blood Gas pH 7.34 (7.32-7.43); Venous Blood Gas pO2 195 mmHg (30-50)
[2024-03-27 20:29] LABS: Blood Urea Nitrogen 19 mg/dl (7-17); Calcium 8.8 mg/dl (8.4-10.2); Carbon Dioxide 16 mmol/L (22-30); Chloride 115 mmol/L (98-107); Estimated Creatinine Clearance 69 ml/min; Glucose 145 mg/dl (70-99); Magnesium 1.9 mg/dl (1.6-2.3); Potassium 4.4 mmol/L (3.5-5.1); Sodium 140 mmol/L (135-145); eGFR > 60.00
[2024-03-27] MEDS: FLOMAX PO (21:30)
--- NOTE | 2024-03-27 21:38 | PTCARENOTE ---
pt yelling and trying to climb out of bed. arrived in the room to see pt had removed her IV and threw it on the floor. new IV line established. pt screaming and cursing at the staff. 4 point restraints ordered. hourly accu checks. insulin gtt
infusing.
[2024-03-27 21:44] LABS: Glucose - Point of Care 171 mg/dl (70-99)
[2024-03-27 22:07] LABS: Glucose - Point of Care 184 mg/dl (70-99)
[2024-03-27 23:27] LABS: Glucose - Point of Care 178 mg/dl (70-99)
[2024-03-28] VITALS (16 sets, daily range): BP systolic 112–156; BP diastolic 59–94; PULSE 64–73; O2SAT 92–95; BMI 22.8
[2024-03-28] MEDS: RISPERDAL PO (00:09)
[2024-03-28 00:17] LABS: Glucose - Point of Care 123 mg/dl (70-99)
[2024-03-28 01:35] LABS: Glucose - Point of Care 132 mg/dl (70-99)
[2024-03-28 02:10] LABS: Blood Urea Nitrogen 19 mg/dl (7-17); Carbon Dioxide 18 mmol/L (22-30); Chloride 115 mmol/L (98-107); Estimated Creatinine Clearance 69 ml/min; Glucose 117 mg/dl (70-99); Magnesium 1.9 mg/dl (1.6-2.3); Potassium 3.9 mmol/L (3.5-5.1); Sodium 141 mmol/L (135-145); eGFR > 60.00
[2024-03-28 02:49] LABS: Glucose - Point of Care 111 mg/dl (70-99)
[2024-03-28 03:42] LABS: Glucose - Point of Care 131 mg/dl (70-99)
[2024-03-28 03:51] LABS: Hematocrit 26.8 % (37.0-47.0); Hemoglobin 9.3 g/dL (12.0-16.0); Mean Corp Hgb Conc. 34.7 g/dL (33.0-37.0); Mean Corpuscular Hgb 33.5 pg (27.0-31.0); Mean Corpuscular Volume 96.4 fL (81.0-99.0); Mean Platelet Volume 9.4 fL (7.4-10.4); Platelet Count 217 10^3/uL (130-400); Red Blood Cell Count 2.78 10^6/uL (4.20-5.40); Red Cell Dist. Width 13.8 % (11.5-14.5); White Blood Cell Count 7.1 10^3/uL (4.8-10.8)
[2024-03-28 04:45] LABS: Glucose - Point of Care 135 mg/dl (70-99)
[2024-03-28 05:37] LABS: Glucose - Point of Care 142 mg/dl (70-99)
[2024-03-28] MEDS: D5/0.45%NSS with KCL 40 MEQ 1000 IV (05:54)
--- NOTE | 2024-03-28 06:19 | PTCARENOTE ---
pt aggressive with care. attempting to head butt, spit, punch the nurses while attempting to get her accu check. changed and repositioned. remains in 4 points and mittens.
[2024-03-28 06:26] LABS: Blood Urea Nitrogen 14 mg/dl (7-17); Calcium 8.6 mg/dl (8.4-10.2); Carbon Dioxide 19 mmol/L (22-30); Chloride 116 mmol/L (98-107); Estimated Creatinine Clearance 69 ml/min; Glucose 139 mg/dl (70-99); Magnesium 1.8 mg/dl (1.6-2.3); Phosphorus 2.3 mg/dl (2.5-4.5); Sodium 139 mmol/L (135-145); eGFR > 60.00
[2024-03-28 06:42] LABS: Glucose - Point of Care 162 mg/dl (70-99)
--- NOTE | 2024-03-28 06:48 | PN.DE.MGMTRT ---
Insulin Management
- -
03/28/2024: Diabetes Management F/U:
74 year old female admitted with DKA due to uncontrolled diabetes mellitus.
PMH: Advanced dementia, Anxiety/depression, hx of urinary retention and falls with right hip fx s/o ORIF 01/2023 and DM. A1C 9.3% on 03/08 , Cr 0.5, eGFR>60. Was recently hospitalized for same and was discharged on Lantus 25 units HS and Humalog 13
units AC.
Glucose on admission was 500, pt received total 12 units of regular insulin in ER. Pt has been initiated on insulin drip and NS w/20 of K
Pt awake, sitting up in bed, oriented to self only at baseline. Unable to discuss diabetes management
GAP closed x2 BMPs. Glucose stable w/o hypoglycemia. range 111 to 162, requiring 0.5 to 1 units of insulin/hr
Will transition off insulin drip. Give Lantus 15 units x1 now. Stop insulin drip 2 hrs after giving Lantus. Start 1800 ADA diet
Home insulin dose was Lantus 30 units @ HS and Humalog 13 units ACHS, will resume OP regimen with low corrective insulin
Will closely follow, monitor AC Glucose levels and make further insulin adjustments if necessary
Diabetes History
- -
Type of Diabetes: 2 requiring insulin
Pre-Admission Diabetes Regimen
03/27/24 03/27/24 03/27/24
10:15 12:00 13:33
Creatinine 0.7 Cancelled 0.5 L
03/27/24 03/27/24 03/27/24
14:54 16:16 19:58
Creatinine Cancelled 0.4 L 0.4 L
03/28/24 03/28/24 03/28/24
00:41 03:36 05:49
Creatinine 0.4 L Cancelled 0.4 L
03/28/24
06:00
Creatinine Cancelled
Insulin Pump Settings
IP Diabetes Regimen
03/27/24 03/27/24 03/27/24
10:13 10:15 12:00
Glucose 577 H* Cancelled
POC Glucose 551 H*
03/27/24 03/27/24 03/27/24
13:29 13:33 14:54
Glucose 310 H Cancelled
POC Glucose 312 H
03/27/24 03/27/24 03/27/24
15:01 16:02 16:16
Glucose 160 H
POC Glucose 255 H 157 H
03/27/24 03/27/24 03/27/24
17:06 18:07 19:58
Glucose 145 H
POC Glucose 113 H 115 H
03/27/24 03/27/24 03/27/24
21:33 21:56 23:16
Glucose
POC Glucose 171 H 184 H 178 H
03/28/24 03/28/24 03/28/24
00:05 00:41 01:24
Glucose 117 H
POC Glucose 123 H 132 H
03/28/24 03/28/24 03/28/24
02:38 03:31 03:36
Glucose Cancelled
POC Glucose 111 H 131 H
03/28/24 03/28/24 03/28/24
04:33 05:26 05:49
Glucose 139 H
POC Glucose 135 H 142 H
03/28/24 03/28/24
06:00 06:31
Glucose Cancelled
POC Glucose 162 H
Meal type: Dinner
Patient Education
[2024-03-28] MEDS: LANTUS 0.149999999999999994 UNITS SC (07:48)
[2024-03-28] MEDS: NOVOLOG FLEXPEN-MODERATE RESISTANCE SC ×2 (07:49→17:40)
[2024-03-28] MEDS: RISPERDAL 0.25 MG PO ×3 (07:49→22:19)
[2024-03-28 07:58] LABS: Glucose - Point of Care 162 mg/dl (70-99)
[2024-03-28 08:02] LABS: Glucose - Point of Care 144 mg/dl (70-99)
--- NOTE | 2024-03-28 08:06 | PTCARENOTE ---
Received report. Patient asleep, when awakened oriented only to name. Is unable to make meaningful conversation/answers appropriate at times. Patient is moving all extremities, maintenance fluids and insulin gtt. Patient is in sinus
rhythm/sinus bradycardic . on room air, lungs diminished 96% on room air. Purewick in place. Skin is intact, a few scattered abrasions on lower extremities. hourly accuchecks to stop with insulin gtt stopping at 0900. Lantus given.
[2024-03-28] MEDS: LEXAPRO 5 MG PO (08:24)
--- NOTE | 2024-03-28 08:37 | PTOTSP ---
Dysphagia Evaluation
Oral and pharyngeal stages of swallowing are grossly WFL based on clinical bedside swallowing evaluation.
Recommend:
1. Regular, Thin Liquids
2. Supervision given dementia
3. Medications whole in puree
4. Oral care 3x daily
5. No further dysphagia tx warranted. Please reconsult as appropriate.
--- NOTE | 2024-03-28 11:45 | W.PN.INTV ---
Today's Communication / Plan
Recommendations
Subcu insulin
Advance diet
Continue antibiotics for now
Follow cultures
Transfer to telemetry
Sign off
Assessment
-
Assessment: 74-year-old female former tobacco smoker with type I DM on an insulin pump, history of hep C s/p treatment now with negative Fibroscan, history of alcoholism, hypertension, chronic pain syndrome, depression and overactive bladder who
presents from halfway with elevated glucose level. She does reside at [facility] and is usually AAO x 1 at baseline. Her helps with her medications that she cannot administer them herself.. Of note, she was in the
ER yesterday (03/26/2024), with left-sided hip pain at there was no clear trauma or injury. She was hyperglycemic at that time was 600 POCT yesterday morning, Tx with 23units of Humalog SQ x1. Hip XR at the time showed no acute abnormality., BG
was 424 at that time with an AG of 11, serum bicarbonate level of 23, and she was discharged home with no other changes. Of note her UA was also negative for UTI albeit there were trace leukocyte esterase and 16�20 urine WBC. Now that she is back
today, her serum bicarbonate is 9 with an anion gap of 26, glucose of 577, BOHB 8.8, leukocytosis of 13.9, and her pH was 7.12 on blood gas with pCO2 of 31. . CXR showed no acute cardiopulmonary pathology (my impression as official read still
pending). She was given 2 L of NS 0.9%, followed by a 8 units of regular insulin IV x1 and then started on insulin gtt. She is now being admitted to the ICU and critical care services consulted for additional management/recommendations. Patient
has known DM type I and is on insulin pump that is controlled by her her . She apparently cannot administer her own medications. Endocrinology follows with her every 3 months approximately
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
Impression:
#DM type I complicated by DKA
#Metabolic acidosis with increased anion gap - due to above
#Leukocytosis - likely reactive but unable to rule out UTI
#Abnormal UA suspicious for UTI
#Dementia
Plan:
Diabetes ketoacidosis resolved
Diabetes management nurse correspondence reviewed: Transition to subcu insulin
Not tolerating breakfast
Discontinue IV fluids
Follow electrolytes
-
Hemodynamically stable not requiring vasopressors.
-
Possible urinary tract infection:
- Considering her urine leukocyte esterase is now +1, and urine WBC is also now 40�50 in the setting of DKA, would recommend starting antibiotics at this time with Rocephin and plan for 6-7 days assuming she continues to improve with no recurrent
fevers or hemodynamic instability
- Trend WBC and follow up urine Cx (collected 03/26)
All cultures negative so far or pending, will continue to follow
- Replete electrolytes with K>4, Mg>2
- Incentive spirometer
- DVT ppx-Lovenox
Off insulin drip.
Anion gap is closed
Transferred to [facility].
Critical care team will sign off. Please call pulmonary if any respiratory issues arise.
Data:
CXR 03-27-2024: No active cardiopulmonary disease.
Subjective Dataa
Subjective Data
Date of Service:
Date of Service: March 28, 2024
Chief Complaint: Crew Chief Follow Up (Diabetes ketoacidosis)
Subjective:
No complaints.
Patient has underlying dementia. Difficult to provide history.
Eating breakfast independently.
Review of Systems
GI: Abdominal Pain (n), Nausea (n) and Vomiting (n)
Neuro: Headache (n)
Objective Data
Data Reviewed
Vital Signs / I&O / Oxygen:
Vital Signs
Temp Pulse Resp BP Pulse Ox
98.0 F 76 18 149/94 92
03/28/24 07:58 03/28/24 11:00 03/28/24 11:00 03/28/24 10:35 03/28/24 10:21
Intake and Output
03/27/24 03/28/24 03/29/24
06:59 06:59 06:59
Intake Total 2771.0 / 2923.0 456 / 456
Output Total 300 / 300
Balance 2471.0 / 2623.0 456 / 456
SaO2 92
Physical Exam
General: Respiratory Distress (n) and Comfortable
HEENT: Normocephalic
Respiratory: Clear and Non-Labored Respirations
GI: Soft and Non Distended
Neurology: Awake and Alert
Labs/Micro/Reports
Lab Data
03/28/24 03:37
03/28/24 06:00
Laboratory Results
03/27/24
14:54
PT 14.0
INR 1.10
APTT 30.3
[2024-03-28 11:56] LABS: Glucose - Point of Care 311 mg/dl (70-99)
--- NOTE | 2024-03-28 12:43 | CM ---
CM following re: discharge planning.
Discussed in Rounds, reviewed pt's chart, met with pt,
Pt is a 73 year old female, admitted with primary dx of DKA.
Pt is not a great historian due to Dementia. Per son, pt has been living at [facility] since August 2023. Per son, pt ambulates with a walker, was at [facility] and [facility] in the past. Per son, pt's
(his stepfather) lives alone and visited the pt at [facility] often. Pt's son stated that pt will return back to [facility] when medically stable.
PT and OT will evaluate the pt to determine a level of care at discharge.
PCP: Jose Manuel Yuan
Pharmacy: [facility]
D/C plan: return back to [facility] with VN services vs SNF.
CM will follow with discharge plan updates as hospitalization progresses
[2024-03-28] MEDS: NOVOLOG FLEXPEN-MODERATE RESISTANCE 7 UNITS SC (13:38)
[2024-03-28] MEDS: NOVOLOG FLEXPEN 13 UNITS SC (13:39)
--- NOTE | 2024-03-28 14:00 | PTCARENOTE ---
Report given to 4W. Pt continues to require frequent redirection and medsitter advised for next room. pt assisted to wheelchair and escorted to [id number]
[2024-03-28] MEDS: ROCEPHIN 1000 MG IV (15:06)
[2024-03-28] MEDS: STERILE WATER FOR INJECTION 10 ML IV (15:06)
--- NOTE | 2024-03-28 16:17 | W.PN.HOSP.TC ---
Today's Communication/Plan
-
Case Management consult regarding dispo
psych consult
Assessment / Plan
Assessment / Plan
#diabetic ketoacidosis
resolved
-blood sugar in 500's
-Received total 12 units of regular insulin in ER
-Continue to monitor blood sugar
-initiated on insulin drip
now transitioned to usual insulin dosing
-Normal saline with 20 of K continued
-toll gate keeper and SPRUE KNOCKER continued
-Carb controlled diet
situation reviewed with
#leukocytosis likely reactive
-Urine positive
-Will repeat UA
-wbc 13.9-->7.1
-afebrile
-ctm
#anemia likely chronic
-hgb stable at 11.0
-no active bleeding
-ctm
#Advanced dementia
= Celexa, risperidone continued
#Anxiety/depression
-On Celexa
#hx of urinary retention
- tamsulosin continued
-Bladder scan
#hx of falls with right hip fx and repair last month--PT/OT when able
#DVT prophylaxis-Lovenox
#CODE STATUS-DNR
confirmed with by phone and witnessed by MADY Ling
Anticipated Discharge: 24 - 48 hours
Subjective/Interval History
-
Date of Service: March 28, 2024
calm earlier, became agitated recently. states this has become a problem recently
Objective Data
-
Labs:
Laboratory Results
03/28/24 03/28/24
03:36 05:49
Sodium Cancelled 139
Potassium Cancelled 4.0
Chloride Cancelled 116 H
Carbon Dioxide Cancelled 19 L
BUN Cancelled 14
Creatinine Cancelled 0.4 L
Glucose Cancelled 139 H
Calcium Cancelled 8.6
Vital Signs:
Vital Signs
Temp Pulse Resp BP Pulse Ox
98.2 F 59 18 125/64 97
03/28/24 14:24 03/28/24 14:24 03/28/24 14:24 03/28/24 14:24 03/28/24 14:24
I&O
03/27/24 03/28/24 03/29/24
06:59 06:59 06:59
Intake Total 2771.0 / 2923.0 456 / 456
Output Total 300 / 300
Balance 2471.0 / 2623.0 / 456
Review of Systems
-
Unable to obtain full review of systems at this time due to: Dementia
History Source: Patient and Family (reviewed with )
Constitutional: Denies Fever
EENT: Reports No Symptoms Reported
Respiratory: Reports No Symptoms
Cardiac: Reports No Symptoms
Abdomen/GI: Reports No Symptoms
Musculoskeletal: Reports No Symptoms
Physical Exam
-
General: Well Developed, Well Nourished and No Apparent Distress
HEENT: Normocephalic, Atraumatic and Moist Mucous Membranes
Respiratory: Negative Clear to Auscultation, Wheezes or Rales
Cardiac: Regular Rhythm and S1/S2
GI: Soft, Nontender and Nondistended
Musculoskeletal: No Clubbing, No Cyanosis and No Edema
Neuro: Awake and Alert; Negative Oriented
[2024-03-28 17:09] LABS: Glucose - Point of Care 39 mg/dl (70-99)
[2024-03-28 17:09] LABS: Glucose - Point of Care 39 mg/dl (70-99)
[2024-03-28 17:14] LABS: Glucose - Point of Care 39 mg/dl (70-99)
[2024-03-28 17:31] LABS: Glucose - Point of Care 35 mg/dl (70-99)
[2024-03-28] MEDS: NOVOLOG FLEXPEN SC (17:38)
[2024-03-28] MEDS: LOVENOX 40 MG SC (17:41)
[2024-03-28] MEDS: NEUTRA-PHOS POWDER PACKET 250 MG PO ×2 (17:41→20:59)
[2024-03-28 18:13] LABS: Glucose - Point of Care 123 mg/dl (70-99)
--- NOTE | 2024-03-28 18:24 | PTCARENOTE ---
pt was changed to DNR per who had a conversation with Dr. Marques on the phone today. I got on the phone and confirmed with the that this was his wishes to be the witness to this change
--- NOTE | 2024-03-28 18:26 | PTCARENOTE ---
pt's blood sugar was 39, 3 times in a row. pt was given 8 ounces of apple juice and blood sugar went down to 35. Dr. Marques was called and informed of blood sugar levels. Pt was awake, alert and asymptomatic. Dr. Marques ordered to allow patient to
eat dinner and to recheck her sugar after dinner. Pt's sugar was checked post dinner and her blood sugar came up to 123. Pt is stable with no symptoms.
--- NOTE | 2024-03-28 20:15 | PTCARENOTE ---
Notified NAPOLEON Chun, blood sugar been running low, last sugar was 79, following protocol, Lantus put on hold.
[2024-03-28] MEDS: FLOMAX 0.400000000000000022 MG PO (20:52)
[2024-03-28 20:53] LABS: Glucose - Point of Care 79 mg/dl (70-99)
[2024-03-28 22:25] LABS: Glucose - Point of Care 117 mg/dl (70-99)
[2024-03-29 03:03] LABS: Glucose - Point of Care 241 mg/dl (70-99)
[2024-03-29 07:26] LABS: Glucose - Point of Care 425 mg/dl (70-99)
[2024-03-29 07:33] LABS: Hematocrit 28.9 % (37.0-47.0); Hemoglobin 10.3 g/dL (12.0-16.0); Mean Corp Hgb Conc. 35.6 g/dL (33.0-37.0); Mean Corpuscular Hgb 33.1 pg (27.0-31.0); Mean Corpuscular Volume 92.9 fL (81.0-99.0); Mean Platelet Volume 9.1 fL (7.4-10.4); Platelet Count 206 10^3/uL (130-400); Red Blood Cell Count 3.11 10^6/uL (4.20-5.40); Red Cell Dist. Width 13.8 % (11.5-14.5); White Blood Cell Count 4.2 10^3/uL (4.8-10.8)
[2024-03-29 07:43] LABS: Blood Urea Nitrogen 7 mg/dl (7-17); Calcium 8.9 mg/dl (8.4-10.2); Carbon Dioxide 25 mmol/L (22-30); Chloride 101 mmol/L (98-107); Estimated Creatinine Clearance 69 ml/min; Glucose 390 mg/dl (70-99); Phosphorus 3.5 mg/dl (2.5-4.5); Potassium 4.4 mmol/L (3.5-5.1); Sodium 133 mmol/L (135-145); eGFR > 60.00
[2024-03-29] MEDS: RISPERDAL 0.25 MG PO ×2 (08:11→17:32)
[2024-03-29] MEDS: LEXAPRO 5 MG PO (08:11)
[2024-03-29] MEDS: NEUTRA-PHOS POWDER PACKET 250 MG PO ×2 (08:14→14:32)
[2024-03-29] MEDS: NOVOLOG FLEXPEN-MODERATE RESISTANCE 11 UNITS SC (08:14)
[2024-03-29] MEDS: NOVOLOG FLEXPEN 13 UNITS SC ×3 (08:15→17:35)
[2024-03-29 08:23] VITALS: BP 143/71
--- NOTE | 2024-03-29 08:54 | CON.MD ---
Consultation - Medical
-
patient seen chart reviewed. spoke with tech taking care of her. patient is quite pleasant but she can provide no hx given dementia. she was admitted bd elevated blood sugar and she is a known diabetic. she resides w in assisted living. she
comes to already on risperdal o.25 q 8h and lexapro 5 mg daily. she has hx of htn iddm jhep c overactive bladder l hip repair disc disease and hx surgery for same as well as other orthopedic surgeries in the past. she also has hx of anemia and
labs are notable for slightly decreased serum sodium at 133. qtc is 421 and ecg is nl. urine appeared infected as per micro likely contaminant. i attempted to call mr lugo at number in chart but the number would not go through i then
called son and left a voice mail.
medical as above. blood sugar is coming down. tamsulosin for bladder
as stated unable to obtain further information from patient
mse alert oriented smiling brightly in bed. offers no complaints. confused. when i asked her the year she said 'that's okay' she did not know where she is. when i asked her if she was mrs varghese she loooked at me blankly. insight judgment
impaired. mood is cheerful affect shallow
dx dementia
recommendations she seems to be comfortable on the dose of risperdal which i assume was used for behavioral disturbance associated with dementia. it can have the adverse effect of increasing blood sugar which should be kept in mind. sodium on
admit was normal but now slightly low and lexapro is associated w hyponatremia . would just keep an eye on the sodium. if blood sugar cannot be controlled consider taper and dc of risperdal but she looked so comfortable today i would not hasten to
do it. will look in on her tomorrow.
[2024-03-29 10:46] LABS: Glucose - Point of Care 310 mg/dl (70-99)
[2024-03-29] MEDS: NOVOLOG FLEXPEN-MODERATE RESISTANCE 7 UNITS SC (12:31)
[2024-03-29 15:38] VITALS: BP 140/73
[2024-03-29 16:35] LABS: Glucose - Point of Care 175 mg/dl (70-99)
--- NOTE | 2024-03-29 17:07 | W.PN.HOSP.TC ---
Today's Communication/Plan
-
adjust insulin
recheck UA
Assessment / Plan
Assessment / Plan
#diabetic ketoacidosis
resolved-admission blood sugar in 500's
-Received total 12 units of regular insulin in ER
-Continue to monitor blood sugar
-initiated on insulin drip
now transitioned to usual insulin dosing
-IVF stopped
-premium representative/RELIEF MAP MODELER input appreciated
-Carb controlled diet
Very variable glucoses, most likely related to dietary intake. Will try increasing PM Lantus, which will hopefully allow for less reliance on short acting SSI
situation reviewed with 03/28
#leukocytosis likely reactive, better
-Urine positive
-Will repeat UA
-wbc 13.9-->7.1
-afebrile
-ctm
Hypophosphatemia resolved
will stop supplement
#anemia likely chronic
-hgb stable at 11.0
-no active bleeding
-ctm
#Advanced dementia
= Lexapro, risperidone continued
#Anxiety/depression
-On Lexapro
#hx of urinary retention
- tamsulosin continued
-Bladder scan
#hx of falls with right hip fx and repair last month--PT/OT when able
#DVT prophylaxis-Lovenox
#CODE STATUS-DNR
confirmed with by phone and witnessed by MADY Ling
Anticipated Discharge: 24 - 48 hours
Subjective/Interval History
-
Date of Service: March 29, 2024
Pt remains confused with episodes of agitation, as reviewed with Dr. Biggs.
Objective Data
-
Labs:
Laboratory Results
03/29/24
07:09
WBC 4.2 L
Hgb 10.3 L
Hct 28.9 L
Plt Count 206
Sodium 133 L
Potassium 4.4
Chloride 101
Carbon Dioxide 25
BUN 7
Creatinine 0.3 L
Glucose 390 H
Calcium 8.9
Vital Signs:
Vital Signs
Temp Pulse Resp BP Pulse Ox
99.0 F 61 16 140/73 97
03/29/24 15:38 03/29/24 15:38 03/29/24 15:38 03/29/24 15:38 03/29/24 15:38
I&O
03/28/24 03/29/24 03/30/24
06:59 06:59 06:59
Intake Total 2771.0 / 2923.0 936 / 936
Output Total 300 / 300
Balance 2471.0 / 2623.0 936 / 936
Review of Systems
-
Unable to obtain full review of systems at this time due to: Dementia
History Source: Patient, Physician (Dr. Biggs) and Coordinated Provider
Constitutional: Denies Fever
EENT: Reports No Symptoms Reported
Respiratory: Reports No Symptoms
Cardiac: Reports No Symptoms
Abdomen/GI: Reports No Symptoms
Musculoskeletal: Reports No Symptoms
Physical Exam
-
General: Well Developed, Well Nourished and No Apparent Distress
HEENT: Normocephalic, Atraumatic and Moist Mucous Membranes
Respiratory: Negative Clear to Auscultation, Wheezes or Rales
Cardiac: Regular Rhythm and S1/S2
GI: Soft, Nontender and Nondistended
Musculoskeletal: No Clubbing, No Cyanosis and No Edema
Neuro: Awake and Alert; Negative Oriented
[2024-03-29] MEDS: STERILE WATER FOR INJECTION 10 ML IV (17:29)
[2024-03-29] MEDS: ROCEPHIN 1000 MG IV (17:30)
[2024-03-29] MEDS: LOVENOX 40 MG SC (17:32)
[2024-03-29] MEDS: NOVOLOG FLEXPEN-MODERATE RESISTANCE 1 UNITS SC (17:34)
[2024-03-29 20:08] LABS: Urine Albumin Negative (Neg - Trace); Urine Bilirubin Negative (Negative); Urine Character Clear (Clear); Urine Color Straw; Urine Glucose Trace (Negative); Urine Ketone Negative (Negative); Urine Leukocyte 2+ (Negative); Urine Nitrite Negative (Negative); Urine Occult Blood Negative (Negative); Urine Urobilinogen Negative (Neg - 1+); Urine pH 6.5 (5.0-9.0)
[2024-03-29] MEDS: NSS (PRESERVATIVE FREE) 0.25 ML IV (20:14)
[2024-03-29] MEDS: ATIVAN 0.5 MG IV (20:14)
[2024-03-29 20:17] LABS: Urine Red Blood Cell None Seen /HPF (0-2); Urine White Cell 30-40 /HPF (0-5)
[2024-03-29 20:18] LABS: Urine Yeast Moderate (Negative)
[2024-03-29 21:30] LABS: Glucose - Point of Care 189 mg/dl (70-99)
[2024-03-29] MEDS: FLOMAX 0.400000000000000022 MG PO (21:50)
[2024-03-29] MEDS: LANTUS 0.359999999999999987 UNITS SC (23:16)
[2024-03-29 23:20] VITALS: BP 140/72
[2024-03-30] MEDS: RISPERDAL 0.25 MG PO ×3 (02:37→16:47)
[2024-03-30 07:14] LABS: Hematocrit 29.9 % (37.0-47.0); Hemoglobin 10.6 g/dL (12.0-16.0); Mean Corp Hgb Conc. 35.5 g/dL (33.0-37.0); Mean Corpuscular Hgb 33.2 pg (27.0-31.0); Mean Corpuscular Volume 93.7 fL (81.0-99.0); Mean Platelet Volume 9.1 fL (7.4-10.4); Platelet Count 202 10^3/uL (130-400); Red Blood Cell Count 3.19 10^6/uL (4.20-5.40); Red Cell Dist. Width 13.2 % (11.5-14.5)
[2024-03-30 07:37] LABS: Glucose - Point of Care 48 mg/dl (70-99)
[2024-03-30 07:38] VITALS: BP 138/79
[2024-03-30] MEDS: NOVOLOG FLEXPEN SC ×2 (07:43→16:40)
[2024-03-30] MEDS: NOVOLOG FLEXPEN-MODERATE RESISTANCE SC ×3 (07:43→16:40)
[2024-03-30] MEDS: LEXAPRO 5 MG PO (07:44)
[2024-03-30 07:56] LABS: Blood Urea Nitrogen 6 mg/dl (7-17); Calcium 9.2 mg/dl (8.4-10.2); Carbon Dioxide 31 mmol/L (22-30); Chloride 102 mmol/L (98-107); Estimated Creatinine Clearance 69 ml/min; Glucose 54 mg/dl (70-99); Potassium 3.4 mmol/L (3.5-5.1); Sodium 139 mmol/L (135-145); eGFR > 60.00
[2024-03-30 08:04] LABS: Glucose - Point of Care 76 mg/dl (70-99)
[2024-03-30 10:30] LABS: Glucose - Point of Care 206 mg/dl (70-99)
--- NOTE | 2024-03-30 11:32 | W.PN.UPDATE ---
Update Note
Progress Note Update
patient sleeping. spoke with nursing. she seems to have done better today although had some moments yesterday of agitation. she did have a stat dose of ativan last evening. did not make any changes in meds today.
--- NOTE | 2024-03-30 12:01 | W.PN.HOSP.TC ---
Today's Communication/Plan
-
stop Rocephin
start Diflucan
EKG in AM
Assessment / Plan
Assessment / Plan
#diabetic ketoacidosis
resolved-admission blood sugar in 500's
-Received total 12 units of regular insulin in ER
-Continue to monitor blood sugar
-initiated on insulin drip
now transitioned to usual insulin dosing
-IVF stopped
-certified breastfeeding educator/JET INSPECTOR input appreciated
-Carb controlled diet
Very variable glucoses, most likely related to dietary intake. Tried increasing PM Lantus, which will hopefully allow for less reliance on short acting SSI, but glu was low this morning at 48, will resume prior Lantus dosing of 30 units
situation reviewed with 03/28 by phone
#leukocytosis likely reactive, better
-Urine positive
-repeat UA shows yeast again and no bacteria, will stop Rocephin and start Diflucan
admission EKG did not demonstrate prolong QTc. Will recheck after starting Diflucan
-wbc 13.9-->7.1
-afebrile
-ctm
Hypophosphatemia resolved
will stop supplement
#anemia likely chronic
-hgb stable at 11.0
-no active bleeding
-ctm
#Advanced dementia
= Lexapro, risperidone continued
#Anxiety/depression
-On Lexapro
#hx of urinary retention
- tamsulosin continued
-Bladder scan
#hx of falls with right hip fx and repair last month--PT/OT when able
#DVT prophylaxis-Lovenox
#CODE STATUS-DNR
confirmed with by phone and witnessed by MADY Ling
Anticipated Discharge: 24 - 48 hours
Subjective/Interval History
-
Date of Service: March 30, 2024
Remains confused, but definitely calmer this morning
Objective Data
-
Labs:
Laboratory Results
03/30/24
07:04
WBC 4.0 L
Hgb 10.6 L
Hct 29.9 L
Plt Count 202
Sodium 139
Potassium 3.4 L
Chloride 102
Carbon Dioxide 31 H
BUN 6 L
Creatinine 0.3 L
Glucose 54 L*
Calcium 9.2
Vital Signs:
Vital Signs
Temp Pulse Resp BP Pulse Ox
99.3 F 59 16 138/79 95
03/30/24 07:38 03/30/24 07:38 03/30/24 07:38 03/30/24 07:38 03/30/24 07:38
I&O
03/29/24 03/30/24 03/31/24
06:59 06:59 06:59
Intake Total 936 / 936 1370 / 1370
Output Total 300 / 300
Balance 936 / 936 1070 / 1070
Review of Systems
-
Unable to obtain full review of systems at this time due to: Dementia
History Source: Patient, Physician (Dr. Biggs on 03/29) and Coordinated Provider
Constitutional: Denies Fever
EENT: Reports No Symptoms Reported
Respiratory: Reports No Symptoms
Cardiac: Reports No Symptoms
Abdomen/GI: Reports No Symptoms
Musculoskeletal: Reports No Symptoms
Physical Exam
-
General: Well Developed, Well Nourished and No Apparent Distress
HEENT: Normocephalic, Atraumatic and Moist Mucous Membranes
Respiratory: Negative Clear to Auscultation, Wheezes or Rales
Cardiac: Regular Rhythm and S1/S2
GI: Soft, Nontender and Nondistended
Musculoskeletal: No Clubbing, No Cyanosis and No Edema
Neuro: Awake and Alert; Negative Oriented
[2024-03-30 12:24] LABS: Glucose - Point of Care 148 mg/dl (70-99)
[2024-03-30] MEDS: NOVOLOG FLEXPEN 13 UNITS SC (12:45)
[2024-03-30] MEDS: DIFLUCAN 100 MG PO (13:07)
[2024-03-30 15:00] VITALS: BP 130/64
[2024-03-30] MEDS: STERILE WATER FOR INJECTION 10 ML IV (16:01)
[2024-03-30] MEDS: ROCEPHIN 1000 MG IV (16:02)
[2024-03-30 16:35] LABS: Glucose - Point of Care 46 mg/dl (70-99)
[2024-03-30] MEDS: LOVENOX 40 MG SC (17:05)
[2024-03-30 17:19] LABS: Glucose - Point of Care 83 mg/dl (70-99)
[2024-03-30 19:28] LABS: Glucose - Point of Care 156 mg/dl (70-99)
[2024-03-30 21:19] LABS: Glucose - Point of Care 305 mg/dl (70-99)
[2024-03-30 22:11] LABS: Glucose - Point of Care 283 mg/dl (70-99)
[2024-03-30] MEDS: LANTUS 0.299999999999999989 UNITS SC (22:48)
[2024-03-30] MEDS: FLOMAX 0.400000000000000022 MG PO (22:48)
[2024-03-30 22:54] VITALS: BP 162/85
[2024-03-31] MEDS: RISPERDAL 0.25 MG PO ×4 (00:10→23:09)
[2024-03-31 03:04] LABS: Glucose - Point of Care 95 mg/dl (70-99)
[2024-03-31 05:56] LABS: Mean Corp Hgb Conc. 35.5 g/dL (33.0-37.0); Mean Corpuscular Hgb 33.1 pg (27.0-31.0); Mean Corpuscular Volume 93.4 fL (81.0-99.0); Mean Platelet Volume 9.1 fL (7.4-10.4); Platelet Count 214 10^3/uL (130-400); Red Blood Cell Count 3.32 10^6/uL (4.20-5.40); Red Cell Dist. Width 13.5 % (11.5-14.5)
[2024-03-31 06:31] LABS: Blood Urea Nitrogen 5 mg/dl (7-17); Calcium 9.1 mg/dl (8.4-10.2); Carbon Dioxide 32 mmol/L (22-30); Chloride 103 mmol/L (98-107); Estimated Creatinine Clearance 69 ml/min; Glucose 54 mg/dl (70-99); Potassium 3.7 mmol/L (3.5-5.1); Sodium 141 mmol/L (135-145); eGFR > 60.00
[2024-03-31 06:52] LABS: Glucose - Point of Care 68 mg/dl (70-99)
[2024-03-31 07:08] LABS: Glucose - Point of Care 84 mg/dl (70-99)
[2024-03-31 07:32] VITALS: BP 142/76
--- NOTE | 2024-03-31 08:08 | PN.DE.MGMTRT ---
Addendum entered and electronically signed by NAPOLEON Davies 03/31/24 15:33:
Will consider switching to AM Lantus schedule starting tomorrow morning.
Will give reduced dose of Lantus today @ HS.
Original Note:
Insulin Management
- -
03/31/2024: Diabetes Management F/U:
74 year old female admitted with DKA due to uncontrolled diabetes mellitus.
PMH: Advanced dementia, Anxiety/depression, hx of urinary retention and falls with right hip fx s/o ORIF 01/2023 and DM. A1C 9.3% on 03/08 , Cr 0.5, eGFR>60. Was recently hospitalized for same and was discharged on Lantus 25 units HS and Humalog 13
units AC.
Glucose on admission was 500, pt received total 12 units of regular insulin in ER. Pt has been initiated on insulin drip and NS of K
Pt awake, sitting up in bed, oriented to self only at baseline. Unable to discuss diabetes management
Noted for recurrent episodes of hypoglycemia as low as 46 throughout the weekend and venous glucose of 54 this morning.
It appears that the elevated blood sugars are post hypoglycemia treatment.
Dr. Rizo has reduced her Lantus dose from 30 units to 25 units @ HS, Will cont same dose.
Will reduce AC NovoLog dose from 13 units to 10 units. Cont low corrective
Home insulin dose was Lantus 30 units @ HS and Humalog 13 units ACHS.
Will closely follow, monitor AC Glucose levels and make further insulin adjustments if necessary
Diabetes History
- -
Type of Diabetes: 2 requiring insulin
Pre-Admission Diabetes Regimen
03/31/24
05:33
Creatinine 0.3 L
Insulin Pump Settings
IP Diabetes Regimen
03/30/24 03/30/24 03/30/24
10:28 12:23 16:34
Glucose
POC Glucose 206 H 148 H 46 L*
03/30/24 03/30/24 03/30/24
17:18 19:26 21:18
Glucose
POC Glucose 83 156 H 305 H
03/30/24 03/31/24 03/31/24
22:09 03:02 05:33
Glucose 54 L*
POC Glucose 283 H 95
03/31/24 03/31/24
06:50 07:07
Glucose
POC Glucose 68 L 84
Meal type: Dinner
Meal type: Lunch
Meal type: Breakfast
Amount consumed: 80%
Amount consumed: 75%
Amount consumed: 100%
Patient Education
[2024-03-31] MEDS: NOVOLOG FLEXPEN SC (08:33)
[2024-03-31] MEDS: NOVOLOG FLEXPEN-MODERATE RESISTANCE SC ×2 (08:34→16:48)
[2024-03-31] MEDS: DIFLUCAN 100 MG PO (08:41)
[2024-03-31] MEDS: LEXAPRO 5 MG PO (08:41)
[2024-03-31 09:24] LABS: Glucose - Point of Care 374 mg/dl (70-99)
[2024-03-31] MEDS: NOVOLOG FLEXPEN 13 UNITS SC (10:03)
[2024-03-31 11:34] LABS: Glucose - Point of Care 260 mg/dl (70-99)
[2024-03-31] MEDS: NOVOLOG FLEXPEN 10 UNITS SC ×2 (12:29→16:48)
[2024-03-31] MEDS: NOVOLOG FLEXPEN-MODERATE RESISTANCE 5 UNITS SC (12:30)
--- NOTE | 2024-03-31 13:10 | W.PN.HOSP.TC ---
Today's Communication/Plan
-
Monitor vital signs and see plan
Lower insulin dose
cw 1:1, yet to be seen by psychiatry today
Continue with risperidone,lexapro
called spouse; left voicemail
Assessment / Plan
Assessment / Plan
#diabetic ketoacidosis
resolved-admission blood sugar in 500's
-Continue to monitor blood sugar
-initiated on insulin drip
now transitioned to usual insulin dosing
-IVF stopped
-medical educator/MEDICAL ESTHETICIAN input appreciated
-Carb controlled diet
Very variable glucoses, most likely related to dietary intake. Appears of hypoglycemia. Decrease Lantus, aspart. Diabetes MEDICAL ESTHETICIAN following
#leukocytosis likely reactive, better
-Urine positive
-repeat UA shows yeast again and no bacteria, will stop Rocephin and start Diflucan
admission EKG did not demonstrate prolong QTc. Will recheck after starting Diflucan
-afebrile
-ctm
Hypophosphatemia resolved
will stop supplement
#anemia likely chronic
-hgb stable at 11.0
-no active bleeding
-ctm
#Advanced dementia
now with behavioral disturbances
= Lexapro, risperidone continued
on 1:1
psych following
#Anxiety/depression
-On Lexapro
#hx of urinary retention
- tamsulosin continued
-Bladder scan
#hx of falls with right hip fx and repair last month--PT/OT when able
#DVT prophylaxis-Lovenox
#CODE STATUS-DNR
confirmed with by phone by Dr Marques
PT/OT rec home health
General: Well Developed, Well Nourished and No Apparent Distress
HEENT: Normocephalic, Atraumatic and Moist Mucous Membranes
Respiratory: Negative Clear to Auscultation, Wheezes or Rales
Cardiac: Regular Rhythm and S1/S2
GI: Soft, Nontender and Nondistended
Musculoskeletal: No Clubbing, No Cyanosis and No Edema
Neuro: Awake and Alert; Negative Oriented
Anticipated Discharge: Within 24 hours
Subjective/Interval History
-
Date of Service: March 31, 2024
denies pain
Objective Data
-
Labs:
Laboratory Results
03/31/24
05:33
WBC 4.0 L
Hgb 11.0 L
Hct 31.0 L
Plt Count 214
Sodium 141
Potassium 3.7
Chloride 103
Carbon Dioxide 32 H
BUN 5 L
Creatinine 0.3 L
Glucose 54 L*
Calcium 9.1
Vital Signs:
Vital Signs
Temp Pulse Resp BP Pulse Ox
97.9 F 63 18 142/76 97
03/31/24 07:32 03/31/24 07:32 03/31/24 07:32 03/31/24 07:32 03/31/24 07:32
I&O
03/30/24 03/31/24 04/01/24
06:59 06:59 06:59
Intake Total 1370 / 1370 3460 / 3460
Output Total 300 / 300
Balance 1070 / 1070 3460 / 3460
--- NOTE | 2024-03-31 14:10 | CM ---
Addendum entered by Afsaneh Randall 03/31/24 16:17:
Spoke with Rito, one of the nurses from [facility].
Patient is in the memory care unit/locked.
Patient wanders, was using a walker post fractured hip, but ambulating without prior to admission.
[facility]
Report# [phone]

[facility], will need script.
Original Note:
left vm for the [facility] re prior level and function and report numbers.
Patients blood sugars being monitored.
Patient continues on a 1:1.
Plan: back to the [facility] when stable, memory care.
[2024-03-31 14:42] VITALS: BP 127/62; PULSE 63
[2024-03-31 15:09] VITALS: BP 145/76
[2024-03-31 16:31] LABS: Glucose - Point of Care 118 mg/dl (70-99)
[2024-03-31] MEDS: LOVENOX 40 MG SC (16:54)
[2024-03-31 22:00] LABS: Glucose - Point of Care 226 mg/dl (70-99)
[2024-03-31] MEDS: LANTUS 0.149999999999999994 UNITS SC (22:37)
[2024-03-31] MEDS: FLOMAX 0.400000000000000022 MG PO (22:38)
[2024-03-31 23:00] VITALS: BP 160/76
[2024-04-01 03:06] LABS: Glucose - Point of Care 231 mg/dl (70-99)
[2024-04-01 05:59] LABS: % Basophils 0.4 % (0-2); % Eosinophils 4.9 % (0-6); % Immature Granulocytes 0.8 % (0-0.5); % Lymphocytes 22.1 % (20.5-51.1); % Monocytes 10.2 % (1.7-9.3); % Neutrophils 61.6 % (42.2-75.2); Absolute Eosinophils 0.2 10^3/uL (0-0.7); Absolute Monocytes 0.5 10^3/uL (0.1-0.6); Absolute Neutrophils 2.9 10^3/uL (1.4-6.5); Hemoglobin 10.9 g/dL (12.0-16.0); Mean Corp Hgb Conc. 35.2 g/dL (33.0-37.0); Mean Corpuscular Volume 93.9 fL (81.0-99.0); Nucleated Red Blood Cells % 0 %; Platelet Count 223 10^3/uL (130-400); Red Cell Dist. Width 13.4 % (11.5-14.5); White Blood Cell Count 4.7 10^3/uL (4.8-10.8)
[2024-04-01 06:20] LABS: Blood Urea Nitrogen 9 mg/dl (7-17); Calcium 9.3 mg/dl (8.4-10.2); Carbon Dioxide 29 mmol/L (22-30); Chloride 102 mmol/L (98-107); Estimated Creatinine Clearance 69 ml/min; Glucose 200 mg/dl (70-99); Sodium 137 mmol/L (135-145); eGFR > 60.00
[2024-04-01 08:00] VITALS: BP 140/76
[2024-04-01] MEDS: DIFLUCAN 100 MG PO (08:14)
[2024-04-01] MEDS: RISPERDAL 0.25 MG PO ×3 (08:14→23:16)
[2024-04-01] MEDS: LEXAPRO 5 MG PO (08:14)
[2024-04-01 08:24] LABS: Glucose - Point of Care 217 mg/dl (70-99)
[2024-04-01] MEDS: NOVOLOG FLEXPEN-MODERATE RESISTANCE 3 UNITS SC (08:24)
[2024-04-01] MEDS: NOVOLOG FLEXPEN 10 UNITS SC ×2 (08:24→19:34)
--- NOTE | 2024-04-01 08:54 | PN.DE.MGMTRT ---
Insulin Management
- -
04/01/2024: Diabetes Management Follow up:
Patient admitted with DKA due to uncontrolled diabetes mellitus.
PMH: Advanced dementia, Anxiety/depression, hx of urinary retention and falls with right hip fx s/o ORIF 01/2023 and DM. A1C 9.3% on 03/08 , Cr 0.5, eGFR>60. Was recently hospitalized for same and was discharged on Lantus 25 units HS and Humalog 13
units AC.
Glucose on admission was 500, pt received total 12 units of regular insulin in ER. Pt has been initiated on insulin drip and NS of K
Pt awake, sitting up in bed, oriented to self only at baseline. Unable to discuss diabetes management
On 03/30 and fasting glucose 54 both days.
Current insulin regimen AC NovoLog 10 units with low corrective with 15 units lantus @ HS. 3AM glucose 231, fasting 217, will increase lantus to 18 units and change to AM dosing. Will increase AC novolog 12 with low corrective.
Home insulin dose was Lantus 30 units @ HS and Humalog 13 units ACHS.
Will closely follow, monitor AC Glucose levels and make further insulin adjustments if necessary
Diabetes History
- -
Pre-Admission Diabetes Regimen
04/01/24
04:54
Creatinine 0.4 L
Insulin Pump Settings
IP Diabetes Regimen
03/31/24 03/31/24 03/31/24
09:23 11:33 16:29
Glucose
POC Glucose 374 H 260 H 118 H
03/31/24 04/01/24 04/01/24
21:59 03:05 04:54
Glucose 200 H
POC Glucose 226 H 231 H
04/01/24
08:23
Glucose
POC Glucose 217 H
Meal type: Dinner
Meal type: Lunch
Meal type: Breakfast
Amount consumed: 100%
Amount consumed: 90%
Amount consumed: 100%
Patient Education
--- NOTE | 2024-04-01 11:33 | W.PN.UPDATE ---
Update Note
Progress Note Update
Patient seen at bedside with med sitter, reviewed chart, discussed with RN. Ms. Valero is awake, alert, and pleasantly confused. No reports of acute agitation overnight. Ms. Valero is from a Memory Care unit where she is free to roam as she wishes
but this freedom is restricted in the hospital setting which has caused some behavioral disturbances. Ms. Tian is reportedly easily re-directable. unfortunately, her room is at the very end of the klein making it difficult to watch and intervene
quickly in order to keep her safe and therefore a med sitter is being utilized for her safety. The hope is she will be able to return to her Memory Care as soon as medically stable.
Impression/Plan: Dementia with intermittent behavioral disturbances related to confinement/acute hospitalization - no medication changes, continue efforts to redirect and promote safety in the hospital setting. Psych will sign off, call or reconsult
with any new or immediate concerns.
[2024-04-01] MEDS: NOVOLOG FLEXPEN 12 UNITS SC ×2 (11:51→17:09)
[2024-04-01] MEDS: NOVOLOG FLEXPEN-LOW RESISTANCE SC ×2 (11:51→11:55)
[2024-04-01 11:56] LABS: Glucose - Point of Care 140 mg/dl (70-99)
--- NOTE | 2024-04-01 12:13 | W.PN.HOSP.TC ---
Addendum entered and electronically signed by Efrain Rizo MD 04/01/24 12:47:
Time of discharge 38-minutes
Original Note:
Today's Communication/Plan
-
Monitor vital signs see plan
manager skilled if can go [facility]
spouse updated over the phone
cw current meds
Assessment / Plan
Assessment / Plan
#diabetic ketoacidosis
resolved-admission blood sugar in 500's
-Continue to monitor blood sugar
-initiated on insulin drip
now transitioned to usual insulin dosing
-IVF stopped
-inclusion paraeducator/SPAR CAP BEVELER input appreciated
-Carb controlled diet
Very variable glucoses, most likely related to dietary intake. Appears of hypoglycemia. Decrease Lantus, aspart. Diabetes SPAR CAP BEVELER following
#leukocytosis likely reactive, better
-Urine positive
-repeat UA shows yeast again and no bacteria, will stop Rocephin and start Diflucan
admission EKG did not demonstrate prolong QTc. Will recheck after starting Diflucan
-afebrile
-ctm
Hypophosphatemia resolved
will stop supplement
#anemia likely chronic
-hgb stable at 10.9
-no active bleeding
-ctm
#Advanced dementia
now with behavioral disturbances
= Lexapro, risperidone continued
on 1:1 for safety as her room is in the corner
psych following
#Anxiety/depression
-On Lexapro
#hx of urinary retention
- tamsulosin continued
-Bladder scan
#hx of falls with right hip fx and repair last month--PT/OT rec home health
#DVT prophylaxis-Lovenox
#CODE STATUS-DNR
confirmed with by phone by Dr Marques
PT/OT rec home health
General: Well Developed, Well Nourished and No Apparent Distress
HEENT: Normocephalic, Atraumatic and Moist Mucous Membranes
Respiratory: Negative Clear to Auscultation, Wheezes or Rales
Cardiac: Regular Rhythm and S1/S2
GI: Soft, Nontender and Nondistended
Musculoskeletal: No Clubbing, No Cyanosis and No Edema
Neuro: Awake and Alert; Negative Oriented
Anticipated Discharge: Today
Subjective/Interval History
-
Date of Service: April 01, 2024
Denies pain
Objective Data
-
Labs:
Laboratory Results
04/01/24
04:54
WBC 4.7 L
Hgb 10.9 L
Hct 31.0 L
Plt Count 223
Sodium 137
Potassium 4.0
Chloride 102
Carbon Dioxide 29
BUN 9
Creatinine 0.4 L
Glucose 200 H
Calcium 9.3
Vital Signs:
Vital Signs
Temp Pulse Resp BP Pulse Ox
98.2 F 60 16 140/76 93
04/01/24 08:00 04/01/24 08:00 04/01/24 08:00 04/01/24 08:00 04/01/24 08:00
I&O
03/31/24 04/01/24 04/02/24
06:59 06:59 06:59
Intake Total 3460 / 3460 2940 / 2940
Balance 3460 / 3460 2940 / 2940
--- NOTE | 2024-04-01 12:47 | W.DCSUMMARY ---
Discharge Summary
Discharge Data
Date of Admission: 03/27/24
Date of Discharge: 04/02/24
-
Pending Results: No
Hospital Course
74-year-old female with past medical history of diabetes mellitus, advanced dementia, anxiety, depression, urinary retention, previous hip fracture with falls came to the hospital with diabetic ketoacidosis. Patient was initially started on insulin
drip which was later transitioned to subcutaneous insulin once patient continued to improve. While hospitalized, she also had multiple episodes of hypoglycemia. Her insulin was titrated. Later on in the hospitalization her blood sugar continues
to trend up so diabetes nurse petitioner changed her glargine from night to the morning. she was being followed by diabetes nurse practitioner while here. She also had urinalysis and culture. Grew yeast for which she was treated with Diflucan.
Her hospital course was complicated with behavioral disturbances with underlying advanced dementia for which she was seen by psychiatry. Once her symptoms continue to improve, she was then discharged back to [facility] with instructions to follow-up
with all her physicians outpatient.
Discharge Plan
-
Patient Disposition: Other
Discharge Diagnosis/Procedures: Diabetic ketoacidosis
Hypoglycemia
Yeast in the urine
Hypophosphatemia
Anemia
Advanced dementia
Anxiety/depression
Diet: Diabetic, Carb Controlled
Activity: As tolerated
Driving Restrictions: No driving
Bathing Restrictions: None
Activity Restrictions/Additional Instructions:
Last day fluconazole 04/07/2024
Referrals:
Jose Manuel Yuan MD [Family Provider] - in less than 1 week
Prescriptions:
New
fluconazole 100 mg Tablet
100 mg PO DAILY Qty: 6 0RF
insulin aspart U-100 100 unit/mL (3 mL) Insulin Pen
12 unit SC AC Qty: 0 0RF
Insulin Glargine Lantus [Lantus] 25 UNITS
Subcutaneous Insulin Syringe [Syringe-Insulin] 0 UNIT
As Directed mls/hr SC DAILY
Ordered By: Efrain Rizo MD
Last Taken: 04/02/24 09:01 0.18 mls
Continued
insulin lispro [Humalog KwikPen Insulin] 100 unit/mL Insulin Pen
0 sliding scale dose SC ACHS
Patient Comments:
150-200=2units, 201-250=4units, 251-300=6units
Rx Instructions:
150-200=2u,201-250=4u,251-300=6u,301-350=8u,351-400=10u
risperidone 0.25 mg tablet
0.25 mg PO Q8H
escitalopram oxalate 5 mg tablet
5 mg PO DAILY
tamsulosin 0.4 mg capsule
0.4 mg PO HS
Discontinued
insulin glargine [Lantus Solostar U-100 Insulin] 100 unit/mL (3 mL) Insulin Pen
30 unit SC HS
Discharge Orders:
Discharge Patient (As Directed); Ordered 04/02/24
Ordered By: Efrain Rizo
Discharge Date and Time
Discharge Date/Time: 04/02/24 15:01
Print Language: LITHUANIAN
--- NOTE | 2024-04-01 14:00 | CM ---
Addendum entered by Afsaneh Randall 04/01/24 14:22:
IMM reviewed with spouse, signed and added to chart.
Original Note:
Patient for d/c back to the [facility] today.
Ambulance transport 6 pm. Lionel from the [facility] updated.
[facility]
Report# [phone]

[facility], will need script.
[2024-04-01 15:00] VITALS: BP 156/70
[2024-04-01] MEDS: LOVENOX SC (16:09)
[2024-04-01 16:36] LABS: Glucose - Point of Care 404 mg/dl (70-99)
--- NOTE | 2024-04-01 16:42 | PTCARENOTE ---
1630 Blood sugar 'HI ' on meter - Stat Glucose ordered. Patient asymptomatic. hospitalist notified.
[2024-04-01 17:07] LABS: Glucose 360 mg/dl (70-99)
[2024-04-01] MEDS: NOVOLOG FLEXPEN-LOW RESISTANCE 5 UNITS SC (17:10)
[2024-04-01] MEDS: LANTUS 0.179999999999999993 UNITS SC (17:10)
[2024-04-01 17:37] LABS: Glucose - Point of Care 449 mg/dl (70-99)
--- NOTE | 2024-04-01 17:44 | PTCARENOTE ---
Result of Venous Glucose 360 - diabetic nurse educator notified. Pt received 18 units Lantus SC + 12 units Novolog + 5 units Novolog . To recheck at 1755.
[2024-04-01 17:59] LABS: Glucose - Point of Care 462 mg/dl (70-99)
--- NOTE | 2024-04-01 18:26 | PTCARENOTE ---
Recheck at 1755 noted 'Hi' on meter. Pt asymptomatic, alert, following simple commands. Stat Glucose drawn at 1825 results pending .
[2024-04-01 18:48] LABS: Glucose 434 mg/dl (70-99)
[2024-04-01] MEDS: FLOMAX 0.400000000000000022 MG PO (21:34)
[2024-04-01 21:36] LABS: Glucose - Point of Care 119 mg/dl (70-99)
[2024-04-01] MEDS: TYLENOL 650 MG PO (23:16)
[2024-04-01 23:33] VITALS: BP 128/62
[2024-04-01 23:39] LABS: Glucose - Point of Care 107 mg/dl (70-99)
[2024-04-02 03:11] LABS: Glucose - Point of Care 155 mg/dl (70-99)
--- NOTE | 2024-04-02 06:34 | PTCARENOTE ---
NovoLog 10 units administered as ordered for venous glucose of 434. Two hour follow up fingerstick 119. Patient stated she felt hungry and shaky. HS snack given. Repeat fingerstick 107. Patient given additional snack. Fingerstick glucose at
3:00am 155.
[2024-04-02 07:15] LABS: Glucose - Point of Care 128 mg/dl (70-99)
[2024-04-02 07:40] VITALS: BP 117/58
[2024-04-02 08:07] LABS: % Basophils 0.4 % (0-2); % Eosinophils 3.7 % (0-6); % Immature Granulocytes 1.2 % (0-0.5); % Monocytes 10.2 % (1.7-9.3); % Neutrophils 62.5 % (42.2-75.2); Absolute Eosinophils 0.2 10^3/uL (0-0.7); Absolute Immature Granulocytes 0.1 10^3/uL (0-0.05); Absolute Lymphocytes 1.1 10^3/uL (1.2-3.4); Absolute Monocytes 0.5 10^3/uL (0.1-0.6); Hematocrit 30.5 % (37.0-47.0); Hemoglobin 10.7 g/dL (12.0-16.0); Mean Corp Hgb Conc. 35.1 g/dL (33.0-37.0); Mean Corpuscular Hgb 32.5 pg (27.0-31.0); Mean Corpuscular Volume 92.7 fL (81.0-99.0); Mean Platelet Volume 8.9 fL (7.4-10.4); Nucleated Red Blood Cells % 0 %; Platelet Count 246 10^3/uL (130-400); Red Blood Cell Count 3.29 10^6/uL (4.20-5.40); Red Cell Dist. Width 13.6 % (11.5-14.5); White Blood Cell Count 4.8 10^3/uL (4.8-10.8)
[2024-04-02 08:36] LABS: Blood Urea Nitrogen 10 mg/dl (7-17); Calcium 9.4 mg/dl (8.4-10.2); Carbon Dioxide 29 mmol/L (22-30); Chloride 102 mmol/L (98-107); Estimated Creatinine Clearance 69 ml/min; Glucose 122 mg/dl (70-99); Potassium 4.1 mmol/L (3.5-5.1); Sodium 137 mmol/L (135-145); eGFR > 60.00
[2024-04-02] MEDS: TYLENOL 650 MG PO (08:48)
[2024-04-02] MEDS: NOVOLOG FLEXPEN-LOW RESISTANCE SC (08:50)
[2024-04-02] MEDS: NOVOLOG FLEXPEN 12 UNITS SC ×2 (08:50→12:00)
[2024-04-02] MEDS: LEXAPRO 5 MG PO (08:51)
[2024-04-02] MEDS: RISPERDAL 0.25 MG PO (08:51)
[2024-04-02] MEDS: DIFLUCAN 100 MG PO (08:52)
[2024-04-02] MEDS: LANTUS 0.179999999999999993 UNITS SC (09:01)
[2024-04-02] MEDS: LANTUS SC (09:03)
--- NOTE | 2024-04-02 10:34 | CM ---
Addendum entered by Afsaneh Randall 04/02/24 14:06:
Plan: d/c today, ambulance transport 2:30 pm.
Original Note:
Patient with increased blood sugars yesterday and d/c held.
Continue to monitor blood sugars.
OOB ambulating in [place] with RW.
Plan: back to [facility] once medically stable.
[facility]
Report# [phone]

[facility], will need script.
[2024-04-02 11:29] LABS: Glucose - Point of Care 292 mg/dl (70-99)
--- NOTE | 2024-04-02 11:40 | W.PN.HOSP.TC ---
Today's Communication/Plan
-
monitor vitals
see plan
noted lantus is now during the day
cw aspart
diabetes POLICE COMMUNICATIONS DISPATCHER following
hopeful dc today if sugars continues to be stable
Assessment / Plan
Assessment / Plan
#diabetic ketoacidosis
resolved-admission blood sugar in 500's
-Continue to monitor blood sugar
-initiated on insulin drip
now transitioned to usual insulin dosing
-IVF stopped
-tool technician/POLICE COMMUNICATIONS DISPATCHER input appreciated
-Carb controlled diet
Very variable glucoses, most likely related to dietary intake. 6/ her BS before dc went into 400s. Now with lantus during the day, cw aspart. Diabetes POLICE COMMUNICATIONS DISPATCHER following. possible dc if BS stays stable
#leukocytosis likely reactive, better
-Urine positive
-repeat UA shows yeast again and no bacteria, will stop Rocephin and start Diflucan
admission EKG did not demonstrate prolong QTc. Will recheck after starting Diflucan
-afebrile
-ctm
Hypophosphatemia resolved
will stop supplement
#anemia likely chronic
-hgb stable at 10.9
-no active bleeding
-ctm
#Advanced dementia
now with behavioral disturbances
= Lexapro, risperidone continued
on 1:1 for safety as her room is in the corner
psych following
#Anxiety/depression
-On Lexapro
#hx of urinary retention
- tamsulosin continued
-Bladder scan
#hx of falls with right hip fx and repair last month--PT/OT rec home health
#DVT prophylaxis-Lovenox
#CODE STATUS-DNR
confirmed with by phone by Dr Marques
PT/OT rec home health
General: Well Developed, Well Nourished and No Apparent Distress
HEENT: Normocephalic, Atraumatic and Moist Mucous Membranes
Respiratory: Negative Clear to Auscultation, Wheezes or Rales
Cardiac: Regular Rhythm and S1/S2
GI: Soft, Nontender and Nondistended
Musculoskeletal:No Edema
Neuro: Awake and Alert; Negative Oriented
Anticipated Discharge: Today
Subjective/Interval History
-
Date of Service: April 02, 2024
denies pain
Objective Data
-
Labs:
Laboratory Results
04/02/24
06:47
WBC 4.8
Hgb 10.7 L
Hct 30.5 L
Plt Count 246
Sodium 137
Potassium 4.1
Chloride 102
Carbon Dioxide 29
BUN 10
Creatinine 0.3 L
Glucose 122 H
Calcium 9.4
Vital Signs:
Vital Signs
Temp Pulse Resp BP Pulse Ox
98.6 F 58 18 117/58 96
04/02/24 07:40 04/02/24 07:40 04/02/24 07:40 04/02/24 07:40 04/02/24 07:40
I&O
04/01/24 04/02/24 04/03/24
06:59 06:59 06:59
Intake Total 2940 / 2940 2160 / 2160
Balance 2940 / 2940 2160 / 2160
[2024-04-02] MEDS: NOVOLOG FLEXPEN-LOW RESISTANCE 3 UNITS SC (12:00)
[2024-04-02 13:54] VITALS: BP 128/72
== END 2024-04-02 15:01 | DRG 638 ==
LOC: 4 WEST ACU 12:59
PROVIDERS: Physician Assistant Medical; Registered Nurse; ADMITTING PHYSICIAN Internal Medicine; ATTENDING PHYSICIAN Internal Medicine; CONSULT PHYSICIAN Internal Medicine Critical Care Medicine; EMERGENCY PHYSICIAN Student in an Organized Health Care Education/Training Program; FAMILY PHYSICIAN Family Medicine; OTHER PHYSICIAN Psychiatry & Neurology Psychiatry
DX: E10.10 Type 1 diabetes mellitus with ketoacidosis without coma (principal); F03.C11 Unspecified dementia, severe, with agitation; F03.C18 Unspecified dementia, severe, with other behavioral disturbance; F03.C4 Unspecified dementia, severe, with anxiety; I10 Essential (primary) hypertension; N32.81 Overactive bladder; F10.11 Alcohol abuse, in remission; D64.9 Anemia, unspecified; R33.9 Retention of urine, unspecified; G89.4 Chronic pain syndrome; E83.39 Other disorders of phosphorus metabolism; E10.649 Type 1 diabetes mellitus with hypoglycemia without coma; Z96.642 Presence of left artificial hip joint; Z96.41 Presence of insulin pump (external) (internal); Z74.3 Need for continuous supervision; Z79.4 Long term (current) use of insulin; Z91.81 History of falling; Z87.891 Personal history of nicotine dependence; Z88.0 Allergy status to penicillin; Z80.0 Family history of malignant neoplasm of digestive organs; Z86.19 Personal history of other infectious and parasitic diseases
CPT/HCPCS: 71045; 80048; 81003; 81015; 82010; 82805; 82947; 82962; 83735; 84100; 84132; 85025; 85027; 85610; 85730; 87040; 87070; 87086; 92610; 93005; 96361; 96374; 96375; 97162; 97166; 97530; 99291

== ENCOUNTER 2024-04-21 19:49 | Inpatient (IN) | payer MEDICARE, OTHER, SELFPAY ==
[2024-04-21] VITALS (25 sets, daily range): BP systolic 82–134; BP diastolic 40–96; BMI 20.2
[2024-04-21 16:57] LABS: Glucose - Point of Care > 600 mg/dl (70-99)
[2024-04-21 17:11] LABS: % Basophils 0.2 % (0-2); % Eosinophils 0.1 % (0-6); % Immature Granulocytes 0.6 % (0-0.5); % Lymphocytes 5.9 % (20.5-51.1); % Monocytes 2.9 % (1.7-9.3); % Neutrophils 90.3 % (42.2-75.2); Absolute Immature Granulocytes 0.1 10^3/uL (0-0.05); Absolute Lymphocytes 0.5 10^3/uL (1.2-3.4); Absolute Monocytes 0.3 10^3/uL (0.1-0.6); Absolute Neutrophils 7.7 10^3/uL (1.4-6.5); Hematocrit 32.6 % (37.0-47.0); Hemoglobin 10.9 g/dL (12.0-16.0); Mean Corp Hgb Conc. 33.4 g/dL (33.0-37.0); Mean Corpuscular Hgb 32.6 pg (27.0-31.0); Mean Corpuscular Volume 97.6 fL (81.0-99.0); Mean Platelet Volume 9.8 fL (7.4-10.4); Nucleated Red Blood Cells % 0 %; Platelet Count 259 10^3/uL (130-400); Red Blood Cell Count 3.34 10^6/uL (4.20-5.40); Red Cell Dist. Width 13.4 % (11.5-14.5); White Blood Cell Count 8.5 10^3/uL (4.8-10.8)
[2024-04-21 17:13] LABS: Venous Blood Gas B.E. -16.7 mmol/L (-4 to +4); Venous Blood Gas HCO3 10.7 mmol/L (22-27); Venous Blood Gas O2 Sat % 99.2 %; Venous Blood Gas pCO2 30 mmHg (35-48); Venous Blood Gas pO2 164 mmHg (30-50)
[2024-04-21 17:15] LABS: Venous Blood Gas pH 7.16 (7.32-7.43)
--- NOTE | 2024-04-21 17:24 | ED.GENMED ---
History of Present Illness
General
Chief Complaint: Change in Mental Status
Source: patient
Exam Limitations: clinical condition and altered mental status
Time Seen by Provider: 04/21/24 17:20
History of Present Illness
History of Present Illness:
See MDM
Past History
Past History
ED Past Medical History: HTN, IDDM, Psychiatric (anxiety) and Other (Dementia)
ED Past Surgical History: Orthopedic
Social History
Tobacco: Non-smoker
Alcohol: None
Drug: None
Personal:
Living: senior living
Phy Exam
Physical Exam
Physical Exam:
See MDM
Course
Orders/Labs/Results
Orders:
Orders
04/21/24 16:56
Electrocardiogram (*1) Urgent
Reason for Study: QTc Monitoring
04/21/24 16:57
EKG- Treatment ONCE
04/21/24 16:58
Complete Blood Count/With Diff Urgent
Venous Blood Gas Urgent
%Oxygen/Room Air: 97
04/21/24 17:06
Add On- LAB Urgent
Tests Added?: beta-hydroxy.
04/21/24 17:23
0.9% Sodium Chloride 1000 ml [Nss] 1,000 ml IV BOLUS
04/21/24 17:32
Urinalysis Reflex To Culture Urgent
04/21/24 17:48
B-Hydroxybutyrate Urgent
Comprehensive Metabolic Panel Urgent
04/21/24 18:33
0.9% Sodium Chloride 1000 ml [Nss] 1,000 ml IV BOLUS
Reg Insulin 100 Units/100 ml [Novolin R Insulin Infusion] 100 units in 100 ml IV NOW
04/21/24 18:34
Bedside Glucose- Treatment Q1H
IV Insert/Care/Rem.- Treatment PRN
04/21/24 18:48
Basic Metabolic Panel Q2H
04/21/24 18:52
Ondansetron Injectable [Zofran] 4 mg IV NOW STA
04/21/24 20:45
Basic Metabolic Panel Q2H
04/21/24 22:45
Basic Metabolic Panel Q2H
Abnormal Lab Results
04/21/24 04/21/24 04/21/24
16:56 16:58 17:48
RBC 3.34 L 10^6/uL
(4.20-5.40)
Hgb 10.9 L g/dL
(12.0-16.0)
Hct 32.6 L %
(37.0-47.0)
MCH 32.6 H pg
(27.0-31.0)
Abs Immat Gran (auto) 0.1 H 10^3/uL
(0-0.05)
Absolute Neuts (auto) 7.7 H 10^3/uL
(1.4-6.5)
Absolute Lymphs (auto) 0.5 L 10^3/uL
(1.2-3.4)
Immature Gran % 0.6 H %
(0-0.5)
Neutrophils % 90.3 H %
(42.2-75.2)
Lymphocytes % 5.9 L %
(20.5-51.1)
VBG pH 7.16 L*
(7.32-7.43)
VBG pCO2 30 L mmHg
(35-48)
VBG pO2 164 H mmHg
(30-50)
VBG HCO3 10.7 L mmol/L
(22-27)
Sodium 130 L mmol/L
(135-145)
Potassium 5.6 H mmol/L
(3.5-5.1)
Chloride 93 L mmol/L
(98-107)
Carbon Dioxide 8 L* mmol/L
(22-30)
BUN 29 H mg/dl
(7-17)
Glucose 975 H* mg/dl
(70-99)
Alkaline Phosphatase 143 H U/L
(38-126)
B-Hydroxybutyrate > 9 H mmol/L
(0.02-0.27)
POC Glucose > 600 H* mg/dl
(70-99)
04/21/24
18:48
RBC
Hgb
Hct
MCH
Abs Immat Gran (auto)
Absolute Neuts (auto)
Absolute Lymphs (auto)
Immature Gran %
Neutrophils %
Lymphocytes %
VBG pH
VBG pCO2
VBG pO2
VBG HCO3
Sodium 131 L mmol/L
(135-145)
Potassium 5.4 H mmol/L
(3.5-5.1)
Chloride
Carbon Dioxide < 5 L* mmol/L
(22-30)
BUN 29 H mg/dl
(7-17)
Glucose
Alkaline Phosphatase
B-Hydroxybutyrate
POC Glucose
04/21/24 16:58
Vital Signs
Initial and Last Documented VS:
Initial Vital Signs
Temp Pulse Resp BP Pulse Ox
99.1 F 90 16 83/54 96
04/21/24 16:52 04/21/24 16:52 04/21/24 16:52 04/21/24 16:52 04/21/24 16:52
Last Documented Vital Signs
Temp Pulse Resp BP Pulse Ox
99.1 F 97 25 97/49 96
04/21/24 16:52 04/21/24 19:00 04/21/24 19:00 04/21/24 19:00 04/21/24 19:00
MDM/Problems Addressed
Differential Diagnosis Includes:
HPI and MDM Narrative:
74-year-old female presenting for evaluation of altered mental status and elevated blood sugar. Records indicate that she has been admitted for DKA in the past. Patient is confused and clinically dry.
Blood sugar greater than 600. ABG performed showing acidosis and low bicarb. Will start IV fluids and will start insulin drip once potassium has resulted
Physical exam
General: Weak, fatigued, confused
HEENT: protecting airway. Dry mucous membranes
Neck: appears supple
CV: No evidence of cyanosis
Resp: No accessory muscle use
Abd: Non-distended
Extremities: No deformities
Neuro: Confused. Moving all 4 extremities
Psych: Normal affect
Skin: Intact
Problems Addressed including Acute and Chronic Conditions affecting care:
1. DKA
Acuity: acute
Prognosis: unstable
Details: Will start IV fluids. Will start insulin drip once potassium has resulted
Updates
Potassium is 5.6. Patient started on insulin drip
Differential Diagnosis (but not limited to): DKA, dehydration, UTI
Testing considered: Troponin
Drug therapy (if applicable): OTC meds, please see d/c instruction regarding Rx drugs
Amount and/or Complexity of Data Reviewed
Clinical info obtained from: Patient
External data reviewed: N/A
Labs I independently reviewed (but not limited to): Acidotic pH
Radiology: N/A
Pulse Ox: not hypoxic
EKG independently reviewed: Sinus rhythm with PACs, nonspecific ST abnormality, no STEMI
Talent Acquisition Specialist: Sinus rhythm
Critical Care: The high probability of a clinically significant, sudden or life threatening deterioration of the endocrine system(s) required my full and direct attention, intervention and personal management. The aggregate critical care time was 33
minutes. This time is in addition to time spent performing reported procedures but includes the following:
[x] Data Review and interpretation
[x] Patient assessment and monitoring of vital signs
[x] Documentation
[x] Medication orders and management
Risk of Complication:
Social Determinants of health: Good social support
Discussed with other providers: hospitalist
Escalation of Care includes Admit/Obs: Given the DKA requiring insulin drip, will admit
Occasional wrong word or 'sound a like' substitutions may have occurred due to the inherent limitations of voice recognition software. Read the chart carefully and recognize, using context, where substitutions have occurred.
*Critical Care Note
Total Time (30-74mins, 75-104mins- exclusive of procedures): 33 min
ED Attending Note
-
Portions of this chart may have been created with voice recognition software.� Occasional wrong word or��sound alike� substitutions may have occurred due to the inherent limitations of voice recognition software.
Discharge Plan
Departure
Patient Disposition: Admit
Date of Disposition: 04/21/24
Time of Disposition: 19:14
Admit to: IMU
Presentation/result/management discussed w/ accepting MD/DO: Hospitalist
Discharge Problem:
DKA (diabetic ketoacidosis)
Prescriptions:
No Action
insulin lispro [Humalog KwikPen Insulin] 100 unit/mL Insulin Pen
0 sliding scale dose SC ACHS
Patient Comments:
150-200=2units, 201-250=4units, 251-300=6units
Rx Instructions:
150-200=2u,201-250=4u,251-300=6u,301-350=8u,351-400=10u
risperidone 0.25 mg tablet
0.25 mg PO Q8H
escitalopram oxalate 5 mg tablet
5 mg PO DAILY
tamsulosin 0.4 mg capsule
0.4 mg PO HS
fluconazole 100 mg Tablet
100 mg PO DAILY Qty: 6 0RF
insulin aspart U-100 100 unit/mL (3 mL) Insulin Pen
12 unit SC AC Qty: 0 0RF
Insulin Glargine Lantus [Lantus] 25 UNITS
Subcutaneous Insulin Syringe [Syringe-Insulin] 0 UNIT
As Directed mls/hr SC DAILY
Ordered By: Efrain Rizo MD
Last Taken: Unknown
Referrals:
Jose Manuel Yuan MD [Family Provider] -
Interventions
Interventions:
*General Assessment Last Done: 04/21/24 16:49
ED- Fall Risk Assessment Last Done: 04/21/24 17:25
ED- Pulmonary Assessment Last Done: 04/21/24 17:25
ED- Neurological Assessment Last Done: 04/21/24 17:25
ED- Cardiac Assessment Last Done: 04/21/24 17:25
ED Swallowing Screen Last Done: 04/21/24 17:25
Discharge Date and Time
Print Language: COOK ISLANDER
[2024-04-21] MEDS: NSS 1000 IV ×4 (17:47→20:54)
[2024-04-21 18:20] LABS: ALT (SGPT) 15 U/L (0-35); AST (SGOT) 23 U/L (14-36); Albumin 4.4 g/dl (3.5-5.0); Alkaline Phosphatase 143 U/L (38-126); Blood Urea Nitrogen 29 mg/dl (7-17); Calcium 9.5 mg/dl (8.4-10.2); Carbon Dioxide 8 mmol/L (22-30); Chloride 93 mmol/L (98-107); Potassium 5.6 mmol/L (3.5-5.1); Sodium 130 mmol/L (135-145); Total Bilirubin 1.1 mg/dl (0.2-1.3); Total Protein 6.4 g/dl (6.3-8.2); eGFR > 60.00
[2024-04-21 18:30] LABS: Glucose 975 mg/dl (70-99)
[2024-04-21] MEDS: NOVOLIN R INSULIN INFUSION 100 IV ×2 (18:46→20:55)
[2024-04-21] MEDS: ZOFRAN 4 MG IV (18:58)
[2024-04-21 19:08] LABS: B-Hydroxybutyrate > 9 mmol/L (0.02-0.27)
[2024-04-21 19:12] LABS: Blood Urea Nitrogen 29 mg/dl (7-17); Calcium 8.7 mg/dl (8.4-10.2); Carbon Dioxide < 5 mmol/L (22-30); Chloride 100 mmol/L (98-107); Estimated Creatinine Clearance 66 ml/min; Potassium 5.4 mmol/L (3.5-5.1); Sodium 131 mmol/L (135-145); eGFR > 60.00
[2024-04-21 19:23] LABS: Glucose 894 mg/dl (70-99)
--- NOTE | 2024-04-21 19:29 | HPS.HSE ---
Family Physician
-
Family Physician: Jose Manuel Yuan
Chief Complaint
-
vomiting
History of Present Illness
74-year-old female past medical history of type I diabetes, advanced dementia, anxiety/depression, urinary retention, anemia, history of falls presenting from [facility] for [facility], lethargy. Patient was apparently AAO x 1 (unclear baseline)
and is normally incontinent.
Patient unable to provide any history due to lethargy. She denies any pain.
Medical History
Past Medical History
Past Medical History: Reports Other (type I diabetes, advanced dementia, anxiety/depression, urinary retention, anemia, history of falls)
Past Surgical History: Reports None
Social History
Unable to obtain full social history at this time due to: Patient Non-verbal
Family History
Family History: Not pertinent
Allergies / Home Medications
Allergies reflects when Allergies were last updated in [employer].
Home Medications with original date entered in [employer]
Allergy/Medication List:
Allergies
Allergy/AdvReac Type Severity Reaction Status Date / Time
Penicillins Allergy Rash- Verified 03/27/24 12:12
tolerated
cefepime
2023
Home Medications
insulin lispro 100 unit/mL subcutaneous pen (Humalog KwikPen (U-100) Insulin) 0 sliding scale dose SC ACHS Diabetes 02/10/24
escitalopram oxalate 5 mg tablet 5 mg PO DAILY Mental Health 03/07/24
risperidone 0.25 mg tablet 0.25 mg PO Q8H Neurological Condition 03/07/24
tamsulosin 0.4 mg capsule 0.4 mg PO HS Urinary Issue 03/26/24
fluconazole 100 mg tablet 100 mg PO DAILY #6 tabs 04/01/24
insulin aspart U-100 100 unit/mL (3 mL) subcutaneous pen 12 unit (0.12 mL) SC AC #0 mL 04/01/24
Insulin Glargine Lantus [Lantus] 25 units As Directed mls/hr SC DAILY 04/02/24
Review of Systems
-
Unable to obtain full review of systems at this time due to: Patient Non-verbal
History Source: Longterm
A 12 point ROS was completed and negative except as noted: No
Physical Exam
Vital Signs
Vital Signs
Temp Pulse Resp BP Pulse Ox
99.1 F 97 25 97/49 96
04/21/24 16:52 04/21/24 19:00 04/21/24 19:00 04/21/24 19:00 04/21/24 19:00
Physical Exam
General: Well Developed, Well Nourished and No Apparent Distress
HEENT: NormoCephalic, Moist mucous membranes and Atraumatic
Respiratory: Clear
Cardiac: S1/S2 and Regular Rhythm; No Murmur or Rub
GI: Soft, Non Tender, Non Distended and Normal Bowel Sounds; No Organomegaly
Rectal: Deferred by Provider
Musculoskeletal: No Clubbing, No Cyanosis and No Edema
Skin: No Rash
Neuro: Nonfocal/grossly intact
Laboratory Results
-
04/21/24 16:58
Laboratory Results
Total Bilirubin 1.1 mg/dl (0.2-1.3) 04/21/24 17:48
Total Bilirubin Cancelled 04/21/24 17:48
AST 23 U/L (14-36) 04/21/24 17:48
AST Cancelled 04/21/24 17:48
ALT 15 U/L (0-35) 04/21/24 17:48
ALT Cancelled 04/21/24 17:48
Alkaline Phosphatase 143 U/L (38-126) H 04/21/24 17:48
Alkaline Phosphatase Cancelled 04/21/24 17:48
Data Reviewed
-
Lab Data: Labs Reviewed by me
Old Records: Reviewed
Impression/Plan
-
IMPRESSION:
PLAN:
# Recurrent DKA
# History of type 1 diabetes
-Blood sugar 894
-Bicarb less than 5
-N.p.o.
-IV fluids, normal saline without potassium at 150 cc/hr
-Accu-Cheks every hour, BMP q2 hours until stable then q4
-Check urinalysis
-Insulin drip
# Hyperkalemia
-IV fluids without potassium for now, but will likely have to add potassium to fluids once corrected
# History of hypophosphatemia
-Check phosphorus
-Check magnesium
Advanced dementia
Anxiety/depression
-Hold Risperdal
-Hold Lexapro
Chronic anemia
-Hemoglobin stable at 10.9
History of urinary retention
-Bladder scan protocol
-Hold tamsulosin
History of frequent falls with history of right hip fracture status post repair
DNR/DNI
DVT prophylaxis�heparin
N.p.o.
[2024-04-21 20:02] LABS: Glucose - Point of Care > 600 mg/dl (70-99)
[2024-04-21 20:08] LABS: Urine Albumin Negative (Neg - Trace); Urine Bilirubin Negative (Negative); Urine Character Clear (Clear); Urine Color Yellow; Urine Glucose 3+ (Negative); Urine Ketone 3+ (Negative); Urine Leukocyte Negative (Negative); Urine Nitrite Positive (Negative); Urine Occult Blood Negative (Negative); Urine Specific Gravity 1.015 (<1.030); Urine Urobilinogen Negative (Neg - 1+)
[2024-04-21 20:19] LABS: Urine Bacteria Many (Negative); Urine Red Blood Cell 0-2 /HPF (0-2)
[2024-04-21 20:51] LABS: Blood Urea Nitrogen 27 mg/dl (7-17); Calcium 8.4 mg/dl (8.4-10.2); Carbon Dioxide < 5 mmol/L (22-30); Chloride 104 mmol/L (98-107); Estimated Creatinine Clearance 66 ml/min; Glucose 766 mg/dl (70-99); Magnesium 1.8 mg/dl (1.6-2.3); Phosphorus 6.4 mg/dl (2.5-4.5); Sodium 133 mmol/L (135-145); eGFR > 60.00
[2024-04-21] MEDS: HEPARIN 5000 UNITS SC (20:59)
--- NOTE | 2024-04-21 21:00 | PTCARENOTE ---
Received patient from ICU. Assisted onto ICU Bed via slab puller. Patient only oriented to self. Presently on Insulin Drip at 6 units/hour per DKA protocol.
Patient gradually becoming more and more agitated/uncooperative. Tearful, frequently trying to get OOB. Confused conversation, unable to redirect.
[2024-04-21 21:14] LABS: Glucose - Point of Care > 600 mg/dl (70-99)
[2024-04-21] MEDS: RISPERDAL 0.25 MG PO (21:43)
[2024-04-21 21:45] LABS: Glucose 611 mg/dl (70-99)
[2024-04-21] MEDS: FLOMAX PO ×2 (21:47→22:32)
[2024-04-21 22:19] LABS: Glucose - Point of Care 536 mg/dl (70-99)
[2024-04-21 23:05] LABS: Blood Urea Nitrogen 24 mg/dl (7-17); Calcium 8.8 mg/dl (8.4-10.2); Carbon Dioxide 16 mmol/L (22-30); Chloride 108 mmol/L (98-107); Estimated Creatinine Clearance 74 ml/min; Glucose 509 mg/dl (70-99); Potassium 4.3 mmol/L (3.5-5.1); Sodium 139 mmol/L (135-145); eGFR > 60.00
[2024-04-21 23:24] LABS: Glucose - Point of Care 458 mg/dl (70-99)
[2024-04-21 23:44] LABS: Glucose 426 mg/dl (70-99)
[2024-04-22] VITALS (17 sets, daily range): BP systolic 82–127; BP diastolic 48–71; BMI 20.5
[2024-04-22 00:51] LABS: Blood Urea Nitrogen 23 mg/dl (7-17); Calcium 8.6 mg/dl (8.4-10.2); Carbon Dioxide 19 mmol/L (22-30); Chloride 111 mmol/L (98-107); Estimated Creatinine Clearance 74 ml/min; Glucose 364 mg/dl (70-99); Potassium 3.8 mmol/L (3.5-5.1); Sodium 139 mmol/L (135-145); eGFR > 60.00
[2024-04-22] MEDS: NSS 1000 IV ×2 (01:26→12:34)
[2024-04-22 01:29] LABS: Glucose - Point of Care 329 mg/dl (70-99)
[2024-04-22 02:17] LABS: Glucose - Point of Care 257 mg/dl (70-99)
[2024-04-22] MEDS: D5/0.45%NSS with KCL 20 MEQ 1000 IV ×2 (02:59→10:11)
--- NOTE | 2024-04-22 03:00 | PTCARENOTE ---
Pts physical assessment preformed at this time,pt is alert to self only,attempts to remove IVF,wrists and mitts remain in place for safety.VS stable afebrile,no resp distress.O2 sats 95% room air.Pt turned and repositioned Q2hour.Insulin GTT
maintained with accuchecks Q1hour.close observation ongoing throughout the night.
[2024-04-22 03:08] LABS: Glucose - Point of Care 224 mg/dl (70-99)
[2024-04-22 04:35] LABS: Glucose - Point of Care 190 mg/dl (70-99)
[2024-04-22 04:41] LABS: % Basophils 0.1 % (0-2); % Immature Granulocytes 0.5 % (0-0.5); % Lymphocytes 10.5 % (20.5-51.1); % Monocytes 7.6 % (1.7-9.3); % Neutrophils 81.3 % (42.2-75.2); Absolute Lymphocytes 0.9 10^3/uL (1.2-3.4); Absolute Monocytes 0.6 10^3/uL (0.1-0.6); Absolute Neutrophils 6.6 10^3/uL (1.4-6.5); Hematocrit 27.8 % (37.0-47.0); Hemoglobin 9.4 g/dL (12.0-16.0); Mean Corp Hgb Conc. 33.8 g/dL (33.0-37.0); Mean Corpuscular Hgb 32.1 pg (27.0-31.0); Mean Corpuscular Volume 94.9 fL (81.0-99.0); Mean Platelet Volume 9.4 fL (7.4-10.4); Nucleated Red Blood Cells % 0 %; Platelet Count 208 10^3/uL (130-400); Red Blood Cell Count 2.93 10^6/uL (4.20-5.40); Red Cell Dist. Width 13.2 % (11.5-14.5); White Blood Cell Count 8.1 10^3/uL (4.8-10.8)
[2024-04-22 04:47] LABS: INR 1.11; PT 14.1 Sec (11.4-14.6)
[2024-04-22 05:19] LABS: Blood Urea Nitrogen 20 mg/dl (7-17); Calcium 8.8 mg/dl (8.4-10.2); Carbon Dioxide 23 mmol/L (22-30); Chloride 114 mmol/L (98-107); Estimated Creatinine Clearance 74 ml/min; Glucose 181 mg/dl (70-99); Potassium 3.7 mmol/L (3.5-5.1); Sodium 142 mmol/L (135-145); eGFR > 60.00
[2024-04-22 05:43] LABS: Glucose - Point of Care 168 mg/dl (70-99)
[2024-04-22] MEDS: RISPERDAL 0.25 MG PO ×3 (06:13→21:24)
[2024-04-22 07:06] LABS: Glucose - Point of Care 156 mg/dl (70-99)
--- NOTE | 2024-04-22 07:17 | CON.INTV ---
Consultation
Consultation Request
Date/Time Consultation Requested: 04/22/24
Date/Time Consultation Performed: 04/22/24
Performing Provider: Elen
Reason for Consultation: ICU
Medical History
-
History of Present Illness:
74-year-old female former tobacco smoker with type I DM on an insulin pump, history of hep C s/p treatment, history of alcoholism, hypertension, chronic pain syndrome, dementia and overactive bladder who presents from [facility]
with lethargy, vomiting and elevated glucose level (975). Of note, pH 7.16, beta hydroxy level >9.
She presented for similar admission and discharged 04/01/24. There is issue with compliance and understanding of insulin.
She is admitted to ICU for DKA and placed on insulin gtt.
Past Medical History
Past Medical History: Other (see list below)
Social History
Tobacco: Non-smoker
Alcohol: None
Drug: None
Family History
Family History: Reviewed & Not Pertinent
Allergies / Home Medications
Allergies
Allergy/AdvReac Type Severity Reaction Status Date / Time
Penicillins Allergy Rash- Verified 03/27/24 12:12
tolerated
cefepime
2023
Home Medications
�Medication �Instructions �Recorded �Confirmed �Last Taken �Type
insulin lispro 100 unit/mL 0 sliding scale dose SC ACHS 02/10/24 03/27/24 Unknown History
subcutaneous pen (Humalog KwikPen Diabetes
(U-100) Insulin)
escitalopram oxalate 5 mg tablet 5 mg PO DAILY Mental Health 03/07/24 03/27/24 Unknown History
risperidone 0.25 mg tablet 0.25 mg PO Q8H Neurological 03/07/24 03/27/24 Unknown History
Condition
tamsulosin 0.4 mg capsule 0.4 mg PO HS Urinary Issue 03/26/24 03/27/24 Unknown History
fluconazole 100 mg tablet 100 mg PO DAILY #6 tabs 04/01/24 Unknown Rx
insulin aspart U-100 100 unit/mL 12 unit (0.12 mL) SC AC #0 mL 04/01/24 Unknown Rx
(3 mL) subcutaneous pen
Insulin Glargine Lantus As Directed mls/hr SC DAILY 04/02/24 Unknown Rx
[Lantus] 25 units
Review of Systems
-
Unable to Obtain full review of systems at this time due to: Dementia
Vitals / Labs / Diagnostic Testing
Vital Signs
Temp Pulse Resp BP Pulse Ox
98.2 F 58 14 104/53 96
04/22/24 05:09 04/22/24 06:00 04/22/24 06:00 04/22/24 06:00 04/22/24 06:00
Lab Data
04/22/24 04:19
Laboratory Results
04/22/24
04:19
PT 14.1
INR 1.11
Diagnostic Testing:
Physical Exam
-
HEENT: Normocephalic, Anicteric and Moist Mucous Membranes
Cardiovascular: S1/S2 and Regular Rhythm
Respiratory: Clear and Non-Labored Respirations
GI: Soft, Non Distended and Non Tender
Neurology: Awake, Alert, Oriented (to self only) and Other (confused, does not answer appropriately, in restraints for pulling on IVs)
Skin: Warm and Dry
General: Comfortable and Other (NAD)
Assessment
-
74-year-old female former tobacco smoker with type I DM on an insulin pump, history of hep C s/p treatment, history of alcoholism, hypertension, chronic pain syndrome, dementia and overactive bladder who presents from [facility]
with lethargy, vomiting and elevated glucose level (975). Of note, pH 7.16, beta hydroxy level >9.
She presented for similar admission and discharged 04/01/24.
She is admitted to ICU for DKA and placed on insulin gtt.
DM type I complicated by DKA
Metabolic acidosis with increased anion gap - due to above
Noncompliance likely related to dementia
Mild anemia, likely dilutional
Chronic conditions CONTACT CENTER SPECIALIST:
DM type I on insulin pump
hepatitis C treated with negative FibroScan
history of alcoholism
essential hypertension
chronic pain with history of spinal surgeries
depression
overactive bladder
former tobacco use
Plan:
Diabetes ketoacidosis , on IV insulin
Transition per team
Diabetes management nurse correspondence reviewed: Transition to subcu insulin
Advance diet
There is an issue regarding compliance and lack of understanding re: DM management
CM aware
Discussions needed with family
Discontinue IV fluids
Follow electrolytes
Hemodynamically stable not requiring vasopressors.
Possible urinary tract infection, UA reviewed
Await culture results
Trend WBC and follow up urine Cx
Creat stable, renal function at baseline
Replete electrolytes with K>4, Mg>2
No prior history of lung disease
CXR without acute findings
Stable on RA
Encouraged Incentive spirometer
DVT ppx-Lovenox
OOB/PT/OT when able
Can transfer out of ICU once off insulin gtt, we will sign off upon transfer.
Diagnostic Data
CXR 03-27-2024: No active cardiopulmonary disease.
04/22/24- no acute findings
Duplex 03/07/24- IMPRESSION: No sonographic evidence for lower extremity venous thrombosis.
ECHO n/a
-----
Critical Care time 50 mins -- The patient is admitted for acute critical illness for the treatment of vital organ failure and/or prevention of further life-threatening conditions. Total care includes time spent in review of history, physical exam,
medications, hemodynamic/ventilator parameters, laboratory data, imaging and discussion with house staff, pharmacy, respiratory therapy, supervisor pile driving, and nursing.
[2024-04-22 07:30] LABS: Glucose - Point of Care 132 mg/dl (70-99)
--- NOTE | 2024-04-22 07:40 | PTCARENOTE ---
patient in bed. confused at baseline due to dementia. Soft wrist restraints b/l and wrist b/l in place. SB to SR 58- 60's . BP left upper arm 94/58 MAP 60; RR 11; 98 RA . Non verbal pain assessment 0 ; 0700 blood sugar 132 Insulin adjusted per DKA
s/s to 1 unit ; D50.45 +k-cl at 150/hr
[2024-04-22 08:23] LABS: Glucose - Point of Care 117 mg/dl (70-99)
--- NOTE | 2024-04-22 08:53 | W.PN.HOSP.TC ---
Today's Communication/Plan
-
see bold
Assessment / Plan
Assessment / Plan
Gen: NAD, NCAT
CV: RRR, +S1/S2, no m/r/g.
Resp: CTAB, no rales, wheezes, or rhonchi.
Abd: +BS, soft, NT, ND
Skin: No rashes.
Neuro: sleeping
Psych: calm
DM1 with recurrent DKA:
-AG now closed with insulin gtt
-transition to basal/bolus insulin
-cont IVFs
Other problems:
Hyperkalemia, resolved
Advanced dementia
Anxiety/depression: restart Risperdal/Lexapro
Chronic anemia: trend Hb (drop likely dilutional)
h/o urinary retention: Bladder scan protocol, holding tamsulosin
History of frequent falls with history of right hip fracture status post repair
DNR/DNI/Heparin
Total time spent on today's encounter was 50 minutes which included time spent in counseling the patient/family regarding diagnosis and treatment plan as listed above, goals of care, and symptom management. Case was discussed with nursing staff,
specialists, and care coordinators/case management. All labs and imaging personally reviewed by me. Remainder the time spent in detailed review of previous records, lab data, imaging, and other medical provider documentation.
Anticipated Discharge: 24 - 48 hours
Subjective/Interval History
-
Date of Service: April 22, 2024
Patient sleeping.
Objective Data
-
Labs:
Laboratory Results
04/21/24 04/21/24 04/21/24
21:19 22:27 22:27
WBC
Hgb
Hct
Plt Count
PT
INR
Sodium 139
Potassium 4.3
Chloride 108 H
Carbon Dioxide 16 L
BUN 24 H
Creatinine 0.6
Glucose 611 H* 509 H* Cancelled
Calcium 8.8
04/21/24 04/22/24 04/22/24
23:22 00:11 04:19
WBC 8.1
Hgb 9.4 L
Hct 27.8 L
Plt Count 208
PT 14.1
INR 1.11
Sodium 139 142
Potassium 3.8 3.7
Chloride 111 H 114 H
Carbon Dioxide 19 L 23
BUN 23 H 20 H
Creatinine 0.5 L 0.5 L
Glucose 426 H 364 H 181 H
Calcium 8.6 8.8
04/22/24 04/22/24 04/22/24
08:37 12:00 16:00
WBC
Hgb
Hct
Plt Count
PT
INR
Sodium Pending Pending Pending
Potassium Pending Pending Pending
Chloride Pending Pending Pending
Carbon Dioxide Pending Pending Pending
BUN Pending Pending Pending
Creatinine Pending Pending Pending
Glucose Pending Pending Pending
Calcium Pending Pending Pending
04/22/24
20:00
WBC
Hgb
Hct
Plt Count
PT
INR
Sodium Pending
Potassium Pending
Chloride Pending
Carbon Dioxide Pending
BUN Pending
Creatinine Pending
Glucose Pending
Calcium Pending
Vital Signs:
Vital Signs
Temp Pulse Resp BP Pulse Ox
98.2 F 63 13 114/71 98
04/22/24 07:30 04/22/24 08:45 04/22/24 08:45 04/22/24 08:00 04/22/24 08:45
I&O
04/21/24 04/22/24 04/23/24
06:59 06:59 06:59
Intake Total 1374 / 1525 151 / 151
Output Total 1000 / 1000
Balance 374 / 525 151 / 151
[2024-04-22 09:16] LABS: Blood Urea Nitrogen 20 mg/dl (7-17); Calcium 8.8 mg/dl (8.4-10.2); Carbon Dioxide 23 mmol/L (22-30); Chloride 114 mmol/L (98-107); Estimated Creatinine Clearance 75 ml/min; Glucose 107 mg/dl (70-99); Sodium 141 mmol/L (135-145); eGFR > 60.00
[2024-04-22] MEDS: HEPARIN 5000 UNITS SC ×2 (09:22→21:24)
--- NOTE | 2024-04-22 09:26 | PN.DE.MGMTRT ---
Insulin Management
- -
04/22/2024 Diabetes Management Consult
Patient admitted 04/21 with change in mental status, vomiting, DKA. Recently admitted twice in February and once in December for DKA. Resides in [place]. PMH HTN, dementia, urinary retention, type 1 diabetes. Prior to admission chart indicates patient insulin
doses: 25 units lantus in AM with sliding scale novolog. A1C is 9.3, cr .5 eGFR > 60.
Patient is awake, confused unable to participate in discussion regarding diabetes.
Has been on DKA protocol requiring up to 6 units of insulin per hour. GAP closed x2, will transition to 25 units lantus now, insulin infusion off 2 hours after lantus administered. 1600 calorie diet to start after drip discontinued with 6 units
novolog AC and low corrective.
Discussed with Dr. Cornell and Genevieve, patients nurse.
Diabetes History
- -
Type of Diabetes: 1
Pre-Admission Diabetes Regimen
04/21/24 04/21/24 04/21/24
16:58 17:48 17:48
Creatinine Cancelled 0.8 Cancelled
04/21/24 04/21/24 04/21/24
18:48 20:03 22:00
Creatinine 0.7 0.7 Cancelled
04/21/24 04/22/24 04/22/24
22:27 00:11 04:19
Creatinine 0.6 0.5 L 0.5 L
04/22/24
08:37
Creatinine 0.4 L
Insulin Pump Settings
IP Diabetes Regimen
04/21/24 04/21/24 04/21/24
16:56 16:58 17:48
Glucose Cancelled 975 H*
POC Glucose > 600 H*
04/21/24 04/21/24 04/21/24
17:48 18:48 20:01
Glucose Cancelled 894 H*
POC Glucose > 600 H*
04/21/24 04/21/24 04/21/24
20:03 21:02 21:19
Glucose 766 H* 611 H*
POC Glucose > 600 H*
04/21/24 04/21/24 04/21/24
22:00 22:08 22:27
Glucose Cancelled 509 H*
POC Glucose 536 H*
04/21/24 04/21/24 04/21/24
22:27 23:13 23:22
Glucose Cancelled 426 H
POC Glucose 458 H*
04/22/24 04/22/24 04/22/24
00:11 01:17 02:05
Glucose 364 H
POC Glucose 329 H 257 H
04/22/24 04/22/24 04/22/24
02:57 04:19 04:23
Glucose 181 H
POC Glucose 224 H 190 H
04/22/24 04/22/24 04/22/24
05:31 06:18 07:19
Glucose
POC Glucose 168 H 156 H 132 H
04/22/24 04/22/24
08:02 08:37
Glucose 107 H
POC Glucose 117 H
Patient Education
[2024-04-22 09:30] LABS: Glucose - Point of Care 132 mg/dl (70-99)
[2024-04-22 10:14] LABS: Glucose - Point of Care 175 mg/dl (70-99)
[2024-04-22] MEDS: LANTUS 0.25 UNITS SC (10:15)
--- NOTE | 2024-04-22 10:17 | PTCARENOTE ---
Lantus 25 Units
Lantus 25 Units adm per current order. Insulin qtt will be turned off at 12:17
[2024-04-22 11:29] LABS: Glucose - Point of Care 178 mg/dl (70-99)
[2024-04-22] MEDS: LEXAPRO 5 MG PO (12:33)
[2024-04-22] MEDS: NOVOLOG FLEXPEN-LOW RESISTANCE SC (12:34)
[2024-04-22] MEDS: NOVOLOG FLEXPEN 6 UNITS SC ×2 (12:34→16:52)
--- NOTE | 2024-04-22 12:44 | PTCARENOTE ---
pt in bed baseline confusion; Restraints wrist soft and mitts completed. Insulin qtt off at 1215. Bloods sugar before lunch 140. Aspar 6 units adm per order ; 0 units per sliding scale . Purwick changed . pt voided 200 cc of nisha clear urine.
Bladder scanned for 325 cc; IVF changed to NSS 100/hr infusing via left FA peripheral line. RT FA peripheral line flushed capped. Lunch 100 % consumption . Video observation in place for pt safety bed alarm activated HOB elevated.
[2024-04-22 12:47] LABS: Glucose - Point of Care 140 mg/dl (70-99)
--- NOTE | 2024-04-22 14:01 | PTCARENOTE ---
patient transfer to room 410-1 via bed, Report given to Eli. Insulin IV fluids transfer and bedsitter
--- NOTE | 2024-04-22 14:19 | PTCARENOTE ---
pt transferred from ICU. report received from ROADABILITY MACHINE OPERATOR. Vss, denies any pain. pt is AAO to self, disoriented to place and time. pt is confused. medsitter in place. call guevara within the reach. will continue plan of care.
--- NOTE | 2024-04-22 14:39 | CM ---
CM following re: discharge planning.
Discussed in Rounds, reviewed pt's chart, met with pt.
Pt is a 74 year old female, admitted with primary dx of DKA.
Pt is not a great historian due to Dementia. Per son, pt has been living at [facility] since August 2023. Per son, pt ambulates with a walker, has a wheelchair, was at [facility] and [facility] in the past and
was on hospice with [facility]. Per son, pt's (his stepfather) lives alone and visited the pt at [facility] often. Pt's son stated that pt will return back to [facility] when medically stable
with [facility].
CM spoke to [facility] RN Costa and she confirmed that pt was on hospice care with [facility] [phone] and pt will be accepted back and [facility] will resume services. per costa, pt's care has been managed
wel at [facility]
PCP: Jose Manuel Yuan
Pharmacy: [facility]
D/C plan: return back to [facility] with [facility].
CM will follow with discharge plan updates as hospitalization progresses
[2024-04-22 16:23] LABS: Blood Urea Nitrogen 17 mg/dl (7-17); Calcium 8.6 mg/dl (8.4-10.2); Carbon Dioxide 22 mmol/L (22-30); Chloride 113 mmol/L (98-107); Estimated Creatinine Clearance 75 ml/min; Glucose 186 mg/dl (70-99); Potassium 3.8 mmol/L (3.5-5.1); Sodium 139 mmol/L (135-145); eGFR > 60.00
[2024-04-22 16:41] LABS: Glucose - Point of Care 173 mg/dl (70-99)
[2024-04-22] MEDS: NOVOLOG FLEXPEN-LOW RESISTANCE 1 UNITS SC (16:53)
[2024-04-22 20:16] LABS: Blood Urea Nitrogen 15 mg/dl (7-17); Calcium 8.9 mg/dl (8.4-10.2); Carbon Dioxide 22 mmol/L (22-30); Chloride 111 mmol/L (98-107); Estimated Creatinine Clearance 75 ml/min; Glucose 124 mg/dl (70-99); Potassium 3.9 mmol/L (3.5-5.1); Sodium 139 mmol/L (135-145); eGFR > 60.00
[2024-04-22 21:12] LABS: Glucose - Point of Care 191 mg/dl (70-99)
[2024-04-22] MEDS: FLOMAX 0.400000000000000022 MG PO (21:24)
[2024-04-23 01:04] LABS: Glucose - Point of Care 278 mg/dl (70-99)
[2024-04-23] MEDS: NSS IV (04:37)
[2024-04-23 05:30] LABS: Glucose - Point of Care 209 mg/dl (70-99)
[2024-04-23] MEDS: RISPERDAL 0.25 MG PO ×2 (06:01→13:28)
[2024-04-23] MEDS: NSS 1000 IV (06:17)
[2024-04-23 07:19] LABS: Glucose - Point of Care 235 mg/dl (70-99)
[2024-04-23 07:30] VITALS: BP 121/48
--- NOTE | 2024-04-23 07:36 | PN.DE.MGMTRT ---
Insulin Management
- -
04/23/2024 Diabetes Management Consult Follow up
Patient admitted 04/21 with change in mental status, vomiting, DKA. Recently admitted twice in February and once in December for DKA. Resides in [place], Dementia Unit. PMH HTN, dementia, urinary retention, type 1 diabetes. Prior to admission chart indicates
patient insulin doses: 25 units lantus in AM with sliding scale novolog. A1C is 9.3, cr .5 eGFR > 60.
Patient is awake, confused unable to participate in discussion regarding diabetes.
Transitioned from DKA insulin protocol to 25 units lantus, with 6 units novolog AC and low corrective. 1600 calorie diet. HS glucose 191, 1AM 278 and fasting this AM 235. Will increase AM lantus to 27 units and continue 6 units novolog AC.
Discussed with patients nurse.
Diabetes History
- -
Type of Diabetes: 1
Pre-Admission Diabetes Regimen
04/22/24 04/22/24 04/22/24
08:37 12:00 15:50
Creatinine 0.4 L Cancelled 0.4 L
04/22/24
19:52
Creatinine 0.5 L
Insulin Pump Settings
IP Diabetes Regimen
04/22/24 04/22/24 04/22/24
08:02 08:37 09:14
Glucose 107 H
POC Glucose 117 H 132 H
04/22/24 04/22/24 04/22/24
10:02 11:08 12:00
Glucose Cancelled
POC Glucose 175 H 178 H
04/22/24 04/22/24 04/22/24
12:31 15:50 16:40
Glucose 186 H
POC Glucose 140 H 173 H
04/22/24 04/22/24 04/23/24
19:52 21:11 01:03
Glucose 124 H
POC Glucose 191 H 278 H
04/23/24 04/23/24
05:28 07:17
Glucose
POC Glucose 209 H 235 H
Meal type: Dinner
Amount consumed: 100%
Amount consumed: 100%
Patient Education
[2024-04-23] MEDS: HEPARIN 5000 UNITS SC (09:06)
[2024-04-23] MEDS: LEXAPRO 5 MG PO (09:06)
--- NOTE | 2024-04-23 09:13 | W.PN.HOSP.TC ---
Addendum entered and electronically signed by Pascual Brambila MD 04/23/24 10:07:
Patient is being discharged to hospice as per discussion with case management.
Original Note:
Today's Communication/Plan
-
see bold
Assessment / Plan
Assessment / Plan
Gen: NAD, Awake and alert
Eyes: EOMI, PERRLA, no scleral icterus.
Neck: supple.
CV: RRR, +S1/S2, no m/r/g.
Resp: CTAB, no rales, wheezes, or rhonchi.
Abd: +BS, soft, NT, ND
Skin: No rashes.
Neuro: CN 2-12 intact, non-focal.
Psych: Normal mood and affect.
DM1 with recurrent DKA:
-AG closed with insulin gtt
-transitioned to basal/bolus insulin
-stop IVFs
Other problems:
Hyperkalemia, resolved
Advanced dementia
Anxiety/depression: restart Risperdal/Lexapro
Chronic anemia: trend Hb (drop likely dilutional)
h/o urinary retention: Bladder scan protocol, holding tamsulosin
History of frequent falls with history of right hip fracture status post repair
DNR/DNI/Heparin
Medically clear for discharge. Case management aware.
Total time spent on d/c = 31 min. This included today's physical exam, progress note, review of laboratory and diagnostic data, preparation of discharge documents and prescriptions, and discussions about the pt's hospital course and discharge plan
with the patient and other medical coding manager involved in the patient's care.
Anticipated Discharge: Today
Subjective/Interval History
-
Date of Service: April 23, 2024
Patient awake and makes eye contact but does not answer questions. She is eating breakfast.
Objective Data
-
Vital Signs:
Vital Signs
Temp Pulse Resp BP Pulse Ox
98.5 F 45 16 121/48 94
04/23/24 07:30 04/23/24 07:30 04/23/24 07:30 04/23/24 07:30 04/23/24 08:47
I&O
04/22/24 04/23/24 04/24/24
06:59 06:59 06:59
Intake Total 1374 / 1525 1841 / 1841
Output Total 1000 / 1000 400 / 400
Balance 374 / 525 1441 / 1441
[2024-04-23] MEDS: NOVOLOG FLEXPEN 6 UNITS SC ×2 (09:49→13:27)
[2024-04-23] MEDS: NOVOLOG FLEXPEN-LOW RESISTANCE 2 UNITS SC ×2 (09:50→13:28)
[2024-04-23] MEDS: LANTUS 0.270000000000000018 UNITS SC (09:51)
--- NOTE | 2024-04-23 10:50 | PN.CDI ---
CDI
- -
CDI:
Physician Documentation Request
Admit Date: 04/21/24 19:49
Dear Doctor Patty,
Please review the following and provide your response in the progress notes.
Clinical Indicators:
Pt admitted with type 1 DM with DKA
Pt UA positive nitrates ,Many bacteria , 11-15 WBC/ Urine culture shows ECOLI
Please provide in your note the diagnosis associated with the above findings :
Ecoli UTI
Abnormal lab findings of clinical insignificance
Other (please specify)
Use of terms such as suspected, likely, concern for, or probable (associated with a specific diagnosis that is being evaluated, monitored, or treated as if it exists) are acceptable and can be coded in the inpatient setting, when documented at the
time of discharge.
Thank you,
Marah Gross RN
CDI Specialist
Center Line Text
Please use your independent medical judgment in providing your response.
--- NOTE | 2024-04-23 10:58 | W.PN.UPDATE ---
Addendum entered and electronically signed by Pascual Brambila MD 04/23/24 11:10:
To be safe, will give 1 dose of 3g of fosfomycin before the patient is discharged
Original Note:
Update Note
Progress Note Update
Urine culture with E. coli. Patient without fever, leukocytosis, or hemodynamic instability. I suspect that the urine culture represents asymptomatic bacteriuria. Regardless, patient is being discharged to hospice.
[2024-04-23] MEDS: MONUROL 3 GM PO (11:36)
[2024-04-23 12:00] VITALS: BP 120/45
--- NOTE | 2024-04-23 12:26 | CM ---
Helga will be returning to the [facility] today and resuming hospice services with [facility].
Helga has been ambulating in the room; will need to discuss plan for transport with Vito. He is on his way to the hospital.
[facility] Report: [phone]

[facility] report: [phone] (ask for Parish or the RN)
[2024-04-23 12:31] LABS: Glucose - Point of Care 214 mg/dl (70-99)
--- NOTE | 2024-04-23 13:06 | W.DCSUMMARY ---
Discharge Summary
Discharge Data
Date of Admission: 04/21/24
Date of Discharge: 04/23/24
-
Pending Results: No
Hospital Course
Primary diagnoses:
Diabetic ketoacidosis
Secondary diagnoses:
Hyperkalemia
Advanced dementia
Anxiety
Depression
Chronic anemia
h/o urinary retention
History of frequent falls with history of right hip fracture status post repair
Consultants:
Labor Relations Director
Diabetes nurse practitioner
Imaging:
CXR:
1. Clear lungs.
2. No significant change compared to prior study.
Hospital course: 74-year-old female who presented 2 days ago with vomiting as outlined in the H&P done on admission. The patient was found to be in diabetic ketoacidosis. She was placed on an insulin drip and IV fluids. Her anion gap closed. She
was transitioned to basal bolus insulin. It was decided for her to transition to hospice as she is being discharged to hospice at this time.
Discharge Plan
-
Patient Disposition: Home with Hospice
Discharge Diagnosis/Procedures: Diabetic ketoacidosis, dementia
Diet: Diabetic, Carb Controlled
Activity: With assistance
Driving Restrictions: No driving
Other Services: VN
Referrals:
Jose Manuel Yuan MD [Family Provider] - in less than 1 week
Prescriptions:
Continued
insulin lispro [Humalog KwikPen Insulin] 100 unit/mL Insulin Pen
12 sliding scale dose SC ACHS
Rx Instructions:
150-200=2u,201-250=4u,251-300=6u,301-350=8u,351-400=10u
risperidone 0.25 mg tablet
0.25 mg PO Q8H
escitalopram oxalate 5 mg tablet
5 mg PO DAILY
tamsulosin 0.4 mg capsule
0.4 mg PO HS
acetaminophen [Tylenol Extra Strength] 500 mg Tablet
1,000 mg PO Q4HPRN PRN (Reason: mild pain)
bisacodyl [Dulcolax (bisacodyl)] 10 mg Suppository
10 mg DE [id number] PRN (Reason: if no bm on 3rd day)
hyoscyamine sulfate 0.125 mg Tablet, Sublingual
0.125 mg sublingual Q4HPRN PRN (Reason: secretions)
lorazepam [Lorazepam Intensol] 2 mg/mL Concentrate
1 mg sublingual Q4HPRN PRN (Reason: anxiety)
sennosides [senna] 8.6 mg Tablet
8.6 mg PO DAILYPRN PRN (Reason: if no bm on 3rd day)
ondansetron HCl 4 mg Tablet
4 mg PO Q4HPRN PRN (Reason: nausea)
insulin glargine [Lantus Solostar U-100 Insulin] 100 unit/mL (3 mL) Insulin Pen
25 unit SC DAILY
Discharge Orders:
Discharge Patient (As Directed); Ordered 04/23/24
Ordered By: Pascual Brambila
Discharge Date and Time
Print Language: MAURITANIAN
--- NOTE | 2024-04-23 14:55 | CM ---
Late entry from today at 13:26
Helga's came to the hospital early this afternoon to take Helga back to [facility]. [facility] was arranged to provide care when she returns.
No additional needs identified, and Helga has been discharged via back to [facility].
== END 2024-04-23 14:45 | disposition hospice, home (50) | DRG 638 ==
LOC: 4 EAST ACU 19:49
PROVIDERS: Nurse Practitioner Primary Care; ADMITTING PHYSICIAN Hospitalist; ATTENDING PHYSICIAN Internal Medicine; EMERGENCY PHYSICIAN Student in an Organized Health Care Education/Training Program; FAMILY PHYSICIAN Family Medicine; OTHER PHYSICIAN Internal Medicine
DX: E10.10 Type 1 diabetes mellitus with ketoacidosis without coma (principal); F03.93 Unspecified dementia, unspecified severity, with mood disturbance; F03.94 Unspecified dementia, unspecified severity, with anxiety; E87.5 Hyperkalemia; Z79.4 Long term (current) use of insulin
CPT/HCPCS: 71045; 80048; 80053; 81003; 81015; 82010; 82805; 82947; 82962; 83735; 84100; 85025; 85610; 87070; 87077; 87086; 87186; 93005; 96361; 96374; 96375; 99291

== ENCOUNTER 2024-07-19 11:35 | Emergency (ER) | payer MEDICARE, OTHER, SELFPAY ==
[2024-07-19 11:40] VITALS: BP 126/66
[2024-07-19 11:41] LABS: Glucose - Point of Care 157 mg/dl (70-99)
[2024-07-19 12:00] VITALS: BP 110/59
[2024-07-19 13:00] VITALS: BP 99/49
[2024-07-19 13:59] LABS: Glucose - Point of Care 177 mg/dl (70-99)
--- NOTE | 2024-07-19 15:01 | ED.GENMED ---
History of Present Illness
General
Chief Complaint: Blood Sugar Problem
Source: patient
Exam Limitations: dementia
Time Seen by Provider: 07/19/24 11:41
History of Present Illness
History of Present Illness:
74-year-old female who presents after she developed shakes. Staff then noted her blood sugar to be 35. The patient received glucagon and blood glucose improved. Was at baseline upon EMS arrival. Reportedly patient does not eat much carbohydrates
and took her insulin. Patient does have a noted history of dementia. On my evaluation the patient reports feeling well.
Past History
Past History
ED Past Medical History: HTN, IDDM, Psychiatric (anxiety) and Other (Dementia)
ED Past Surgical History: Orthopedic
Social History
Tobacco: Non-smoker
Alcohol: None
Drug: None
Personal:
Living: intermediate
Phy Exam
Physical Exam
Physical Exam:
CONSTITUTIONAL Vital signs reviewed, Patient alert and oriented to person. Well-appearing
HEAD atraumatic, normocephalic.
EYES eyelids normal to inspection, Extraocular muscles intact, Conjunctiva normal, Sclera normal.
NECK normal range of motion, Trachea midline, no jugular venous distention.
RESP no respiratory distress
BACK No obvious deformities
UPPER EXTREMITY Gross Range of motion normal, gross motor strength normal
LOWER EXTREMITY Gross range of motion normal, Gross motor strength normal
NEURO Speech normal, No focal motor deficits include, Cranial Nerves intact to screening exam. Pleasantly confused
SKIN Skin warm, dry, and normal in color.
Course
Orders/Labs/Results
Orders:
Abnormal Lab Results
07/19/24 07/19/24
11:39 13:58
POC Glucose 157 H mg/dl 177 H mg/dl
(70-99) (70-99)
Vital Signs
Initial and Last Documented VS:
Initial Vital Signs
Temp Pulse Resp BP Pulse Ox
97.5 F 60 18 126/66 96
07/19/24 11:40 07/19/24 11:40 07/19/24 11:40 07/19/24 11:40 07/19/24 11:40
Last Documented Vital Signs
Temp Pulse Resp BP Pulse Ox
97.5 F 57 16 99/49 95
07/19/24 11:40 07/19/24 14:15 07/19/24 14:15 07/19/24 13:00 07/19/24 12:45
MDM/Problems Addressed
MDM/Problems Addressed:
Dementia, hypoglycemia
*Pulse Oximetry
Patient hypoxic: no
*Critical Care Note
Total Time (30-74mins, 75-104mins- exclusive of procedures): Not Applicable
Data Reviewed
Source: patient and ambulance crew
Patient Management
Escalation/DeEscalation of care consider admission/obs:
Blood glucose as normalized and patient was fed. Okay for discharge to intermediate
ED Attending Note
-
Portions of this chart may have been created with voice recognition software.� Occasional wrong word or��sound alike� substitutions may have occurred due to the inherent limitations of voice recognition software.
Discharge Plan
Departure
Patient Disposition: Home (Routine Discharge)
Date of Disposition: 07/19/24
Time of Disposition: 15:01
Patient with high blood pressure during this ER visit?: No
Discharge Problem:
Hypoglycemia
Instructions: Low Blood Sugar, Adult ED
Prescriptions:
No Action
insulin lispro [Humalog KwikPen Insulin] 100 unit/mL Insulin Pen
12 sliding scale dose SC ACHS
Rx Instructions:
150-200=2u,201-250=4u,251-300=6u,301-350=8u,351-400=10u
risperidone 0.25 mg tablet
0.25 mg PO Q8H
escitalopram oxalate 5 mg tablet
5 mg PO DAILY
tamsulosin 0.4 mg capsule
0.4 mg PO HS
acetaminophen [Tylenol Extra Strength] 500 mg Tablet
1,000 mg PO Q4HPRN PRN (Reason: mild pain)
bisacodyl [Dulcolax (bisacodyl)] 10 mg Suppository
10 mg IL [id number] PRN (Reason: if no bm on 3rd day)
hyoscyamine sulfate 0.125 mg Tablet, Sublingual
0.125 mg sublingual Q4HPRN PRN (Reason: secretions)
lorazepam [Lorazepam Intensol] 2 mg/mL Concentrate
1 mg sublingual Q4HPRN PRN (Reason: anxiety)
sennosides [senna] 8.6 mg Tablet
8.6 mg PO DAILYPRN PRN (Reason: if no bm on 3rd day)
ondansetron HCl 4 mg Tablet
4 mg PO Q4HPRN PRN (Reason: nausea)
insulin glargine [Lantus Solostar U-100 Insulin] 100 unit/mL (3 mL) Insulin Pen
25 unit SC DAILY
Referrals:
UNKNOWN,NO INTERVIEW [Family Provider] -
Activity Restrictions/Additional Instructions:
Please stick to a regular diet monitor blood glucose closely.
Interventions
Interventions:
*Risk Screen - Suicide Last Done: 07/19/24 11:46
*General Assessment Last Done: 07/19/24 11:45
*Neglect/Abuse Screening Last Done: 07/19/24 11:46
*ED COVID-19 Vaccine History Last Done: 07/19/24 11:45
ED- Neurological Assessment Last Done: 07/19/24 11:44
Discharge Date and Time
Print Language: DIVEHI
[2024-07-19 17:00] VITALS: BP 114/88
== END 2024-07-19 18:34 | disposition home or self-care (01) ==
LOC: EMR 11:35
PROVIDERS: EMERGENCY PHYSICIAN Emergency Medicine
DX: E11.649 Type 2 diabetes mellitus with hypoglycemia without coma (principal); F03.94 Unspecified dementia, unspecified severity, with anxiety; I10 Essential (primary) hypertension
CPT/HCPCS: 99282; 82962

== ENCOUNTER 2024-07-24 20:24 | Inpatient (IN) | payer MEDICARE, OTHER, SELFPAY ==
[2024-07-24] VITALS (8 sets, daily range): BP systolic 132–154; BP diastolic 63–80; BMI 19.4
[2024-07-24 18:00] LABS: Glucose - Point of Care 181 mg/dl (70-99)
[2024-07-24 18:26] LABS: % Basophils 0.2 % (0-2); % Immature Granulocytes 0.2 % (0-0.5); % Lymphocytes 16.7 % (20.5-51.1); % Monocytes 7.5 % (1.7-9.3); % Neutrophils 74.4 % (42.2-75.2); Absolute Eosinophils 0.1 10^3/uL (0-0.7); Absolute Lymphocytes 0.9 10^3/uL (1.2-3.4); Absolute Monocytes 0.4 10^3/uL (0.1-0.6); Absolute Neutrophils 3.8 10^3/uL (1.4-6.5); Hematocrit 35.6 % (37.0-47.0); Hemoglobin 12.2 g/dL (12.0-16.0); Mean Corp Hgb Conc. 34.3 g/dL (33.0-37.0); Mean Corpuscular Hgb 32.5 pg (27.0-31.0); Mean Corpuscular Volume 94.9 fL (81.0-99.0); Mean Platelet Volume 9.2 fL (7.4-10.4); Nucleated Red Blood Cells % 0 %; Platelet Count 217 10^3/uL (130-400); Red Blood Cell Count 3.75 10^6/uL (4.20-5.40); Red Cell Dist. Width 13.2 % (11.5-14.5); White Blood Cell Count 5.1 10^3/uL (4.8-10.8)
--- NOTE | 2024-07-24 18:29 | ED.GENMED ---
History of Present Illness
General
Chief Complaint: Blood Sugar Problem
Source: patient
Time Seen by Provider: 07/24/24 18:09
History of Present Illness
History of Present Illness:
74yoF with a history of type 1 diabetes, hypertension, and dementia presenting via EMS for evaluation after a seizure. Patient had an episode of generalized shaking this evening. Her glucose was 30. She was initially given an oral glucose solution
without improvement and was then given IM glucagon. Sugar improved to 112 ten minutes post glucagon administration. Patient is now back to baseline and she has no complaints. Patient was seen in the ED 5 days ago for similar symptoms.
I called and spoke with Costa, the nurse at the [facility], that was taking care of her today. Patient has been not been eating as much and has been sleeping more over the past month. She used to snack frequently and sugars were
uncontrolled. Her sugars have been lower over the past several weeks. She currently takes Lantus 25 units QAM, Lispro 12 units with meals, as well as sliding scale. She received her Lantus this morning. She did not receive her morning dose of Lispro
due to a glucose of 107. Glucose was 157 at lunch time and she received 12 units of Lispro around noon today.
Past History
Past History
ED Past Medical History: HTN, IDDM, Psychiatric (anxiety) and Other (Dementia)
ED Past Surgical History: Orthopedic
Social History
Tobacco: Non-smoker
Alcohol: None
Drug: None
Personal:
Living: snf
Phy Exam
General Physical Exam
General Presentation: well appearing and no apparent distress
General age: appears stated age
General Skin: warm and dry
General Habitus: normal
General Mental: alert
ENT Exam
ENT Exam: normocephalic
Eye Exam
Eye Exam: PERRL
Cardiovascular Exam
Cardiovascular Exam: regular rate/rhythm
Pulmonary Exam
Pulmonary Exam: lungs clear, no respiratory distress and no crackles
Neurological Exam
Neurological Exam: alert and other (Awake, alert. No focal deficits appreciated. Oriented to person only.)
Skin Exam
Skin Exam: normal color and warm/dry
Course
Orders/Labs/Results
Orders:
Orders
07/24/24 Dinner
2000 calorie (17 carb) Diabetic
07/24/24 18:17
Electrocardiogram (*1) Urgent
Reason for Study: Other
Other Reason for Exam: seizure
EKG- Treatment ONCE
07/24/24 18:21
Complete Blood Count/With Diff Urgent
Comprehensive Metabolic Panel Urgent
07/24/24 18:42
Potassium Chloride 10% Elixir [KCl Elixir] 20 meq PO NOW STA
07/24/24 19:57
Admit/Transfer Patient As Directed
Co-Sign Provider:
Level of Care: Inpatient admission
Assign to:: Medical/Surgical
Physician / Group: Dima
Diagnosis: Hypoglycemia
Reason for Hospitalization: sugar management
Expected length of stay greater than two midnights?: Yes
ELOS- Estimated Length of Stay in days: 3
I certify the patient meets the requirements for IP care: Yes
07/24/24 19:58
PRN Pain Medication Management As Directed
May give lesser potent ordered pain med per pt: Yes
preference::
Protocol:: Medication orders for pain may be administered in a
manner that supports deferring to patient preference
when the pt is:
- Requesting an ordered lesser potent pain medication.
Least to most potent pain medications are defined
as: acetaminophen < NSAID < tramadol < opioids
(morphine, oxycodone, hydromorphone).
- Requesting a lesser dose of the same medication IF
ORDERED.
- Requesting a less intrusive route of administration
if both routes are prescribed by the provider (PO <
IV).
07/24/24 19:59
Code Status As Directed
Resuscitation Status: Do not resuscitate
Based on pt advanced directive or healthcare POA form: Yes
DNR Bracelet Application ONCE
07/24/24 20:11
Bedside Glucose Monitoring As Directed
Frequency: Other frequency
Other frequency: Once at Midnight, then resume usual ACHS
Additional Instructions:: Once at Midnight, then resume usual ACHS
07/24/24 20:29
Acetaminophen [Tylenol] 1,000 mg PO Q6HPRN PRN
07/24/24 20:33
Lorazepam [Ativan] 1 mg PO Q4HPRN PRN
07/24/24 21:21
Dextrose 50%-Water [Dextrose 50% Syringe] 12.5 grams IV [id number] PRN
Glucagon [GlucaGen] 1 mg IM PRN PRN
07/24/24 21:21
Bedside Glucose Monitoring As Directed
Frequency: AC&HS
Additional Instructions:: Change to q6h if pt on TPN, tube feeding or not eating
I&O [Intake/ Output] As Directed
Frequency: q12h
Pneumatic Compression Sleeves As Directed
Type: Knee high
Vital Signs As Directed
Frequency: Per unit guidelines
Weight As Directed
Frequency: Daily
Ot Eval And Treat Routine
Pt Eval And Treat Routine
Activity Level: Out of Bed-Early Mobility
With Assistance
Speech Therapy Eval & Treat Routine
DX Deep Vein Thrombosis Video Routine
07/24/24 22:00
Tamsulosin [Flomax] 0.4 mg PO HS
07/25/24 00:00
Risperidone [Risperdal] 0.25 mg PO Q8
07/25/24 06:00
Basic Metabolic Panel IN AM
Complete Blood Count/No Diff IN AM
Glycohemoglobin (HgbA1c) IN AM
07/25/24 07:30
Insulin Aspart High Resistance [Novolog Flexpen-High Resistance] See Protocol SC AC
07/25/24 08:00
Escitalopram Oxalate [Lexapro] 5 mg PO DAILY
Abnormal Lab Results
07/24/24 07/24/24 07/24/24
17:59 18:21 19:24
RBC 3.75 L 10^6/uL
(4.20-5.40)
Hct 35.6 L %
(37.0-47.0)
MCH 32.5 H pg
(27.0-31.0)
Absolute Lymphs (auto) 0.9 L 10^3/uL
(1.2-3.4)
Lymphocytes % 16.7 L %
(20.5-51.1)
Potassium 3.4 L mmol/L
(3.5-5.1)
Carbon Dioxide 31 H mmol/L
(22-30)
BUN 18 H mg/dl
(7-17)
Creatinine 0.5 L mg/dL
(0.6-1.0)
Glucose 155 H mg/dl
(70-99)
POC Glucose 181 H mg/dl 248 H mg/dl
(70-99) (70-99)
07/24/24 18:21
07/24/24 18:21
Vital Signs
Initial and Last Documented VS:
Initial Vital Signs
Temp Pulse Resp BP Pulse Ox
98.6 F 63 19 154/75 97
07/24/24 17:52 07/24/24 17:52 07/24/24 17:52 07/24/24 17:52 07/24/24 17:52
Last Documented Vital Signs
Temp Pulse Resp BP Pulse Ox
97.3 F 49 14 132/63 95
07/24/24 23:00 07/24/24 23:00 07/24/24 23:00 07/24/24 23:00 07/24/24 23:00
MDM/Problems Addressed
Differential Diagnosis Includes:
74yoF here after a reported seizure in setting of a glucose of 30. She is s/p IM glucagon and glucose is 181 on arrival. Hx of dementia and T1DM. Currently at baseline. 2nd ED visit this week for the same. She is awake, alert, in no distress. Vital
signs stable. Differential diagnosis includes but is not limited to: Hypoglycemia in setting of decreased p.o. intake, dehydration, infection
Initial ED plan: Check CBC, CMP, and EKG.
*EKG
Interpreted by ED Provider?: Yes
EKG Intrepretation Date: 07/24/24
Heart Rate: 61
Rate: normal
Rhythm: sinus
[place]: normal axis
Interval: normal interval
QRS Pattern: normal QRS
Ischemia: no ischemia
*Critical Care Note
Total Time (30-74mins, 75-104mins- exclusive of procedures): Not Applicable
Update Note
Update Note:
Glucose 155 on BMP. Potassium 3.4 which was replaced. Remainder of labs unremarkable. EKG shows NSR. Will admit given risk of recurrent hypoglycemia. Patient also will likely need medication adjustments given decreased PO intake and multiple recent
ED visits for hypoglycemia.
ED Attending Note
-
Portions of this chart may have been created with voice recognition software.� Occasional wrong word or��sound alike� substitutions may have occurred due to the inherent limitations of voice recognition software.
Discharge Plan
Departure
Patient Disposition: Admit
Date of Disposition: 07/24/24
Time of Disposition: 19:37
Presentation/result/management discussed w/ accepting MD/DO: Hospitalist
Discharge Problem:
Hypoglycemia
Interventions
Interventions:
*Risk Screen - Suicide Last Done: 07/24/24 17:58
*General Assessment Last Done: 07/24/24 17:58
*Neglect/Abuse Screening Last Done: 07/24/24 17:58
ED- Fall Risk Assessment Last Done: 07/24/24 19:29
*ED COVID-19 Vaccine History Last Done: 07/24/24 17:57
*Nursing Disposition Last Done: 07/24/24 21:45
ED- Neurological Assessment Last Done: 07/24/24 19:29
Discharge Date and Time
Discharge Date/Time: 07/24/24 21:45
[2024-07-24 18:39] LABS: ALT (SGPT) 15 U/L (0-35); AST (SGOT) 19 U/L (14-36); Albumin 4.1 g/dl (3.5-5.0); Alkaline Phosphatase 83 U/L (38-126); Blood Urea Nitrogen 18 mg/dl (7-17); Calcium 9.5 mg/dl (8.4-10.2); Carbon Dioxide 31 mmol/L (22-30); Chloride 103 mmol/L (98-107); Glucose 155 mg/dl (70-99); Potassium 3.4 mmol/L (3.5-5.1); Sodium 143 mmol/L (135-145); Total Bilirubin 0.3 mg/dl (0.2-1.3); Total Protein 6.7 g/dl (6.3-8.2); eGFR > 60.00
[2024-07-24 19:25] LABS: Glucose - Point of Care 248 mg/dl (70-99)
--- NOTE | 2024-07-24 19:56 | HPS.HSE ---
Family Physician
-
Family Physician: Francine Castellon
Chief Complaint
-
Seizure
History of Present Illness
Patient is a 74 y/o female past medical history insulin dependent diabetes mellitus, and advanced dementia who presents with hypoglycemia and a seizure. Patient had a seizure earlier today at which time her sugars was found to be 30. Patient is
unable to provide any additional history due to her dementia. Per staff patient has had a significant decrease in her oral intake over the past few weeks.
Medical History
Past Medical History
Past Medical History: Reports Other
Additional Past Medical History:
Insulin Dependent Diabetes Mellitus
Advanced Dementia
Anxiety/Depression
Past Surgical History: Reports None
Social History
Unable to obtain full social history at this time due to: Dementia
Living: Residential
Family History
Family History: Unable to Obtain
Allergies / Home Medications
Allergies reflects when Allergies were last updated in [facility].
Home Medications with original date entered in [facility]
Allergy/Medication List:
Allergies
Allergy/AdvReac Type Severity Reaction Status Date / Time
Penicillins Allergy Rash- Verified 07/24/24 17:50
tolerated
cefepime
2023
Home Medications
insulin lispro 100 unit/mL subcutaneous pen (Humalog KwikPen (U-100) Insulin) 12 sliding scale dose SC ACHS Diabetes 02/10/24
escitalopram oxalate 5 mg tablet 5 mg PO DAILY Mental Health 03/07/24
risperidone 0.25 mg tablet 0.25 mg PO Q8H Neurological Condition 03/07/24
tamsulosin 0.4 mg capsule 0.4 mg PO HS Urinary Issue 03/26/24
acetaminophen 500 mg tablet (Tylenol Extra Strength) 1,000 mg PO Q4HPRN PRN mild pain 04/22/24
bisacodyl 10 mg rectal suppository (Dulcolax (bisacodyl)) 10 mg TN [id number] PRN if no bm on 3rd day 04/22/24
hyoscyamine sulfate 0.125 mg sublingual tablet 0.125 mg sublingual Q4HPRN PRN secretions 04/22/24
insulin glargine 100 unit/mL (3 mL) subcutaneous pen (Lantus Solostar U-100 Insulin) 25 unit SC DAILY Diabetes 04/22/24
lorazepam 2 mg/mL oral concentrate (Lorazepam Intensol) 1 mg sublingual Q4HPRN PRN anxiety 04/22/24
sennosides 8.6 mg tablet (senna) 8.6 mg PO DAILYPRN PRN if no bm on 3rd day 04/22/24
ondansetron 4 mg disintegrating tablet 4 mg PO Q4HPRN PRN nausea/vomiting 07/24/24
triamcinolone acetonide 0.1 % topical cream 1 applic topical BID 07/24/24
Review of Systems
-
Unable to obtain full review of systems at this time due to: Dementia
Physical Exam
Vital Signs
Vital Signs
Temp Pulse Resp BP Pulse Ox
98.9 F 57 20 146/79 96
07/24/24 19:29 07/24/24 19:29 07/24/24 19:29 07/24/24 19:29 07/24/24 19:29
Physical Exam
General: Comfortable, Conversant and Appears Chronically Ill
HEENT: Anicteric and Moist mucous membranes
Respiratory: Clear and Non Labored Respirations
Cardiac: S1/S2 and Regular Rhythm
GI: Soft and Non Tender
Rectal: Deferred by Provider
Musculoskeletal: No Clubbing, No Cyanosis and No Edema
Skin: Warm and Dry
Neuro: Awake and Alert
Psych: Calm
Laboratory Results
-
07/24/24 18:21
07/24/24 18:21
Laboratory Results
Total Bilirubin 0.3 mg/dl (0.2-1.3) 07/24/24 18:21
AST 19 U/L (14-36) 07/24/24 18:21
ALT 15 U/L (0-35) 07/24/24 18:21
Alkaline Phosphatase 83 U/L (38-126) 07/24/24 18:21
Data Reviewed
-
Lab Data: Labs Reviewed by me
Impression/Plan
-
Seizure secondary to Hypoglycemia
-Decrease Lantus from 25units to 10 units
-Hold meal time insulin
-Monitor sugars and continue coverage insulin
Advanced Dementia
-Continue Risperdal
Anxiety/Depression
-Continue Lexapro
DVT proph: SCDs
Code Status: DNR
[2024-07-24] MEDS: KCL ELIXIR 20 MEQ PO (20:01)
--- NOTE | 2024-07-24 20:20 | W.PN.UPDATE ---
Update Note
Progress Note Update
74-year-old female past medical history of type 1 diabetes, hypertension, dementia presenting for seizure at [facility] secondary to hypoglycemia with blood sugar of 30. She was given glucagon. She was seen here 5 days ago for symptomatic
hypoglycemia. Hypoglycemia likely due to decreased oral intake and weight loss recently. Blood sugars currently
Will reduce Lantus from 25 units to 10 units. High-dose insulin sliding scale. Continue Accu-Cheks.
[2024-07-24] MEDS: TYLENOL 1000 MG PO (20:53)
[2024-07-24] MEDS: ATIVAN 1 MG PO (20:54)
[2024-07-24 21:51] LABS: Glucose - Point of Care 179 mg/dl (70-99)
[2024-07-25 00:43] LABS: Glucose - Point of Care 73 mg/dl (70-99)
[2024-07-25] MEDS: FLOMAX 0.4 MG PO ×2 (00:51→23:14)
[2024-07-25 03:11] LABS: Glucose - Point of Care 68 mg/dl (70-99)
[2024-07-25 03:44] LABS: Glucose - Point of Care 80 mg/dl (70-99)
[2024-07-25] MEDS: RISPERDAL PO (04:25)
[2024-07-25 05:10] LABS: Glucose - Point of Care 92 mg/dl (70-99)
[2024-07-25 06:00] VITALS: BMI 18.9
[2024-07-25 06:46] LABS: Hematocrit 33.8 % (37.0-47.0); Hemoglobin 12.1 g/dL (12.0-16.0); Mean Corp Hgb Conc. 35.8 g/dL (33.0-37.0); Mean Corpuscular Hgb 33.3 pg (27.0-31.0); Mean Corpuscular Volume 93.1 fL (81.0-99.0); Mean Platelet Volume 8.9 fL (7.4-10.4); Platelet Count 200 10^3/uL (130-400); Red Blood Cell Count 3.63 10^6/uL (4.20-5.40); Red Cell Dist. Width 13.1 % (11.5-14.5); White Blood Cell Count 4.2 10^3/uL (4.8-10.8)
[2024-07-25 07:07] LABS: Blood Urea Nitrogen 12 mg/dl (7-17); Calcium 8.9 mg/dl (8.4-10.2); Carbon Dioxide 24 mmol/L (22-30); Chloride 105 mmol/L (98-107); Estimated Creatinine Clearance 69 ml/min; Glucose 85 mg/dl (70-99); Potassium 3.9 mmol/L (3.5-5.1); Sodium 142 mmol/L (135-145); eGFR > 60.00
[2024-07-25 07:08] LABS: Glucose - Point of Care 92 mg/dl (70-99)
[2024-07-25 07:34] VITALS: BP 139/70
--- NOTE | 2024-07-25 08:35 | W.PN.HOSP.TC ---
Today's Communication/Plan
-
Transfer to IMU for close monitoring
Will consider NPH 10 units if glucose remains high in the upper 400s or above later today
IV fluids bolus given
Assessment / Plan
Assessment / Plan
Physical Exam
General: Comfortable, Conversant and Appears Chronically Ill
HEENT: Normocephalic
Respiratory: Clear to Auscultation Bilaterally
Cardiac: S1/S2 and Regular Rhythm
GI: Soft and Non Tender. Positive bowel sounds.
Musculoskeletal: No Cyanosis and No Edema
Skin: Warm and Dry
Neuro: Awake and Alert
Psych: Calm

Assessment/Plan
Seizure secondary to Hypoglycemia
Type 1 Diabetes Mellitus
-Due to wide fluctuations in glucose, monitor closely in IMU -- transfer patient to IMU
-Lantus as ordered
-Premeal Insulin
-Monitor sugars Q2H and continue coverage insulin
-Discussed case with food manager given patient's lethargy but no need for ICU right now, can maintain on subq Insulin
-If blood glucose still high later today, then even 10 units NPH would be helpful to get it below 400-450, will also discuss this with Diabetes CARAMEL MAKER
Advanced Dementia
-Continue Risperdal
Anxiety/Depression
-Continue Lexapro
DVT Prophylaxis: SCDs and Lovenox.
Code Status: DNR
Wide fluctuations in glucose and presentation with symptomatic seizures secondary to hypoglycemia, all needing monitoring in the IMU is a high-risk encounter.
Anticipated Discharge: > 48 hours
Subjective/Interval History
-
Date of Service: July 25, 2024
Patient was seen and examined. She was drowsy this morning, but per patient's nurse patient was speaking at times in the morning, and eating breakfast.
Objective Data
-
Labs:
Laboratory Results
07/25/24
06:32
WBC 4.2 L
Hgb 12.1
Hct 33.8 L
Plt Count 200
Sodium 142
Potassium 3.9
Chloride 105
Carbon Dioxide 24
BUN 12
Creatinine 0.4 L
Glucose 85
Calcium 8.9
Vital Signs:
Vital Signs
Temp Pulse Resp BP Pulse Ox
97.5 F 48 16 139/70 94
07/25/24 07:34 07/25/24 07:34 07/25/24 07:34 07/25/24 07:34 07/25/24 07:34
I&O
07/24/24 07/25/24 07/26/24
06:59 06:59 06:59
Intake Total 270 / 270
Balance 270 / 270
[2024-07-25] MEDS: RISPERDAL 0.25 MG PO ×3 (09:03→23:14)
[2024-07-25] MEDS: LEXAPRO 5 MG PO (09:03)
[2024-07-25 09:30] VITALS: BP 144/70; PULSE 51; O2SAT 96
[2024-07-25 09:35] VITALS: BP 144/70; PULSE 51; O2SAT 96
--- NOTE | 2024-07-25 10:12 | PTOTSP ---
SPEECH THERAPY SWALLOW EVALUATION:
Patient exhibits grossly function oropharyngeal swallow at this time; However, patient remains at high risk for aspiration and related complications given severity of confusion and impulsivity related to dementia. Recommend IDDSI Level 6 Soft and
Bite Size diet, thin liquids. Medications whole in puree. Aspiration precautions: 1:1 assistance/100% supervision with meals; Upright positioning; Small single sips/bites; Slow rate of intake; Ensure oral cavity clear after p.o. intake; Only feed
when awake/alert; Monitor for signs of aspiration. ST to follow, assess diet tolerance and modify as appropriate, determine indication for instrumental assessment of swallowing as indicated, and provide family education regarding aspiration
risks/precautions.
RECOMMEND:
1) IDDSI Level 6 Soft and Bite Size diet, thin liquids
2) Medications whole in puree
3) Aspiration precautions: 1:1 assistance/100% supervision with meals; Upright positioning; Small single sips/bites; Slow rate of intake; Ensure oral cavity clear after p.o. intake; Only feed when awake/alert; Monitor for signs of aspiration
4) ST to follow
--- NOTE | 2024-07-25 10:32 | PTOTSP ---
pt currently requires supervision to minimal assistance to complete simple ADLs, functional transfers, ambulation. pt requires encouragement to participate. pt inconsistently following direction appropriately. pleasantly confused. no acute OT needs
identified at this time, as pt with advanced dementia and no carry over observed. will sign off.
[2024-07-25] MEDS: LANTUS 0.03 UNITS SC (10:42)
[2024-07-25 11:39] LABS: Glucose - Point of Care 483 mg/dl (70-99)
--- NOTE | 2024-07-25 11:50 | PN.DE.MGMTRT ---
Insulin Management
- -
07/25/2024 Diabetes Management Consult
Patient admitted 07/24 with hypoglycemia, 30, seizure. Recently admitted twice in February and once in December for DKA. Resides in [place], Dementia Unit. PMH HTN, dementia, urinary retention, type 1 diabetes. Prior to admission chart indicates patient
insulin doses: 25 units lantus in AM with sliding scale novolog 12 units with meals. A1C is 7, cr .4 eGFR > 60.
Patient is awake, confused unable to participate in discussion regarding diabetes. She does have a GAP, 13, labs now ordered. If she does not have insulin infusion started will increase lantus to 18 units daily and 3 units novolog AC
Discussed with patients nurse.
Diabetes History
- -
Type of Diabetes: 1
Pre-Admission Diabetes Regimen
07/24/24 07/25/24
18:21 06:32
Creatinine 0.5 L 0.4 L
Lab Results
Hemoglobin A1c 7.0 % (4.0-5.6) H 07/25/24 06:32
Insulin Pump Settings
IP Diabetes Regimen
07/24/24 07/24/24 07/24/24
17:59 18:21 19:24
Glucose 155 H
POC Glucose 181 H 248 H
07/24/24 07/25/24 07/25/24
21:50 00:41 03:09
Glucose
POC Glucose 179 H 73 68 L
07/25/24 07/25/24 07/25/24
03:42 05:10 06:32
Glucose 85
POC Glucose 80 92
07/25/24 07/25/24
07:07 11:37
Glucose
POC Glucose 92 483 H*
Patient Education
[2024-07-25 12:52] LABS: Glucose 503 mg/dl (70-99)
[2024-07-25 12:53] LABS: Albumin 3.5 g/dl (3.5-5.0); Blood Urea Nitrogen 11 mg/dl (7-17); Calcium 8.6 mg/dl (8.4-10.2); Carbon Dioxide 22 mmol/L (22-30); Chloride 100 mmol/L (98-107); Estimated Creatinine Clearance 69 ml/min; Glucose 502 mg/dl (70-99); Potassium 5.2 mmol/L (3.5-5.1); Sodium 135 mmol/L (135-145); eGFR > 60.00
[2024-07-25 13:06] LABS: B.E. 1.8 mmol/L; HCO3 27.2 mmol/L (21-28); O2 Saturation % 95.2 % (94-98); PCO2 45 mmHg (32-35); PO2 70 mmHg (83-108); pH 7.39 (7.35-7.45)
[2024-07-25] MEDS: NOVOLOG FLEXPEN 3 UNITS SC (13:12)
[2024-07-25] MEDS: NSS 1000 IV (13:14)
[2024-07-25 13:36] LABS: Glucose - Point of Care 509 mg/dl (70-99)
[2024-07-25] MEDS: NOVOLOG FLEXPEN 8 UNITS SC (14:53)
[2024-07-25 15:06] VITALS: BMI 19.2
[2024-07-25 15:10] VITALS: BMI 18.9
[2024-07-25 15:16] LABS: Glucose - Point of Care 407 mg/dl (70-99)
[2024-07-25 15:26] VITALS: BP 149/73
[2024-07-25 16:56] LABS: Blood Urea Nitrogen 11 mg/dl (7-17); Carbon Dioxide 25 mmol/L (22-30); Chloride 104 mmol/L (98-107); Estimated Creatinine Clearance 69 ml/min; Glucose 292 mg/dl (70-99); Potassium 4.1 mmol/L (3.5-5.1); Sodium 138 mmol/L (135-145); eGFR > 60.00
--- NOTE | 2024-07-25 17:11 | PN.DIAED10 ---
Update Note
- Diabetes Education Update Note
Notes:
07/25/2024 Update
Glucose improving, 503 pre lunch, 407 @ 3pm, 8 units novolog given. 4pm glucose now 292. I spoke with patient nurse patient ro receive 5 units AC with corrective insulin pre dinner. Accucheks now ACHS.
[2024-07-25 17:53] LABS: Glucose - Point of Care 124 mg/dl (70-99)
[2024-07-25] MEDS: LOVENOX 40 MG SC (18:34)
[2024-07-25 18:35] LABS: Blood Urea Nitrogen 11 mg/dl (7-17); Calcium 9.2 mg/dl (8.4-10.2); Carbon Dioxide 30 mmol/L (22-30); Chloride 104 mmol/L (98-107); Estimated Creatinine Clearance 69 ml/min; Glucose 127 mg/dl (70-99); Magnesium 1.8 mg/dl (1.6-2.3); Potassium 4.2 mmol/L (3.5-5.1); Sodium 139 mmol/L (135-145); eGFR > 60.00
[2024-07-25] MEDS: NOVOLOG FLEXPEN-LOW RESISTANCE SC (18:35)
[2024-07-25] MEDS: NOVOLOG FLEXPEN 5 UNITS SC (18:35)
[2024-07-25 21:31] LABS: Glucose - Point of Care 102 mg/dl (70-99)
[2024-07-25 23:24] VITALS: BP 145/71
[2024-07-26 05:36] VITALS: BMI 18.7
[2024-07-26 06:14] VITALS: BMI 18.6
[2024-07-26 08:01] VITALS: BP 161/74
[2024-07-26 08:26] LABS: Hematocrit 34.6 % (37.0-47.0); Hemoglobin 12.2 g/dL (12.0-16.0); Mean Corp Hgb Conc. 35.3 g/dL (33.0-37.0); Mean Corpuscular Volume 93.5 fL (81.0-99.0); Mean Platelet Volume 9.4 fL (7.4-10.4); Platelet Count 208 10^3/uL (130-400); Red Cell Dist. Width 13.1 % (11.5-14.5); White Blood Cell Count 4.1 10^3/uL (4.8-10.8)
[2024-07-26 08:33] LABS: Glucose - Point of Care 306 mg/dl (70-99)
[2024-07-26 08:58] LABS: Blood Urea Nitrogen 12 mg/dl (7-17); Carbon Dioxide 28 mmol/L (22-30); Chloride 103 mmol/L (98-107); Estimated Creatinine Clearance 68 ml/min; Glucose 190 mg/dl (70-99); Magnesium 1.7 mg/dl (1.6-2.3); Potassium 3.9 mmol/L (3.5-5.1); Sodium 142 mmol/L (135-145); eGFR > 60.00
[2024-07-26] MEDS: NOVOLOG FLEXPEN 5 UNITS SC ×2 (09:16→13:13)
[2024-07-26] MEDS: LEXAPRO 5 MG PO (09:16)
[2024-07-26] MEDS: RISPERDAL 0.25 MG PO ×3 (09:16→23:07)
[2024-07-26] MEDS: NOVOLOG FLEXPEN-LOW RESISTANCE 4 UNITS SC (09:17)
[2024-07-26] MEDS: LANTUS 0.18 UNITS SC (09:17)
[2024-07-26 13:09] LABS: Glucose - Point of Care 462 mg/dl (70-99)
--- NOTE | 2024-07-26 14:04 | W.PN.HOSP.TC ---
Today's Communication/Plan
-
Sugars still in the 400s
Premeal Insulin Increased
Discussed the above with on-call administrative support coordinator and patient's nurse
Once patient's blood sugars are consistently in the 200s to 300s without any hypoglycemia, can discharge
Assessment / Plan
Assessment / Plan
Physical Exam
General: Not in acute distress
HEENT: Normocephalic
Respiratory: Clear to Auscultation Bilaterally
Cardiac: S1/S2 and Regular Rhythm
GI: Soft and Non Tender. Positive bowel sounds.
Musculoskeletal: No Cyanosis and No Edema
Skin: Warm and Dry
Neuro: Awake and Alert
Psych: Calm

Assessment/Plan
Seizure secondary to Hypoglycemia
Type 1 Diabetes Mellitus
-18 units daily Lantus as ordered
-Premeal Insulin increased to 7 units for better glucose control -- goal is to at least bring down the glucose readings to the 300s prior to discharge
-Continue accu-checks
-Discussed case with turbogenerator operator on 07/25/24 given patient's lethargy but no need for ICU right now, can maintain on subq Insulin
-On 07/26/24, I spoke with on-call administrative support coordinator who recommended bringing up the premeal Insulin (premeal Insulin more important than long-acting Insulin in Type 1 DM) given patient is eating (which nurse confirmed), it is
acceptable to have hyperglycemia in the 300s in a patient with dementia
-Follow-up with Dr. White (administrative support coordinator) after discharge
Advanced Dementia
-Continue Risperdal
Anxiety/Depression
-Continue Lexapro
DVT Prophylaxis: SCDs and Lovenox.
Code Status: DNR
Anticipated Discharge: 24 - 48 hours
Subjective/Interval History
-
Date of Service: July 26, 2024
Patient was seen and examined. She was more alert and interactive today, and denied any new symptoms or complaints.
Objective Data
-
Labs:
Laboratory Results
07/26/24 07/26/24
06:57 13:20
WBC 4.1 L
Hgb 12.2
Hct 34.6 L
Plt Count 208
Sodium 142
Potassium 3.9
Chloride 103
Carbon Dioxide 28
BUN 12
Creatinine 0.4 L
Glucose 190 H Pending
Calcium 9.0
Vital Signs:
Vital Signs
Temp Pulse Resp BP Pulse Ox
98.3 F 45 18 161/74 95
07/26/24 08:01 07/26/24 08:01 07/26/24 08:01 07/26/24 08:01 07/26/24 08:01
I&O
07/25/24 07/26/24 07/27/24
06:59 06:59 06:59
Intake Total 270 / 270 240 / 240
Balance 270 / 270 240 / 240
[2024-07-26 14:12] LABS: Glucose 492 mg/dl (70-99)
[2024-07-26] MEDS: NOVOLOG FLEXPEN-LOW RESISTANCE 6 UNITS SC (14:22)
--- NOTE | 2024-07-26 15:05 | CM ---
Confused patient who lives at [facility] for last year. Spoke with Vito.He said she is assisted in all activates of daily living.She uses a cane sometimes. He said she was on hospice unsure of agency.Hospice now revoted.Pt is
incontinent at [facility].
Had VN in past . No SNF hx
[facility]
PCP Dr Castellon
PLAN Return to [facility]
[2024-07-26] MEDS: ATIVAN 1 MG PO (15:37)
[2024-07-26 15:49] VITALS: BP 147/73
[2024-07-26 17:30] LABS: Glucose - Point of Care 171 mg/dl (70-99)
[2024-07-26 17:34] LABS: Urine Albumin Negative (Neg - Trace); Urine Bilirubin Negative (Negative); Urine Character Clear (Clear); Urine Color Yellow; Urine Glucose Trace (Negative); Urine Ketone Negative (Negative); Urine Leukocyte 2+ (Negative); Urine Nitrite Negative (Negative); Urine Occult Blood Negative (Negative); Urine Specific Gravity 1.005 (<1.030); Urine Urobilinogen Negative (Neg - 1+)
[2024-07-26 17:47] LABS: Urine Squamous Cell >30 /LPF (Few)
[2024-07-26 17:48] LABS: Urine Bacteria Many (Negative); Urine Red Blood Cell 0-2 /HPF (0-2); Urine White Cell 26-30 /HPF (0-5)
[2024-07-26] MEDS: LOVENOX 40 MG SC (18:26)
[2024-07-26] MEDS: NOVOLOG FLEXPEN 7 UNITS SC (18:26)
[2024-07-26] MEDS: NOVOLOG FLEXPEN-LOW RESISTANCE 1 UNITS SC (18:27)
[2024-07-26] MEDS: FLOMAX 0.4 MG PO (21:29)
[2024-07-26 21:58] LABS: Glucose - Point of Care 93 mg/dl (70-99)
[2024-07-26 23:00] VITALS: BP 136/71
[2024-07-27 06:00] VITALS: BMI 18.4
--- NOTE | 2024-07-27 06:23 | PTCARENOTE ---
Oral care was not done because patient was asleep and we unfortunately did not get it done beforehand.
[2024-07-27 07:51] VITALS: BP 151/70
[2024-07-27 08:40] LABS: Glucose - Point of Care 303 mg/dl (70-99)
[2024-07-27 09:51] LABS: Hematocrit 34.7 % (37.0-47.0); Hemoglobin 12.3 g/dL (12.0-16.0); Mean Corp Hgb Conc. 35.4 g/dL (33.0-37.0); Mean Corpuscular Hgb 32.2 pg (27.0-31.0); Mean Corpuscular Volume 90.8 fL (81.0-99.0); Mean Platelet Volume 9.2 fL (7.4-10.4); Platelet Count 209 10^3/uL (130-400); Red Blood Cell Count 3.82 10^6/uL (4.20-5.40); Red Cell Dist. Width 13.1 % (11.5-14.5); White Blood Cell Count 3.9 10^3/uL (4.8-10.8)
[2024-07-27] MEDS: NOVOLOG FLEXPEN-LOW RESISTANCE 4 UNITS SC (09:55)
[2024-07-27] MEDS: LEXAPRO 5 MG PO (09:56)
[2024-07-27] MEDS: NOVOLOG FLEXPEN 7 UNITS SC (09:56)
[2024-07-27] MEDS: RISPERDAL 0.25 MG PO ×2 (09:56→16:44)
[2024-07-27] MEDS: LANTUS 0.18 UNITS SC (09:59)
[2024-07-27 10:20] LABS: Blood Urea Nitrogen 13 mg/dl (7-17); Calcium 8.9 mg/dl (8.4-10.2); Carbon Dioxide 29 mmol/L (22-30); Chloride 102 mmol/L (98-107); Estimated Creatinine Clearance 67 ml/min; Glucose 278 mg/dl (70-99); Sodium 142 mmol/L (135-145); eGFR > 60.00
[2024-07-27 12:13] LABS: Glucose - Point of Care 423 mg/dl (70-99)
[2024-07-27] MEDS: NOVOLOG FLEXPEN-LOW RESISTANCE 6 UNITS SC (12:29)
[2024-07-27] MEDS: NOVOLOG FLEXPEN SC (12:34)
--- NOTE | 2024-07-27 12:35 | W.PN.HOSP.TC ---
Today's Communication/Plan
-
Glucose readings are better
Miralax -- monitor for bowel movements closely, may need suppository, senna/docusate addition
Assessment / Plan
Assessment / Plan
Physical Exam
General: Not in acute distress
HEENT: Normocephalic
Respiratory: Clear to Auscultation Bilaterally
Cardiac: S1/S2 and Regular Rhythm
GI: Soft and Non Tender. Positive bowel sounds.
Musculoskeletal: No Cyanosis and No Edema
Skin: Warm and Dry
Neuro: Awake and Alert
Psych: Calm

Assessment/Plan
Seizure secondary to Hypoglycemia
Type 1 Diabetes Mellitus
-18 units daily Lantus as ordered
-Premeal Insulin increased to 7 units-->9 units-->10 units for better glucose control -- goal is to at least bring down the glucose readings to the 300s prior to discharge
-Continue accu-checks
-Discussed case with carburizer on 07/25/24 given patient's lethargy but no need for ICU right now, can maintain on subq Insulin
-On 07/26/24, I spoke with on-call manager deli who recommended bringing up the premeal Insulin (premeal Insulin more important than long-acting Insulin in Type 1 DM) given patient is eating (which nurse confirmed), it is
acceptable to have hyperglycemia in the 300s in a patient with dementia
-Follow-up with Dr. White (manager deli) after discharge
Concern for Constipation
-Miralax added 07/27/24
-Monitor for bowel movements, may need Dulcolax suppository+Senna/Docusate
Overnight (07/26/24 to 07/27/24) -- patient reported to be very confused, getting out of bed, and walking into other rooms and therefore a Medsitter was placed.
-Medsitter was placed
Advanced Dementia
-Continue Risperdal
Anxiety/Depression
-Continue Lexapro
DVT Prophylaxis: SCDs and Lovenox.
Code Status: DNR
Anticipated Discharge: Within 24 hours
Subjective/Interval History
-
Date of Service: July 27, 2024
Patient was seen and examined. Overnight, she was reported to be very confused, getting out of bed, and walking into other rooms and therefore a Medsitter was placed.
Objective Data
-
Labs:
Laboratory Results
07/27/24 07/27/24 07/27/24
08:06 08:07 12:22
WBC 3.9 L
Hgb 12.3
Hct 34.7 L
Plt Count 209
Sodium 142
Potassium 4.0
Chloride 102
Carbon Dioxide 29
BUN 13
Creatinine 0.5 L
Glucose 278 H Pending
Calcium 8.9
Vital Signs:
Vital Signs
Temp Pulse Resp BP Pulse Ox
98.5 F 46 20 151/70 94
07/27/24 07:51 07/27/24 07:51 07/27/24 07:51 07/27/24 07:51 07/27/24 07:51
I&O
07/26/24 07/27/24 07/28/24
06:59 06:59 06:59
Intake Total 240 / 240 120 / 120
Balance 240 / 240 120 / 120
[2024-07-27 12:39] LABS: Glucose 413 mg/dl (70-99)
[2024-07-27] MEDS: NOVOLOG FLEXPEN 9 UNITS SC ×2 (12:40→16:44)
[2024-07-27 15:18] LABS: Glucose - Point of Care 255 mg/dl (70-99)
[2024-07-27 16:05] VITALS: BP 110/55
[2024-07-27] MEDS: NOVOLOG FLEXPEN-LOW RESISTANCE 3 UNITS SC (16:45)
[2024-07-27] MEDS: LOVENOX 40 MG SC (16:46)
[2024-07-27] MEDS: MIRALAX 17 GRAMS PO (17:00)
[2024-07-27] MEDS: ATIVAN 1 MG PO (19:59)
[2024-07-27 21:09] LABS: Glucose - Point of Care 103 mg/dl (70-99)
[2024-07-27] MEDS: RISPERDAL M-TAB (ORALLY DISINTEGRATING) 0.5 MG PO (21:59)
[2024-07-27] MEDS: FLOMAX PO (22:04)
[2024-07-28 00:09] VITALS: BP 125/72
[2024-07-28] MEDS: RISPERDAL 0.25 MG PO ×4 (00:36→22:35)
[2024-07-28 06:00] VITALS: BMI 19.2
[2024-07-28 07:15] VITALS: BP 150/74
[2024-07-28 07:34] LABS: Hematocrit 35.3 % (37.0-47.0); Hemoglobin 12.6 g/dL (12.0-16.0); Mean Corp Hgb Conc. 35.7 g/dL (33.0-37.0); Mean Corpuscular Hgb 33.2 pg (27.0-31.0); Mean Corpuscular Volume 92.9 fL (81.0-99.0); Mean Platelet Volume 9.4 fL (7.4-10.4); Platelet Count 205 10^3/uL (130-400); Red Cell Dist. Width 13.1 % (11.5-14.5); White Blood Cell Count 4.1 10^3/uL (4.8-10.8)
[2024-07-28 07:42] LABS: Glucose - Point of Care 167 mg/dl (70-99)
[2024-07-28 08:07] LABS: Blood Urea Nitrogen 16 mg/dl (7-17); Calcium 9.4 mg/dl (8.4-10.2); Carbon Dioxide 31 mmol/L (22-30); Chloride 103 mmol/L (98-107); Estimated Creatinine Clearance 70 ml/min; Glucose 129 mg/dl (70-99); Magnesium 1.8 mg/dl (1.6-2.3); Phosphorus 4.3 mg/dl (2.5-4.5); Sodium 142 mmol/L (135-145); eGFR > 60.00
[2024-07-28] MEDS: LANTUS 0.18 UNITS SC (09:06)
[2024-07-28] MEDS: MIRALAX 17 GRAMS PO (09:06)
[2024-07-28] MEDS: NOVOLOG FLEXPEN 10 UNITS SC (09:07)
[2024-07-28] MEDS: LEXAPRO 5 MG PO (09:07)
[2024-07-28] MEDS: NOVOLOG FLEXPEN-LOW RESISTANCE 1 UNITS SC (09:08)
--- NOTE | 2024-07-28 09:23 | PN.DE.MGMTRT ---
Insulin Management
- -
07/28/2024 Diabetes Management F/U:
Patient admitted 07/24 with hypoglycemia, 30, seizure. Recently admitted twice in February and once in December for DKA. Resides in [place], Dementia Unit. PMH HTN, dementia, urinary retention, type 1 diabetes. Prior to admission chart indicates patient
insulin doses: 25 units Lantus in AM with sliding scale NovoLog 12 units with meals. A1C is 7, cr .4 eGFR > 60.
Patient is awake, confused unable to participate in discussion regarding diabetes.
Noted for hyperglycemia with premeal glucose range of 255 to 423, requiring 1-6 units of additional corrective insulin
FBG 129. Will increase AC NovoLog to 12 units as outpatient dose and cont Lantus 18 units @ HS and low corrective with meals.
Discussed with patients nurse.
Diabetes History
- -
Type of Diabetes: 1
Pre-Admission Diabetes Regimen
07/27/24 07/28/24
08:06 06:53
Creatinine 0.5 L 0.5 L
Lab Results
Hemoglobin A1c 7.0 % (4.0-5.6) H 07/25/24 06:32
Insulin Pump Settings
IP Diabetes Regimen
07/27/24 07/27/24 07/27/24
08:06 12:10 12:22
Glucose 278 H 413 H
POC Glucose 423 H
07/27/24 07/27/24 07/28/24
15:16 21:08 06:53
Glucose 129 H
POC Glucose 255 H 103 H
07/28/24
07:41
Glucose
POC Glucose 167 H
Meal type: Dinner
Meal type: Lunch
Amount consumed: 100%
Amount consumed: 100%
Patient Education
[2024-07-28 11:32] LABS: Glucose - Point of Care 348 mg/dl (70-99)
--- NOTE | 2024-07-28 12:26 | W.PN.HOSP.TC ---
Addendum entered and electronically signed by Delano Champion MD 07/29/24 08:00:
#Patient meets ASPEN criteria for severe protein calorie malnutrition
#...due to a loss of more than 7.5% body weight in 3 months and
#...less than 75% of nutrient needs meet for longer than 1 month.
Original Note:
Today's Communication/Plan
-
DC
Assessment / Plan
Assessment / Plan

Assessment/Plan
Seizure secondary to Hypoglycemia
Type 1 Diabetes Mellitus
- no further hypoglycemia's.
-Ongoing adjustments to her insulin regimen.
-No evidence of DKA.
Concern for Constipation
Advanced Dementia Without behavioral disturbances
- Needs constant redirections
-Continue Risperdal
Anxiety/Depression
-Continue Lexapro
Medically stable for dc back to her facility today
DVT Prophylaxis: SCDs and Lovenox.
Code Status: DNR
Anticipated Discharge: Today
Subjective/Interval History
-
Date of Service: July 28, 2024
Patient pleasantly confused.
She is alert But not oriented to herself not the place nor person.
Objective Data
-
Labs:
Laboratory Results
07/28/24
06:53
WBC 4.1 L
Hgb 12.6
Hct 35.3 L
Plt Count 205
Sodium 142
Potassium 4.0
Chloride 103
Carbon Dioxide 31 H
BUN 16
Creatinine 0.5 L
Glucose 129 H
Calcium 9.4
Vital Signs:
Vital Signs
Temp Pulse Resp BP Pulse Ox
97.7 F 49 16 150/74 95
07/28/24 07:15 07/28/24 07:15 07/28/24 07:15 07/28/24 07:15 07/28/24 07:15
I&O
07/27/24 07/28/24 07/29/24
06:59 06:59 06:59
Intake Total 120 / 120
Output Total 960 / 960
Balance 120 / 120 -960 / -960
Review of Systems
-
Unable to obtain full review of systems at this time due to: Dementia and Other ( unreliable review of system due to her dementia)
Respiratory: Denies Trouble Breathing
Cardiac: Denies Chest Pain
Abdomen/GI: Denies Abdominal Pain, Nausea or Vomiting
Physical Exam
-
General: No Apparent Distress and Comfortable
Respiratory: Non Labored Respirations; Negative Accessory Resp Muscle Use
Cardiac: Regular Rhythm and S1/S2; Negative Tachycardic
GI: Soft and Nontender
Neuro: Awake and Alert; Negative Oriented, No Motor Deficits, Tremors, Slurred Speech or Facial Droop
Psych: Calm and Confused; Negative Agitated
Data Reviewed
-
Labs: Labs Reviewed by me
--- NOTE | 2024-07-28 12:33 | W.DS.TRANS ---
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
-
Discharge Instructions:
Discharge Diagnosis/Procedures seizures secondary to severe hypoglycemia;
diabetes mellitus type 1 on insulin
Diet Diabetic, Carb Controlled
Activity With assistance
Driving Restrictions No driving
Bathing Restrictions None
Instructions:
Stand-Alone Forms:
Changes to Home Medications: Yes
Discharge Medications:
DC Medications w/original date entered in [facility]
insulin lispro 100 unit/mL subcutaneous pen (Humalog KwikPen (U-100) Insulin) 12 sliding scale dose SC ACHS Diabetes 02/10/24
escitalopram oxalate 5 mg tablet 5 mg PO DAILY Mental Health 03/07/24
risperidone 0.25 mg tablet 0.25 mg PO Q8H Neurological Condition 03/07/24
tamsulosin 0.4 mg capsule 0.4 mg PO HS Urinary Issue 03/26/24
acetaminophen 500 mg tablet (Tylenol Extra Strength) 1,000 mg PO Q4HPRN PRN mild pain 04/22/24
bisacodyl 10 mg rectal suppository (Dulcolax (bisacodyl)) 10 mg MN [id number] PRN if no bm on 3rd day 04/22/24
hyoscyamine sulfate 0.125 mg sublingual tablet 0.125 mg sublingual Q4HPRN PRN secretions 04/22/24
lorazepam 2 mg/mL oral concentrate (Lorazepam Intensol) 1 mg sublingual Q4HPRN PRN anxiety 04/22/24
sennosides 8.6 mg tablet (senna) 8.6 mg PO DAILYPRN PRN if no bm on 3rd day 04/22/24
ondansetron 4 mg disintegrating tablet 4 mg PO Q4HPRN PRN nausea/vomiting 07/24/24
triamcinolone acetonide 0.1 % topical cream 1 applic topical BID Skin Issues 07/24/24
insulin glargine 100 unit/mL (3 mL) subcutaneous pen (Lantus Solostar U-100 Insulin) 18 unit (0.18 mL) SC DAILY Diabetes #0 mL 07/28/24
polyethylene glycol 3350 17 gram oral powder packet (HealthyLax) 17 g PO DAILY #14 ea 07/28/24
Home Medication Changes
decrease dose of Lantus from 25 to 18 units
Pending Results: No
[2024-07-28] MEDS: NOVOLOG FLEXPEN 12 UNITS SC ×2 (12:47→17:17)
[2024-07-28] MEDS: NOVOLOG FLEXPEN-LOW RESISTANCE 4 UNITS SC (12:48)
--- NOTE | 2024-07-28 14:03 | PTCARENOTE ---
Pt unable to follow commands for neuro exam because of cognitive impairment but observed walking with PT in hallway with a steady gait. Pt able to grasp table and walker with no deficits.
[2024-07-28 15:22] VITALS: BP 129/67
[2024-07-28 16:06] LABS: Glucose - Point of Care 134 mg/dl (70-99)
--- NOTE | 2024-07-28 16:40 | CM ---
Reviewed PT/OT. Per therapy patient close to baseline, Will confirm that [facility] can take patient back at current level of functioning.
Plan: Case management will continue to follow and assist with discharge planning. Tentative back to [facility].
--- NOTE | 2024-07-28 16:56 | PN.CDI ---
CDI
- -
CDI:
Physician Documentation Request
Admit Date: 07/24/24 20:24
Dear Doctor Akira,
Please review the following and provide your response in the progress notes.
Clinical Indicators:
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: BMI 18.9 (normal)
Current BW: (07/25) 115 lbs 3.2 oz BMI: 18.9 (normal)
#Patient meets ASPEN criteria for severe protein calorie malnutrition
#...due to a loss of more than 7.5% body weight in 3 months and
#...less than 75% of nutrient needs meet for longer than 1 month.
Based on the above information and your assessment, which of the following most accurately represents the patient's nutritional status?
Severe protein calorie malnutrition
Other (please specify, ie moderate, mild, etc.)
[place] Criteria ([facility] Hospitalist 2017)
2 or more criteria must be present for either
non severe or severe malnutrition
Note that the criteria differs related to the
presence of an acute or chronic illness
Acute Illness Chronic Illness
Energy Intake Non Severe: <75% for >7 days Non Severe: <75% for >1 month
Severe: <50% for >5 days Severe: <75% for >1 month
Weight Loss Non Severe: 1-2% over 1 week Non Severe: 5% over 1 month
5% over 1 month 7.5% over 3 months
7.5% over 3 months 10% over 6 months
1 year N/A 20% over 1 year
Severe: >2% over 1 week Severe: >5% over 1 month
>5% over 1 month >7.5% over 3 months
>7.5% over 3 months >10% over 6 months
1 year N/A >20% over 1 year
Body Fat Non Severe: Mild Decrease Non Severe: Mild Loss
Severe: Moderate Decrease Severe: Severe Loss
Muscle Mass Non Severe: Mild Decrease Non Severe: Mild Loss
Severe: Moderate Decrease Severe: Severe Loss
Use of terms such as suspected, likely, concern for, or probable (associated with a specific diagnosis that is being evaluated, monitored, or treated as if it exists) are acceptable and can be coded in the inpatient setting, when documented at the
time of discharge.
Thank you,
Saskia Hu RN BSN CCDS
CDI Specialist
please contact via tiger text
Please use your independent medical judgment in providing your response.
[2024-07-28] MEDS: NOVOLOG FLEXPEN-LOW RESISTANCE SC (17:17)
[2024-07-28] MEDS: LOVENOX 40 MG SC (17:56)
[2024-07-28] MEDS: ATIVAN 1 MG PO (19:46)
[2024-07-28] MEDS: FLOMAX 0.4 MG PO (19:46)
[2024-07-28 20:58] LABS: Glucose - Point of Care 93 mg/dl (70-99)
[2024-07-28 23:00] VITALS: BP 132/72
[2024-07-29 06:00] VITALS: BMI 18.5
[2024-07-29 07:13] VITALS: BP 120/59
--- NOTE | 2024-07-29 07:38 | PN.DE.MGMTRT ---
Insulin Management
- -
07/29/2024 Diabetes Management Follow up:
Patient admitted 07/24 with hypoglycemia, 30, seizure. Recently admitted twice in February and once in December for DKA. Resides in [place], Dementia Unit. PMH HTN, dementia, urinary retention, type 1 diabetes. Prior to admission chart indicates patient
insulin doses: 25 units Lantus in AM with sliding scale NovoLog 12 units with meals. A1C is 7, cr .4 eGFR > 60.
Patient is awake, confused unable to participate in discussion regarding diabetes.
AC novolog increased to 12 units 07/28, hs glucose 93.
07/29 Fasting glucose 256. Received 18 units lantus with novolog 12 standing and 3 corrective. Pre lunch glucose 416 venous. Will increase to 20 units lantus in AM with 12 units novolog AC.
Discussed with patients nurse.
Diabetes History
- -
Type of Diabetes: 2 requiring insulin
Pre-Admission Diabetes Regimen
07/28/24
06:53
Creatinine 0.5 L
Lab Results
Hemoglobin A1c 7.0 % (4.0-5.6) H 07/25/24 06:32
Insulin Pump Settings
IP Diabetes Regimen
07/28/24 07/28/24 07/28/24
06:53 07:41 11:31
Glucose 129 H
POC Glucose 167 H 348 H
07/28/24 07/28/24
16:04 20:57
Glucose
POC Glucose 134 H 93
Meal type: Lunch
Meal type: Breakfast
Amount consumed: 100%
Amount consumed: 0
Patient Education
[2024-07-29 07:46] LABS: Glucose - Point of Care 256 mg/dl (70-99)
[2024-07-29 07:53] LABS: Hemoglobin 12.4 g/dL (12.0-16.0); Mean Corp Hgb Conc. 35.4 g/dL (33.0-37.0); Mean Corpuscular Hgb 33.2 pg (27.0-31.0); Mean Corpuscular Volume 93.6 fL (81.0-99.0); Mean Platelet Volume 9.6 fL (7.4-10.4); Platelet Count 209 10^3/uL (130-400); Red Blood Cell Count 3.74 10^6/uL (4.20-5.40); Red Cell Dist. Width 13.2 % (11.5-14.5)
[2024-07-29 07:57] VITALS: BP 135/77
[2024-07-29 08:33] LABS: Blood Urea Nitrogen 16 mg/dl (7-17); Calcium 9.1 mg/dl (8.4-10.2); Carbon Dioxide 33 mmol/L (22-30); Chloride 100 mmol/L (98-107); Estimated Creatinine Clearance 68 ml/min; Glucose 171 mg/dl (70-99); Potassium 4.6 mmol/L (3.5-5.1); Sodium 141 mmol/L (135-145); eGFR > 60.00
[2024-07-29] MEDS: RISPERDAL 0.25 MG PO ×3 (08:59→23:50)
[2024-07-29] MEDS: LANTUS 0.18 UNITS SC (09:00)
[2024-07-29] MEDS: MIRALAX 17 GRAMS PO (09:00)
[2024-07-29] MEDS: LEXAPRO 5 MG PO (09:00)
[2024-07-29] MEDS: NOVOLOG FLEXPEN-LOW RESISTANCE 3 UNITS SC (10:08)
[2024-07-29] MEDS: NOVOLOG FLEXPEN 12 UNITS SC ×3 (10:08→18:52)
[2024-07-29 11:22] LABS: Glucose - Point of Care 432 mg/dl (70-99)
--- NOTE | 2024-07-29 11:49 | W.PN.HOSP.TC ---
Today's Communication/Plan
-
DC
Assessment / Plan
Assessment / Plan

Assessment/Plan
Seizure secondary to Hypoglycemia
Type 1 Diabetes Mellitus
- no further hypoglycemia's.
-Ongoing adjustments to her insulin regimen.
-No evidence of DKA.
Possible UTI-patient is severely demented unable to tell her symptoms. She has pyuria and also bacterial isolates. Sensitivities noted. Tx with oral Augmentin for 5 days.
Concern for Constipation
Advanced Dementia Without behavioral disturbances
- Needs constant redirections
-Continue Risperdal
Anxiety/Depression
-Continue Lexapro
Medically stable for dc back to her facility today
DVT Prophylaxis: SCDs and Lovenox.
Code Status: DNR
Anticipated Discharge: Today
Subjective/Interval History
-
Date of Service: July 29, 2024
pleasantly confused. No overnight events.
Objective Data
-
Labs:
Laboratory Results
07/29/24 07/29/24
06:24 11:36
WBC 5.0
Hgb 12.4
Hct 35.0 L
Plt Count 209
Sodium 141
Potassium 4.6
Chloride 100
Carbon Dioxide 33 H
BUN 16
Creatinine 0.6
Glucose 171 H Pending
Calcium 9.1
Vital Signs:
Vital Signs
Temp Pulse Resp BP Pulse Ox
98.4 F 61 16 135/77 95
07/29/24 07:57 07/29/24 07:57 07/29/24 07:57 07/29/24 07:57 07/29/24 08:00
I&O
07/28/24 07/29/24 07/30/24
06:59 06:59 06:59
Intake Total 600 / 600
Output Total 960 / 960
Balance -960 / -960 600 / 600
Review of Systems
-
Unable to obtain full review of systems at this time due to: Dementia
Physical Exam
-
General: No Apparent Distress
Respiratory: Non Labored Respirations; Negative Accessory Resp Muscle Use
Cardiac: Regular Rhythm and S1/S2; Negative Tachycardic
GI: Soft and Nontender
Neuro: Awake, Alert and Oriented (self;constantly smiles )
Psych: Calm and Confused; Negative Agitated
--- NOTE | 2024-07-29 11:55 | W.DS.TRANS ---
DC Summary - [employer]
-
Discharge Instructions:
Discharge Diagnosis/Procedures seizures secondary to severe hypoglycemia;
diabetes mellitus type 1 on insulin; Possible
UTI
Diet Diabetic, Carb Controlled
Activity With assistance
Driving Restrictions No driving
Bathing Restrictions None
Instructions:
Stand-Alone Forms:
Changes to Home Medications: Yes
Discharge Medications:
DC Medications w/original date entered in [facility]
insulin lispro 100 unit/mL subcutaneous pen (Humalog KwikPen (U-100) Insulin) 12 sliding scale dose SC ACHS Diabetes 02/10/24
escitalopram oxalate 5 mg tablet 5 mg PO DAILY Mental Health 03/07/24
risperidone 0.25 mg tablet 0.25 mg PO Q8H Neurological Condition 03/07/24
tamsulosin 0.4 mg capsule 0.4 mg PO HS Urinary Issue 03/26/24
acetaminophen 500 mg tablet (Tylenol Extra Strength) 1,000 mg PO Q4HPRN PRN mild pain 04/22/24
bisacodyl 10 mg rectal suppository (Dulcolax (bisacodyl)) 10 mg FL [id number] PRN if no bm on 3rd day 04/22/24
hyoscyamine sulfate 0.125 mg sublingual tablet 0.125 mg sublingual Q4HPRN PRN secretions 04/22/24
lorazepam 2 mg/mL oral concentrate (Lorazepam Intensol) 1 mg sublingual Q4HPRN PRN anxiety 04/22/24
sennosides 8.6 mg tablet (senna) 8.6 mg PO DAILYPRN PRN if no bm on 3rd day 04/22/24
ondansetron 4 mg disintegrating tablet 4 mg PO Q4HPRN PRN nausea/vomiting 07/24/24
triamcinolone acetonide 0.1 % topical cream 1 applic topical BID Skin Issues 07/24/24
insulin glargine 100 unit/mL (3 mL) subcutaneous pen (Lantus Solostar U-100 Insulin) 18 unit (0.18 mL) SC DAILY Diabetes #0 mL 07/28/24
polyethylene glycol 3350 17 gram oral powder packet (HealthyLax) 17 g PO DAILY #14 ea 07/28/24
ciprofloxacin HCl 500 mg tablet 500 mg PO BID #10 tabs 07/29/24
Home Medication Changes
medication-ciprofloxacin
Change medication-decrease dose of Lantus from 25 to 18 units
Pending Results: No
[2024-07-29 12:08] LABS: Glucose 416 mg/dl (70-99)
[2024-07-29 13:13] LABS: Glucose - Point of Care 320 mg/dl (70-99)
[2024-07-29] MEDS: NOVOLOG FLEXPEN-LOW RESISTANCE 4 UNITS SC (13:33)
[2024-07-29 13:48] VITALS: BP 109/69; PULSE 71
[2024-07-29 15:29] VITALS: BP 128/70
[2024-07-29 16:04] LABS: Glucose - Point of Care 199 mg/dl (70-99)
--- NOTE | 2024-07-29 16:25 | CM ---
Reviewed chart, per therapy notes patient at baseline. Spoke with RN who stated that evening glucose needed to be taken as patient's sugar was high and therefore would not be able to transfer back until after that and she owns, therefore it may
be difficult for her to transfer.
Will call [facility] in the am if patient still medically cleared to be discharged.
Plan: Case management will continue to follow and assist with discharge planning. [facility] upon medical clearance.
[2024-07-29] MEDS: LOVENOX 40 MG SC (18:53)
[2024-07-29] MEDS: NOVOLOG FLEXPEN-LOW RESISTANCE 1 UNITS SC (18:53)
[2024-07-29 19:43] LABS: Glucose - Point of Care 211 mg/dl (70-99)
[2024-07-29] MEDS: ATIVAN 1 MG PO (20:24)
[2024-07-29 22:00] VITALS: BP 115/62
[2024-07-29 22:02] LABS: Glucose - Point of Care 85 mg/dl (70-99)
[2024-07-29] MEDS: FLOMAX 0.4 MG PO (22:07)
[2024-07-30 04:07] LABS: Glucose - Point of Care 172 mg/dl (70-99)
[2024-07-30 06:00] VITALS: BMI 19.3
[2024-07-30 07:00] VITALS: BP 118/53
--- NOTE | 2024-07-30 07:22 | PN.DE.MGMTRT ---
Insulin Management
- -
07/30/2024 Diabetes Management Follow up:
Patient admitted 07/24 with hypoglycemia, 30, seizure. Recently admitted twice in February and once in December for DKA. Resides in [place], Dementia Unit. PMH HTN, dementia, urinary retention, type 1 diabetes. Prior to admission chart indicates patient
insulin doses: 25 units Lantus in AM with sliding scale NovoLog 12 units with meals. A1C is 7, cr .4 eGFR > 60.
Patient is awake, confused unable to participate in discussion regarding diabetes.
AC novolog increased to 12 units 07/28, hs glucose 93.
07/29 Fasting glucose 256. Received 18 units lantus with novolog 12 standing and 3 corrective. Pre lunch glucose 416 venous.
Lantus increased to 20 units in AM, first dose 07/30, with 12 units novolog AC. Fasting glucose this AM 172 venous @ 4:05am, 7:48 POC 377, 10:30 POC 389. Concerned that patient is eating foods between meal but nurse does not think that is the case.
Discussed with patients nurse.
Diabetes History
- -
Type of Diabetes: 2 requiring insulin
Pre-Admission Diabetes Regimen
07/29/24
06:
Creatinine 0.6
Lab Results
Hemoglobin A1c 7.0 % (4.0-5.6) H 07/25/24 06:32
Insulin Pump Settings
IP Diabetes Regimen
07/29/24 07/29/24 07/29/24
07:44 11:19
Glucose 171 H
POC Glucose 256 H 432 H
07/29/24 07/29/24 07/29/24
11:36 13:12 16:03
Glucose 416 H
POC Glucose 320 H 199 H
07/29/24 07/29/24 07/30/24
19:41 21:59 04:05
Glucose
POC Glucose 211 H 85 172 H
Meal type: Dinner
Meal type: Lunch
Meal type: Breakfast
Amount consumed: 100%
Amount consumed: 100%
Amount consumed: 100%
Patient Education
[2024-07-30 07:50] LABS: Glucose - Point of Care 377 mg/dl (70-99)
[2024-07-30] MEDS: LEXAPRO 5 MG PO (10:26)
[2024-07-30] MEDS: RISPERDAL 0.25 MG PO ×2 (10:26→16:25)
[2024-07-30] MEDS: MIRALAX 17 GRAMS PO (10:26)
[2024-07-30] MEDS: LANTUS 0.2 UNITS SC (10:30)
[2024-07-30 10:31] LABS: Glucose - Point of Care 389 mg/dl (70-99)
[2024-07-30] MEDS: NOVOLOG FLEXPEN 12 UNITS SC ×3 (10:31→17:23)
[2024-07-30] MEDS: NOVOLOG FLEXPEN-LOW RESISTANCE 5 UNITS SC (10:31)
--- NOTE | 2024-07-30 12:41 | CM ---
Reviewed chart, patient medically cleared for discharge. Placed a call to patient's spouse to update. He stated that he would be unable to pick her up as he is Covid+
Placed a call to [facility] and spoke with Costa who is one of patient's nurses. She confirmed that patient can come back today, and expressed no concerns. # For report [phone] and fax # [phone]
IMM was reviewed with patient's spouse, signed now on chart.
Transfer Sheet and Medical necessity [facility]
Plan: Case management will continue to follow and assist with discharge planning. Back to the [facility] today.
--- NOTE | 2024-07-30 13:03 | W.PN.HOSP.TC ---
Today's Communication/Plan
-
DC planning
Assessment / Plan
Assessment / Plan

Assessment/Plan
Seizure secondary to Hypoglycemia
Type 1 Diabetes Mellitus
- no further hypoglycemia's.
-Ongoing adjustments to her insulin regimen.
-No evidence of DKA.
- HbA1c 7.0 on adx
Possible UTI-patient is severely demented unable to tell her symptoms. She has pyuria and also bacterial isolates. Sensitivities noted. Tx with oral cipro.
Concern for Constipation
Advanced Dementia Without behavioral disturbances
- Needs constant redirections
-Continue Risperdal
Anxiety/Depression
-Continue Lexapro
Medically stable for dc back to her facility today
DVT Prophylaxis: SCDs and Lovenox.
Code Status: DNR
DC to facility if pre meal blood sugars <250
Anticipated Discharge: Today
Subjective/Interval History
-
Date of Service: July 30, 2024
Pleasantly confused.
Voices no specific complaints.
DW RN - no overnight events
Objective Data
-
Vital Signs:
Vital Signs
Temp Pulse Resp BP Pulse Ox
98.2 F 53 16 118/53 94
07/30/24 07:00 07/30/24 07:00 07/30/24 07:00 07/30/24 07:00 07/30/24 07:00
I&O
07/29/24 07/30/24 07/31/24
06:59 06:59 06:59
Intake Total 600 / 600 950 / 950
Balance 600 / 600 950 / 950
Review of Systems
-
Unable to obtain full review of systems at this time due to: Dementia
Physical Exam
-
General: Comfortable
Respiratory: Non Labored Respirations; Negative Accessory Resp Muscle Use
Cardiac: Regular Rhythm and S1/S2
GI: Soft, Nontender, Nondistended and Normal Bowel Sounds
Neuro: Awake and Alert; Negative Oriented
Psych: Calm and Confused; Negative Agitated
[2024-07-30 13:35] LABS: Glucose - Point of Care 256 mg/dl (70-99)
[2024-07-30] MEDS: NOVOLOG FLEXPEN-LOW RESISTANCE 3 UNITS SC (13:38)
[2024-07-30] MEDS: KEFLEX 500 MG PO (14:02)
[2024-07-30 15:00] VITALS: BP 116/61
[2024-07-30 17:09] LABS: Glucose - Point of Care 103 mg/dl (70-99)
[2024-07-30] MEDS: NOVOLOG FLEXPEN-LOW RESISTANCE SC (17:14)
[2024-07-30] MEDS: LOVENOX SC (17:14)
== END 2024-07-30 18:23 | DRG 637 ==
LOC: 3 WEST ACU 20:24
PROVIDERS: Hospitalist; Physician Assistant; Physician Assistant Medical; ADMITTING PHYSICIAN Hospitalist; ATTENDING PHYSICIAN Internal Medicine; EMERGENCY PHYSICIAN Student in an Organized Health Care Education/Training Program; FAMILY PHYSICIAN Internal Medicine
DX: E10.649 Type 1 diabetes mellitus with hypoglycemia without coma (principal); E43 Unspecified severe protein-calorie malnutrition; Z68.1 Body mass index [BMI] 19.9 or less, adult; G40.89 Other seizures; F03.93 Unspecified dementia, unspecified severity, with mood disturbance; F03.94 Unspecified dementia, unspecified severity, with anxiety; F32.A Depression, unspecified; I10 Essential (primary) hypertension; Z66 Do not resuscitate; Z79.4 Long term (current) use of insulin; Z79.899 Other long term (current) drug therapy; Z88.0 Allergy status to penicillin
CPT/HCPCS: 36600; 80048; 80053; 81003; 81015; 82040; 82805; 82947; 82962; 83036; 83735; 84100; 85025; 85027; 87070; 87077; 87086; 87088; 87186; 92610; 93005; 97163; 97166; 97168; 97530; 99285

== ENCOUNTER 2024-10-14 21:29 | Emergency (ER) | payer MEDICARE, OTHER, SELFPAY ==
[2024-10-14 21:31] VITALS: BP 148/76
[2024-10-14 21:32] VITALS: BP 148/76
--- NOTE | 2024-10-14 23:47 | ED.GENMED ---
History of Present Illness
General
Chief Complaint: Foreign Body Ingestion
Source: patient
Exam Limitations: none
Nursing documentation reviewed up to this point in time: agreed with
History of Present Illness
History of Present Illness:
Pleasant 74-year-old female presents from the [facility] dementia unit. She was sent in because nurses found a tube of zinc paste in her possession. They did notice some of the paste around her lips. Since patient has dementia she is a
poor historian and unable to verbalize what she did with the zinc paste. Patient has no complaints. She appears to be in no distress. The tube was weighed in less than 2 ounces total was missing from the tube. It is unknown how much was used
prior to this event.
Past History
Past History
ED Past Medical History: HTN, IDDM, Psychiatric (anxiety) and Other (Dementia)
ED Past Surgical History: Orthopedic
Social History
Tobacco: Non-smoker
Alcohol: None
Drug: None
Personal:
Living: detention
Review of Systems
Review of Systems
Allergies reviewed?: Yes
Other source history: ambulance crew and transfer record
All Other Systems: Not applicable
Phy Exam
General Physical Exam
General Presentation: well appearing and no apparent distress
General age: appears stated age
General Skin: warm and dry
General Habitus: elderly
General Mental: confused and usual mental status
General Hydration: appears well hydrated
ENT Exam
ENT Exam: EOMI, pharynx normal, neck supple and normocephalic
Eye Exam
Eye Exam: PERRL, cornea clear and conjunctiva normal
Cardiovascular Exam
Cardiovascular Exam: regular rate/rhythm, no edema, no murmur and normal peripheral pulses
Pulmonary Exam
Pulmonary Exam: lungs clear, no respiratory distress, no rales, no crackles, no rhonchi, no stridor, no wheezing and no cough
Gastrointestinal Exam
Gastrointestinal Exam: normal bowel sounds, non tender, soft, no organomegaly, no pulsatile mass and non distended
Neurological Exam
Neurological Exam: alert, oriented x3, no motor deficits and speech normal
Musculoskeletal Exam
Musculoskeletal Exam: full ROM and no edema
Skin Exam
Skin Exam: normal color, warm/dry, no rash and no petechia
Psychiatric Exam
Psychiatric Exam: labile
Course
Vital Signs
Initial and Last Documented VS:
Initial Vital Signs
BP Pulse Ox
148/76 96
10/14/24 21:31 10/14/24 21:31
Last Documented Vital Signs
Temp Pulse Resp BP Pulse Ox
97.6 F 53 14 148/76 97
10/14/24 21:32 10/14/24 23:45 10/14/24 23:45 10/14/24 21:32 10/14/24 22:00
*Critical Care Note
Total Time (30-74mins, 75-104mins- exclusive of procedures): Not Applicable
ED Attending Note
-
Portions of this chart may have been created with voice recognition software.� Occasional wrong word or��sound alike� substitutions may have occurred due to the inherent limitations of voice recognition software.
Discharge Plan
Departure
Patient Disposition: Longterm/SNF
Date of Disposition: 10/14/24
Time of Disposition: 23:50
Condition: Good
Discharge Problem:
zinc ingestion
Instructions: BLOOD PRESSURE, Nontoxic Ingestion
Prescriptions:
No Action
insulin lispro [Humalog KwikPen Insulin] 100 unit/mL Insulin Pen
12 sliding scale dose SC ACHS
Rx Instructions:
150-200=2u,201-250=4u,251-300=6u,301-350=8u,351-400=10u
risperidone 0.25 mg tablet
0.25 mg PO Q8H
escitalopram oxalate 5 mg tablet
5 mg PO DAILY
tamsulosin 0.4 mg capsule
0.4 mg PO HS
acetaminophen [Tylenol Extra Strength] 500 mg Tablet
1,000 mg PO Q4HPRN MDD 3000 mg PRN (Reason: mild pain)
bisacodyl [Dulcolax (bisacodyl)] 10 mg Suppository
10 mg OR [id number] PRN (Reason: if no bm on 3rd day)
hyoscyamine sulfate 0.125 mg Tablet, Sublingual
0.125 mg sublingual Q4HPRN PRN (Reason: secretions)
lorazepam [Lorazepam Intensol] 2 mg/mL Concentrate
1 mg sublingual Q4HPRN PRN (Reason: anxiety)
sennosides [senna] 8.6 mg Tablet
8.6 mg PO DAILYPRN PRN (Reason: if no bm on 3rd day)
triamcinolone acetonide 0.1 % Cream
1 applic TOPICAL BID
ondansetron 4 mg Tablet,Disintegrating
4 mg PO Q4HPRN PRN (Reason: nausea/vomiting)
polyethylene glycol 3350 [HealthyLax] 17 gram Powder In Packet
17 g PO DAILY Qty: 14 0RF
insulin glargine [Lantus Solostar U-100 Insulin] 100 unit/mL (3 mL) Insulin Pen
18 unit SC DAILY Qty: 0 0RF
cephalexin 500 mg capsule
500 mg PO BID Qty: 8 0RF
Rx Instructions:
4 days
Referrals:
Francine Castellon DO [Family Provider] -
Interventions
Interventions:
*General Assessment Last Done: 10/14/24 21:32
*Neglect/Abuse Screening Last Done: 10/14/24 21:32
ED- Fall Risk Assessment Last Done: 10/14/24 21:42
*ED COVID-19 Vaccine History Last Done: 10/14/24 21:42
WH-Slmftg-Plfbzfbzlr Assessment Last Done: 10/14/24 21:42
ED- Pulmonary Assessment Last Done: 12/17/24 21:42
ED-EENT Assessment Last Done: 10/14/24 21:42
Discharge Date and Time
Print Language: ARABIC
== END 2024-10-15 01:27 ==
LOC: EMR 21:29
PROVIDERS: EMERGENCY PHYSICIAN Student in an Organized Health Care Education/Training Program; FAMILY PHYSICIAN Internal Medicine
DX: T56.5X1A Toxic effect of zinc and its compounds, accidental (unintentional), initial encounter (principal); F03.90 Unspecified dementia, unspecified severity, without behavioral disturbance, psychotic disturbance, mood disturbance, and anxiety; I10 Essential (primary) hypertension; E11.9 Type 2 diabetes mellitus without complications
CPT/HCPCS: 99283

== ENCOUNTER 2024-12-21 18:29 | Emergency (ER) | payer MEDICARE, OTHER, SELFPAY ==
[2024-12-21 18:32] VITALS: BP 121/62
[2024-12-21 18:41] LABS: Glucose - Point of Care 58 mg/dl (70-99)
[2024-12-21] MEDS: DEXTROSE 50% SYRINGE 25 GRAMS IV (18:44)
[2024-12-21 18:48] LABS: % Immature Granulocytes 0.4 % (0-0.5); % Lymphocytes 1.4 % (20.5-51.1); % Monocytes 2.9 % (1.7-9.3); % Neutrophils 95.3 % (42.2-75.2); Absolute Lymphocytes 0.1 10^3/uL (1.2-3.4); Absolute Monocytes 0.3 10^3/uL (0.1-0.6); Absolute Neutrophils 9.7 10^3/uL (1.4-6.5); Hematocrit 41.1 % (37.0-47.0); Hemoglobin 14.4 g/dL (12.0-16.0); Mean Corpuscular Hgb 33.2 pg (27.0-31.0); Mean Corpuscular Volume 94.7 fL (81.0-99.0); Nucleated Red Blood Cells % 0 %; Platelet Count 260 10^3/uL (130-400); Red Blood Cell Count 4.34 10^6/uL (4.20-5.40); Red Cell Dist. Width 13.1 % (11.5-14.5); White Blood Cell Count 10.1 10^3/uL (4.8-10.8)
[2024-12-21 19:02] LABS: ALT (SGPT) 18 U/L (0-35); AST (SGOT) 20 U/L (14-36); Albumin 3.8 g/dl (3.5-5.0); Alkaline Phosphatase 81 U/L (38-126); Blood Urea Nitrogen 24 mg/dl (7-17); Calcium 8.8 mg/dl (8.4-10.2); Carbon Dioxide 28 mmol/L (22-30); Chloride 105 mmol/L (98-107); Glucose 30 mg/dl (70-99); Lipase 24 U/L (23-300); Potassium 3.4 mmol/L (3.5-5.1); Sodium 141 mmol/L (135-145); Total Bilirubin 0.7 mg/dl (0.2-1.3); Total Protein 6.7 g/dl (6.3-8.2); eGFR > 60.00
--- NOTE | 2024-12-21 19:12 | ED.GENMED ---
History of Present Illness
General
Chief Complaint: Blood Sugar Problem
Source: ambulance crew and longterm
Exam Limitations: none
Time Seen by Provider: 12/21/24 18:44
Nursing documentation reviewed up to this point in time: agreed with
History of Present Illness
History of Present Illness:
Patient to ED from [facility] for report of low BS. SHe was admiinstered her normal insulin dose prior to lunch, however has had vomiting and diarrhea. BS fell while at [place]. Given glucose tab and EMS call. BS 57 for EMS. Has had prior episodes of
hypoglycemia in the past. Given 25gm Dextrose on arrival to ED room for BS of 30. Repeat BS 170.
Past History
Past History
ED Past Medical History: HTN, IDDM, Psychiatric (anxiety) and Other (Dementia)
ED Past Surgical History: Orthopedic
Social History
Tobacco: Non-smoker
Alcohol: None
Drug: None
Personal:
Living: longterm
Review of Systems
Review of Systems
Allergies reviewed?: Yes
All Other Systems: ROS reviewed and negative except as documented in HPI and ROS
Constitutional: Reports no symptoms
EENT: Reports no symptoms
Respiratory: Reports no symptoms
Cardiac: Reports no symptoms
ABD/GI: Reports no symptoms
: Reports no symptoms
Musculoskeletal: Reports no symptoms
Skin: Reports no symptoms
Neurological: Reports no symptoms
Phy Exam
General Physical Exam
General Presentation: well appearing and no apparent distress
General age: appears stated age
General Skin: warm and dry
General Habitus: normal
General Mental: confused (Baseline)
General Hydration: appears well hydrated
Cardiovascular Exam
Cardiovascular Exam: regular rate/rhythm and no edema
Pulmonary Exam
Pulmonary Exam: lungs clear, no respiratory distress and chest non tender
Gastrointestinal Exam
Gastrointestinal Exam: normal bowel sounds, non tender, soft and no organomegaly
Neurological Exam
Neurological Exam: alert, no motor deficits, no sensory deficits, speech normal and confused (baseline. Cooperative, follows direction)
Musculoskeletal Exam
Musculoskeletal Exam: full ROM and neuro vasc intact
Skin Exam
Skin Exam: normal color, warm/dry and no rash
Psychiatric Exam
Psychiatric Exam: normal mood/affect
Course
Orders/Labs/Results
Orders:
Orders
12/21/24 18:36
CMP [Comprehensive Metabolic Panel] Urgent
Complete Blood Count/With Diff Urgent
Lipase Urgent
12/21/24 18:43
Dextrose 50%-Water [Dextrose 50% Syringe] 25 grams .ROUTE .STK-MED ONE
12/21/24 18:44
Dextrose 50%-Water [Dextrose 50% Syringe] 25 grams IV NOW STA
12/21/24 19:02
Urinalysis Reflex To Culture Urgent
Date Specimen was Collected: 12/21/24
Time Specimen was Collected: 19:16
12/21/24 19:03
CR Chest - 2 Views Urgent
Comment:
Reason For Exam: fever
12/21/24 19:17
COVID-19 Antigen Urgent
Source: Nasal Swab
Influenza A+B Rapid Molecular Urgent
SRIKANTH Source: Nasal Swab
Specimen Description:
12/21/24 20:00
Dextrose 5%/0.9%Sodchl 500 ml [D5/0.9% Sodium Chloride] 500 ml IV 500 mls/hr
Abnormal Lab Results
12/21/24 12/21/24 12/21/24
18:36 18:40 19:22
MCH 33.2 H pg
(27.0-31.0)
Absolute Neuts (auto) 9.7 H 10^3/uL
(1.4-6.5)
Absolute Lymphs (auto) 0.1 L 10^3/uL
(1.2-3.4)
Neutrophils % 95.3 H %
(42.2-75.2)
Lymphocytes % 1.4 L %
(20.5-51.1)
Potassium 3.4 L mmol/L
(3.5-5.1)
BUN 24 H mg/dl
(05-14)
Creatinine 0.5 L mg/dL
(0.6-1.0)
Glucose 30 L* mg/dl
()
POC Glucose 58 L mg/dl 179 H mg/dl
() ()
12/21/24
21:27
MCH
Absolute Neuts (auto)
Absolute Lymphs (auto)
Neutrophils %
Lymphocytes %
Potassium
BUN
Creatinine
Glucose
POC Glucose 208 H mg/dl
()
12/21/24 18:36
12/21/24 18:36
Vital Signs
Initial and Last Documented VS:
Initial Vital Signs
Temp Pulse Resp BP Pulse Ox
100.7 F H 72 20 121/62 94
12/21/24 18:32 12/21/24 18:32 12/21/24 18:32 12/21/24 18:32 12/21/24 18:32
Last Documented Vital Signs
Temp Pulse Resp BP Pulse Ox
100.7 F H 72 20 62 94
12/21/24 18:32 12/21/24 18:32 12/21/24 18:32 12/21/24 18:32 12/21/24 18:32
*Radiology
Radiology exam reviewed: radiology read reviewed
*Critical Care Note
Total Time (30-74mins, 75-104mins- exclusive of procedures): Not Applicable
Update Note
Update Note:
BS on arrival in ED 30. Given 1amp D50. BS recheck: 170. Patient is awake, pleasant, cooperative. Disoriented - which is her baseline. VSS. NO vomiting or diarrhea in dept. Tolerating po fluids. Given an additional 250cc D5/.45NSS. BS
remains stable. Will discharge back to longterm. Recommend holding any further insulin tonight. Request NH recheck BS on return and in 4 hours.
ED Attending Note
-
Portions of this chart may have been created with voice recognition software.� Occasional wrong word or��sound alike� substitutions may have occurred due to the inherent limitations of voice recognition software.
Discharge Plan
Departure
Patient Disposition: Senior Care/SNF
Date of Disposition: 12/21/24
Time of Disposition: 22:16
Discharge Problem:
Hypoglycemia
Instructions: Low blood sugar in people without diabetes
Prescriptions:
No Action
insulin lispro [Humalog KwikPen Insulin] 100 unit/mL Insulin Pen
12 sliding scale dose SC ACHS
Rx Instructions:
150-200=2u,201-250=4u,251-300=6u,301-350=8u,351-400=10u
risperidone 0.25 mg tablet
0.25 mg PO Q8H
escitalopram oxalate 5 mg tablet
5 mg PO DAILY
tamsulosin 0.4 mg capsule
0.4 mg PO HS
acetaminophen [Tylenol Extra Strength] 500 mg Tablet
1,000 mg PO Q4HPRN MDD 3000 mg PRN (Reason: mild pain)
bisacodyl [Dulcolax (bisacodyl)] 10 mg Suppository
10 mg DC [id number] PRN (Reason: if no bm on 3rd day)
hyoscyamine sulfate 0.125 mg Tablet, Sublingual
0.125 mg sublingual Q4HPRN PRN (Reason: secretions)
lorazepam [Lorazepam Intensol] 2 mg/mL Concentrate
1 mg sublingual Q4HPRN PRN (Reason: anxiety)
sennosides [senna] 8.6 mg Tablet
8.6 mg PO DAILYPRN PRN (Reason: if no bm on 3rd day)
triamcinolone acetonide 0.1 % Cream
1 applic TOPICAL BID
ondansetron 4 mg Tablet,Disintegrating
4 mg PO Q4HPRN PRN (Reason: nausea/vomiting)
polyethylene glycol 3350 [HealthyLax] 17 gram Powder In Packet
17 g PO DAILY Qty: 14 0RF
insulin glargine [Lantus Solostar U-100 Insulin] 100 unit/mL (3 mL) Insulin Pen
18 unit SC DAILY Qty: 0 0RF
cephalexin 500 mg capsule
500 mg PO BID Qty: 8 0RF
Rx Instructions:
4 days
Referrals:
UNKNOWN - PT DOES,NOT KNOW [Family Provider] -
Activity Restrictions/Additional Instructions:
Please check blood sugar on return to facility and again in 4 hours and prn. Hold insulin for tonight.
Interventions
Interventions:
*General Assessment Last Done: 12/21/24 18:32
Discharge Date and Time
Print Language: FRENCH
[2024-12-21 19:26] LABS: Glucose - Point of Care 179 mg/dl (70-99)
[2024-12-21] MEDS: D5/0.9% SODIUM CHLORIDE 500 IV (19:27)
[2024-12-21 20:02] LABS: COVID-19 Antigen Negative (Negative)
[2024-12-21 21:28] LABS: Glucose - Point of Care 208 mg/dl (70-99)
[2024-12-21 22:42] VITALS: BP 122/72
[2024-12-21] MEDS: D5/0.9% SODIUM CHLORIDE IV ×3 (23:40→23:41)
[2024-12-22 00:21] LABS: Glucose - Point of Care 240 mg/dl (70-99)
[2024-12-22 00:22] VITALS: BP 105/52
[2024-12-22 01:20] VITALS: BP 121/60
== END 2024-12-22 01:20 ==
LOC: EMR 18:29
PROVIDERS: Nurse Practitioner; EMERGENCY PHYSICIAN Emergency Medicine
DX: E11.649 Type 2 diabetes mellitus with hypoglycemia without coma (principal); I10 Essential (primary) hypertension; F03.94 Unspecified dementia, unspecified severity, with anxiety; Z79.4 Long term (current) use of insulin; Z11.52 Encounter for screening for COVID-19
CPT/HCPCS: 99284; 96374; 71046; 80053; 82962; 83690; 85025; 87502; 87811

== ENCOUNTER 2025-03-17 03:53 | Inpatient (IN) | payer MEDICARE, OTHER, SELFPAY ==
[2025-03-16 22:38] VITALS: BP 155/72
[2025-03-16 22:47] LABS: Glucose - Point of Care 490 mg/dl (70-99)
[2025-03-16 23:07] LABS: Hematocrit 32.4 % (37.0-47.0); Hemoglobin 11.7 g/dL (12.0-16.0); Mean Corp Hgb Conc. 36.1 g/dL (33.0-37.0); Mean Corpuscular Hgb 34.4 pg (27.0-31.0); Mean Corpuscular Volume 95.3 fL (81.0-99.0); Mean Platelet Volume 9.1 fL (7.4-10.4); Platelet Count 178 10^3/uL (130-400); Red Cell Dist. Width 13.5 % (11.5-14.5); White Blood Cell Count 5.5 10^3/uL (4.8-10.8)
[2025-03-16 23:15] LABS: ALT (SGPT) 12 U/L (0-35); AST (SGOT) 15 U/L (14-36); Albumin 3.9 g/dl (3.5-5.0); Alkaline Phosphatase 72 U/L (38-126); Blood Urea Nitrogen 22 mg/dl (7-17); Carbon Dioxide 28 mmol/L (22-30); Chloride 101 mmol/L (98-107); Glucose 521 mg/dl (70-99); Potassium 4.4 mmol/L (3.5-5.1); Sodium 134 mmol/L (135-145); Total Protein 6.4 g/dl (6.3-8.2); eGFR > 60.00
[2025-03-16 23:20] LABS: B-Hydroxybutyrate 1.39 mmol/L (0.02-0.27)
[2025-03-17] VITALS (15 sets, daily range): BP systolic 107–162; BP diastolic 55–80; PULSE 49–54; BMI 18.6; BMI 18.5
[2025-03-17 00:02] LABS: Troponin I < 0.012 ng/ml
--- NOTE | 2025-03-17 00:26 | ED.GENMED ---
History of Present Illness
General
Chief Complaint: Fall
Source: patient
Exam Limitations: none
Time Seen by Provider: 03/17/25 00:23
Nursing documentation reviewed up to this point in time: agreed with
History of Present Illness
History of Present Illness:
This is a 75-year-old female with past medical history of dementia, hypertension, insulin-dependent diabetes, depression, who presents emergency department today with concerns of a possible fall. According to EMS, patient was sitting on a bench in
the hallway at [facility] when staff walked away and they found her sitting on the floor, a few doors down from where she was originally seen. Staff at the time checked her blood sugar and noticed it was elevated and called EMS. I did call
[facility] and they did not respond to my calls. I was notified by nursing staff that they do not have nursing staff and only medical assembler. Patient with her history of dementia and is limited historian however patient states that she
does recall possibly falling and slipping. She is not sure if she hit her head at this time. She denies any neck pain loss of consciousness, chest pain or shortness of breath. She denies any fevers or chills, burning with urination, urinary
symptoms.
Past History
Past History
ED Past Medical History: HTN, IDDM, Psychiatric (anxiety) and Other (Dementia)
ED Past Surgical History: Orthopedic
Social History
Tobacco: Non-smoker
Alcohol: None
Drug: None
Personal:
Living: long-term
Review of Systems
Review of Systems
All Other Systems: ROS reviewed and negative except as documented in HPI and ROS
Phy Exam
Physical Exam
Physical Exam:
General: Patient is well appearing and in no acute distress; non-toxic
Skin: Warm and dry, no rashes or lesions
Head: Normocephalic, atraumatic
Eyes: Sclera non-icteric. EOMs intact.
Cardiac: Regular rate and rhythm, no murmurs
Peripheral Vascular: No lower extremity swelling or edema
Pulm: Normal respiratory effort, no wheezes, rales, rhonchi
Abdomen: No abdominal tenderness to palpation
Musculoskeletal: No tenderness to palpation bilateral upper and lower extremities, no signs of trauma
Neuro: CN II-XII intact, no focal neurologic deficits.
Psychiatric: Appropriate mood and affect.
Course
Orders/Labs/Results
Orders:
Orders
03/16/25 22:48
Electrocardiogram (*1) Urgent
Reason for Study: Bradycardia / Tachycardia
Straight cath- Treatment ONCE
Urinalysis Reflex To Culture Urgent
Date Specimen was Collected: 03/16/25
Time Specimen was Collected: 22:51
03/16/25 22:51
EKG- Treatment ONCE
03/16/25 22:53
B-Hydroxybutyrate Urgent
Complete Blood Count/No Diff Urgent
Comprehensive Metabolic Panel Urgent
03/16/25 23:32
Troponin I Urgent
03/17/25 00:26
0.9% Sodium Chloride 500 ml [Nss] 500 ml IV BOLUS
03/17/25 00:36
CT Head W/o Iv Contrast Urgent
Comment:
Reason For Exam: possible fall
03/17/25 00:47
Insulin Human Regular [Novolin R] 5 units IV NOW STA
03/17/25 00:48
Bedside Glucose- Treatment ONCE
03/17/25 01:25
Reg Insulin 100 Units/100 ml [Novolin R Insulin Infusion] 100 units in 100 ml IV NOW
03/17/25 01:40
Lorazepam [Ativan] 1 mg IV NOW STA
03/17/25 03:03
0.9% Sodium Chloride 1000 ml [Nss] 1,000 ml IV BOLUS
03/17/25 03:04
Admit/Transfer Patient As Directed
Co-Sign Provider:
Level of Care: Inpatient admission
Assign to:: Telemetry
Physician / Group: Anant
Diagnosis: Hyperglycemia, Found Down
Reason for Telemetry: Arrhythmia
Date to Stop Telemetry: 03/20/25
Time to Stop Telemetry: 11:00
Reason for Hospitalization: Hyperglycemia, Found Down
Expected length of stay greater than two midnights?: Yes
ELOS- Estimated Length of Stay in days: 3
I certify the patient meets the requirements for IP care: Yes
PRN Pain Medication Management As Directed
May give lesser potent ordered pain med per pt: Yes
preference::
Protocol:: Medication orders for pain may be administered in a
manner that supports deferring to patient preference
when the pt is:
- Requesting an ordered lesser potent pain medication.
Least to most potent pain medications are defined
as: acetaminophen < NSAID < tramadol < opioids
(morphine, oxycodone, hydromorphone).
- Requesting a lesser dose of the same medication IF
ORDERED.
- Requesting a less intrusive route of administration
if both routes are prescribed by the provider (PO <
IV).
03/17/25 03:05
Insulin Glargine Lantus [Lantus] 18 units Subcutaneous Insulin Syringe [Syringe-Insulin] 0 unit SC ONCE
03/17/25 03:07
Code Status As Directed
Resuscitation Status: Do not resuscitate
Based on pt advanced directive or healthcare POA form: Yes
DNR Bracelet Application ONCE
03/17/25 03:59
0.9% Sodium Chloride 1000 ml [Nss] 1,000 ml IV 80 mls/hr
Acetaminophen [Tylenol] 650 mg PO Q4HPRN PRN
Dextrose 50%-Water [Dextrose 50% Syringe] 12.5 grams IV [id number] PRN
Glucagon [GlucaGen] 1 mg IM PRN PRN
Lorazepam [Ativan] 1 mg SL Q4HPRN PRN
Polyethylene Glycol Powder [Miralax] 17 grams PO DAILY PRN
03/17/25 03:59
Activity As Directed
Activity Level: Ambulate
With Assistance
Bedside Glucose Monitoring As Directed
Frequency: AC&HS
Additional Instructions:: Change to q6h if pt on TPN, tube feeding or not eating
EKG with chest pain [ECG as needed] As Directed
ECG as needed for:: Chest Pain
I/O [Intake/ Output] As Directed
Frequency: Per unit guidelines
Vital Signs As Directed
Frequency: Per unit guidelines
Weight As Directed
Frequency: Daily
Oxygen Therapy [O2 Therapy] [RESP] Routine
Titrate/Wean O2 to maintain O2 sat greater than (%): 94
DX Deep Vein Thrombosis Video Routine
03/17/25 04:00
Flush (0.9% Sodium Chloride) [Flush (Nss)] See Dose Instructions IV PER PROTOCOL
03/17/25 Breakfast
1800 calorie (15 carb) Diabetic
At Your Request: Non-Participating
Complete Blood Count/No Diff IN AM
Glycohemoglobin (HgbA1c) IN AM
TSH Reflex To Free T4 Routine
Risperidone [Risperdal] 0.25 mg PO Q8H
03/17/25 07:30
Insulin Aspart Corrective Low [Novolog Flexpen-Low Resistance] See Protocol SC AC
Insulin Aspart Pen [Novolog Flexpen] 10 units SC ACHS
03/17/25 08:00
Escitalopram Oxalate [Lexapro] 5 mg PO DAILY
Heparin 5,000 units SC Q12
03/17/25 22:00
Tamsulosin [Flomax] 0.4 mg PO HS
03/18/25 08:00
insulin glargine [Lantus Solostar U-100 Insulin] 18 unit SC DAILY
03/20/25 11:00
DC Protocol for Telemetry ONCE
Abnormal Lab Results
03/16/25 03/16/25 03/17/25
22:46 22:53 00:49
RBC 3.40 L 10^6/uL
(4.20-5.40)
Hgb 11.7 L g/dL
(12.0-16.0)
Hct 32.4 L %
(37.0-47.0)
MCH 34.4 H pg
(27.0-31.0)
Sodium 134 L mmol/L
(135-145)
BUN 22 H mg/dl
(7-17)
Creatinine 0.5 L mg/dL
(0.6-1.0)
Glucose 521 H* mg/dl
(70-99)
Urine Ketones 3+ A
(Negative)
Urine Glucose 4+ A
(Negative)
B-Hydroxybutyrate 1.39 H mmol/L
(0.02-0.27)
POC Glucose 490 H* mg/dl
(70-99)
03/17/25 03/17/25
01:45 02:56
RBC
Hgb
Hct
MCH
Sodium
BUN
Creatinine
Glucose
Urine Ketones
Urine Glucose
B-Hydroxybutyrate
POC Glucose 448 H mg/dl 316 H mg/dl
(70-99) (70-99)
03/16/25 22:53
03/16/25 22:53
Vital Signs
Initial and Last Documented VS:
Initial Vital Signs
Temp Pulse Resp BP Pulse Ox
98.0 F 56 14 155/72 96
03/16/25 22:38 03/16/25 22:38 03/16/25 22:38 03/16/25 22:38 03/16/25 22:38
Last Documented Vital Signs
Temp Pulse Resp BP Pulse Ox
98.0 F 56 14 107/55 95
03/16/25 22:38 03/17/25 06:00 03/17/25 06:00 03/17/25 06:00 03/16/25 23:30
MDM/Problems Addressed
MDM/Problems Addressed:
This is a 75-year-old female with past medical history of dementia, hypertension, insulin-dependent diabetes, depression, who presents emergency department today with concerns of a possible fall. According to EMS, patient was sitting on a bench in
the hallway at [facility] when staff walked away and they found her sitting on the floor, a few doors down from where she was originally seen. They also note changes in her behavior as well. Patient has severe dementia at baseline and is
very limited historian but she states that she may have possibly slipped, does not recall hitting her head. On physical exam she is well-appearing in no acute distress there are no signs of head trauma. She has no tenderness to palpation of the
cervical spine. CBC and CMP reviewed, she is acutely hyperglycemic however no evidence of DKA. Insulin drip started, will admit for further workup and adequate blood sugar control.
Chronic conditions affecting care:
Dementia, hypertension, insulin dependent diabetes
*Pulse Oximetry
Patient hypoxic: no
*Critical Care Note
Total Time (30-74mins, 75-104mins- exclusive of procedures): Not Applicable
Data Reviewed
Review of Other/Old Records Reveals: Records (Reviewed ER physician documentation from 12/21/2024 patient was seen for acute hypoglycemia, she received dextrose in emergency department discharged after unremarkable workup)
Source: patient and records
Patient Management
Escalation/DeEscalation of care consider admission/obs:
Admission indicated, case discussed with hospitalist
ED Attending Note
-
Portions of this chart may have been created with voice recognition software.� Occasional wrong word or��sound alike� substitutions may have occurred due to the inherent limitations of voice recognition software.
Discharge Plan
Departure
Patient Disposition: Admit
Date of Disposition: 03/17/25
Time of Disposition: 02:50
Admit to: Med/Surg
Presentation/result/management discussed w/ accepting MD/DO: Hospitalist
Patient with high blood pressure during this ER visit?: Yes
Condition: Fair
Discharge Problem:
Acute hyperglycemia, Altered mental status
Interventions
Interventions:
*Risk Screen - Suicide Last Done: 03/16/25 22:38
*General Assessment Last Done: 03/16/25 22:38
*Neglect/Abuse Screening Last Done: 03/16/25 22:38
*ED- Fall Risk Assessment Last Done: 03/17/25 01:40
*ED COVID-19 Vaccine History Last Done: 03/17/25 01:40
ED-Musculoskeletal Assessment Last Done: 03/17/25 03:04
ED- Neurological Assessment Last Done: 03/17/25 01:19
ED-Skin Assessment Last Done: 03/17/25 04:54
[2025-03-17] MEDS: NSS 500 IV (00:50)
[2025-03-17 01:09] LABS: Urine Albumin Negative (Neg - Trace); Urine Bilirubin Negative (Negative); Urine Character Clear (Clear); Urine Glucose 4+ (Negative); Urine Ketone 3+ (Negative); Urine Leukocyte Negative (Negative); Urine Nitrite Negative (Negative); Urine Occult Blood Negative (Negative); Urine Urobilinogen Negative (Neg - 1+)
[2025-03-17 01:10] LABS: Urine Color Straw
[2025-03-17 01:47] LABS: Glucose - Point of Care 448 mg/dl (70-99)
[2025-03-17] MEDS: NOVOLIN R 5 UNITS IV (01:51)
[2025-03-17] MEDS: ATIVAN 1 MG IV (01:51)
[2025-03-17] MEDS: NOVOLIN R INSULIN INFUSION 100 IV (01:55)
[2025-03-17 02:57] LABS: Glucose - Point of Care 316 mg/dl (70-99)
--- NOTE | 2025-03-17 03:04 | EDRN ---
Per verbal order of Dr. Ny, insulin drip stopped at this time.
--- NOTE | 2025-03-17 03:09 | HPS.HSE ---
Family Physician
-
Family Physician: NOT KNOW UNKNOWN - PT DOES
Chief Complaint
-
Found Down
History of Present Illness
Patient is a 75y F with PMH significant for DM-I with labile glucose control and senile dementia who presents to ED from [facility] after being found down in the [place]. History is extremely limited and obtained from ED staff who spoke
with EMS crew. Patient was reportedly seated on a bench at the facility. Staff came by a few minutes later and found her sitting on the ground a short distance away. No obvious injury. She was awake and confused (as is her baseline). Staff
checked her glucose at that time and it was elevated. They called 911 and patient was brought to the ED for further evaluation.
Here in the ED, patient has been awake but confused. She denies any complaints.
Her glucose on labs as markedly elevated (> 500) but without elevated anion gap.
Patient reportedly received sliding scale dose of lispro insulin (12 units) prior to transport to the ED.
Medical History
Past Medical History
Past Medical History: Reports Other
Additional Past Medical History:
DM-I with Labile Glucose Control
Hypoglycemic Seizure
Hypertension
Senile Dementia
Anxiety / Depression
Past Surgical History: Reports Other
Additional Past Surgical History:
Left DOC
Lumbar Laminectomy
Cervical Discectomy
Right Hip ORIF
Social History
Unable to obtain full social history at this time due to: Dementia
Family History
Family History: Unable to Obtain
Allergies / Home Medications
Allergies reflects when Allergies were last updated in [facility].
Home Medications with original date entered in [facility]
Allergy/Medication List:
Allergies
Allergy/AdvReac Type Severity Reaction Status Date / Time
Penicillins Allergy Pharmacy Verified 03/17/25 01:16
to Review
Home Medications
insulin lispro 100 unit/mL subcutaneous pen (Humalog KwikPen (U-100) Insulin) 12 sliding scale dose SC ACHS Diabetes 02/10/24
escitalopram oxalate 5 mg tablet 5 mg PO DAILY Mental Health 03/07/24
risperidone 0.25 mg tablet 0.25 mg PO Q8H Neurological Condition 03/07/24
tamsulosin 0.4 mg capsule 0.4 mg PO HS Urinary Issue 03/26/24
acetaminophen 500 mg tablet (Tylenol Extra Strength) 1,000 mg PO Q4HPRN PRN mild pain 04/22/24
bisacodyl 10 mg rectal suppository (Dulcolax (bisacodyl)) 10 mg SC [id number] PRN if no bm on 3rd day 04/22/24
hyoscyamine sulfate 0.125 mg sublingual tablet 0.125 mg sublingual Q4HPRN PRN secretions 04/22/24
lorazepam 2 mg/mL oral concentrate (Lorazepam Intensol) 1 mg sublingual Q4HPRN PRN anxiety 04/22/24
sennosides 8.6 mg tablet (senna) 8.6 mg PO DAILYPRN PRN if no bm on 3rd day 04/22/24
ondansetron 4 mg disintegrating tablet 4 mg PO Q4HPRN PRN nausea/vomiting 07/24/24
triamcinolone acetonide 0.1 % topical cream 1 applic topical BID Skin Issues 07/24/24
insulin glargine 100 unit/mL (3 mL) subcutaneous pen (Lantus Solostar U-100 Insulin) 18 unit (0.18 mL) SC DAILY Diabetes #0 mL 07/28/24
polyethylene glycol 3350 17 gram oral powder packet (HealthyLax) 17 g PO DAILY PRN constipation 03/17/25
Review of Systems
-
Unable to obtain full review of systems at this time due to: Dementia
History Source: Patient (Limited ROS due to baseline dementia. Patient denies any current pain or nausea.)
Physical Exam
Vital Signs
Vital Signs
Temp Pulse Resp BP Pulse Ox
98.0 F 78 17 139/62 95
03/16/25 22:38 03/17/25 02:45 03/17/25 02:30 03/17/25 01:00 03/16/25 23:30
Physical Exam
General: Other (75y F in no distress.)
HEENT: Moist mucous membranes and PERRLA
Respiratory: Clear; No Wheezes, Rales or Rhonchi
Cardiac: S1/S2 and Regular Rhythm; No Murmur
GI: Soft, Non Tender, Non Distended and Normal Bowel Sounds
Musculoskeletal: No Clubbing, No Cyanosis and No Edema
Neuro: Awake; No Oriented
Laboratory Results
-
03/16/25 22:53
03/16/25 22:53
Laboratory Results
Total Bilirubin 1.0 mg/dl (0.2-1.3) 03/16/25 22:53
AST 15 U/L (14-36) 03/16/25 22:53
ALT 12 U/L (0-35) 03/16/25 22:53
Alkaline Phosphatase 72 U/L (38-126) 03/16/25 22:53
Troponin I < 0.012 ng/ml 03/16/25 23:32
Impression/Plan
-
A/P: Patient is a 75y F with PMH significant for DM-I and dementia who presents to ED for evaluation after possible fall at [facility] and noted hyperglycemia.
DM-I with Hyperglycemia
- Admit for further evaluation and treatment.
- Glucose = 521. Anion gap =5.
- Stop insulin infusion. Give additional IVFs.
- Continue basal : bolus insulin with SSI coverage for higher glucose.
- Will give AM dose of Lantus now.
- Adjust regimen as needed for improved control.
- Cautious adjustments given history of labile sugars and prior hypoglycemic seizures and DKA episodes.
- Update A1C.
Possible Fall / Found Down
- Patient found seated on the floor at [facility] without evident injury.
- ? unwitnessed fall.
- CT in the ED was unremarkable.
- Patient has no complaints of pain / no obvious injury on exam.
- PT / OT evaluations.
- Monitor on tele overnight for any arrhythmia, etc.
Senile Dementia with Behavioral Disturbance
- Stable. Baseline is not clear, but patient sent to ED primarily for 'fall' and hyperglycemia.
- Unable to reach any NH staff overnight to discuss.
- Continue usual med regimen including PRN Ativan.
- Follow for any acute agitation / delirium / etc during hospital stay.
DVT Prophylaxis: Subcut Heparin
Code Status: DNR per NH record.
[2025-03-17] MEDS: NSS 1000 IV ×3 (04:01→13:56)
[2025-03-17 04:47] LABS: Glucose - Point of Care 327 mg/dl (70-99)
[2025-03-17] MEDS: LANTUS 0.18 UNITS SC (04:49)
[2025-03-17] MEDS: RISPERDAL 0.25 MG PO ×3 (06:12→21:38)
[2025-03-17 06:24] LABS: Hemoglobin 11.4 g/dL (12.0-16.0); Mean Corp Hgb Conc. 35.6 g/dL (33.0-37.0); Mean Corpuscular Hgb 33.7 pg (27.0-31.0); Mean Corpuscular Volume 94.7 fL (81.0-99.0); Mean Platelet Volume 8.9 fL (7.4-10.4); Platelet Count 187 10^3/uL (130-400); Red Blood Cell Count 3.38 10^6/uL (4.20-5.40); Red Cell Dist. Width 13.3 % (11.5-14.5); White Blood Cell Count 5.3 10^3/uL (4.8-10.8)
[2025-03-17 07:06] LABS: TSH Reflex To Free T4 1.79 uIU/ml (0.47-4.68)
[2025-03-17 07:08] LABS: Blood Urea Nitrogen 18 mg/dl (7-17); Calcium 8.4 mg/dl (8.4-10.2); Carbon Dioxide 28 mmol/L (22-30); Chloride 109 mmol/L (98-107); Estimated Creatinine Clearance 70 ml/min; Glucose 228 mg/dl (70-99); Potassium 4.1 mmol/L (3.5-5.1); Sodium 140 mmol/L (135-145); eGFR > 60.00
--- NOTE | 2025-03-17 07:50 | W.PN.HOSP.TC ---
Addendum entered and electronically signed by Saskia Vasquez MD 03/17/25 15:04:
I saw and evaluated the patient independently. I reviewed the resident�s note and agree with findings and plan as documented by Dr. Araya.
GENERAL: elderly frail female in NAD--not talkative--not following commands
HEENT: NC/AT--no O2
HEART: regular rate and rhythm, +S1, +S2
LUNGS : clear to auscultation bilaterally
ABDOM: soft, nontender, nondistended, + bowel sounds
EXT: no cyanosis, clubbing, or edema
NEUROLOGIC: apparent dementia--unable to hold legs off of the stretcher
Possible fall/Found down by staff at [facility]--etiologies include--arrhythmia, infection, dehydration/orthostasis with elevated sugar, stroke with weak B/L LE, progressive dementia--head CT neg--pt with foul smelling urine and
possible retention (bladder scanned for 350ml)--consider st cath with repeat UA C&S, check MRI brain--PT/OT, check orthostatic VS and cont tele
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
Senile dementia with behavioral disturbance--cont risperidone and PRN ativan, escitalopram
Essential HTN- not on any meds at home- monitor--may need to add if remains hypertensive
Anxiety/depression- cont home escitalopram
DVT proph--SC heparin
Code status-- DNR
Original Note:
Today's Communication/Plan
-
- brain MRI
- PT/OT
- orthostatic vitals
Assessment / Plan
Assessment / Plan
Assessment:
75yo F [facility] senile dementia, HTN, IDDM, depression who presented to [facility] ED 03/16 for concerns of a fall. Pt was sitting on a bench at [facility] when staff walked away and found her on the floor. Her glucose was elevated at this time. In the
ED, her glucose is markedly elevated (>500) w/o anion gap. Pt started on insulin drip, which was stopped later the same night. CT head c/w no acute intracranial abnormalities.
Plan:
DM type 1 w hyperglycemia
Hx of hypoglycemic seizure
- peak glu 521, AG 5 at the time
- IVF
- basal: bolus insulin w SSI
- HbA1c 6.0
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
Possible fall / Found down
- concern for possible stroke vs dehydration vs dementia vs ? fall
- CT head: no acute intracranial abnormalities
- PT/OT
- tele
- orthostatic vitals
- brain mri
Senile dementia w behavioral disturbance
- prn ativan
- cont home risperdone
- delirium precautions
HTN
- not on any meds at home
- monitor
Anxiety/depression
- cont home escitalopram
Diet: diabetic
DVT ppx: subq heparin
Code status: DNR
Anticipated Discharge: > 48 hours
Subjective/Interval History
-
Date of Service: March 17, 2025
Pt is a 75yo F [facility] senile dementia, HTN, IDDM, depression who presented to [facility] ED 03/16 for concerns of a fall. Pt was sitting on a bench at [facility] when staff walked away and found her on the floor. Her glucose was elevated at this time.
In the ED, her glucose is markedly elevated (>500) w/o anion gap. Pt started on insulin drip, which was stopped later the same night. CT head c/w no acute intracranial abnormalities.
Pt is lethargic this morning, does not follow commands.
Objective Data
-
Labs:
Laboratory Results
05/03/17/25 03/17/25
22:53 06:00 06:35
WBC 5.5 5.3
Hgb 11.7 L 11.4 L
Hct 32.4 L 32.0 L
Plt Count 178 187
Sodium 134 L Cancelled 140
Potassium 4.4 Cancelled 4.1
Chloride 101 Cancelled 109 H
Carbon Dioxide 28 Cancelled 28
BUN 22 H Cancelled 18 H
Creatinine 0.5 L Cancelled 0.4 L
Glucose 521 H* Cancelled 228 H
Calcium 9.0 Cancelled 8.4
Total Bilirubin 1.0
AST 15
ALT 12
Alkaline Phosphatase 72
Vital Signs:
Vital Signs
Temp Pulse Resp BP Pulse Ox
98.0 F 54 15 107/55 96
03/16/25 22:38 03/17/25 06:30 03/17/25 06:30 03/17/25 06:00 03/17/25 06:30
[2025-03-17 07:54] LABS: Glucose - Point of Care 146 mg/dl (70-99)
[2025-03-17] MEDS: NOVOLOG FLEXPEN-LOW RESISTANCE SC (07:55)
[2025-03-17] MEDS: LEXAPRO 5 MG PO (07:58)
[2025-03-17] MEDS: HEPARIN 5000 UNITS SC ×2 (07:58→21:38)
--- NOTE | 2025-03-17 08:10 | EDRN ---
Dr. Vasquez made aware of morning Accucheck-146, sliding scale and 10U held.
--- NOTE | 2025-03-17 11:04 | PN.DE.MGMTRT ---
Insulin Management
- -
03/17/2025 Patient admitted 03/16 with hyperglycemia, glucose 521. Admitted multiple times in 2023 for hypoglycemia or DKA. Resides in [place], Dementia Unit. PMH HTN, dementia, urinary retention, type 1 diabetes. Prior to admission chart indicates
patient insulin doses: 18nits Lantus in AM with sliding scale NovoLog 12 units with meals. A1C is 6, cr .4 eGFR > 60.
A1C of 6% is too low for this patient with significant dementia. She is dependent on care givers to feed her.
Patient is awake, confused unable to participate in discussion regarding diabetes.
AC novolog currently ordered at 10 units AC with low corrective, with lantus 18 units in AM.
Will reduce AC novolog to 8 units. Lantus 18 units has been given this AM. Will evaluate glucose for further needed adjustments.
Discussed with patients nurse.
Diabetes History
- -
Type of Diabetes: 1
Pre-Admission Diabetes Regimen
03/16/25 03/17/25 03/17/25
22:53 06:00 06:35
Creatinine 0.5 L Cancelled 0.4 L
Lab Results
Hemoglobin A1c 6.0 % (4.0-5.6) H 03/17/25 06:00
Insulin Pump Settings
IP Diabetes Regimen
03/16/25 03/16/25 03/17/25
22:46 22:53 01:45
Glucose 521 H*
POC Glucose 490 H* 448 H
03/17/25 03/17/25 03/17/25
02:56 04:45 06:00
Glucose Cancelled
POC Glucose 316 H 327 H
03/17/25 03/17/25
06:35 07:53
Glucose 228 H
POC Glucose 146 H
Patient Education
[2025-03-17 12:12] LABS: Glucose - Point of Care 150 mg/dl (70-99)
--- NOTE | 2025-03-17 12:47 | PTCARENOTE ---
Addendum entered by Florinda Berg RN 03/17/25 12:55:
distended abd not tender
Original Note:
Assumed care of pt at aprox 1115. Pt confused to time and place. Bed assigned now to [facility]. report sent. Pt with Purewick saturated but noted to have slightly tender abdomen Bladder scanned for 350ml. Urine with strong odor. Will send TT to
resident and hospitalist.
[2025-03-17] MEDS: NOVOLOG FLEXPEN-LOW RESISTANCE 1 UNITS SC (13:54)
[2025-03-17] MEDS: NOVOLOG FLEXPEN 8 UNITS SC ×2 (13:55→17:55)
--- NOTE | 2025-03-17 15:50 | CM ---
Patient seen at bedside with physicians earlier today in ED. Patient from [facility]. CM called to personal care facility to speak with nursing. Patient with limited verbalization when seen in ED. Per NurseRito at personal care patient was
independent of ambulation with no assistive device. Patient would walk in the memory care unit and loves sugar. Patient self feeds and can turn handles to enter rooms. Patient with no behaviors per personal care facility. CM will continue to follow
for discharge planning needs.
Plan; SNF vs return to personal care pending medical treatment plan
[2025-03-17 17:37] LABS: Glucose - Point of Care 256 mg/dl (70-99)
[2025-03-17] MEDS: NOVOLOG FLEXPEN-LOW RESISTANCE 3 UNITS SC (17:55)
[2025-03-17] MEDS: FLOMAX 0.4 MG PO (21:38)
[2025-03-17 21:44] LABS: Glucose - Point of Care 121 mg/dl (70-99)
[2025-03-18] VITALS (8 sets, daily range): BP systolic 98–143; BP diastolic 53–74; PULSE 60–71; O2SAT 97; BMI 18.4
[2025-03-18 02:50] LABS: Glucose - Point of Care 276 mg/dl (70-99)
--- NOTE | 2025-03-18 03:55 | W.PN.UPDATE ---
Update Note
Progress Note Update
Reported by the nursing staff, the patient with bradycardia 30s- 40s, pauses up to 2.5 sec, asymptomatic. BP 135/56, SPO2 98%, afebrile. Patient received risperidone at bedtime.
EKG done. Lab result still pending.
Per chart review patient with PMH of asymptomatic bradycardia.
Will continue tele, monitor for abnormal symptoms and cardiology consult as needed.
[2025-03-18] MEDS: NSS 1000 IV (04:00)
[2025-03-18 05:03] LABS: Hematocrit 36.2 % (37.0-47.0); Hemoglobin 12.7 g/dL (12.0-16.0); Mean Corp Hgb Conc. 35.1 g/dL (33.0-37.0); Platelet Count 188 10^3/uL (130-400); Red Blood Cell Count 3.85 10^6/uL (4.20-5.40); Red Cell Dist. Width 13.5 % (11.5-14.5); White Blood Cell Count 3.7 10^3/uL (4.8-10.8)
[2025-03-18 05:27] LABS: Blood Urea Nitrogen 10 mg/dl (7-17); Calcium 8.7 mg/dl (8.4-10.2); Carbon Dioxide 26 mmol/L (22-30); Chloride 108 mmol/L (98-107); Estimated Creatinine Clearance 69 ml/min; Glucose 349 mg/dl (70-99); Magnesium 1.8 mg/dl (1.6-2.3); Potassium 4.2 mmol/L (3.5-5.1); Sodium 140 mmol/L (135-145); eGFR > 60.00
--- NOTE | 2025-03-18 07:15 | PN.DE.MGMTRT ---
Insulin Management
- -
03/18/2025 Patient admitted 03/16 with hyperglycemia, glucose 521. Admitted multiple times in 2023 for hypoglycemia or DKA. Resides in [place], Dementia Unit. PMH HTN, dementia, urinary retention, type 1 diabetes. Prior to admission chart indicates
patient insulin doses: 18 units Lantus in AM with sliding scale NovoLog 12 units with meals. A1C is 6, cr .4 eGFR > 60.
A1C of 6% is too low for this patient with significant dementia. She is dependent on care givers to feed her meals but will randomly eat anything sweet.
Patient is awake, confused unable to participate in discussion regarding diabetes.
AC novolog currently ordered at 8 units AC with low corrective, with lantus 18 units in AM. Glucose range 146 to 276.
Fasting glucose this AM 349/ 446, venous glucose obtained. Will increase AC novolog to 10 units with low corrective with Lantus 18 units daily in AM.
Will follow and evaluate glucose for further needed adjustments.
Discussed with patients nurse.
Diabetes History
- -
Type of Diabetes: 1
Pre-Admission Diabetes Regimen
03/18/25
04:57
Creatinine 0.4 L
Lab Results
Hemoglobin A1c 6.0 % (4.0-5.6) H 03/17/25 06:00
Insulin Pump Settings
IP Diabetes Regimen
03/17/25 03/17/25 03/17/25
07:53 12:10 17:36
Glucose
POC Glucose 146 H 150 H 256 H
03/17/25 03/18/25 03/18/25
21:43 02:49 04:57
Glucose 349 H
POC Glucose 121 H 276 H
Meal type: Dinner
Meal type: Lunch
Amount consumed: 100%
Amount consumed: 100%
Patient Education
[2025-03-18] MEDS: RISPERDAL PO (07:20)
--- NOTE | 2025-03-18 08:12 | W.PN.HOSP.TC ---
Addendum entered and electronically signed by Saskia Vasquez MD 03/18/25 14:56:
I saw and evaluated the patient independently. I reviewed the resident�s note and agree with findings and plan as documented by Dr. Araya.
GENERAL: elderly frail female in NAD--not talkative--not following commands
HEENT: NC/AT--no O2
HEART: regular rate and rhythm, +S1, +S2
LUNGS : clear to auscultation bilaterally
ABDOM: soft, nontender, nondistended, + bowel sounds
EXT: no cyanosis, clubbing, or edema
NEUROLOGIC: apparent dementia
Possible fall/Found down by staff at Assisted Living Facility---arrhythmia ruled out, infection ruled out, dehydration/orthostasis ruled out, progressive dementia likely possibility--head CT neg--MRI brain neg for acute intracranial
abnormalities--PT/OT rec home health
DM type 1 w hyperglycemia (with Hx of hypoglycemic seizure)--most likely dietary as pt LOVES anything sweet--NOT in DKA--apprec DM SAFETY EQUIPMENT TESTER--agree would keep BS a bit higher as A1C 6--stop IVF--accuchecks with SSI coverage
Senile dementia with behavioral disturbance--cont risperidone and PRN ativan, escitalopram
Essential HTN- not on any meds at home- monitor--may need to add if remains hypertensive
Anxiety/depression- cont home escitalopram
DVT proph--SC heparin
Code status-- DNR
Original Note:
Today's Communication/Plan
-
.
Assessment / Plan
Assessment / Plan
Assessment:
75yo F [facility] senile dementia, HTN, IDDM, depression who presented to [facility] ED 03/16 for concerns of a fall. Pt was sitting on a bench at [facility] when staff walked away and found her on the floor. Her glucose was elevated at this time. In the
ED, her glucose is markedly elevated (>500) w/o anion gap. Pt started on insulin drip, which was stopped later the same night. CT head c/w no acute intracranial abnormalities.
Plan:
DM type 1 w hyperglycemia
Hx of hypoglycemic seizure
- peak glu 521, AG 5 at the time
- IVF
- basal: bolus insulin w SSI
- HbA1c 6.0, reportedly takes sweets off of other people's trays
- DM BLENDING OPERATOR input appreciated
Possible fall / Found down
- concern for possible stroke vs dehydration vs dementia vs ? fall
- CT head: no acute intracranial abnormalities
- PT/OT
- tele
- orthostatic vitals neg
- brain mri: Limited. Motion degradation. No acute intracranial abnormality as far as visualized. Chronic findings, as described.
Senile dementia w behavioral disturbance
- prn ativan
- cont home risperdone
- delirium precautions
HTN
- not on any meds at home
- monitor
Anxiety/depression
- cont home escitalopram
Diet: diabetic
DVT ppx: subq heparin
Code status: DNR
Anticipated Discharge: > 48 hours
Subjective/Interval History
-
Date of Service: March 18, 2025
Overnight, pt developed bradycardia 30s- 40s, pauses up to 2.5 sec, asymptomatic. Pt lethargic this AM. Pt more interested in her food than than speaking.
Objective Data
-
Labs:
Laboratory Results
03/18/25
04:57
WBC 3.7 L
Hgb 12.7
Hct 36.2 L
Plt Count 188
Sodium 140
Potassium 4.2
Chloride 108 H
Carbon Dioxide 26
BUN 10
Creatinine 0.4 L
Glucose 349 H
Calcium 8.7
Vital Signs:
Vital Signs
Temp Pulse Resp BP Pulse Ox
97.6 F 44 18 135/56 99
03/18/25 03:00 03/18/25 03:00 03/18/25 03:00 03/18/25 03:00 03/18/25 03:00
I&O
03/17/25 03/18/25 03/19/25
06:59 06:59 06:59
Intake Total 1800 / 1800
Balance 1800 / 1800
Review of Systems
-
Unable to obtain full review of systems at this time due to: Acuity
Physical Exam
-
General: Cachectic
HEENT: Normocephalic and Atraumatic
Respiratory: Clear to Auscultation and Non Labored Respirations
Cardiac: Regular Rhythm and S1/S2
GI: Soft, Nontender, Nondistended and Normal Bowel Sounds
Skin: Warm and Dry
Neuro: Awake
[2025-03-18 08:19] LABS: Glucose - Point of Care 446 mg/dl (70-99)
[2025-03-18 09:10] LABS: Glucose 447 mg/dl (70-99)
[2025-03-18] MEDS: LEXAPRO 5 MG PO (09:51)
[2025-03-18] MEDS: MAGNESIUM OXIDE 500 MG PO (09:51)
[2025-03-18] MEDS: LANTUS 0.18 UNITS SC (09:51)
[2025-03-18] MEDS: NOVOLOG FLEXPEN-LOW RESISTANCE 6 UNITS SC (09:52)
[2025-03-18] MEDS: NOVOLOG FLEXPEN 10 UNITS SC ×2 (09:52→17:07)
[2025-03-18] MEDS: HEPARIN 5000 UNITS SC ×2 (09:53→19:43)
[2025-03-18 13:18] LABS: Glucose - Point of Care 485 mg/dl (70-99)
[2025-03-18] MEDS: RISPERDAL 0.25 MG PO ×2 (14:03→21:10)
[2025-03-18 14:22] LABS: Glucose 504 mg/dl (70-99)
[2025-03-18] MEDS: NOVOLOG FLEXPEN-LOW RESISTANCE SC ×2 (14:51→14:57)
[2025-03-18] MEDS: NOVOLOG FLEXPEN SC (14:52)
[2025-03-18] MEDS: NOVOLOG FLEXPEN 20 UNITS SC (14:58)
[2025-03-18] MEDS: LANTUS 0.06 UNITS SC (15:04)
--- NOTE | 2025-03-18 15:04 | CM ---
Patient seen at bedside on [address] and physicians. Patient seen by therapy PT/OT and recommendation is for home health back at [facility]. Rito from [facility] is willing for patient to return but indicated that patient would need to return prior to
7pm as that is when nursing leaves. CM updated physicians and await response. CM will continue to follow for discharge planning needs.
Plan; return to [facility]; memory unit when medically appropriate.
[2025-03-18 16:59] LABS: Glucose - Point of Care 309 mg/dl (70-99)
[2025-03-18] MEDS: NOVOLOG FLEXPEN-LOW RESISTANCE 4 UNITS SC (17:07)
[2025-03-18] MEDS: FLOMAX 0.4 MG PO (21:09)
[2025-03-18 21:24] LABS: Glucose - Point of Care 70 mg/dl (70-99)
[2025-03-19 03:35] VITALS: BP 128/77
[2025-03-19 03:56] LABS: Glucose - Point of Care 37 mg/dl (70-99)
[2025-03-19 04:11] LABS: Glucose - Point of Care 51 mg/dl (70-99)
[2025-03-19 04:27] LABS: Glucose - Point of Care 85 mg/dl (70-99)
[2025-03-19] MEDS: RISPERDAL 0.25 MG PO ×2 (05:06→14:59)
[2025-03-19 06:00] VITALS: BMI 18.1
[2025-03-19 06:54] LABS: Glucose - Point of Care 153 mg/dl (70-99)
[2025-03-19 07:28] VITALS: BP 134/51
--- NOTE | 2025-03-19 07:28 | PN.DE.MGMTRT ---
Insulin Management
- -
03/19/2025 Patient admitted 03/16 with hyperglycemia, glucose 521. Admitted multiple times in 2023 for hypoglycemia or DKA. Resides in ID, Dementia Unit. PMH HTN, dementia, urinary retention, type 1 diabetes. Prior to admission chart indicates
patient insulin doses: 18 units Lantus in AM with sliding scale NovoLog 12 units with meals. A1C is 6, cr .4 eGFR > 60.
A1C of 6% is too low for this patient with significant dementia. She is dependent on care givers to feed her meals but will randomly eat anything sweet.
Patient is awake, confused unable to participate in discussion regarding diabetes.
Fasting glucose 03/18 446, received lantus and novolog, pre lunch glucose 504. Received 20 units novolog with additional 6 units lantus @ 3pm, pre dinner glucose 309, received 14 units novolog. Unsure of patient intake at dinner. Hypoglycemia @ 3am.
Fasting glucose 153. Will continue lantus 18 units with novolog 10 units and change low corrective to moderate corrective.
Will follow and evaluate glucose for further needed adjustments.
Discussed with patients nurse.
Diabetes History
- -
Type of Diabetes: 1
Pre-Admission Diabetes Regimen
Lab Results
Hemoglobin A1c 6.0 % (4.0-5.6) H 03/17/25 06:00
Insulin Pump Settings
IP Diabetes Regimen
03/18/25 03/18/25 03/18/25
08:17 08:39 13:17
Glucose 447 H
POC Glucose 446 H 485 H*
03/18/25 03/18/25 03/18/25
13:49 16:47 21:23
Glucose 504 H*
POC Glucose 309 H 70
03/19/25 03/19/25 03/19/25
03:54 04:10 04:25
Glucose
POC Glucose 37 L* 51 L* 85
03/19/25
06:53
Glucose
POC Glucose 153 H
Meal type: Lunch
Meal type: Breakfast
Amount consumed: 90%
Amount consumed: 100%
Patient Education
--- NOTE | 2025-03-19 07:44 | W.PN.HOSP.TC ---
Addendum entered and electronically signed by Saskia Vasquez MD 03/19/25 13:05:
I saw and evaluated the patient independently. I reviewed the resident�s note and agree with findings and plan as documented by Dr. Araya.
GENERAL: elderly frail female in NAD--not talkative--not following commands
HEENT: NC/AT--no O2
HEART: regular rate and rhythm, +S1, +S2
LUNGS : clear to auscultation bilaterally
ABDOM: soft, nontender, nondistended, + bowel sounds
EXT: no cyanosis, clubbing, or edema
NEUROLOGIC: apparent dementia
Possible fall/Found down by staff at Assisted Living Facility---arrhythmia ruled out, infection ruled out, dehydration/orthostasis ruled out, progressive dementia likely possibility--head CT neg--MRI brain neg for acute intracranial
abnormalities--PT/OT rec home health
DM type 1 w hyperglycemia (with Hx of hypoglycemic seizure)--most likely dietary as pt LOVES anything sweet--NOT in DKA--apprec DM INSPECTOR OF WEIGHTS AND MEASURES--agree would keep BS a bit higher as A1C 6--stop IVF--accuchecks with SSI coverage
Senile dementia with behavioral disturbance--cont risperidone and PRN ativan, escitalopram
Essential HTN- not on any meds at home- monitor--may need to add if remains hypertensive
Anxiety/depression- cont home escitalopram
DVT proph--SC heparin
Code status-- DNR
OK for d/c
Original Note:
Today's Communication/Plan
-
- insulin titration
- dc planning
Assessment / Plan
Assessment / Plan
Assessment:
75yo F [facility] senile dementia, HTN, IDDM, depression who presented to [facility] ED 03/16 for concerns of a fall. Pt was sitting on a bench at [facility] when staff walked away and found her on the floor. Her glucose was elevated at this time. In the
ED, her glucose is markedly elevated (>500) w/o anion gap. Pt started on insulin drip, which was stopped later the same night. CT head c/w no acute intracranial abnormalities.
Plan:
DM type 1 w hyperglycemia
Hx of hypoglycemic seizure
- peak glu 521, AG 5 at the time
- IVF
- basal: bolus insulin w SSI
- HbA1c 6.0, reportedly takes sweets off of other people's trays
- DM ENVIRONMENTAL ECONOMIST input appreciated
Possible fall / Found down
- concern for possible stroke vs dehydration vs dementia vs ? fall
- CT head: no acute intracranial abnormalities
- PT/OT - recommend home health
- tele
- orthostatic vitals neg
- brain mri: Limited. Motion degradation. No acute intracranial abnormality as far as visualized. Chronic findings, as described.
Senile dementia w behavioral disturbance
- prn ativan
- cont home risperdone
- delirium precautions
HTN
- not on any meds at home
- monitor
Anxiety/depression
- cont home escitalopram
Diet: diabetic
DVT ppx: subq heparin
Code status: DNR
Anticipated Discharge: Within 24 hours
Subjective/Interval History
-
Date of Service: March 19, 2025
Blood glucose down to 37, repleted w juices to 153. Pt lethargic
Objective Data
-
Labs:
Laboratory Results
03/19/25
07:30
WBC Pending
Hgb Pending
Hct Pending
Plt Count Pending
Sodium Pending
Potassium Pending
Chloride Pending
Carbon Dioxide Pending
BUN Pending
Creatinine Pending
Glucose Pending
Calcium Pending
Vital Signs:
Vital Signs
Temp Pulse Resp BP Pulse Ox
97.6 F 55 20 128/77 97
03/19/25 03:35 03/19/25 03:35 03/19/25 03:35 03/19/25 03:35 03/19/25 03:35
I&O
03/18/25 03/19/25 03/20/25
06:59 06:59 06:59
Intake Total 1800 / 1800 2319
Balance 1800 / 1800 2319
Review of Systems
-
Unable to obtain full review of systems at this time due to: Dementia
Physical Exam
-
General: Well Developed and Well Nourished
HEENT: Normocephalic and Atraumatic
Respiratory: Clear to Auscultation and Non Labored Respirations
Cardiac: Regular Rhythm and S1/S2
GI: Soft, Nontender, Nondistended and Normal Bowel Sounds
Musculoskeletal: No Clubbing, No Cyanosis and No Edema
Skin: Warm and Dry
Psych: Apparent Dementia
[2025-03-19 08:19] LABS: Glucose - Point of Care 137 mg/dl (70-99)
[2025-03-19] MEDS: NOVOLOG FLEXPEN-LOW RESISTANCE SC (08:27)
[2025-03-19 08:42] LABS: Hemoglobin 11.9 g/dL (12.0-16.0); Mean Corp Hgb Conc. 36.1 g/dL (33.0-37.0); Mean Corpuscular Hgb 33.7 pg (27.0-31.0); Mean Corpuscular Volume 93.5 fL (81.0-99.0); Mean Platelet Volume 9.1 fL (7.4-10.4); Platelet Count 200 10^3/uL (130-400); Red Blood Cell Count 3.53 10^6/uL (4.20-5.40); Red Cell Dist. Width 13.7 % (11.5-14.5); White Blood Cell Count 3.7 10^3/uL (4.8-10.8)
[2025-03-19] MEDS: NOVOLOG FLEXPEN 10 UNITS SC ×2 (09:00→12:48)
[2025-03-19] MEDS: LANTUS 0.18 UNITS SC (09:03)
[2025-03-19] MEDS: LEXAPRO 5 MG PO (09:04)
[2025-03-19] MEDS: HEPARIN 5000 UNITS SC (09:04)
--- NOTE | 2025-03-19 09:55 | W.DCSUMMARY ---
Addendum entered and electronically signed by Saskia Vasquez MD 03/19/25 13:06:
Read, reviewed, and agree. See same day progress note for additional details. Time spent coordinating care, DC planning, review of DC plan of care with resident, transition of care, review of records in EMR, med rec, consults, notes, d/w
consultants, nursing, family, and CM = 33 minutes
Original Note:
Discharge Summary
Discharge Data
Date of Admission: 03/17/25
Date of Discharge: 03/19/25
-
Pending Results: No
Hospital Course
Discharging Physician : Dr. Lila Araya, Dr. Saskia Vasquez
Disposition : [facility]
Primary care physician : unknown
Principal Discharge diagnosis : Hyperglycemia, found down
Chronic Discharge diagnosis : senile dementia, HTN, IDDM, depression
Hospital Course : 75yo F [facility] senile dementia, HTN, IDDM, depression who presented to [facility] ED 03/16 for concerns of a fall. Pt was sitting on a bench at [facility] when staff walked away and found her on the floor. Her glucose was elevated at
this time. In the ED, her glucose is markedly elevated (>500) w anion gap of 5. Pt started on insulin drip, which was stopped later the same night. CT head c/w no acute intracranial abnormalities. Insulin regimen adjusted to 10 units AC with low
corrective, with lantus 18 units in AM. Pt hyperglycemic in 400s, so insulin regimen adjusted to AC novolog to 10 units with low corrective with Lantus 18 units daily in AM. Overnight, pt hypoglycemic to glu 37. Replenished w fruit juices to glu
153. Insulin regimen adjusted to continue lantus 18 units with novolog 10 units and change low corrective to moderate corrective. Hemodynamically stable, afebrile. Stable for d/c.
Important imaging findings :
Head CT:
No acute intracranial abnormalities.
Findings compatible with diffuse cortical atrophy with nonspecific white matter changes
Brain MRI:
Limited. Motion degradation. No acute intracranial abnormality as far as visualized. Chronic findings, as described.
Procedure findings : n/a
Discharge Plan
-
Patient Disposition: Usp/SNF
Discharge Diagnosis/Procedures: Hyperglycemia
Condition: Fair
Diet: Diabetic, Carb Controlled
Activity: As tolerated
Driving Restrictions: No driving
Bathing Restrictions: None
Instructions: Carb counting for adults with diabetes, Diabetes and diet
Referrals:
UNKNOWN - PT DOES,NOT KNOW [Family Provider] -
Prescriptions:
Continued
insulin lispro [Humalog KwikPen Insulin] 100 unit/mL Insulin Pen
12 sliding scale dose SC ACHS
Rx Instructions:
150-200=2u,201-250=4u,251-300=6u,301-350=8u,351-400=10u
risperidone 0.25 mg tablet
0.25 mg PO Q8H
escitalopram oxalate 5 mg tablet
5 mg PO DAILY
tamsulosin 0.4 mg capsule
0.4 mg PO HS
acetaminophen [Tylenol Extra Strength] 500 mg Tablet
1,000 mg PO Q4HPRN PRN (Reason: mild pain)
bisacodyl [Dulcolax (bisacodyl)] 10 mg Suppository
10 mg MD [id number] PRN (Reason: if no bm on 3rd day)
hyoscyamine sulfate 0.125 mg Tablet, Sublingual
0.125 mg sublingual Q4HPRN PRN (Reason: secretions)
lorazepam [Lorazepam Intensol] 2 mg/mL Concentrate
1 mg sublingual Q4HPRN PRN (Reason: anxiety)
sennosides [senna] 8.6 mg Tablet
8.6 mg PO DAILYPRN PRN (Reason: if no bm on 3rd day)
triamcinolone acetonide 0.1 % Cream
1 applic TOPICAL BID
ondansetron 4 mg Tablet,Disintegrating
4 mg PO Q4HPRN PRN (Reason: nausea/vomiting)
insulin glargine [Lantus Solostar U-100 Insulin] 100 unit/mL (3 mL) Insulin Pen
18 unit SC DAILY Qty: 0 0RF
polyethylene glycol 3350 [HealthyLax] 17 gram powder in packet
17 g PO DAILYPRN PRN (Reason: constipation)
Discharge Date and Time
Print Language: KOSOVAN
[2025-03-19 10:43] LABS: Blood Urea Nitrogen 13 mg/dl (7-17); Calcium 8.8 mg/dl (8.4-10.2); Carbon Dioxide 29 mmol/L (22-30); Chloride 105 mmol/L (98-107); Estimated Creatinine Clearance 68 ml/min; Glucose 148 mg/dl (70-99); Potassium 4.3 mmol/L (3.5-5.1); Sodium 140 mmol/L (135-145); eGFR > 60.00
[2025-03-19 11:20] VITALS: BP 119/48
[2025-03-19 11:44] LABS: Glucose - Point of Care 129 mg/dl (70-99)
--- NOTE | 2025-03-19 13:16 | CM ---
Addendum entered by Sun Chawla 03/19/25 13:25:
Patient notified of IMM, he declined copy and patient given copy of IMM. CM will continue to follow for discharge planning needs.
Original Note:
Patient seen at bedside with physician Afshin ford. Patient eating breakfast when CM in room. Patient for discharge back to [facility] and CM spoke with [facility] who provided report number of [phone]/fax [phone]. CM completed ambulance
forms and will sent to the unit. Patient for ambulance transfer. CM will call to patient [phone] to review IMM and CM will continue to follow for discharge planning needs.
Plan; [facility] return today
[2025-03-19 15:44] VITALS: BP 140/82
== END 2025-03-19 16:11 | disposition home or self-care (01) | DRG 638 ==
LOC: 4 WEST ACU 03:53
PROVIDERS: Emergency Medicine; ADMITTING PHYSICIAN Hospitalist; ATTENDING PHYSICIAN Internal Medicine; EMERGENCY PHYSICIAN Emergency Medicine
DX: E10.65 Type 1 diabetes mellitus with hyperglycemia (principal); F03.918 Unspecified dementia, unspecified severity, with other behavioral disturbance; F03.93 Unspecified dementia, unspecified severity, with mood disturbance; F03.94 Unspecified dementia, unspecified severity, with anxiety; W19.XXXA Unspecified fall, initial encounter; Y93.9 Activity, unspecified; Y92.098 Other place in other non-institutional residence as the place of occurrence of the external cause; F32.A Depression, unspecified; I10 Essential (primary) hypertension; E10.649 Type 1 diabetes mellitus with hypoglycemia without coma; Z66 Do not resuscitate; Z60.2 Problems related to living alone; Z96.642 Presence of left artificial hip joint; Z79.4 Long term (current) use of insulin; Z98.1 Arthrodesis status; Z88.0 Allergy status to penicillin
CPT/HCPCS: 70450; 70551; 80048; 80053; 81003; 82010; 82947; 82962; 83036; 83735; 84443; 84484; 85027; 93005; 97162; 97166

== ENCOUNTER 2025-06-13 20:18 | Emergency (ER) | payer MEDICARE, OTHER, SELFPAY ==
[2025-06-13 20:25] VITALS: BP 149/72
--- NOTE | 2025-06-14 01:12 | ED.GENMED ---
History of Present Illness
General
Chief Complaint: Fall
Source: patient
Exam Limitations: none
Time Seen by Provider: 06/14/25 00:24
Nursing documentation reviewed up to this point in time: agreed with
History of Present Illness
History of Present Illness:
75-year-old female past medical history of dementia hypertension presenting after ground-level fall that was witnessed hit her head. She has no complaints here in the ER.
Past History
Past History
ED Past Medical History: HTN, IDDM, Psychiatric (anxiety) and Other (Dementia)
ED Past Surgical History: Orthopedic
Social History
Tobacco: Non-smoker
Alcohol: None
Drug: None
Personal:
Living: alf
Review of Systems
Review of Systems
Allergies reviewed?: Yes
All Other Systems: ROS reviewed and negative except as documented in HPI and ROS
Phy Exam
Physical Exam
Physical Exam:
GENERAL: Alert , in no apparent distress
EYE: pupils equal and reactive
NECK: Supple, no significant adenopathy.
ENT: o/p clr, mmm.
CARDIAC: Regular rate and rhythm .
LUNGS: Clear breath sounds bilaterally, no acute respiratory distress, no wheezes/rales/rhonchi
ABDOMEN: Soft, without focal tenderness, no r/g, no cvat
NEUROLOGICAL: Alert no focal neuro deficits
SKIN: Warm and dry, skin intact.
MUSCULOSKELETAL: No edema, well perfused.
PSYCH: Normal and appropriate interaction.
Course
Orders/Labs/Results
Orders:
Orders
06/13/25 20:27
CT Cervical Spine W/o Iv Contr Urgent
Comment:
Reason For Exam: fall
CT Head W/o Iv Contrast Urgent
Comment:
Reason For Exam: fall
Vital Signs
Initial and Last Documented VS:
Initial Vital Signs
Temp Pulse Resp BP Pulse Ox
97.7 F 57 19 149/72 98
06/13/25 20:25 06/13/25 20:25 06/13/25 20:25 06/13/25 20:25 06/13/25 20:25
Last Documented Vital Signs
Temp Pulse Resp BP Pulse Ox
97.7 F 57 19 149/72 98
06/13/25 20:25 06/13/25 20:25 06/13/25 20:25 06/13/25 20:25 06/13/25 20:25
MDM/Problems Addressed
MDM/Problems Addressed:
75-year-old female presenting from nursing facility after ground-level fall that was witnessed. Hit her head. She has no specific complaints at this time but is confused at baseline due to dementia. CT scan of head and neck without emergent
findings. Otherwise no evidence of any acute injuries. Palpated from head to toe without any particular discomfort. Moving extremities normally. Stable for discharge return precautions given.
*Pulse Oximetry
SaO2: 98
Oxygen Mode of Delivery: Room air
Patient hypoxic: no (98)
*Critical Care Note
Total Time (30-74mins, 75-104mins- exclusive of procedures): Not Applicable
ED Attending Note
-
Portions of this chart may have been created with voice recognition software.� Occasional wrong word or��sound alike� substitutions may have occurred due to the inherent limitations of voice recognition software.
Discharge Plan
Departure
Patient Disposition: Home (Routine Discharge)
Date of Disposition: 06/14/25
Time of Disposition: 01:14
Patient with high blood pressure during this ER visit?: No
Condition: Good
Covid-19: Not Applicable
Discharge Problem:
Fall
Instructions: Preventing falls in adults
Prescriptions:
No Action
insulin lispro [Humalog KwikPen Insulin] 100 unit/mL Insulin Pen
12 sliding scale dose SC ACHS
Rx Instructions:
150-200=2u,201-250=4u,251-300=6u,301-350=8u,351-400=10u
risperidone 0.25 mg tablet
0.25 mg PO Q8H
escitalopram oxalate 5 mg tablet
5 mg PO DAILY
tamsulosin 0.4 mg capsule
0.4 mg PO HS
acetaminophen [Tylenol Extra Strength] 500 mg Tablet
1,000 mg PO Q4HPRN PRN (Reason: mild pain)
bisacodyl [Dulcolax (bisacodyl)] 10 mg Suppository
10 mg W[place] [id number] PRN (Reason: if no bm on 3rd day)
hyoscyamine sulfate 0.125 mg Tablet, Sublingual
0.125 mg sublingual Q4HPRN PRN (Reason: secretions)
lorazepam [Lorazepam Intensol] 2 mg/mL Concentrate
1 mg sublingual Q4HPRN PRN (Reason: anxiety)
sennosides [senna] 8.6 mg Tablet
8.6 mg PO DAILYPRN PRN (Reason: if no bm on 3rd day)
triamcinolone acetonide 0.1 % Cream
1 applic TOPICAL BID
ondansetron 4 mg Tablet,Disintegrating
4 mg PO Q4HPRN PRN (Reason: nausea/vomiting)
insulin glargine [Lantus Solostar U-100 Insulin] 100 unit/mL (3 mL) Insulin Pen
18 unit SC DAILY Qty: 0 0RF
polyethylene glycol 3350 [HealthyLax] 17 gram powder in packet
17 g PO DAILYPRN PRN (Reason: constipation)
Referrals:
Jose Manuel Yuan MD [Family Provider, Family Practice]
Activity Restrictions/Additional Instructions:
You came to the emergency department after a fall. Here your head CT and neck CT was normal. Return for any worsening, new or concerning symptoms.
Interventions
Interventions:
*Risk Screen - Suicide Last Done: 06/13/25 20:25
*General Assessment Last Done: 06/13/25 20:25
*Neglect/Abuse Screening Last Done: 06/13/25 20:25
*ED- Fall Risk Assessment Last Done: 06/14/25 00:49
*ED COVID-19 Vaccine History Last Done: 06/14/25 00:49
ED-Musculoskeletal Assessment Last Done: 06/14/25 00:49
ED- Neurological Assessment Last Done: 06/14/25 00:49
ED-Skin Assessment Last Done: 06/14/25 00:49
Discharge Date and Time
Print Language: MEXICAN
[2025-06-14 02:18] VITALS: BP 152/68
== END 2025-06-14 04:55 | disposition home or self-care (01) ==
LOC: EMR 20:18
PROVIDERS: EMERGENCY PHYSICIAN Student in an Organized Health Care Education/Training Program; FAMILY PHYSICIAN Family Medicine
DX: Z04.3 Encounter for examination and observation following other accident (principal); E11.9 Type 2 diabetes mellitus without complications; I10 Essential (primary) hypertension; F03.94 Unspecified dementia, unspecified severity, with anxiety; Z79.4 Long term (current) use of insulin
CPT/HCPCS: 99284; 70450; 72125

== ENCOUNTER 2025-06-24 10:05 | Emergency (ER) | payer MEDICARE, OTHER, SELFPAY ==
[2025-06-24 10:12] VITALS: BP 116/84
--- NOTE | 2025-06-24 11:00 | ED.GENMED ---
History of Present Illness
General
Chief Complaint: Esophageal Problem
Source: patient
Exam Limitations: none
Time Seen by Provider: 06/24/25 10:13
History of Present Illness
History of Present Illness:
75-year-old female apparently choked on gruber. Was given abdominal thrust. Patient is aphasic has no complaints now and appears in no distress.
Past History
Past History
ED Past Medical History: HTN, IDDM, Psychiatric (anxiety) and Other (Dementia)
ED Past Surgical History: Orthopedic
Social History
Tobacco: Non-smoker
Alcohol: None
Drug: None
Personal:
Living: custodial
Review of Systems
Review of Systems
All Other Systems: Not applicable
Phy Exam
Physical Exam
Physical Exam:
GENERAL: Alert nontoxic-appearing
EYE: Orbits normal.
NECK: Supple, no significant adenopathy.
ENT: Pharynx without erythema. No intraoral foreign body. No drooling or stridor no respiratory distress
CARDIAC: Regular rate and rhythm without any obvious murmurs.
LUNGS: Clear breath sounds,normal
ABDOMEN: Soft, mild diffuse tenderness. No rebound or guarding no mass or hernia.
NEUROLOGICAL: Alert nonfocal. Will follow simple commands. Expressive aphasia
SKIN: Warm and dry, no rash or lesion, no discoloration, skin intact.
MUSCULOSKELETAL: No edema,no deformity.Good color
PSYCH: Cooperative
Course
Orders/Labs/Results
Orders:
Orders
06/24/25 10:21
CR Obstruct Series W/pa Chest Urgent
Comment:
Reason For Exam: Choked on gruber. Abdominal thrusts
Vital Signs
Initial and Last Documented VS:
Initial Vital Signs
Temp Pulse Resp BP Pulse Ox
98.0 F 65 16 116/84 94
06/24/25 10:12 06/24/25 10:12 06/24/25 10:12 06/24/25 10:12 06/24/25 10:12
Last Documented Vital Signs
Temp Pulse Resp BP Pulse Ox
98.0 F 69 20 145/72 94
06/24/25 10:12 06/24/25 13:30 06/24/25 13:30 06/24/25 13:00 06/24/25 11:04
MDM/Problems Addressed
MDM/Problems Addressed:
Nontoxic no distress. No airway issues. No respiratory issues. Has mild abdominal tenderness diffusely. Suspect secondary to the abdominal thrust. Doubt significant intra-abdominal trauma related to this. Will check x-ray. Do not feel
radiologic CT scan is warranted unless x-ray would show free air which is unlikely
*Radiology
Radiology exam reviewed: preliminary read by ED provider (No acute findings) and radiology read reviewed (No acute findings)
*Pulse Oximetry
SaO2: 94
Oxygen Mode of Delivery: Room air
Patient hypoxic: no
*[employer] Interpretation
Rate: normal
Interpretation: normal
Heart Rate: 66
Rhythm: sinus
*Critical Care Note
Total Time (30-74mins, 75-104mins- exclusive of procedures): Not Applicable
Update Note
Update Note:
Patient has remained stable and nontoxic. No respiratory issues. Nonacute abdomen. Stable vital signs. Tried to call the to inform him. Left message with son.
ED Attending Note
-
Portions of this chart may have been created with voice recognition software.� Occasional wrong word or��sound alike� substitutions may have occurred due to the inherent limitations of voice recognition software.
Discharge Plan
Departure
Patient Disposition: Home (Routine Discharge)
Date of Disposition: 06/24/25
Time of Disposition: 13:38
Patient with high blood pressure during this ER visit?: Yes
Discharge Problem:
Choking episode, Dementia history
Instructions: Choking, BLOOD PRESSURE
Prescriptions:
No Action
insulin lispro [Humalog KwikPen Insulin] 100 unit/mL Insulin Pen
12 sliding scale dose SC ACHS
Rx Instructions:
150-200=2u,201-250=4u,251-300=6u,301-350=8u,351-400=10u
risperidone 0.25 mg tablet
0.25 mg PO Q8H
escitalopram oxalate 5 mg tablet
5 mg PO DAILY
tamsulosin 0.4 mg capsule
0.4 mg PO HS
acetaminophen [Tylenol Extra Strength] 500 mg Tablet
1,000 mg PO Q4HPRN PRN (Reason: mild pain)
bisacodyl [Dulcolax (bisacodyl)] 10 mg Suppository
10 mg GA [id number] PRN (Reason: if no bm on 3rd day)
hyoscyamine sulfate 0.125 mg Tablet, Sublingual
0.125 mg sublingual Q4HPRN PRN (Reason: secretions)
lorazepam [Lorazepam Intensol] 2 mg/mL Concentrate
1 mg sublingual Q4HPRN PRN (Reason: anxiety)
sennosides [senna] 8.6 mg Tablet
8.6 mg PO DAILYPRN PRN (Reason: if no bm on 3rd day)
ondansetron 4 mg Tablet,Disintegrating
4 mg PO Q4HPRN PRN (Reason: nausea/vomiting)
polyethylene glycol 3350 [HealthyLax] 17 gram powder in packet
17 g PO DAILYPRN PRN (Reason: constipation)
insulin glargine [Lantus Solostar U-100 Insulin] 100 unit/mL (3 mL) insulin pen
18 unit SC QPM
Referrals:
Jose Manuel Yuan MD [Family Provider, Family Practice] - Follow up in 2-3 days
Interventions
Interventions:
*Risk Screen - Suicide Last Done: 06/24/25 10:12
*General Assessment Last Done: 06/24/25 10:12
*Neglect/Abuse Screening Last Done: 06/24/25 10:12
*ED COVID-19 Vaccine History Last Done: 06/24/25 10:12
JZ-[id number] Assessment Last Done: 06/24/25 11:45
ED-EENT Assessment Last Done: 06/24/25 11:45
Discharge Date and Time
Print Language: [place]
[2025-06-24 11:23] VITALS: BP 115/65
[2025-06-24 12:00] VITALS: BP 139/74
[2025-06-24 13:00] VITALS: BP 145/72
[2025-06-24 14:00] VITALS: BP 153/107
== END 2025-06-24 14:51 | disposition home or self-care (01) ==
LOC: EMR 10:05
PROVIDERS: EMERGENCY PHYSICIAN Emergency Medicine; FAMILY PHYSICIAN Family Medicine
DX: R09.89 Other specified symptoms and signs involving the circulatory and respiratory systems (principal); F03.94 Unspecified dementia, unspecified severity, with anxiety; I10 Essential (primary) hypertension; E11.9 Type 2 diabetes mellitus without complications; Z79.4 Long term (current) use of insulin
CPT/HCPCS: 99283; 74022

== ENCOUNTER 2025-07-27 10:15 | Emergency (ER) | payer MEDICARE, OTHER, SELFPAY ==
[2025-07-27 10:19] VITALS: BP 142/72; BMI 17.9
[2025-07-27 12:00] VITALS: BP 152/74
[2025-07-27 12:09] LABS: Glucose - Point of Care 136 mg/dl (70-99)
--- NOTE | 2025-07-27 12:25 | ED.GENMED ---
Addendum entered and electronically signed by Cedric Ignacio PA-C 07/30/25 06:24:
UCx w/ pansensitive E coli, given fosfomycin
Original Note:
History of Present Illness
General
Chief Complaint: Blood Sugar Problem
Source: ambulance crew and detention records
Exam Limitations: non verbal-adult and dementia
Time Seen by Provider: 07/27/25 11:13
History of Present Illness
History of Present Illness:
75-year-old female from the [facility] with history of dementia, not much verbalization, HTN, hep C, IDDM, depression, remote history of alcohol abuse presents via EMS for a reported blood sugar of 40 at 7:50 a.m. at the detention. They
fed her yogurt and called EMS. EMS gave NSS 250 ml of D10 and they reported BS of 302. On arrival pt BS was 108 and on recheck 136. Pt is nonverbal at this time. EMS states she is at her baseline mental state. She opens her eyes on command and looks
at speaker.
Past History
Past History
ED Past Medical History: HTN, IDDM, Psychiatric (anxiety) and Other (Dementia)
ED Past Surgical History: Orthopedic
Social History
Tobacco: Non-smoker
Alcohol: None
Drug: None
Personal:
Living: detention
Review of Systems
Review of Systems
Allergies reviewed?: Yes
Unable to obtain full review of systems at this time due to: non-verbal
Phy Exam
Physical Exam
Physical Exam:
GENERAL: No acute distress. Nonverbal, opens eyes on command and looks at speaker. Does not follow other commands such as 'move your arms.' Elderly and frail, cachectic
CONSTITUTIONAL: Afebrile.
EYES: clear, conjunctivae normal
ENMT: moist mucus membranes, constantly sticking tongue out (tardive dyskinesia?)
RESPIRATORY: Regular respirations, nonlabored, lungs clear.
CARDIOVASCULAR: Regular rate and rhythm, no murmurs, no rubs.
GI: Soft, no wincing with deep palpation, normal BS
MUSCULOSKELETAL: No edema
SKIN: Warm, dry, pale
PSYCH: Depressed mood and affect. Well kept, interactive and appropriate
NEUROLOGIC: Somnolent, easily arouses by calling her name, looks at speaker but is nonverbal
Course
Orders/Labs/Results
Orders:
Orders
07/27/25 12:22
Straight cath- Treatment ONCE
07/27/25 12:23
0.9% Sodium Chloride 500 ml [Nss] 500 ml IV BOLUS
07/27/25 12:25
Complete Blood Count/With Diff Urgent
07/27/25 13:10
Urinalysis Reflex To Culture Urgent
Date Specimen was Collected: 07/27/25
Time Specimen was Collected: 13:09
Urine Microscopic Reflex Cult Urgent
Urine Culture Urgent
SRIKANTH Source: U
Specimen Description:
Date Specimen was Collected: 07/27/25
Time Specimen was Collected: 13:09
07/27/25 13:48
Comprehensive Metabolic Panel Urgent
07/27/25 14:02
Fosfomycin [Monurol] 3 gm PO ONCE ONE
Abnormal Lab Results
07/27/25 07/27/25 07/27/25
12:07 12:25 13:10
RBC 3.59 L 10^6/uL
(4.20-5.40)
Hgb 11.6 L g/dL
(12.0-16.0)
Hct 34.2 L %
(37.0-47.0)
MCH 32.3 H pg
(27.0-31.0)
Absolute Lymphs (auto) 0.6 L 10^3/uL
(1.2-3.4)
Neutrophils % 79.0 H %
(42.2-75.2)
Lymphocytes % 11.6 L %
(20.5-51.1)
Chloride
Creatinine
Glucose
Total Protein
Urine Nitrite (Reflex) Positive A
(Negative)
Leukocyte Esterase Rfl 1+ A
(Negative)
Urine Bacteria (Reflex) Many A
(Negative)
Urine Albumin (Reflex) 1+ A
(Neg - Trace)
POC Glucose 136 H mg/dl
(70-99)
07/27/25 07/27/25 07/27/25
13:48 14:23 16:36
RBC
Hgb
Hct
MCH
Absolute Lymphs (auto)
Neutrophils %
Lymphocytes %
Chloride 108 H mmol/L
(98-107)
Creatinine 0.4 L mg/dL
(0.6-1.0)
Glucose 138 H mg/dl
(70-99)
Total Protein 6.2 L g/dl
(6.3-8.2)
Urine Nitrite (Reflex)
Leukocyte Esterase Rfl
Urine Bacteria (Reflex)
Urine Albumin (Reflex)
POC Glucose 121 H mg/dl 180 H mg/dl
(70-99) (70-99)
07/27/25 12:25
07/27/25 13:48
Vital Signs
Initial and Last Documented VS:
Initial Vital Signs
Temp Pulse Resp BP Pulse Ox
98.5 F 53 13 142/72 97
07/27/25 10:19 07/27/25 10:19 07/27/25 10:19 07/27/25 10:19 07/27/25 10:19
Last Documented Vital Signs
Temp Pulse Resp BP Pulse Ox
98.5 F 55 19 105/76 95
07/27/25 10:19 07/27/25 16:15 07/27/25 16:15 07/27/25 16:00 07/27/25 16:15
MDM/Problems Addressed
Differential Diagnosis Includes:
hypoglycemia, UTI, dehydration
MDM/Problems Addressed:
75-year-old female from the [facility] with history of dementia, not much verbalization, HTN, hep C, IDDM, depression, remote history of alcohol abuse presents via EMS for a reported blood sugar of 40 at 7:50 a.m. at the detention. They
fed her yogurt and called EMS. EMS gave NSS 250 ml of D10 and they reported BS of 302. On arrival pt BS was 108 and on recheck 136. Pt is nonverbal at this time. EMS states she is at her baseline mental state. She opens her eyes on command and looks
at speaker.
Afebrile, NAD
CBC with no clinically significant abnormality
CMP hemolyzed awaiting results
Straight cath UA: Positive nitrates, positive leukocytes, 3-5 WBCs, greater than 30 squames and many bacteria
Will treat with Monurol 3 g pending urine culture
2:00 PM:
CMP back and is within normal limits with a blood glucose of 138
Patient is stable for discharge back to detention
*Pulse Oximetry
SaO2: 96
Oxygen Mode of Delivery: Room air
Patient hypoxic: no
*Critical Care Note
Total Time (30-74mins, 75-104mins- exclusive of procedures): Not Applicable
ED Attending Note
-
Portions of this chart may have been created with voice recognition software.� Occasional wrong word or��sound alike� substitutions may have occurred due to the inherent limitations of voice recognition software.
Discharge Plan
Departure
Patient Disposition: Skilled Nursing/SNF
Date of Disposition: 07/27/25
Time of Disposition: 14:34
Patient with high blood pressure during this ER visit?: No
Condition: Fair
Discharge Problem:
Acute UTI, Hypoglycemic episode in patient with diabetes mellitus
Prescriptions:
No Action
insulin lispro [Humalog KwikPen Insulin] 100 unit/mL Insulin Pen
12 sliding scale dose SC ACHS
Rx Instructions:
150-200=2u,201-250=4u,251-300=6u,301-350=8u,351-400=10u
risperidone 0.25 mg tablet
0.25 mg PO Q8H
escitalopram oxalate 5 mg tablet
5 mg PO DAILY
tamsulosin 0.4 mg capsule
0.4 mg PO HS
acetaminophen [Tylenol Extra Strength] 500 mg Tablet
1,000 mg PO Q4HPRN PRN (Reason: mild pain)
bisacodyl [Dulcolax (bisacodyl)] 10 mg Suppository
10 mg MD [id number] PRN (Reason: if no bm on 3rd day)
hyoscyamine sulfate 0.125 mg Tablet, Sublingual
0.125 mg sublingual Q4HPRN PRN (Reason: secretions)
lorazepam [Lorazepam Intensol] 2 mg/mL Concentrate
1 mg sublingual Q4HPRN PRN (Reason: anxiety)
sennosides [senna] 8.6 mg Tablet
8.6 mg PO DAILYPRN PRN (Reason: if no bm on 3rd day)
ondansetron 4 mg Tablet,Disintegrating
4 mg PO Q4HPRN PRN (Reason: nausea/vomiting)
polyethylene glycol 3350 [HealthyLax] 17 gram powder in packet
17 g PO DAILYPRN PRN (Reason: constipation)
insulin glargine [Lantus Solostar U-100 Insulin] 100 unit/mL (3 mL) insulin pen
18 unit SC QPM
Referrals:
Jose Manuel Yuan MD [Family Provider, Family Practice] - As needed
Activity Restrictions/Additional Instructions:
We gave Ms. Valero a dose of Monural for UTI, urine culture is pending
Please feed pt upon return.
Blood sugar on discharge is 138
Interventions
Interventions:
*General Assessment Last Done: 07/27/25 10:19
*Neglect/Abuse Screening Last Done: 07/27/25 10:19
*ED- Fall Risk Assessment Last Done: 07/27/25 10:19
*ED COVID-19 Vaccine History Last Done: 07/27/25 10:19
*Nursing Disposition Last Done: 07/27/25 16:45
ED- Neurological Assessment Last Done: 07/27/25 16:44
Discharge Date and Time
Discharge Date/Time: 07/27/25 16:52
Print Language: NORTHER[place] IRISH
[2025-07-27] MEDS: NSS 500 IV (12:29)
[2025-07-27 12:33] LABS: Hematocrit 34.2 % (37.0-47.0); Hemoglobin 11.6 g/dL (12.0-16.0); Mean Corp Hgb Conc. 33.9 g/dL (33.0-37.0); Mean Corpuscular Volume 95.3 fL (81.0-99.0); Nucleated Red Blood Cells % 0 %; Platelet Count 206 10^3/uL (130-400); Red Cell Dist. Width 13.0 % (11.5-14.5)
[2025-07-27 13:00] VITALS: BP 148/75
[2025-07-27 13:32] LABS: Urine Character Slightly Cloudy (Clear)
[2025-07-27 13:46] LABS: Urine Red Blood Cell 0-2 /HPF (0-2); Urine Squamous Cell >30 /LPF (Few)
[2025-07-27 14:00] VITALS: BP 135/69
[2025-07-27] MEDS: MONUROL 3 GM PO (14:14)
[2025-07-27 14:18] LABS: ALT (SGPT) 11 U/L (0-35); AST (SGOT) 15 U/L (14-36); Albumin 3.5 g/dl (3.5-5.0); Alkaline Phosphatase 77 U/L (38-126); Blood Urea Nitrogen 10 mg/dl (7-17); Calcium 8.6 mg/dl (8.4-10.2); Carbon Dioxide 28 mmol/L (22-30); Chloride 108 mmol/L (98-107); Estimated Creatinine Clearance 69 ml/min; Glucose 138 mg/dl (70-99); Potassium 4.0 mmol/L (3.5-5.1); Sodium 138 mmol/L (135-145); Total Protein 6.2 g/dl (6.3-8.2); eGFR > 60.00
[2025-07-27 14:24] LABS: Glucose - Point of Care 121 mg/dl (70-99)
[2025-07-27 15:00] VITALS: BP 133/85
[2025-07-27 16:00] VITALS: BP 105/76
[2025-07-27 16:42] LABS: Glucose - Point of Care 180 mg/dl (70-99)
== END 2025-07-27 16:52 ==
LOC: EMR 10:15
PROVIDERS: Registered Nurse; EMERGENCY PHYSICIAN Student in an Organized Health Care Education/Training Program; FAMILY PHYSICIAN Family Medicine
DX: N39.0 Urinary tract infection, site not specified (principal); E10.649 Type 1 diabetes mellitus with hypoglycemia without coma; E16.A2 Hypoglycemia level 2; F03.90 Unspecified dementia, unspecified severity, without behavioral disturbance, psychotic disturbance, mood disturbance, and anxiety; I10 Essential (primary) hypertension; F41.9 Anxiety disorder, unspecified; F32.A Depression, unspecified; B19.20 Unspecified viral hepatitis C without hepatic coma; Z79.4 Long term (current) use of insulin; B96.20 Unspecified Escherichia coli [E. coli] as the cause of diseases classified elsewhere
CPT/HCPCS: 99283; 80053; 81003; 81015; 82962; 85025; 87077; 87086; 87186

== ENCOUNTER 2025-07-31 22:25 | Emergency (ER) | payer MEDICARE, OTHER, SELFPAY ==
[2025-07-31 22:34] LABS: Glucose - Point of Care 133 mg/dl (70-99)
[2025-07-31 22:39] VITALS: BP 106/78
[2025-07-31 23:00] VITALS: BP 132/66
[2025-07-31 23:09] LABS: Hematocrit 34.7 % (37.0-47.0); Hemoglobin 11.9 g/dL (12.0-16.0); Mean Corp Hgb Conc. 34.3 g/dL (33.0-37.0); Mean Corpuscular Volume 94.6 fL (81.0-99.0); Nucleated Red Blood Cells % 0 %; Platelet Count 257 10^3/uL (130-400); Red Cell Dist. Width 13.0 % (11.5-14.5)
[2025-07-31 23:16] VITALS: BMI 21.8
[2025-07-31 23:30] LABS: ALT (SGPT) 11 U/L (0-35); AST (SGOT) 15 U/L (14-36); Albumin 3.8 g/dl (3.5-5.0); Alkaline Phosphatase 76 U/L (38-126); Blood Urea Nitrogen 18 mg/dl (7-17); Calcium 8.9 mg/dl (8.4-10.2); Carbon Dioxide 29 mmol/L (22-30); Chloride 105 mmol/L (98-107); Estimated Creatinine Clearance 68 ml/min; Glucose 88 mg/dl (70-99); Potassium 3.9 mmol/L (3.5-5.1); Sodium 138 mmol/L (135-145); Total Protein 6.8 g/dl (6.3-8.2); eGFR > 60.00
--- NOTE | 2025-07-31 23:47 | ED.GENMED ---
ED Provider Triage
<Karl Manuel MD, Resident - Last Filed: 08/01/25 02:12>
-
Patient seen by provider in Triage?: Seen in Triage
History of Present Illness
<Karl Manuel MD, Resident - Last Filed: 08/01/25 02:12>
General
Chief Complaint: Hyper/Hypo Thermia Problem
Source: patient
Exam Limitations: non verbal-adult and dementia
Time Seen by Provider: 07/31/25 22:29
Nursing documentation reviewed up to this point in time: agreed with
History of Present Illness
History of Present Illness:
Pt is 75 y/o female who is nonverbal at baseline and presents from [facility] via EMS. History was gathered from her previous charts, calling her retirement and speaking with the nurse. According to her retirement, today at around 8
o'clock in the morning, caretakers noticed she was having trouble standing from a seated position. She is normal ambulatory. They were concerned that she was hypoglycemic ( however it is unclear whether or not they checked her blood sugar), then
another nurse at around 5pm checked her blood sugar and noticed it was 27. it was then that EMS was called, and 25 grams of glucose administered, afterwards glucose was 178. Upon further questioning, retirement states she ate all her meals,
received all her diabetic medications on time, no witnessed seizures or falls. She had a previous similar history on 07/27/25 where she was arrived with a blood glucose of 40 ( normalized to 138 on discharge), also was diagnosed with UTI on previous
admission and sent home on fosfomycin. Patient has a previous medical history of IDDM, hepatitis C, DM, and previous alcohol abuse.
Past History
<Karl Manuel MD, Resident - Last Filed: 08/01/25 02:12>
Past History
ED Past Medical History: HTN, IDDM, Psychiatric (anxiety) and Other (Dementia)
ED Past Surgical History: Orthopedic
Social History
Tobacco: Non-smoker
Alcohol: Former
Drug: None
Personal:
Living: retirement
Review of Systems
<Karl Manuel MD, Resident - Last Filed: 08/01/25 02:12>
Review of Systems
Unable to obtain full review of systems at this time due to: non-verbal
Phy Exam
<Karl Manuel MD, Resident - Last Filed: 08/01/25 02:12>
General Physical Exam
General Presentation: well appearing and mild distress
General Skin: warm and dry
General Habitus: elderly
General Mental: usual mental status
Cardiovascular Exam
Cardiovascular Exam: regular rate/rhythm and no edema
Pulmonary Exam
Pulmonary Exam: lungs clear and no respiratory distress
Gastrointestinal Exam
Gastrointestinal Exam: normal bowel sounds, soft and non distended
Neurological Exam
Neurological Exam: alert and non verbal
Course
<Karl Manuel MD, Resident - Last Filed: 08/01/25 02:12>
Orders/Labs/Results
Orders:
Orders
07/31/25 22:50
Electrocardiogram (*1) Urgent
Reason for Study: Other
Other Reason for Exam: low BS
EKG- Treatment ONCE
07/31/25 22:56
Complete Blood Count/With Diff Urgent
Comprehensive Metabolic Panel Urgent
07/31/25 23:43
Urinalysis Reflex To Culture Urgent
Date Specimen was Collected: 07/31/25
Time Specimen was Collected: 23:40
Urine Microscopic Reflex Cult Urgent
07/31/25 23:45
Dextrose 10%/Water 500 ml [D10w] 500 ml IV 100 mls/hr
07/31/25 23:50
Dextrose 50%-Water [Dextrose 50% Syringe] 25 grams .ROUTE .[facility]
07/31/25 23:51
Dextrose 50%-Water [Dextrose 50% Syringe] 25 grams IV NOW STA
Abnormal Lab Results
07/31/25 07/31/25 07/31/25
22:33 22:56 23:43
RBC 3.67 L 10^6/uL
(4.20-5.40)
Hgb 11.9 L g/dL
(12.0-16.0)
Hct 34.7 L %
(37.0-47.0)
MCH 32.4 H pg
(27.0-31.0)
Absolute Lymphs (auto) 0.6 L 10^3/uL
(1.2-3.4)
Neutrophils % 78.5 H %
(42.2-75.2)
Lymphocytes % 12.8 L %
(20.5-51.1)
BUN 18 H mg/dl
(7-17)
Creatinine 0.4 L mg/dL
(0.6-1.0)
Urine Urobilinogen 2+ A
(Neg - 1+)
Urine Bacteria (Reflex) Few A
(Negative)
Urine Glucose 1+ A
(Negative)
Urine Albumin (Reflex) 1+ A
(Neg - Trace)
POC Glucose 133 H mg/dl
(70-99)
07/31/25 08/01/25 08/01/25
23:47 00:12 01:12
RBC
Hgb
Hct
MCH
Absolute Lymphs (auto)
Neutrophils %
Lymphocytes %
BUN
Creatinine
Urine Urobilinogen
Urine Bacteria (Reflex)
Urine Glucose
Urine Albumin (Reflex)
POC Glucose 68 L mg/dl 193 H mg/dl 188 H mg/dl
(7099) (7099) (70-99)
08/01/25
02:05
RBC
Hgb
Hct
MCH
Absolute Lymphs (auto)
Neutrophils %
Lymphocytes %
BUN
Creatinine
Urine Urobilinogen
Urine Bacteria (Reflex)
Urine Glucose
Urine Albumin (Reflex)
POC Glucose 201 H mg/dl
()
07/31/25 22:56
07/31/25 22:56
Vital Signs
Initial and Last Documented VS:
Initial Vital Signs
Pulse Resp
53 14
07/31/25 22:36 07/31/25 22:36
Last Documented Vital Signs
Temp Pulse Resp BP Pulse Ox
97.8 F 48 12 140/65 98
07/31/25 23:16 08/01/25 02:15 08/01/25 01:00 08/01/25 02:00 08/01/25 02:15
<Fidelina Hartman, DO - Last Filed: 08/01/25 02:18>
Orders/Labs/Results
Orders:
Orders
07/31/25 22:50
Electrocardiogram (*1) Urgent
Reason for Study: Other
Other Reason for Exam: low BS
EKG- Treatment ONCE
07/31/25 22:56
Complete Blood Count/With Diff Urgent
Comprehensive Metabolic Panel Urgent
07/31/25 23:43
Urinalysis Reflex To Culture Urgent
Date Specimen was Collected: 07/31/25
Time Specimen was Collected: 23:40
Urine Microscopic Reflex Cult Urgent
07/31/25 23:45
Dextrose 10%/Water 500 ml [D10w] 500 ml IV 100 mls/hr
07/31/25 23:50
Dextrose 50%-Water [Dextrose 50% Syringe] 25 grams .ROUTE .[facility]
07/31/25 23:51
Dextrose 50%-Water [Dextrose 50% Syringe] 25 grams IV NOW STA
Abnormal Lab Results
07/31/25 07/31/25 07/31/25
22:33 22:56 23:43
RBC 3.67 L 10^6/uL
(4.20-5.40)
Hgb 11.9 L g/dL
(12.0-16.0)
Hct 34.7 L %
(37.0-47.0)
MCH 32.4 H pg
(27.0-31.0)
Absolute Lymphs (auto) 0.6 L 10^3/uL
(1.2-3.4)
Neutrophils % 78.5 H %
(42.2-75.2)
Lymphocytes % 12.8 L %
(20.5-51.1)
BUN 18 H mg/dl
(7-17)
Creatinine 0.4 L mg/dL
(0.6-1.0)
Urine Urobilinogen 2+ A
(Neg - 1+)
Urine Bacteria (Reflex) Few A
(Negative)
Urine Glucose 1+ A
(Negative)
Urine Albumin (Reflex) 1+ A
(Neg - Trace)
POC Glucose 133 H mg/dl
(70-99)
07/31/25 08/01/25 08/01/25
23:47 00:12 01:12
RBC
Hgb
Hct
MCH
Absolute Lymphs (auto)
Neutrophils %
Lymphocytes %
BUN
Creatinine
Urine Urobilinogen
Urine Bacteria (Reflex)
Urine Glucose
Urine Albumin (Reflex)
POC Glucose 68 L mg/dl 193 H mg/dl 188 H mg/dl
(99) (70) (7099)
08/01/25
02:05
RBC
Hgb
Hct
MCH
Absolute Lymphs (auto)
Neutrophils %
Lymphocytes %
BUN
Creatinine
Urine Urobilinogen
Urine Bacteria (Reflex)
Urine Glucose
Urine Albumin (Reflex)
POC Glucose 201 H mg/dl
()
07/31/25 22:56
07/31/25 22:56
Vital Signs
Initial and Last Documented VS:
Initial Vital Signs
Pulse Resp
53 14
07/31/25 22:36 07/31/25 22:36
Last Documented Vital Signs
Temp Pulse Resp BP Pulse Ox
97.8 F 48 12 140/65 98
07/31/25 23:16 08/01/25 02:15 08/01/25 01:00 08/01/25 02:00 08/01/25 02:15
<Karl Manuel MD, Resident - Last Filed: 08/01/25 02:12>
MDM/Problems Addressed
Differential Diagnosis Includes:
over dosage of insulin, missed meals, insulinoma, liver disease, renal disease
MDM/Problems Addressed:
75 year old female who is non verbal as baseline presents to ER via EMS for hypoglycemia. Physical exam is benign. Pt is bradycardic.
- CBC shows normal wbc (4.8) and hgb (11.9)
- CMP shows normal creatinine (0.4) and blood glucose (88)
- POC glucose is 133
- UA pending
- EKG shows sinus bradycardia
- Dextrose 10% fluids administered with blood glucose to be checked every 1 hour
<Karl Manuel MD, Resident - Last Filed: 08/01/25 02:12>
*Pulse Oximetry
SaO2: 98
Oxygen Mode of Delivery: Room air
Patient hypoxic: no
*Critical Care Note
Total Time (30-74mins, 75-104mins- exclusive of procedures): Not Applicable
ED Attending Note
<Karl Manuel MD, Resident - Last Filed: 08/01/25 02:12>
-
Portions of this chart may have been created with voice recognition software.� Occasional wrong word or��sound alike� substitutions may have occurred due to the inherent limitations of voice recognition software.
<Fidelina Hartman DO - Last Filed: 08/01/25 02:18>
ED Attending Note
Patient seen and examined by attending physician: Yes
I performed the substantive portion of visit, reviewed & personally made and approve the management plan that is documented in note by myself or GELA.: Yes
I performed a history and physical exam of patient and discussed management with resident, I reviewed resident's note and agree with documented findings and plan of care.: Yes
ED Attending Note:
75-year-old female with history of type 1 diabetes, dementia, hypertension, essentially nonverbal status presenting for hypoglycemia. Patient presents from nursing facility where she was noted to be altered. Was reportedly not herself. They
checked her blood sugar and it was 27. They tried to give her yogurt and medics were called. They gave glucose and brought her to the ER. Patient very limited historian given nonverbal status. On review of EMR, recent hospital visit on 07/27 for
same symptoms. Patient at that time was found to have a UTI and given 1 dose of Monurol. Patient has additionally been seen in the hospital in the past for hypoglycemic and hyperglycemic episodes.
Vital signs on arrival significant for bradycardia which has been seen in the past. Patient opens her eyes to verbal stimuli, otherwise nonverbal. Unremarkable cardiac, pulmonary, abdominal exam. Repeat glucose here is normal. long-term
called, deny any increase in medications or extra of insulin. Suspect hypoglycemic episode from poor p.o. intake. Will repeat urinalysis to ensure that infection has cleared, and continue to monitor patient's glucose. EKG is sinus bradycardia
without acute evidence of ischemia.
23:50 - Glucose dropped back down to the 60s. D50 administered
02:15 -patient's glucose has been stable. Will encourage p.o. intake. Otherwise feel stable for discharge. Urine without any sign of infection and labs otherwise unremarkable. Vital stable. Will provide transportation back to facility.
Discharge Plan
Departure
Prescriptions:
No Action
insulin lispro [Humalog KwikPen Insulin] 100 unit/mL Insulin Pen
12 sliding scale dose SC ACHS
Rx Instructions:
150-200=2u,201-250=4u,251-300=6u,301-350=8u,351-400=10u
risperidone 0.25 mg tablet
0.25 mg PO Q8H
escitalopram oxalate 5 mg tablet
5 mg PO DAILY
tamsulosin 0.4 mg capsule
0.4 mg PO HS
acetaminophen [Tylenol Extra Strength] 500 mg Tablet
1,000 mg PO Q4HPRN PRN (Reason: mild pain)
bisacodyl [Dulcolax (bisacodyl)] 10 mg Suppository
10 mg TX [id number] PRN (Reason: if no bm on 3rd day)
hyoscyamine sulfate 0.125 mg Tablet, Sublingual
0.125 mg sublingual Q4HPRN PRN (Reason: secretions)
lorazepam [Lorazepam Intensol] 2 mg/mL Concentrate
1 mg sublingual Q4HPRN PRN (Reason: anxiety)
sennosides [senna] 8.6 mg Tablet
8.6 mg PO DAILYPRN PRN (Reason: if no bm on 3rd day)
ondansetron 4 mg Tablet,Disintegrating
4 mg PO Q4HPRN PRN (Reason: nausea/vomiting)
polyethylene glycol 3350 [HealthyLax] 17 gram powder in packet
17 g PO DAILYPRN PRN (Reason: constipation)
insulin glargine [Lantus Solostar U-100 Insulin] 100 unit/mL (3 mL) insulin pen
18 unit SC QPM
Referrals:
Jose Manuel Yuan MD [Family Provider, Family Practice]
Interventions
Interventions:
*Risk Screen - Suicide Last Done: 07/31/25 22:40
*General Assessment Last Done: 07/31/25 22:40
*Neglect/Abuse Screening Last Done: 07/31/25 22:40
*ED- Fall Risk Assessment Last Done: 07/31/25 22:40
*ED COVID-19 Vaccine History Last Done: 07/31/25 22:40
*ED Influenza Vaccine History Last Done: 07/31/25 22:40
ED- Neurological Assessment Last Done: 07/31/25 22:40
ED-Skin Assessment Last Done: 07/31/25 22:40
Discharge Date and Time
Print Language: [place]
[2025-07-31 23:49] LABS: Glucose - Point of Care 68 mg/dl (70-99)
[2025-07-31 23:50] LABS: Urine Character Clear (Clear)
[2025-07-31] MEDS: DEXTROSE 50% SYRINGE 25 GRAMS IV (23:52)
[2025-08-01] VITALS: BP 130/58
[2025-08-01 00:02] LABS: Urine Red Blood Cell 0-2 /HPF (0-2); Urine Squamous Cell 0-2 /LPF (Few); Urine White Cell 0-2 /HPF (0-5)
[2025-08-01 00:13] LABS: Glucose - Point of Care 193 mg/dl (70-99)
[2025-08-01] MEDS: D10W 500 IV (00:14)
[2025-08-01 01:00] VITALS: BP 120/64
[2025-08-01 01:14] LABS: Glucose - Point of Care 188 mg/dl (70-99)
[2025-08-01 02:00] VITALS: BP 140/65
[2025-08-01 02:07] LABS: Glucose - Point of Care 201 mg/dl (70-99)
[2025-08-01 02:58] LABS: Glucose - Point of Care 172 mg/dl (70-99)
== END 2025-08-01 03:02 | disposition home or self-care (01) ==
LOC: EMR 22:25
PROVIDERS: EMERGENCY PHYSICIAN Student in an Organized Health Care Education/Training Program; FAMILY PHYSICIAN Family Medicine
DX: E10.649 Type 1 diabetes mellitus with hypoglycemia without coma (principal); F03.94 Unspecified dementia, unspecified severity, with anxiety; I10 Essential (primary) hypertension; Z79.4 Long term (current) use of insulin; Z86.19 Personal history of other infectious and parasitic diseases; Z87.440 Personal history of urinary (tract) infections
CPT/HCPCS: 99283; 80053; 81003; 81015; 82962; 85025; 93005

== ENCOUNTER 2025-10-09 12:13 | Emergency (ER) | payer MEDICARE, OTHER, SELFPAY ==
[2025-10-09 12:14] VITALS: BP 131/67
[2025-10-09 12:27] LABS: Glucose - Point of Care 169 mg/dl (70-99)
--- NOTE | 2025-10-09 12:46 | ED.GENMED ---
History of Present Illness
General
Chief Complaint: Blood Sugar Problem
Source: ambulance crew
Exam Limitations: none
Time Seen by Provider: 10/09/25 12:25
Nursing documentation reviewed up to this point in time: agreed with
History of Present Illness
History of Present Illness:
Patient is a 71-year-old female from the [facility] with dementia. Patient apparently received insulin at 11:40 AM had an unwitnessed fall on her left side and looked drowsy. Sugar was checked at that time was found to be 41. Patient was
given glucagon in her thigh and her repeat Accu-Chek was 71
Patient presents awake alert confused baseline dementia. No obvious head injury on exam. Moving all extremities.
Past History
Past History
ED Past Medical History: HTN, IDDM, Psychiatric (anxiety) and Other (Dementia)
ED Past Surgical History: Orthopedic
Social History
Tobacco: Non-smoker
Alcohol: Former
Drug: None
Personal:
Living: shelter
Phy Exam
General Physical Exam
General Presentation: no apparent distress
General age: appears stated age
General Skin: warm and dry
General Habitus: elderly
General Mental: alert
General Hydration: appears well hydrated
Cardiovascular Exam
Cardiovascular Exam: regular rate/rhythm, no murmur and normal peripheral pulses
Neurological Exam
Neurological Exam: alert and other (baseline confusion )
Musculoskeletal Exam
Musculoskeletal Exam: full ROM
Skin Exam
Skin Exam: normal color and warm/dry
Psychiatric Exam
Psychiatric Exam: normal mood/affect
Course
Orders/Labs/Results
Orders:
Orders
10/09/25 12:47
CT Head W/o Iv Contrast Urgent
Comment:
Reason For Exam: trauma
10/09/25 13:54
Complete Blood Count/With Diff Urgent
Comprehensive Metabolic Panel Urgent
Abnormal Lab Results
10/09/25 10/09/25
12: 13:54
WBC 11.4 H 10^3/uL
(4.8-10.8)
RBC 3.71 L 10^6/uL
(4.20-5.40)
Hct 36.0 L %
(37.0-47.0)
MCH 33.2 H pg
(27.0-31.0)
Abs Immat Gran (auto) 0.1 H 10^3/uL
(0-0.05)
Absolute Neuts (auto) 10.2 H 10^3/uL
(1.4-6.5)
Absolute Lymphs (auto) 0.6 L 10^3/uL
(1.2-3.4)
Neutrophils % 89.6 H %
(42.2-75.2)
Lymphocytes % 5.3 L %
(20.5-51.1)
BUN 21 H mg/dl
(7-17)
Creatinine 0.4 L mg/dL
(0.6-1.0)
Glucose 146 H mg/dl
(70-99)
POC Glucose 169 H mg/dl
(70-99)
10/09/25 13:54
10/09/25 13:54
Vital Signs
Initial and Last Documented VS:
Initial Vital Signs
Temp Pulse Resp BP Pulse Ox
98.0 F 58 19 131/67 97
10/09/25 12:14 10/09/25 12:14 10/09/25 12:14 10/09/25 12:14 10/09/25 12:14
Last Documented Vital Signs
Temp Pulse Resp BP Pulse Ox
98.0 F 62 13 131/67 98
10/09/25 12:14 10/09/25 13:45 10/09/25 13:45 10/09/25 12:14 10/09/25 13:30
MDM/Problems Addressed
Differential Diagnosis Includes:
Not limited to hypoglycemia head injury
MDM/Problems Addressed:
As documented patient is a 75-year-old female with dementia from the nursing facility sent in for hypoglycemia. Patient did sustain a fall which was not witnessed and at that time her sugar was found to be 41. She was given glucagon prior to
arrival. Patient presented with stable blood sugar, 169. CT head was done and negative labs unremarkable. Stable for discharge back to facility.
Chronic conditions affecting care:
Dementia diabetes
*Radiology
Radiology exam reviewed: radiology read reviewed
*Pulse Oximetry
SaO2: 97
Oxygen Mode of Delivery: Room air
Patient hypoxic: no
*Critical Care Note
Total Time (30-74mins, 75-104mins- exclusive of procedures): Not Applicable
ED Attending Note
-
Portions of this chart may have been created with voice recognition software.� Occasional wrong word or��sound alike� substitutions may have occurred due to the inherent limitations of voice recognition software.
Discharge Plan
Departure
Patient Disposition: Home (Routine Discharge)
Date of Disposition: 10/09/25
Time of Disposition: 14:57
Patient with high blood pressure during this ER visit?: Yes
Condition: Fair
Covid-19: Not Applicable
Discharge Problem:
Hypoglycemia
Instructions: Low blood sugar in adults - ED (DC), BLOOD PRESSURE
Prescriptions:
No Action
insulin lispro [Humalog KwikPen Insulin] 100 unit/mL Insulin Pen
12 sliding scale dose SC ACHS
Rx Instructions:
150-200=2u,201-250=4u,251-300=6u,301-350=8u,351-400=10u
risperidone 0.25 mg tablet
0.25 mg PO Q8H
escitalopram oxalate 5 mg tablet
5 mg PO DAILY
tamsulosin 0.4 mg capsule
0.4 mg PO HS
acetaminophen [Tylenol Extra Strength] 500 mg Tablet
1,000 mg PO Q4HPRN PRN (Reason: mild pain)
bisacodyl [Dulcolax (bisacodyl)] 10 mg Suppository
10 mg NE [id number] PRN (Reason: if no bm on 3rd day)
hyoscyamine sulfate 0.125 mg Tablet, Sublingual
0.125 mg sublingual Q4HPRN PRN (Reason: secretions)
lorazepam [Lorazepam Intensol] 2 mg/mL Concentrate
1 mg sublingual Q4HPRN PRN (Reason: anxiety)
sennosides [senna] 8.6 mg Tablet
8.6 mg PO DAILYPRN PRN (Reason: if no bm on 3rd day)
ondansetron 4 mg Tablet,Disintegrating
4 mg PO Q4HPRN PRN (Reason: nausea/vomiting)
polyethylene glycol 3350 [HealthyLax] 17 gram powder in packet
17 g PO DAILYPRN PRN (Reason: constipation)
insulin glargine [Lantus Solostar U-100 Insulin] 100 unit/mL (3 mL) insulin pen
18 unit SC QPM
Referrals:
Jose Manuel Yuan MD [Family Provider, Family Practice]
Activity Restrictions/Additional Instructions:
CAT scan was done and negative. Patient was observed here blood sugar has been stable.
Interventions
Interventions:
*Risk Screen - Suicide Last Done: 10/09/25 12:22
*General Assessment Last Done: 10/09/25 12:22
*Neglect/Abuse Screening Last Done: 10/09/25 12:22
*ED COVID-19 Vaccine History Last Done: 10/09/25 12:22
*ED Influenza Vaccine History Last Done: 10/09/25 12:22
[facility] Fall Risk Assessment Tool Last Done: 10/09/25 12:38
ED- Neurological Assessment Last Done: 10/09/25 12:39
Discharge Date and Time
Print Language: CANADIAN
[2025-10-09 14:05] LABS: Hematocrit 36.0 % (37.0-47.0); Hemoglobin 12.3 g/dL (12.0-16.0); Mean Corp Hgb Conc. 34.2 g/dL (33.0-37.0); Mean Corpuscular Volume 97.0 fL (81.0-99.0); Nucleated Red Blood Cells % 0 %; Platelet Count 249 10^3/uL (130-400); Red Cell Dist. Width 13.7 % (11.5-14.5)
[2025-10-09 14:22] LABS: ALT (SGPT) 12 U/L (0-35); AST (SGOT) 18 U/L (14-36); Albumin 3.8 g/dl (3.5-5.0); Alkaline Phosphatase 72 U/L (38-126); Blood Urea Nitrogen 21 mg/dl (7-17); Calcium 8.9 mg/dl (8.4-10.2); Carbon Dioxide 29 mmol/L (22-30); Chloride 104 mmol/L (98-107); Glucose 146 mg/dl (70-99); Potassium 3.9 mmol/L (3.5-5.1); Sodium 138 mmol/L (135-145); Total Protein 6.8 g/dl (6.3-8.2); eGFR > 60.00
[2025-10-09 15:30] VITALS: BMI 19.6
[2025-10-09 16:44] LABS: Glucose - Point of Care 219 mg/dl (70-99)
[2025-10-09 18:50] VITALS: BP 158/104
== END 2025-10-09 19:26 | disposition home or self-care (01) ==
LOC: EMR 12:13
PROVIDERS: Nurse Practitioner; EMERGENCY PHYSICIAN Emergency Medicine; FAMILY PHYSICIAN Family Medicine
DX: E11.649 Type 2 diabetes mellitus with hypoglycemia without coma (principal); F02.84 Dementia in other diseases classified elsewhere, unspecified severity, with anxiety; I10 Essential (primary) hypertension
CPT/HCPCS: 99284; 70450; 80053; 82962; 85025